=== PATIENT | female | born 1970 | race Caucasian/White ===

== ENCOUNTER 2017-12-19 10:30 | Outpatient (RCR) | payer OTHER, SELFPAY ==
--- NOTE | 2017-11-07 14:17 | HP.PTEVAL_ITS ---
Patient's Visit Information FAIZA DIAZ is a 47 year old F referred to Physical Therapy by Saulo TABOR with a diagnosis of Degeneration of L-spine. Date of Evaluation: 11/07/17 Physical Therapist: Jessica Jiang - Visit Plan Frequency: 2x /Week Duration: 6 Weeks Plan: 2X/ week for 6 weeks for centralization of symptoms using extension principle, core stability, postural exercise, possible trial of AT with modalities PRN - Subjective Subjective: Pt has been having hip pain recently. Pt has a HD in her back and has been that way since before 2005. She has put up with the pain and it is to the point she can not put up with it. She has pain all the time. It used to be sciatic pain down her leg and she could pop her back into place for it to calm it down but now it is so stiff she can not do it. She usually walks or jogs all the time but she has pain in her L foot....(it is not sciatic pain) and she has neuromas and cysts in her foot...had a nerve block...is allergic to steroids and they made her sick. She is supposed to be walking in a boot but it is making her back hurt worse. It feels like her foot is curshed. She claims that she can not walk on TM or run. [facility] said no MRI until after PT. L hip hurts to lay on it. Back hurts all the time and motrin does not help. Pt is not exercising right now. SHe has not been seen by a surgeon. bending without bending knees, and anything that causes a little bending or light lifting increases pain. - Pain Back pain Pain Intensity (Out of 10): 5 Pain Intensity Range: 9 L foot pain Pain Intensity (Out of 10): 7 Pain Intensity Range: 9, 10 - Objective Gait: walks with a normal gait pattern. Trunk AROM: Flexion 75% normal ROM, EXt 75% with hands on hips for support, SB B 100% B. LE MMT: hip flex B 4/5, knee ext B 4/5, B knee flex 4/5, B hip ext 4-/5, B hip abd 4/5. Able to walk on heels with no issue but can not walk on the toes on the L due to L foot issue being seen by foot Dr for. Prone lying... centr of back pain, Prone press up 2X 10 (center of back pain..no better and no worse), Prone pressup with pt sag 2X10(still center of back pain but pt felt a little better than when she came in and felt looser). Discussed sitting with good posture and avoiding all bending at the waist. Patellar DTR R 2+/3 and L 0/3. -SLR on the R and quwstionable for pain on the L. + SLUMP worse on the L than the R. - Goals Goal 1:: I HEP Goal Time Frame: 4-6 Weeks Goal 2:: Decrease back pain to 2/10 with modified ADL's Goal Time Frame: 4-6 Weeks Goal 3:: it with upright posture during treatment sessions Goal Time Frame: 4-6 Weeks - Rehabilitation Potential Rehabilitation Potential: Good - Anticipated Interventions Patient/Client Instruction: Educate patient on: Plan of Care For the Purpose of:: To decrease pain, To increase ROM, To improve nutrient delivery to tissue, To improve muscle performance and motor function, To improve ability to perform ADL's, To increase tolerance to activity/condition/ position, To improve performance and independence with ADL's, To improve health of tissue, To decrease soft tissue restriction, To increase flexibility/ROM Therapeutic Exercise to Include: Strength training, Body mechanics, Postural training, Flexibilty training, Active ROM, Dynamic Lumbar Stabilization, Blake Exercises For the Purpose of:: To decrease pain, To increase ROM, To improve nutrient delivery to tissue, To improve muscle performance and motor function, To improve ability to perform ADL's, To increase tolerance to activity/condition/ position, To improve performance and independence with ADL's, To improve health of tissue, To increase flexibility/ROM Manual Therapy Techniques to Include: Soft tissue mobilization For the Purpose of:: To decrease pain, To increase ROM, To improve nutrient delivery to tissue, To improve muscle performance and motor function IF ES: Yes Cryotherapy (ice pack, ice massage): Yes Ultrasound (thermal/non thermal): Yes For the Purpose of:: To decrease pain, To decrease swelling/inflammation, To increase ROM, To improve nutrient delivery to tissue Thank you for the opportunity to evaluate your patient. For Medicare and Medicare HMO plans, please review the plan of care and approve it. It will need to be FAXED BACK to us at [phone] for Medicare purposes. Please let me know if there are questions or concerns regarding this plan of care. Physician Signature: Date:
--- NOTE | 2017-12-19 11:28 | HP.PTDCSUM_ITS ---
HP - PT D/C Summary It has been my pleasure to treat FAIZA DIAZ under orders from DR.RLINDS David for the diagnosis of Degeneration of L-spine for a total of 11 visit (s). Discharge Date: 12/19/17 Please see the following information for a summary of their discharge status. - Subjective Subjective: Pt has a Dr appt next Monday. Back pain is there all the time but lifting and things make it worse. Pt took gabapetin last night and it helped her sleep. SHe has been waking up in the night with pain. - Pain Back pain Pain Intensity (Out of 10): 6 L foot pain Pain Intensity (Out of 10): 5 L Hip Pain Intensity (Out of 10): 1 - Overall Improvement % Improvement: 30 - Objective Objective/Function: see above - Goals Goal 1:: I HEP Goal Progress: Goal Met Goal 2:: Decrease back pain to 2/10 with modified ADL's Goal Progress: Not Progressing Goal 3:: it with upright posture during treatment sessions Goal Progress: Goal Met - Plan Plan: DC PT to physician reassessment - D/C Information Discharge Comments: DC PT to physician referral If there are questions or concerns regarding this patient's physical therapy, please feel free to call me at [phone]. Thank you for the referral of this patient. Sincerely, Jessica Jiang
== END 2017-12-19 19:00 | disposition home or self-care (01) ==
LOC: PT 10:30
PROVIDERS: Family Provider Preventive Medicine Occupational Medicine; PCP Preventive Medicine Occupational Medicine; Visit Provider Preventive Medicine Occupational Medicine
DX: M51.36 Other intervertebral disc degeneration, lumbar region (principal); M25.552 Pain in left hip
CPT/HCPCS: 97014; 97110; 97161; 97530; G0283

== ENCOUNTER → 2018-01-03 15:31 | Outpatient (CLI) | payer OTHER, SELFPAY ==
--- NOTE | 2018-01-03 15:51 | MRI_ITS ---
STUDY: MRI LUMBAR SPINE WITHOUT CONTRAST REASON FOR EXAM: Female, 47 years old. Low back pain radiating to the left foot TECHNIQUE: Standardized fat and water weighted pulse sequences were obtained in the sagittal and axial planes. COMPARISON: X-ray 10/10/2017, MRI 04/11/2006 FINDINGS: T12-L1: Normal endplates. Normal disc height, hydration and morphology. Normal bilateral facet joints. Normal central canal and bilateral lateral recesses. Normal bilateral intervertebral neural foramina. Normal lumbar lordosis. There is no substantial scoliosis. Normal conus medullaris that terminates at the L1 level. L1-2: Normal endplates. Normal disc height, hydration and morphology. Normal bilateral facet joints. Normal central canal and bilateral lateral recesses. Normal bilateral intervertebral neural foramina. L2-3: Normal endplates. Normal disc height, hydration and morphology. Normal bilateral facet joints. Normal central canal and bilateral lateral recesses. Normal bilateral intervertebral neural foramina. L3-4: There is disc desiccation, loss of disc space height and disc bulge with shallow left and right foraminal/extraforaminal disc protrusion adjacent to the exiting nerve roots (image 12, 13/ axial T2, T10, 7, / sagittal T2). Spinal stenosis is mild. L4-5: There is disc desiccation and disc bulge (image 8/28 axial T2, 6/ sagittal T2). There is facet arthrosis. There is a right extraforaminal annular tear adjacent to the right exiting L4 nerve root (image 10/13 sagittal T2, 8/20 axial T2). L5-S1: There is disc desiccation, slight loss of disc space height, endplate spondylosis and disc bulge (image 3/28 axial T2, / sagittal T2). Normal visualized sacral ala. Normal visualized paraspinous soft tissue structures. MRI/Spine Lumbar (Routine) IMPRESSION: Degenerative disc bulge with shallow left and right foraminal/extraforaminal disc protrusion, L3-L4, with mild spinal stenosis Degenerative disc bulge with right extraforaminal annular tear adjacent to the right exiting L4 nerve root Degenerative disc bulge, L5-S1 Electronically Signed: Gopi Anton MD at 21:36 EDT Tel , Service support ,
== END ==
PROVIDERS: Family Provider Preventive Medicine Occupational Medicine; PCP Preventive Medicine Occupational Medicine; Visit Provider Preventive Medicine Occupational Medicine
DX: M54.16 Radiculopathy, lumbar region (principal)
CPT/HCPCS: 72148

== ENCOUNTER → 2019-02-02 | Outpatient (CLI) | payer OTHER, SELFPAY ==
--- NOTE | 2019-02-02 10:35 | BI_ITS ---
MAMMOGRAPHY - BILATERAL SCREENING REASON FOR EXAM: Female, 48 years old. Routine annual screening examination. PERTINENT HISTORY: Non-contributory. TECHNIQUE: Digital bilateral breast kathi (3D mammographic acquisition) in the CC and MLO projections. 2-D mediolateral oblique (MLO) and craniocaudad (CC) views of both breasts were obtained. CAD: Full Field Digital Mammography with Computer Added Detection was performed. COMPARISON: Comparison is made with prior study dated January 19, 2017 and December 09, 2015. FINDINGS: Breast Composition: The breasts are extremely dense, which lowers the sensitivity of mammography. There are no dominant masses or suspicious calcifications. Stable appearance of the small bilateral axillary lymph nodes. No other significant abnormalities are identified. There has been no significant change since the prior study. BI/SCREENING MAMM (CAD), BILAT IMPRESSION: Stable bilateral screening mammogram. Yearly follow-up mammogram recommended. (A) ASSESSMENT CATEGORY: BIRADS Category 2: Benign. A letter regarding these results will be sent to the patient by the facility within 30 days. Approximately 10% of breast cancers are not detected by mammography. A normal mammogram should not delay biopsy of a clinically suspicious abnormality. [id number] Electronically Signed: Tong Field, at 8:58 EDT , Service support ,
== END | disposition home or self-care (01) ==
PROVIDERS: Family Provider Preventive Medicine Occupational Medicine; PCP Preventive Medicine Occupational Medicine; Referring Provider Preventive Medicine Occupational Medicine; Visit Provider Preventive Medicine Occupational Medicine
DX: Z12.31 Encounter for screening mammogram for malignant neoplasm of breast (principal)
CPT/HCPCS: 77063; 77067

== ENCOUNTER → 2021-06-04 | Outpatient (CLI) | payer OTHER, SELFPAY | END | disposition home or self-care (01) | LOC: LABSPEC 10:59 | PROVIDERS: PCP Preventive Medicine Occupational Medicine; Visit Provider Obstetrics & Gynecology | DX: Z11.3 Encounter for screening for infections with a predominantly sexual mode of transmission (principal); N77.1 Vaginitis, vulvitis and vulvovaginitis in diseases classified elsewhere ==

== ENCOUNTER → 2022-03-18 | Outpatient (CLI) | payer OTHER, SELFPAY ==
--- NOTE | 2022-03-18 15:39 | MRI_ITS ---
STUDY: MRI LEFT FOREFOOT WITHOUT CONTRAST REASON FOR EXAM: Female, 51 years old. BONE TUMOR, NEUROMA, STRESS FX 3/4 MT- LEFT foot TECHNIQUE: Standardized fat and water weighted pulse sequences were obtained in all 3 orthogonal planes. COMPARISON: Left foot radiograph March 02, 2022.. FINDINGS: Mild diffuse subcutaneous soft tissue edema in the first through third digits. No organized fluid collection or artifact. Moderate first metatarsophalangeal joint space loss, osteophyte formation, and subchondral cystic change with subcutaneous soft tissue edema throughout the distal half of the first metatarsal. Joint spacing within the remainder of the foot is grossly normal in appearance. No joint effusion. Normal osseous alignment. Third metatarsal proximal metaphyseal osteolytic lesion with marked hyperintense bubbly T2 appearance, mildly decreased iso to hypointense T1 signal with endosteal scalloping and cortical thinning best seen on axial T1 images without periostitis or extraosseous soft tissue extension. Otherwise normal bone marrow signal. MRI/Lower Ext/No Jt/w/o IMPRESSION: 1. Fourth digit masslike signal abnormality along the proximal metaphysis and proximal diaphysis with cortical thinning. Features are indeterminate. Differential includes osteomyelitis, inflammatory processes such as brown tumor, or neoplastic process including proteinaceous aneurysmal or unicameral bone cyst. Malignant neoplasm is less likely in the foot however is not excluded at patient age. IV contrast MRI is recommended. 2. Osteoarthritis of the first metatarsophalangeal joint with distal metatarsal reactive edema, possibly representing osteoarthritis or particulate disease such as gout. Electronically Signed: Chucho Rowley MD at 8:26 EDT ,
== END | disposition home or self-care (01) ==
LOC: MRI 15:31
PROVIDERS: PCP Preventive Medicine Occupational Medicine; Referring Provider Podiatrist; Visit Provider Podiatrist
DX: M84.375A Stress fracture, left foot, initial encounter for fracture (principal); M20.5X2 Other deformities of toe(s) (acquired), left foot; G57.62 Lesion of plantar nerve, left lower limb; M77.52 Other enthesopathy of left foot and ankle; M85.472 Solitary bone cyst, left ankle and foot
CPT/HCPCS: 73718

== ENCOUNTER → 2022-09-01 | Outpatient (CLI) | payer OTHER, SELFPAY ==
[2022-09-01 12:11] LABS: Erythrocyte Sedimentation Rate 6 mm/hr (0-30)
[2022-09-01 12:22] LABS: ALB/GLOB Ratio 1.1 RATIO (0.9-2.4); AST(SGOT) 19 U/L (15-37); Alanine Aminotransfer ALT/SGPT 30 U/L (13-56); Albumin, Serum 3.8 g/dL (3.2-5.0); Alkaline Phosphatase 105 U/L (45-117); Anion Gap 6 (5-15); BUN 14 mg/dL (7-18); BUN/Creat Ratio 20.1 RATIO (10-20); CRP < 2.90 mg/L (0.0-3.0); Calcium,Total 9.1 mg/dL (8.5-10.1); Chloride 109 mmol/L (98-107); Cholesterol 202 mg/dL (200); EST Glomerular Filtration Rate 95 mL/min (>60); Est Glom Filt Rate - Afr Amer 115 mL/min (>60); Globulin 3.6 g/dL (2.2-4.2); Glucose 90 mg/dL (74-106); High Density Lipoprotein 82 mg/dL; Potassium 4.3 mmol/L (3.5-5.1); Protein, Total 7.4 g/dL (6.4-8.2); Rheumatoid Factor < 10.0 IU/mL (<15); Sodium Level 141 mmol/L (136-145); Triglycerides 57 mg/dL; Very Low Density Lipoprotein 11 mg/dL (5-40)
[2022-09-02 16:08] LABS: Anti-Centromere B Ab <0.2 AI (0.0-0.9); Anti-Chromatin <0.2 AI (0.0-0.9); Anti-Jo <0.2 AI (0.0-0.9); Anti-Scleroderma-70 AB <0.2 AI (0.0-0.9); RNP Ab <0.2 AI (0.0-0.9); SJOGREN'S Anti-SS-A test < 0.2 AI (0.0-0.9); SJOGREN'S Anti-SS-B test < 0.2 AI (0.0-0.9); Smith Ab <0.2 AI (0.0-0.9)
[2022-09-02 20:52] LABS: Anti-dsDNA Ab 1 IU/mL (0-9)
[2022-09-04 15:28] LABS: CCP IgG Antibodies 0 units (0-19)
== END | disposition home or self-care (01) ==
LOC: BIMLAB 08:20
PROVIDERS: PCP Internal Medicine; Referring Provider Internal Medicine; Visit Provider Internal Medicine
DX: M25.9 Joint disorder, unspecified (principal); F32.A Depression, unspecified; E78.00 Pure hypercholesterolemia, unspecified
CPT/HCPCS: 36415; 80053; 80061; 85652; 86140; 86200; 86225; 86235; 86431

== ENCOUNTER 2022-10-31 08:45 | Day surgery (SDC) | payer OTHER, SELFPAY ==
--- NOTE | 2022-10-31 08:52 | HP.PCM_ITS ---
HPI - General General Date of Admission: 10/31/22 Date of Service: 10/31/22 Chief Complaint: Screening colonoscopy HPI Narrative FAIZA DIAZ, is a 52 F who presents for screening colonoscopy. She has not had a colonoscopy in the past. She does have family history of colon polyps but no family history colon cancer. She denies any change in bowel habits. She denies abdominal pain. She denies any chest pain or shortness of breath. She denies any bleeding per rectum. She denies any nausea vomiting or diarrhea. 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 Post-menopausal Wears glasses Home Medications budesonide 32 mcg/actuation nasal spray (Rhinocort Allergy) 5 ml NS DAILY PRN PRN Nasal Congestion 01/20/16 [History Last Taken Unknown] calcium citrate 200 mg calcium-vitamin D3 6.25 mcg (250 unit) tablet 1 ea PO DAILY 01/20/16 [History Last Taken Unknown] ascorbic acid (vitamin C) 500 mg capsule 500 mg PO DAILY 06/08/22 [History Last Taken Unknown] multivitamin 1 tab PO DAILY 06/08/22 [History Last Taken Unknown] multivitamin with minerals (Hair,Skin and Nails tablet) 1 tab PO DAILY 06/08/22 [History Last Taken Unknown] omega-3 fatty acids-fish oil 300 mg-500 mg capsule (Fish Oil) 1 cap PO DAILY 06/08/22 [History Last Taken Unknown] diclofenac sodium 50 mg tablet,delayed release 50 mg PO BID #60 tabs 08/31/22 [Rx Last Taken Unknown] duloxetine 30 mg capsule,delayed release (Cymbalta) 30 mg PO DAILY #30 caps 10/03/22 [Rx Last Taken Unknown] gabapentin 600 mg tablet 600 mg PO QHS #30 tabs 10/19/22 [Rx Last Taken Unknown] Allergy/AdvReac Type Severity Reaction Status Date / Time pineapple Allergy Unknown tongue Verified 10/28/22 13:07 swells ciprofloxacin [From Cipro] AdvReac Nausea/Vom/ Verified 10/28/22 13:07 Diarrhea ciprofloxacin HCl AdvReac Nausea/Vom/ Verified 10/28/22 13:07 [From Cipro] Diarrhea prednisone AdvReac Nausea/Vom/ Verified 10/28/22 13:07 Diarrhea Family History Grandmother Heart disease Myocardial infarction Breast cancer Grandfather Parkinson disease Colon polyps Surgical History H/O dilation and curettage Hx of hysterectomy Social History household members: none current occupational status: employed current occupation: [employer] Smoking Status: Never smoker Electronic Cigarette Use: not used alcohol intake: current alcohol intake frequency: holidays/special occasions only substance use type: does not use what type of physical activity do you participate in: bicycling, weight training and other details: cardio machines frequency: 5-6 times per week do you feel safe at home: Yes ROS Review of Systems ROS Unobtainable: other Constitutional Constitutional: Denies fatigue, fever(s), poor appetite, weight gain or weight loss ENT HEENT: Denies mouth lesions Cardiovascular Cardiovascular: Denies abdominal bloating, abdominal edema or abdominal pain Respiratory/Chest Respiratory/Chest: Denies change in mental status, change in phlegm color, chest congestion or chest tightness Gastrointestinal Gastrointestinal: Denies belching, bloating, change in bowel habits, change in stool character, chewing difficulty, coffee ground emesis, constipation, cramping, diarrhea, dyspepsia, dysphagia, early satiety, excessive flatus, fecal incontinence, heartburn, hematemesis, hematochezia, hemorrhoids, loose stools, melena, nausea, odynophagia, rectal bleeding, tenesmus, vomiting or weight changes Genitourinary Genitourinary: Denies abdominal discomfort, burning urination or itching Musculoskeletal Musculoskeletal: Reports as per HPI; Denies muscle weakness or myalgias Integumentary Integumentary: Denies jaundice Neurologic Neurologic: Denies lack of coordination or weakness Psychiatric Psychiatric: Denies confusion, depression, memory loss, mood swings, paranoia or suicidal ideation Endocrine Endocrinology: Denies systems reviewed and no addt'l complaints, except as documented Hematologic/Lymphatic Hematologic/Lymphatic: Denies anemia, easy bleeding, easy bruising or lymphadenopathy Allergic/Immunologic Allergic/Immunologic: Denies systems reviewed and no addt'l complaints, except as documented Physical Exam Const alert, oriented x3, no apparent distress, healthy appearing and well nourished General Appearance: cooperative, comfortable, well kempt and well developed Orientation / Consciousness: awake and oriented to person HEENT Head and Scalp: normocephalic and atraumatic Face and Sinus: normal facial exam Mouth: oral and palatal mucosa normal Eyes General Eye: normal appearance of both eyes Neck full ROM Lymph Lymphatic: no lymphadenopathy noted Chest inspection of chest normal Resp normal respiratory effort and no use of accessory muscles Cardio regular rate and regular rhythm GI normal to inspection, nondistended, normoactive bowel sounds, soft to palpation, non-tender, non-distended and no masses Auscultation: normoactive bowel sounds Palpation: soft Percussion: normal to percussion Rectal Exam: visual inspection normal and normal sphincter tone no CVA tenderness Back/Spine no CVA tenderness and normal ROM Extremity normal to inspection Peripheral Pulses: Yes pulses 2+ throughout Skin no rashes or lesions noted General Skin Exam: no breakdown, elasticity normal and turgor normal Neuro oriented x3 Motor Exam: strength 5/5 throughout Psych mental status grossly normal Appearance: grossly normal Attitude: calm Activity / Motor Behavior: appropriate eye contact Speech: normal speech Thought Process: normal thought process Thought Content: normal thought content Attention / Concentration: attention grossly intact Memory / Cognition: memory grossly intact Insight: insight good Judgement: judgement good Assessment & Plan Assessment/Plan (1) Encounter for screening for malignant neoplasm of colon: PLAN: She will undergo a screening colonoscopy. She was explained alternatives, risk, benefits including not withstanding bleeding, infection, sepsis, perforation, need for emergent surgery . She will have an ASA of 1.
[2022-10-31 09:15] VITALS: BP 125/80; PULSE 53; RESP 18; TEMP 36.7; O2SAT 100; BMI 23.4
--- NOTE | 2022-10-31 10:00 | COLBX_PTH ---
PATIENT: FAIZA DIAZ LOC: EN U#:[id number] AGE/SX: 52/F ROOM: RE10/31/[address]: Dr. Pj Ball DO : 1970 BED: DIS: 10/31/2022 SPEC #: [id number] RECD: 10/31/22 10:50 STATUS: MARISSA REWilliam #: [id number] NEREYDA: 10/31/22 10:[address]: Pj Ball DEPT: SURGICAL PATHOLOGY RECD BY: Lauryn Lam ENTERED: 10/31/22 12:16 SP TYPE: COLON BX OTHR DR: Dr. Mariana Mohan MD Tissues: Ascending colon Procedures: Surgery Specimen Level IV HEADER OPERATION: Colonoscopy ? open access (MAC) and polypectomy PRE-OP DIAGNOSIS: Screening TISSUE SUBMITTED: Polyp at ascending colon MICROSCOPIC DIAGNOSIS Colonic polyp at ascending colon, biopsy: Tubular adenoma. AM:philomena 11/01/2022 MICROSCOPIC DESCRIPTION Slides are reviewed. GROSS DESCRIPTION Received in fixative is one container labeled with the patient's name and designated polyp at ascending colon. The specimen consists of one irregular fragment of light laureano soft tissue that measures 0.5 x 0.4 x 0.1 cm. The specimen is totally submitted in one cassette. / SJ:philomena 10/31/2022 TC:5 CPT: 78110
[2022-10-31 10:36] VITALS: BP 125/80; PULSE 74; RESP 16; TEMP 36.4; O2SAT 99
--- NOTE | 2022-10-31 10:39 | OP.CCLET_ITS ---
10/31/2022 Mariana Mohan Md Re : Colonoscopy procedure for Laura Tripp Dear Kimberlee This procedure was performed on Monday, October 31, 2022. My impressions and recommendations are as follows: Impressions : - One 5 mm polyp in the ascending colon, removed with a jumbo cold forceps. Resected and retrieved. Recommendations : - Discharge patient to home. - Resume previous diet. - Continue present medications. - Await pathology results. - Repeat colonoscopy in 5 years for surveillance. My findings are described in the full procedure note, which is enclosed. If I can be of further assistance, please feel free to contact me at . Sincerely, Pj Ball, 10/31/2022 10:38:50 AM This report has been signed electronically.
--- NOTE | 2022-10-31 10:39 | OP.COLON_ITS ---
Patient Name: Laura Tripp Procedure Date: 10/31/2022 10:02 AM Date of : 1970 Age: 52 Procedure: Colonoscopy Indications: Screening for colorectal malignant neoplasm Providers: Pj Ball DO Referring MD: Pj Ball DO Medicines: Monitored Anesthesia Care Patient Profile: This is a 52 year old female. Refer to note in patient chart for documentation of history and physical. Last Colonoscopy: none. The patient's first colonoscopy is today. Complications: No immediate complications. Procedure: Pre-Anesthesia Assessment: - Prior to the procedure, a History and Physical was performed, and patient medications and allergies were reviewed. The risks and benefits of the procedure and the sedation options and risks were discussed with the patient. All questions were answered and informed consent was obtained. Patient identification and proposed procedure were verified by the physician. Mental Status Examination: normal. Prophylactic Antibiotics: The patient does not require prophylactic antibiotics. Prior Anticoagulants: The patient has taken no previous anticoagulant or antiplatelet agents. ASA Grade Assessment: II - A patient with mild systemic disease. After reviewing the risks and benefits, the patient was deemed in satisfactory condition to undergo the procedure. The anesthesia plan was to use monitored anesthesia care (MAC). Immediately prior to administration of medications, the patient was re-assessed for adequacy to receive sedatives. The heart rate, respiratory rate, oxygen saturations, blood pressure, adequacy of pulmonary ventilation, and response to care were monitored throughout the procedure. The physical status of the patient was re-assessed after the procedure. After I obtained informed consent, the scope was passed under direct vision. Throughout the procedure, the patient's blood pressure, pulse, and oxygen saturations were monitored continuously. The Colonoscope was introduced through the anus and advanced to the cecum, identified by appendiceal orifice and ileocecal valve. The colonoscopy was performed without difficulty. The patient tolerated the procedure well. The quality of the bowel preparation was good. Scope In: 10:14:52 AM Scope Withdrawal Time 0 hours 8 minutes 43 seconds Scope Out: 10:29:22 AM Total Procedure Duration Time 0 hours 14 minutes 30 seconds Findings: The perianal and digital rectal examinations were normal. A 5 mm polyp was found in the ascending colon. The polyp was sessile. The polyp was removed with a jumbo cold forceps. Resection and retrieval were complete. Verification of patient identification for the specimen was done. Estimated blood loss was minimal. No other significant abnormalities were identified in a careful examination of the remainder of the colon. The retroflexed view of the distal rectum and anal verge was normal and showed no anal or rectal abnormalities. Impression: - One 5 mm polyp in the ascending colon, removed with a jumbo cold forceps. Resected and retrieved. Recommendation: - Discharge patient to home. - Resume previous diet. - Continue present medications. - Await pathology results. - Repeat colonoscopy in 5 years for surveillance. Procedure Code(s): --- Professional --- 08374, Colonoscopy, flexible; with biopsy, single or multiple CPT copyright 2017 [employer]. All rights reserved. The codes documented in this report are preliminary and upon micromatic hone operator review may be revised to meet current compliance requirements. Pj Ball DO 10/31/2022 10:38:50 AM This report has been signed electronically. Number of Addenda: 0 Note Initiated On: 10/31/2022 10:02 AM
[2022-10-31 10:40] VITALS: BP 125/80; BP 95/48; PULSE 65; RESP 16; O2SAT 99
[2022-10-31 10:45] VITALS: BP 125/80; BP 93/48; PULSE 62; RESP 16; O2SAT 98
[2022-10-31 10:50] VITALS: BP 125/80; BP 96/48; PULSE 57; RESP 16; TEMP 36.6; O2SAT 97
[2022-10-31 11:21] VITALS: BP 117/56; BP 125/80
== END 2022-10-31 11:29 | disposition home or self-care (01) ==
LOC: EN 08:48 → AC 08:49
PROVIDERS: PCP Internal Medicine; Referring Provider Internal Medicine; Visit Provider Internal Medicine Gastroenterology
PROC: 0DJD8ZZ Inspection of Lower Intestinal Tract, Via Natural or Artificial Opening Endoscopic (ICD-10-PCS; CPT 45378; principal; 2022-10-31 09:55)
DX: Z12.11 Encounter for screening for malignant neoplasm of colon (principal); Z86.16 Personal history of COVID-19; D12.2 Benign neoplasm of ascending colon
CPT/HCPCS: 45380; 88305; J7120

== ENCOUNTER → 2022-11-11 | Outpatient (CLI) | payer OTHER, SELFPAY ==
--- NOTE | 2022-11-11 12:29 | MRI_ITS ---
STUDY: MRI LEFT FOREFOOT WITH AND WITHOUT CONTRAST REASON FOR EXAM: Female, 52 years old. Pain. Known prior cystic lesion of the base of the third metatarsal. TECHNIQUE: Standardized fat and water weighted pulse sequences were obtained in all 3 orthogonal planes before and after the intravenous administration of 13ml Dotarem contrast. COMPARISON: Prior MRI of the foot dated March 18, 2022 and x-ray of the left foot dated March 02, 2022 FINDINGS: Diffuse osteoarthritic changes of the MTP and IP joints, most marked at the first MTP joint with reactive subchondral bone marrow edema and osteophyte formation. Osteoarthrosis of the second through fifth MTP and IP joints with small joint effusions. Lobulated cystic lesion within the lateral intramedullary space of the third metatarsal with no aggressive features, unchanged from the comparison MRI study of February 2022. This lesion is most compatible with a multilobulated cyst. No soft tissue mass is identified. No contrast enhancement is present. MRI/Lower Ext No Joint W/WO Cont IMPRESSION: Stable moderate arthrosis of the MTP and IP joints, most marked at the first MTP joint as described. Cystic septated lesion in the proximal and lateral third metatarsal base unchanged from prior study. No aggressive features, no contrast enhancement and no soft tissue mass. Lesion is stable since the comparison study of February 2022. No other abnormality present. Electronically Signed: Dallas Samayoa, at 15:54 EST ,
== END | disposition home or self-care (01) ==
LOC: MRI 12:29
PROVIDERS: PCP Internal Medicine; Referring Provider Orthopaedic Surgery Sports Medicine; Visit Provider Orthopaedic Surgery Sports Medicine
DX: M85.679 Other cyst of bone, unspecified ankle and foot (principal); G57.62 Lesion of plantar nerve, left lower limb; M19.072 Primary osteoarthritis, left ankle and foot
CPT/HCPCS: 73720; A9575

== ENCOUNTER → 2023-01-27 | Outpatient (CLI) | payer OTHER, SELFPAY ==
[2023-01-27 15:41] LABS: Estradiol 20.4 pg/mL; Follicle Stimulating Hormone 161.6 mIU/mL; Luteinizing Hormone 52.3 mIU/mL
== END | disposition home or self-care (01) ==
LOC: WOBLAB 15:01
PROVIDERS: PCP Internal Medicine; Visit Provider Nurse Practitioner Women's Health
DX: N95.2 Postmenopausal atrophic vaginitis (principal)
CPT/HCPCS: 36415; 82670; 83001; 83002

== ENCOUNTER → 2023-03-10 | Outpatient (CLI) | payer OTHER, SELFPAY ==
--- NOTE | 2023-03-10 16:43 | MRI_ITS ---
STUDY: MRI LUMBAR SPINE WITHOUT CONTRAST REASON FOR EXAM: Female, 52 years old. Lumbar spine pain TECHNIQUE: Standardized fat and water weighted pulse sequences were obtained in the sagittal and axial planes. Noncontrast images obtained. Contrast: No contrast administered COMPARISON: : No relevant prior comparison study available FINDINGS: Vertebral bodies and alignment. 1. Vertebral body height is maintained. There is a grade 1 anterolisthesis of L4 and L5 estimated at approximately 5 mm. Mild type I Modic changes present in the posterior aspect of the L4-5 disc space. Moderate facet arthropathy at this level.. 2. Paraspinous soft tissue planes have normal appearance. Normal appearance of the muscular fascial planes of the erector spinae. 3. Normal appearance of the sacrum and sacroiliac joints. Intervertebral disks levels. T12-L1: Normal endplates. Normal disc height, hydration and morphology. Normal bilateral facet joints. Normal central canal and bilateral lateral recesses. Normal bilateral intervertebral neural foramina. L1-2: Normal endplates. Normal disc height, hydration and morphology. Normal bilateral facet joints. Normal central canal and bilateral lateral recesses. Normal bilateral intervertebral neural foramina. L2-3: Minimal broad-based disc bulge, there is a LEFT lateral component with mild displacement of the emerging LEFT L2 nerve root lateral to the neural foramen however no annetta nerve root compression. No canal stenosis. L3-4: Disc desiccation, broad-based concentric disc bulge/protrusion with deformity of the anterior epidural space. There is maintenance of the central thecal sac at 10 mm. Facet and ligamentum flavum hypertrophic changes are present with crowding of nerve roots in the lateral recesses. There is a small extruded disc projecting inferiorly in the region of the RIGHT lateral recess with displacement of the emerging nerve roots without annetta nerve root impingement. L4-5: Degenerative anterolisthesis, facet arthropathy is noted. There is unroofed disc material and broad-based disc protrusion with deformity of the anterior epidural space at, central thecal sac is narrowed to approximately 7 mm. There is compression of nerve roots lateral recesses greater on the RIGHT than LEFT. There is narrowing of neural foramina with potential nerve root impingement involving the RIGHT L4 nerve root in the RIGHT neural foramen. L5-S1: Disc desiccation, broad-based chronic appearing protrusion osteophyte complex with deformity the anterior epidural space. No central canal stenosis however crowding of nerve roots lateral recesses greater on the LEFT than RIGHT. Mild facet arthropathy noted. There is a lateral and foraminal component of the disc bulge and osteophyte on the LEFT which contacts displaces the emerging LEFT L5 nerve root within and lateral to the neural foramen with potential of early impingement. Spinal cord: Normal appearance of the spinal cord and conus. Conus is located at L1. Cauda equina has normal appearance. No evidence of cord compression or edema. No intramedullary signal abnormality noted. MRI/Spine Lumbar (Routine) IMPRESSION: 1. Degenerative grade 1 anterolisthesis of L4 on L5 contributed by extensive facet arthropathy. There is moderate canal stenosis at this level, and combination of osteophyte and broad-based disc protrusion contributes to lateral recess and foraminal compromise with expected nerve root impingement as described in detail above. 2. Broad-based disc protrusion at L3-4 with crowding of nerve roots lateral recesses without annetta nerve root impingement. 3. LEFT lateral disc bulge at L2-3 contacting the emerging LEFT L2 nerve root lateral to the neural foramen without annetta impingement. No canal stenosis. 4. Chronic disc changes at L5-S1, broad-based disc protrusion osteophyte complex present without canal stenosis however there is a LEFT posterior lateral component of the disc bulge and osteophyte contacting and displacing the emerging LEFT L5 nerve root within the LEFT neural foramen and lateral to the neural foramen. Early LEFT L5 nerve root impingement is a consideration at this level. 5. Normal appearance the spinal cord and conus. Electronically Signed: Terrence Pal MD at 10:13 EDT ,
== END | disposition home or self-care (01) ==
LOC: MRI 16:37
PROVIDERS: PCP Internal Medicine; Referring Provider Orthopaedic Surgery; Visit Provider Orthopaedic Surgery
DX: M51.37 Other intervertebral disc degeneration, lumbosacral region (principal); M43.10 Spondylolisthesis, site unspecified
CPT/HCPCS: 72148

== ENCOUNTER → 2023-04-26 | Outpatient (CLI) | payer OTHER, SELFPAY ==
[2023-04-26 12:27] LABS: Absolute Lymphocyte Count 1.64 X10^3/uL (0.83-4.51); Absolute Neutrophil Count 1.4 X10^3/uL (2.0-7.7); Basophil# 0.07 X10^3/uL; Basophil% 1.8 % (0-1); Eosinophil# 0.41 X10^3/uL; Eosinophils% 10.3 % (0-5); Hematocrit 40.2 % (37-47); Hemoglobin 13.5 g/dL (12.0-15.0); Lymphocyte # 1.64 X10^3/ul (0.83-4.51); Lymphocyte % 41.1 % (19-41); Mean Corp Hgb Conc 33.6 g/dL (32-36); Mean Corpuscular Hgb 31.4 pg (27.0-32.0); Mean Corpuscular Volume 93.5 fL (81-99); Mean Platelet Vol. 9.7 fl (6.2-12.0); Monocyte% 12.5 % (0-10); NRBC Flagged by Analyzer 0 % (0-5); Neutrophil # 1.36 X10^3/uL (2.7-7.7); Platelet Count 230 K/mm3 (150-450); RBC Distribution Width CV 13.2 % (11.6-14.6); RBC Distribution Width SD 45.5 fl (35.1-43.9)
[2023-04-26 12:47] LABS: Vitamin B12 1034 pg/mL (211-911); Vitamin D,25 Hydroxy 61.9 ng/mL
[2023-04-26 12:58] LABS: AST(SGOT) 19 U/L (15-37); Alanine Aminotransfer ALT/SGPT 28 U/L (13-56); Albumin, Serum 3.6 g/dL (3.2-5.0); Alkaline Phosphatase 104 U/L (45-117); Anion Gap 4 (5-15); BUN 18 mg/dL (7-18); BUN/Creat Ratio 24.5 RATIO (10-20); Calcium,Total 8.5 mg/dL (8.5-10.1); Chloride 107 mmol/L (98-107); Cholesterol 206 mg/dL (200); Creatinine, Serum 0.73 mg/dL (0.55-1.02); EST Glomerular Filtration Rate 89 mL/min (>60); Est Glom Filt Rate - Afr Amer 108 mL/min (>60); Globulin 3.7 g/dL (2.2-4.2); Glucose 85 mg/dL (74-106); High Density Lipoprotein 78 mg/dL; Potassium 4.3 mmol/L (3.5-5.1); Protein, Total 7.3 g/dL (6.4-8.2); Sodium Level 139 mmol/L (136-145); Thyroid Stim Hormone (TSH) 3.21 uIU/mL (0.358-3.74); Triglycerides 88 mg/dL; Very Low Density Lipoprotein 18 mg/dL (5-40)
[2023-04-27 11:08] LABS: Lyme Scn Total Ab w/Rflx Negative (Negative)
== END | disposition home or self-care (01) ==
LOC: BIMLAB 08:23
PROVIDERS: PCP Internal Medicine; Referring Provider Nurse Practitioner Women's Health; Visit Provider Nurse Practitioner Women's Health
DX: N95.1 Menopausal and female climacteric states (principal); R53.83 Other fatigue; M25.9 Joint disorder, unspecified; R00.1 Bradycardia, unspecified; F32.A Depression, unspecified; E78.00 Pure hypercholesterolemia, unspecified
CPT/HCPCS: 36415; 80053; 80061; 82306; 82607; 84443; 85025; 86618

== ENCOUNTER 2023-05-08 10:11 | Day surgery (SDC) | payer OTHER, SELFPAY ==
[2023-05-08] VITALS (7 sets, daily range): BP systolic 99–129; BP diastolic 55–77; PULSE 47–63; RESP 16–18; TEMP 36.2–36.8; O2SAT 92–100; BMI 25.0
--- NOTE | 2023-05-08 10:45 | RAD_ITS ---
EXAMINATION: Fluoroscopic guided caudal block. INDICATION: PAIN Total Fluoroscopic Time: 7.4 seconds AND number of Fluoroscopic Images: 1 OR Radiation dosage index: 8.26 mGy COMPARISON: Sacrum/coccyx x-ray from 02/06/2023. FINDINGS: Limited intraoperative fluoroscopic images from caudal block submitted for review. There is intraoperative placement of a needle at the level of the coccyx. RAD/Fluor Guidance for Spine Inj IMPRESSION: Fluoroscopic guided caudal block procedure. Please see intraoperative report for further details. Electronically Signed: Az New DO at 13:12 EDT ,
[2023-05-08] MEDS: Lactated Ringers 1,000 ML 15 ML IV (10:52)
[2023-05-08] MEDS: 0.9% Normal Saline (Pres. free 10 ML Vial (11:39)
[2023-05-08] MEDS: MethylPREDNISolone Acetate 80 MG/ML Vial (11:48)
[2023-05-08] MEDS: Lidocaine 1% (5 ml sdv) 5 ML Vial (11:49)
--- NOTE | 2023-05-08 11:50 | OP.PCM_ITS ---
Report of Operation Date of Procedure: 05/08/23 Pre-Operative Diagnosis: Lumbosacral radiculopathy, lumbosacral degenerative di sc disease, lumbosacral spinal stenosis Post-Operative Diagnosis: Lumbosacral radiculopathy, lumbosacral degenerative disc disease, lumbosacral spinal stenosis Surgery/Procedure Performed:: Diagnostic/therapeutic caudal epidural steroid injection under fluoroscopic guidance Type of Anesthesia: MAC Estimated Blood Loss (mL): Minimal Description of Procedure: DESCRIPTION OF PROCEDURE: History and physical of today was reviewed. Risks and benefits of the procedure were explained. The patient understood and agreed to proceed. Informed consent was obtained. IV inserted per routine protocol. The patient was taken to the operating room and placed in the prone position with a pillow positioned underneath the abdomen. The lower back and tailbone area was prepped and draped in a sterile fashion using iodine x3. Under fluoroscopy guidance on a lateral view, the caudal space was identified. The skin and subcutaneous tissue was anesthetized with approximately 3 mL of 1% lidocaine using a 25-gauge regular needle. Under direct visualization with fluoroscopy, using a 22-gauge 3-1/2-inch spinal needle, the needle was advanced via the skin through the sacral hiatus. The tip of the needle was passed through the sacrococcygeal ligament and advanced to approximately S4 area. After negative aspiration of blood or CSF, a total of 3 mL of contrast was injected to confirm correct placement of the needle as well as cephalad spread. The spread was followed to approximately L5 area. After confirmation on AP as well as lateral view and repeated negative aspiration, a total of 15 mL of preservative-free 0.125% Marcaine with 80 mg of Depo-Medrol was injected easily. The needle was then removed intact. The patient experienced no sign or symptoms of intrathecal or intravascular injection. The patient experienced no paresthesia. The procedure was completed without any apparent difficulty or any complications. The patient appeared to tolerate it well. ASSESSMENT AND PLAN: This is a 52-year-old female with lumbosacral radiculopathy, lumbosacral degenerative disc disease, lumbosacral spinal stenosis status post diagnostic/therapeutic caudal epidural steroid injection, patient will continue her current medications, patient will follow in approximately 2 weeks for reevaluation. Complications None
== END 2023-05-08 12:37 | disposition home or self-care (01) ==
LOC: SDC 10:12 → AC 10:25
PROVIDERS: PCP Internal Medicine; Referring Provider Anesthesiology Pain Medicine; Visit Provider Anesthesiology Pain Medicine
PROC: 3E0S3BZ Introduction of Anesthetic Agent into Epidural Space, Percutaneous Approach (ICD-10-PCS; CPT 62282; principal; 2023-05-08 11:40)
DX: M48.07 Spinal stenosis, lumbosacral region (principal); M51.17 Intervertebral disc disorders with radiculopathy, lumbosacral region
CPT/HCPCS: 62323; 64483; 77003; J7120; J3490

== ENCOUNTER → 2023-06-16 | Outpatient (CLI) | payer OTHER, SELFPAY ==
--- NOTE | 2023-06-16 12:21 | BI_ITS ---
MAMMOGRAPHY - BILATERAL SCREENING REASON FOR EXAM: Female, 52 years old. Routine annual screening examination. PERTINENT HISTORY: Non-contributory. TECHNIQUE: Digital bilateral breast ashley (3D mammographic acquisition) in the CC and MLO projections. 2-D mediolateral oblique (MLO) and craniocaudad (CC) views of both breasts were obtained. CAD: Full Field Digital Mammography with Computer Added Detection was performed. COMPARISON: Comparison is made with prior outside study of February 02, 2019 and January 19, 2017. FINDINGS: Breast Composition: The breasts are extremely dense, which lowers the sensitivity of mammography. There are no dominant masses or suspicious calcifications. Stable small benign-appearing bilateral axillary lymph nodes. No other significant abnormalities are identified. There has been no significant change since the prior study. BI/SCRN MAMM (CAD)W/ASHLEY BILAT IMPRESSION: Stable bilateral screening mammogram. Yearly follow-up mammogram recommended. (A) ASSESSMENT CATEGORY: BIRADS Category 2: Benign. A letter regarding these results will be sent to the patient by the facility within 30 days. Approximately 10% of breast cancers are not detected by mammography. A normal mammogram should not delay biopsy of a clinically suspicious abnormality. [id number] Electronically Signed: Tong Field MD at 9:52 EDT ,
== END | disposition home or self-care (01) ==
LOC: OPBI 12:21
PROVIDERS: PCP Internal Medicine; Referring Provider Internal Medicine; Visit Provider Internal Medicine
DX: Z12.31 Encounter for screening mammogram for malignant neoplasm of breast (principal)
CPT/HCPCS: 77063; 77067

== ENCOUNTER 2023-06-19 06:32 | Day surgery (SDC) | payer OTHER, SELFPAY ==
[2023-06-19] VITALS (7 sets, daily range): BP systolic 119–133; BP diastolic 73–86; PULSE 51–62; RESP 14; TEMP 36.4–37.1; O2SAT 92–100; BMI 24.9
[2023-06-19] MEDS: Lactated Ringers 1,000 ML 15 ML IV (07:27)
--- NOTE | 2023-06-19 07:58 | RAD_ITS ---
STUDY: RADIOFREQUENCY ABLATION OF THE LEFT L4-S1 LEVEL. REASON FOR EXAM: Female, 52 years old. RADIO FREQ ABLATION L4-S1,LEFT FLUOROSCOPY TIME (if supplied): ( 20.1 seconds ) minutes/seconds. 4.13 mGy. 10 images were submitted. TECHNIQUE: Intraoperative imaging provided for left L4-S1 radiofrequency ablation. COMPARISON: None. RAD/Lumbar Spine 2 or 3 Views IMPRESSION: Intraoperative imaging provided for left L4-S1 radiofrequency ablation. Electronically Signed: Tong Field MD at 9:58 EDT ,
[2023-06-19] MEDS: Lidocaine 1% (30 ml sdv) 30 ML Vial (08:15)
[2023-06-19] MEDS: MethylPREDNISolone Acetate 40 MG/ML Vial IM (08:15)
--- NOTE | 2023-06-19 08:28 | PCM.OPRPT ---
Report of Operation Date of Procedure: 06/19/23 Pre-Operative Diagnosis: Lumbosacral spondylosis, lumbosacral degenerative disc disease, lumbar facet arthropathy Post-Operative Diagnosis: Lumbosacral spondylosis, lumbosacral degenerative disc disease, lumbar facet arthropathy Surgery/Procedure Performed:: Left-sided lumbar radiofrequency ablation of the medial branch L4, L5, S1 Type of Anesthesia: MAC Estimated Blood Loss (mL): Minimal Description of Procedure: History and physical today was reviewed. Risks and benefits of procedure explained. The patient understood, agreed to the procedure and informed consent was obtained. IV inserted per routine protocol. The patient was taken to the operating room, placed in the prone position with a pillow positioned underneath the abdomen. The left side of the lower back was prepped and draped in a sterile fashion using iodine x 3. Under fluoroscopy guidance, on an oblique view, the L3 through S1 vertebral bodies were visualized. The skin and subcutaneous tissue was anesthetized with approximately 10 mL of 1% lidocaine using a 25-gauge regular needle. Under direct visualization with fluoroscopy at approximately 25-degree angle, starting on the left L3, ending on the left S1 passing through the L4-L5 using a 20-gauge 15 cm with a 10 mm curved active tip radiofrequency ablation needle the needle passed through the skin. The tip of the needle was maneuvered and directed towards the superior and medial gutter of the transverse process at the vicinity of the medial branch. Once the tip of the needle was in contact with the bone, the needle pulled approximately 2 mm up the bone. The stylet of each needle was then removed. After negative aspiration of blood with CSF and confirmation of AP as well as oblique view, radiofrequency ablation probe was then inserted at each level. Impedance was then recorded at L3 to be 305, at L4 272, at L5 287, at S1 352 ohm. Motor-evoked potential was then initiated to 1.5 volt without any motor response at each corresponding level. The probe was then removed intact and a total of 6 mL preservative-free 1% lidocaine was injected in divided doses between those 4 levels after negative aspiration of blood with CSF. The radiofrequency ablation probe was then reinserted after confirmation of AP, oblique as well as lateral view. Radiofrequency ablation was then initiated to 80 degrees Celsius for 90 seconds at each level. Once concluded, the probe was then removed intact and a total of 6 mL of preservative-free 0.25% Marcaine with 40 mg Depo-Medrol was injected in divided doses between those 4 levels. The needles were then removed intact. The patient experienced no signs or symptoms of intrathecal, intravascular injection. The patient experienced no paraesthesia. The procedure was completed without any apparent difficulty, any complication. The patient appeared to tolerate well. Sensory as well as motor exam was unchanged from prior to procedure. ASSESSMENT AND PLAN: This is a 52-year-old female with lumbosacral spondylosis, lumbosacral degenerative disc disease, lumbar facet arthropathy, status post left-sided lumbar radiofrequency ablation of the medial branch L4 through S1. The patient will continue her current medications. The patient will follow up in approximately 2 weeks for reevaluation. Complications None
== END 2023-06-19 09:27 | disposition home or self-care (01) ==
LOC: SDC 06:34 → AC 06:35
PROVIDERS: PCP Family Medicine; Referring Provider Anesthesiology Pain Medicine; Visit Provider Anesthesiology Pain Medicine
PROC: (CPT 64635; principal; 2023-06-19 07:55)
DX: M47.816 Spondylosis without myelopathy or radiculopathy, lumbar region (principal); M47.817 Spondylosis without myelopathy or radiculopathy, lumbosacral region; M51.37 Other intervertebral disc degeneration, lumbosacral region
CPT/HCPCS: 64635; 64636; 72100; 76000; J7120

== ENCOUNTER 2024-01-22 08:15 | Day surgery (SDC) | payer OTHER, SELFPAY ==
[2024-01-22 08:30] VITALS: BP 136/89; PULSE 59; RESP 14; TEMP 36.9; O2SAT 100; BMI 24.7
[2024-01-22] MEDS: Lactated Ringers 1,000 ML 15 ML IV (08:42)
[2024-01-22] MEDS: Lidocaine 1% (5 ml sdv) 5 ML Vial (09:39)
[2024-01-22] MEDS: MethylPREDNISolone Acetate 80 MG/ML Vial (09:40)
--- NOTE | 2024-01-22 09:42 | RAD_ITS ---
STUDY: X-RAY - LUMBAR SPINE REASON FOR EXAM: Female, 53 years old. RT TRANSFORAMINAL EPIDURAL INJECTIONS L4-S1 TECHNIQUE: 4 intraoperative view(s) of the lumbar spine were obtained. COMPARISON: None FINDINGS: 4 limited intraoperative C-arm films were obtained as the patient has undergone epidural injections at L4-S1. RAD/Lumbar Spine 2 or 3 Views IMPRESSION: No plain film evidence of intraoperative complications during epidural injections Electronically Signed: Nikita Reyes MD at 13:50 EDT ,
[2024-01-22 09:45] VITALS: BP 109/69; BP 139/89; PULSE 59; RESP 16; TEMP 36.9; O2SAT 99
--- NOTE | 2024-01-22 09:48 | OP.PCM_ITS ---
Report of Operation Date of Procedure: 01/22/24 Description of Surgical Findings:: PREOPERATIVE DIAGNOSIS: Lumbosacral radiculopathy, lumbosacral degenerative disc disease, lumbosacral spinal stenosis POSTOPERATIVE DIAGNOSIS: Lumbosacral radiculopathy, lumbosacral degenerative disc disease, lumbosacral spinal stenosis PROCEDURE PERFORMED: Left-sided lumbar transforaminal epidural steroid injection , L4-5 and L5-S1. ANESTHESIA: MAC BLOOD LOSS: Minimal COMPLICATIONS: None DESCRIPTION OF PROCEDURE: History and physical of today was reviewed. Risks and benefits of the procedure were explained. The patient understood and agreed to proceed. Informed consent was obtained. IV inserted per routine protocol. The patient was taken to the operating room and placed in the prone position with a pillow positioned underneath the abdomen. The left side of the lower back was prepped and draped in a sterile fashion using iodine x3. Under fluoroscopy guidance on oblique view, the L4 through S1 vertebral bodies were visualized. The skin and subcutaneous tissue was anesthetized with approximately 5 mL of 1% lidocaine using a 25-gauge regular needle. Under direct visualization with fluoroscopy at approximately 35-degree angle, starting on the left L4, ending on the left L5, using a 22-gauge 3-1/2-inch spinal needle, the needle was advanced via the skin. The tip of the needle was maneuvered and directed towards the inferior and medial gutter of the transverse process at the superiormost aspect of the neural foramen. Once the tip of the needle was at the vicinity of the foramen, after negative aspiration for blood or CSF, a total of 1 mL of contrast was injected in divided doses between both levels to confirm correct placement of the needle as well as medial spread. The confirmation was obtained on AP as well as lateral view. After repeated negative aspiration and confirmation on AP as well as lateral view, a total of 6 mL of preservative-free 0.25% Marcaine with 80 mg of Depo-Medrol was injected in divided doses between both levels. The needles were then removed intact. The patient experienced no sign or symptoms of intrathecal or intravascular injection. The patient experienced no paresthesia. The procedure was completed without any apparent difficulty or any complications. The patient appeared to tolerate it well. Assessment and plan: This is a 53-year-old female with lumbosacral radiculopathy, lumbosacral degenerative disc disease, lumbosacral spinal stenosis status post left-sided lumbar transforaminal epidural steroid injection L4-5, L5-S1, patient will continue current medications, patient will follow up in approximately 2 weeks for reevaluation.
[2024-01-22 09:50] VITALS: BP 110/70; BP 139/89; PULSE 57; RESP 16; O2SAT 95
[2024-01-22 09:55] VITALS: BP 115/72; BP 139/89; PULSE 58; RESP 16; TEMP 36.8; O2SAT 96
[2024-01-22 09:56] VITALS: BP 139/89
== END 2024-01-22 10:15 | disposition home or self-care (01) ==
LOC: SDC 08:16 → AC 08:17
PROVIDERS: PCP Family Medicine; Referring Provider Anesthesiology Pain Medicine; Visit Provider Anesthesiology Pain Medicine
PROC: 3E0S3BZ Introduction of Anesthetic Agent into Epidural Space, Percutaneous Approach (ICD-10-PCS; CPT 64484; principal; 2024-01-22 09:35)
DX: M51.17 Intervertebral disc disorders with radiculopathy, lumbosacral region (principal); M48.07 Spinal stenosis, lumbosacral region
CPT/HCPCS: 64484; 01992; 64483; 72100; J7120

== ENCOUNTER → 2024-01-26 | Outpatient (CLI) | payer OTHER, SELFPAY | END | disposition home or self-care (01) | LOC: LABSPEC 10:27 | PROVIDERS: PCP Family Medicine; Referring Provider Physician Assistant; Visit Provider Physician Assistant | DX: J02.9 Acute pharyngitis, unspecified (principal) | CPT/HCPCS: 87070; 87077 ==

== ENCOUNTER → 2024-04-24 | Outpatient (CLI) | payer OTHER, SELFPAY ==
--- NOTE | 2024-04-24 06:41 | MRI_ITS ---
EXAM: MR LUMBAR SPINE WITHOUT INTRAVENOUS CONTRAST CLINICAL INDICATION: pain TECHNIQUE: Multiplanar and multisequence MR images of the lumbar spine without intravenous contrast. COMPARISON: MRI lumbar spine, 03/10/2023 and lumbar spine radiographs, 11/16/2023. FINDINGS: VERTEBRAE: Degenerative anterolisthesis of L4 upon L5 secondary to severe facet arthrosis. Vertebral hemangiomas within the L2 and L3 vertebrae. Otherwise, no suspicious marrow space signal abnormalities. Degenerative endplate signal changes at L3 through L5. Vertebral body heights are preserved. There is preservation of the normal lumbar lordosis. SPINAL CORD: No significant abnormality. Normal position and signal intensity of the conus medullaris. SOFT TISSUES: No significant abnormality. DISCS/SPINAL CANAL/NEURAL FORAMINA: L1-L2: Moderate bilateral facet arthrosis. No disc herniation, spinal canal stenosis, or neural foraminal narrowing. L2-L3: Mild disc bulge with superimposed left foraminal disc herniation and moderate bilateral facet arthrosis. Mild spinal canal stenosis and [id number] left neural foraminal narrowing. L3-L4: Disc bulge with superimposed right central to foraminal disc herniation and severe bilateral facet arthrosis. Moderate spinal canal stenosis and moderate bilateral neural foraminal narrowing. L4-L5: Disc uncovering/pseudobulge with superimposed central disc herniation and severe bilateral facet arthrosis. Severe spinal canal stenosis with crowding of the intrathecal nerve roots. Severe bilateral neural foraminal narrowing. Bilateral L4 and traversing L5 nerve root impingement. L5-S1: Right central to foraminal disc herniation superimposed upon a disc bulge and moderate bilateral facet arthrosis. Moderate right greater than left neural foraminal narrowing and mild spinal canal stenosis. Displacement without impingement of the bilateral traversing S1 nerve roots. Impingement of the left L5 nerve root which is edematous. MRI/Spine Lumbar (Routine) IMPRESSION: Multilevel degenerative changes in the lumbar spine with mild progression since prior examination. Severe spinal canal stenosis at L4-L5. Multi leveled nerve root impingement. See details above. Recommend spine surgery consultation if not already performed. Electronically Signed: Raghav Monahan DO at 22:36 EDT ,
== END | disposition home or self-care (01) ==
LOC: MRI 06:35
PROVIDERS: PCP Family Medicine; Referring Provider Orthopaedic Surgery Orthopaedic Surgery of the Spine; Visit Provider Orthopaedic Surgery Orthopaedic Surgery of the Spine
DX: M43.16 Spondylolisthesis, lumbar region (principal); M51.36 Other intervertebral disc degeneration, lumbar region; M48.062 Spinal stenosis, lumbar region with neurogenic claudication
CPT/HCPCS: 72148

== ENCOUNTER → 2024-05-08 | Outpatient (CLI) | payer OTHER, SELFPAY ==
[2024-05-08 10:17] LABS: Hematocrit 35.7 % (37-47); Hemoglobin 11.7 g/dL (12.0-15.0); Mean Corp Hgb Conc 32.8 g/dL (32-36); Mean Corpuscular Hgb 30.9 pg (27.0-32.0); Mean Corpuscular Volume 94.2 fL (81-99); Mean Platelet Vol. 9.1 fl (6.2-12.0); Platelet Count 292 K/mm3 (150-450); RBC Distribution Width SD 45.1 fl (35.1-43.9); Red Blood Count 3.79 M/mm3 (4.2-5.4); White Blood Count 4.7 K/mm3 (4.4-11.0)
[2024-05-08 10:33] LABS: Vitamin D,25 Hydroxy 74.8 ng/mL
[2024-05-08 11:18] LABS: ALB/GLOB Ratio 0.9 RATIO (0.9-2.4); AST(SGOT) 20 U/L (15-37); Alanine Aminotransfer ALT/SGPT 23 U/L (13-56); Albumin, Serum 3.3 g/dL (3.2-5.0); Alkaline Phosphatase 96 U/L (45-117); Anion Gap 6 (5-15); BUN 15 mg/dL (7-18); BUN/Creat Ratio 19.6 RATIO (10-20); Calcium,Total 8.7 mg/dL (8.5-10.1); Chloride 107 mmol/L (98-107); Cholesterol 189 mg/dL (200); Creatinine, Serum 0.77 mg/dL (0.55-1.02); EST Glomerular Filtration Rate 84 mL/min (>60); Est Glom Filt Rate - Afr Amer 102 mL/min (>60); Globulin 3.5 g/dL (2.2-4.2); Glucose 90 mg/dL (74-106); High Density Lipoprotein 76 mg/dL; Potassium 4.2 mmol/L (3.5-5.1); Protein, Total 6.8 g/dL (6.4-8.2); Sodium Level 139 mmol/L (136-145); Triglycerides 88 mg/dL; Very Low Density Lipoprotein 18 mg/dL (5-40)
== END | disposition home or self-care (01) ==
LOC: MTLAB 08:09
PROVIDERS: PCP Family Medicine; Referring Provider Family Medicine; Visit Provider Family Medicine
DX: R53.83 Other fatigue (principal); M47.816 Spondylosis without myelopathy or radiculopathy, lumbar region
CPT/HCPCS: 36415; 80053; 80061; 82306; 84443; 85027

== ENCOUNTER 2024-07-31 12:22 | Inpatient (IN) | payer OTHER, SELFPAY ==
--- NOTE | 2024-07-18 07:50 | EKG12_ITS ---
Test Reason : PREOP Blood Pressure : */* mmHG Vent. Rate : 60 BPM Atrial Rate : 60 BPM P-R Int : 152 ms QRS Dur : 88 ms QT Int : 428 ms P-R-T Axes : 66 12 18 degrees QTcB Int : 428 ms Normal sinus rhythm Normal ECG Confirmed by VLAD HEATH, ISRAEL ([id number]), editor greeting card PATRICIO HUANG ([id number]) on 07/19/2024 11:17:43 AM Referred By: OSWALDO Confirmed By: ISRAEL CHU MD
[2024-07-18 09:32] LABS: Magnesium 2.4 mg/dL (1.6-2.6)
[2024-07-18 10:02] LABS: HIV - WCH Non-Reactive (Nonreactive); Hepatitis B Surface Antibody Reactive; Hepatitis C Antibody Non-Reactive (Nonreactive)
[2024-07-19 08:13] LABS: Hepatitis A AB, Total Negative (Negative)
[2024-07-31] VITALS (18 sets, daily range): BP systolic 119–144; BP diastolic 62–91; PULSE 63–84; RESP 14–20; TEMP 36–37.1; O2SAT 96–100; BMI 24.9
[2024-07-31] MEDS: Lactated Ringers 1,000 ML 15 ML IV (06:40)
[2024-07-31] MEDS: Magnesium 1 GM over 15 mins IV (06:40)
[2024-07-31] MEDS: Acetaminophen 500 MG Tablet 1000 MG PO ×2 (07:15→21:27)
--- NOTE | 2024-07-31 07:24 | HP.PCM_ITS ---
History and Physical Date of Admission: 07/31/24 MR#: [id number] Acct: [id number] Name: LAURA DIAZ Rep #: [id number] : 1970 Provider: Dr. Jh Hernandez MD Age/Sex: 53/F [place] [facility] [place]: Signed Intake Vital Signs 01/24/2411:22 Height 5 ft 5 in Intake Visit Reasons: LUMBER SPINE Is patient in pain?: Yes Allergies pineapple Allergy (Unknown, Verified 07/25/24 08:14) tongue swellsciprofloxacin (From Cipro) Adverse Reaction (Verified 07/25/24 08:14) Nausea/Vom/Diarrheaciprofloxacin HCl (From Cipro) Adverse Reaction (Verified 07/25/24 08:14) Nausea/Vom/Diarrheaprednisone Adverse Reaction (Verified 07/25/24 08:14) Nausea/Vom/Diarrhea Medications ?Medication ?Instructions ?Recorded ?Confirmed ?Type multivitamin 1 tab PO DAILY SUPPLEMENT 06/08/22 07/25/24 History multivitamin with minerals 1 tab PO DAILY SUPPLEMENT 06/08/22 07/25/24 History (Hair,Skin and Nails tablet) omega-3 fatty acids-fish oil 300 1 cap PO DAILY SUPPLEMENT 06/08/22 07/25/24 History mg-500 mg capsule (Fish Oil) diclofenac sodium 50 mg 50 mg PO BID PAIN #180 tabs 06/05/23 07/25/24 Rx tablet,delayed release budesonide 32 mcg/actuation nasal 1 spray intranasal DAILY PRN Nasal 06/14/23 07/25/24 History spray (Rhinocort Allergy) Congestion duloxetine 60 mg capsule,delayed 60 mg PO DAILY DEPRESSION #90 caps 07/03/23 07/25/24 Rx release pregabalin 50 mg capsule 50 mg PO BID PAIN 04/04/24 07/25/24 History PFSH Medical History (Updated 07/10/24 @ 14:50 by Lian Fontenot) Wears glasses Alcohol use Restless legs Back pain Injury of back Shortness of breath on exertion Former smoker Leg cramps History of pain when walking Restless legs syndrome Elevated cholesterol Chronic fatigue Bradycardia Anxiety Arthritis 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 Bone cyst of foot Depression Surgical History H/O dilation and curettage Hx of hysterectomy Family History Grandmother Heart disease Myocardial infarction Breast cancerGrandfather Parkinson disease Colon polyps Social History household members: none current occupational status: employed current occupation: [employer] Smoking Status: Former smoker Electronic Cigarette Use: not used alcohol intake: current alcohol intake frequency: holidays/special occasions only substance use type: does not use what type of physical activity do you participate in: bicycling, weight training and other details: cardio machines frequency: 5-6 times per week do you feel safe at home: Yes HPI LUMBER SPINE Details: This documentation accurately reflects the service provided and the decisions made by me, Dr. Jh Hernandez MD 07/25/24 0755. Part of today?s visit was documented by [ ], acting as scribe. LAURA DIAZ is a 53 year old F here today for her preop appointment on her lumbar spine. Patient notes that she continues to have low back pain and it is affecting her ADLs. She is unable to walk for prolonged periods of time. She states that she has numbness into her left foot. She also complains of left hip pain which she describes as a sharp pain. 04/25/24: LAURA DIAZ is a 53 year old F here today for a followup on her lumbar spine. Patient states that her lumbar spine pain is worsening. She complains of left foot numbness. She also complains of a dull pain/numbness into her left hamstring. Patient had an MRI which is here for review. She has had multiple injections which were helpful for a short period of time, the most helpful one was 1 month. She also had an ablation which was not helpful. She is taking Lyrica and diclofenac. The patients parents are here today with her to discuss surgery. She has a dull ache with pain and numbness along both hamstrings that worsens with walking. No pain or numbness along her quadriceps. 04/04/24: LAURA DIAZ is a 53 year old F here today for a followup on her low back pain. She states that her pain radiates into her bilateral glutes which she describes as a deep ache. Patient complains of pain ADLs such as walking and standing really increase her pain. She notes that she has injections with Dr Maciel which are helpful for about 2 weeks. Patient had an MRI in 02/2023. She has done physical therapy prior which was not helpful. Patient has seen a chiropractor for adjustments and it has not been helpful. Patient takes diclofenac and Lyrica. She was given tramadol but it makes her tired so she d oesnt take it. Laura continues to have low back pain with left worse than right lower extremity radiation with numbness along the S1 dermatome. She continues to have difficulty walking beyond half mile distance after which she leans over and has to sit down. She feels better with exercise bikes. She does weight training in the gym. Following is a previous history: 11/16/23: LAURA DIAZ is a 53 year old F here today for lumbar spine pain. She states her back has bothered her since she was about 20 years old. 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 She states having kids made her pain worse. Patient has seen Dr. Torres for the lumbar spine pain after she hurt it working out in the gym. She states she was squatting and she got stuck and that really increased her pain. She has gotten injections with Dr. Maciel which helped very short-term. She also has had an ablation on her right lower back. She has seen Dr. Cordero for direct care worker as well. She was taking gabapentin for restless legs but she has recently stopped. She has done physical therapy in the past but states that it doesn't give her much relief. Patient states she gets numbness in her toes and the outside of her left foot. She denies any numbness or tingling down her legs. She does get numbness and pain into her buttocks. Laura has had low back pain for decades but this severely got worse and after she had an injury while working out in the gym about a year ago. After this she underwent an MRI She has had multiple epidural injections by Dr. Bradford even before this gym accident. She then had radiofrequency ablation on the left side in June by Dr. Bradford which did not seem to give her persistent relief. She did not go back for the right-sided injections. She is able to walk only about half a mile after which she has to either stop or have severe worsening pain that goes in the gluteal and hamstring region on both sides equally. Over the last 2 weeks she has also noticed numbness over the left fourth and fifth toes. She denies any pain that is radicular in nature going down the lower extremity. She has stopped jogging and running because of left first MTP joint arthritis. She has had physical therapy as well as chiropractic treatment in the past. Ortho Exam General General: Yes no acute distress Neurologic: Yes alert and Yes oriented x3 Spine SPINE TESTING CERVICAL THORACIC LUMBAR Musculoskeletal Strength 0=absent - 5=normal Details: Examination the back shows mild midline and bilateral paraspinal tenderness. Neurologic evaluation of lower extremity shows 5 x 5 power in all muscles normal sensations in all dermatomes. Passive straight leg raise test is negative. Pain is worse with lower back extension than flexion. Coding Level of Care Code Off vis,est,level 4 Diagnoses Spinal stenosis of lumbar region with neurogenic claudication M48.062 Other intervertebral disc degeneration, lumbar region M51.36 Spondylolisthesis, lumbar region M43.16 Time Spent (min) 35 Assessment and Plan Assessment and Plan (1) Spinal stenosis of lumbar region with neurogenic claudication: Status: Acute (2) Other intervertebral disc degeneration, lumbar region: Status: Acute (3) Spondylolisthesis, lumbar region: Status: Acute Plan I again reviewed her previous x-rays and learned yesterday. These show L4-5 grade 1 spondylolisthesis with mild dynamic instability. L5-S1 shows disc height loss with vacuum phenomenon on extension views. This shows L3-4 right and L4-5 bilateral facet diastases with fluid signal. L3-4 L4-5 both show significant lateral recess and foraminal stenosis. L5-S1 shows left lateral recess stenosis with S1 nerve root encroachment. I again explained to her the findings on the MRI and x-rays in detail. She has significant instability at both L3-4 and L4-5 levels as indicated by the fluid signal in the facet joints. Her new onset left lateral toe numbness is likely related to the left S1 encroachment L5-S1. Explained her options of treatment which include continued nonoperative treat measures versus surgery. Surgery would likely require decompression and fusion. This will be her last resort after exhausting nonsurgical treatment. She says that her function is declining and her walking distances has worsened and her inability to do activities related to her work and weight training have been affected significantly. She would like to pursue surgical intervention. Surgical options were discussed in detail. Anterior posterior fusion from L3-5 with possible inclusion of L5-S1 was discussed in detail. All risk benefits and alternatives were discussed. Risks include but are not limited to infection, bleeding, injury to nerves and vessels, need for blood transfusion, vascular injury, visceral injury, ileus, pseudoarthrosis, hardware failure, adjacent segment degeneration, nerve injury, foot drop, need for further surgery, DVT, pulm embolism, pneumonia, atelectasis. All questions were answered. Consent was signed.
--- NOTE | 2024-07-31 07:35 | PRE.ANES_ITS ---
ASA Classification* ASA Classification ASA Classification: 2 Assessment & Plan Anesthesia* Anesthesia Assessment Anesthesia Assessment: Discussed sedation and/or anesthesia options, risks, benefits, and alternatives with patient/parents/legal guardian/POA. Questions invited. The patient/parents/legal guardian/POA seems to understand and agrees to proceed with anesthesia plan. Reviewed the physical assessment, medical history, allergy history and patient home medications list prior to surgery/procedure/anesthetic and documented any changes. Performed airway and anesthesia risk assessments. Anesthesia Type Anesthesia Type: General Anesthesia Focused Assessment* Temperature: 98.8 F Pulse Rate: 63 Blood Pressure: 127/78 Respiratory Rate: 16 Pulse Ox: 100 Airway Assessment Mouth opens: >3 cm Mallampati Score: II Focused Labs Anesthesia Preop lab: CBC WBC 4.7 K/mm3 (4.4-11.0) 05/08/24 08:16 RBC 3.79 M/mm3 (4.2-5.4) L 05/08/24 08:16 Hgb 11.7 g/dL (12.0-15.0) L 05/08/24 08:16 Hct 35.7 % (37-47) L 05/08/24 08:16 Plt Count 292 K/mm3 (150-450) 05/08/24 08:16 CHEMISTRY Potassium 4.2 mmol/L (3.5-5.1) 05/08/24 08:16 Sodium 139 mmol/L (136-145) 05/08/24 08:16 Magnesium 2.4 mg/dL (1.6-2.6) 07/18/24 08:11 BUN 15 mg/dL (7-18) 05/08/24 08:16 Creatinine 0.77 mg/dL (0.55-1.02) 05/08/24 08:16 Glucose 90 mg/dL (74-106) 05/08/24 08:16 TSH 2.190 uIU/mL (0.358-3.740) 05/08/24 08:16 COAG PT 13.6 SECONDS (11.7-14.9) 01/02/17 09:39 Urine Test Negative Negative 01/04/17 12:10 Pre-Assessment Diagnosis/Proposed Procedure Planned Operative Procedure(s): 360 FUSION L3-4 L4-5 Anesthesia History 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 When Was Last Pacemaker Check QUESTION #4 FULL TEXT: You/Your Family Experience fever (hyperthermia) with Anesthesia Last Oral Intake Last Oral intake: Last Oral Intake NPO since 04:00 07/31/24 06:40 Meds taken in AM with sips of No 07/31/24 06:40 water? Meds patient instructed to take am of surgery PONV PONV - tobacco drier operator: PONV - tobacco drier operator Female Yes 07/10/24 14:44 HX of Motion Sickness Yes 07/10/24 14:44 HX of N/V After Surgery No 07/10/24 14:44 Non-Smoker Yes 07/10/24 14:44 Duration of Surgery greater Yes 07/10/24 14:44 than 60 minutes Number of Risk Factors 4 07/10/24 14:44 PONV Score Severe Risk 07/10/24 14:44 Height & Weight Height & Weight: Anesthesia: Height & Weight Height 5 ft 5 in 07/31/24 06:40 Weight: 68 kg 07/31/24 06:40 Body Mass Index (BMI) 24.9 07/31/24 06:40 Respiratory Assessment Respiratory Assessment - tobacco drier operator: Respiratory Tract Infection Hx - tobacco drier operator Hx Respiratory Tract Infection No 07/10/24 14:44 STOP Sleep Apnea STOP Sleep Apnea - tobacco drier operator: STOP Sleep Apnea - tobacco drier operator Hx Hypertension No 07/10/24 14:44 Hx Sleep Apnea No 07/10/24 14:44 CPAP No 11/15/23 08:50 BIPAP Do you snore loudly (louder No 07/10/24 14:44 than talking or can be heard Do you often feel tired/ Yes 07/10/24 14:44 fatigued/ sleepy during daytime? Has anyone observed you stop No 07/10/24 14:44 breathing during sleep? STOP Results Negative 07/10/24 14:44 QUESTION #5 FULL TEXT : Do you snore loudly (louder than talking or can be heard through closed doors)? 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 Specify any problems Hx of Preganancy in last 3 No 07/10/24 14:44 Months Nurse Filling Out Transfusion DSCHRIBER 07/10/24 14:44 & Questions: Date: 07/10/24 07/10/24 14:44 Time: 14:45 07/10/24 14:44 Patient unable to answer at this time (ie. confused, unrespo /Reproduction History /Reproductive History - tobacco drier operator: /Reproductive Hx- tobacco drier operator Hx Now No 07/10/24 14:44 Gestational Age (in weeks): EDC: Hx Hx Para Hx Section SAB No 07/10/24 14:44 Active Medications Active Medications: Current Medications Generic Name Dose Route Start Last Admin Trade Name Freq PRN Reason Stop Dose Admin Acetaminophen 1,000 mg 07/31/24 08:00 07/31/24 07:15 Acetaminophen 500 Mg Tablet PO 07/31/24 08:01 1,000 mg X1 ONE Administration Cefazolin Sodium 2 gm/ N/A 20 mls @ 400 mls/hr 07/31/24 08:00 IV 07/31/24 08:02 PREOP ONE Magnesium Sulfate 1 gm/ 102 mls @ 408 mls/hr 07/31/24 08:00 07/31/24 06:40 Dextrose IV 07/31/24 08:14 408 mls/hr X1 ONE Administration Lactated Ringer's 1,000 mls @ 15 mls/hr 07/31/24 06:30 07/31/24 06:40 IV 08/05/24 19:49 15 mls/hr .Q48H RENALDO Administration Protocol Insulin Human Lispro 1 - 6 unit 07/31/24 08:00 Insulin Lispro 100 Unit/Ml Insuln.Pen SC 07/31/24 14:00 Q4H PRN PRN BG>/= 180, SEE PROTOCOL Protocol PFSH Medical History (Updated 07/10/24 @ 14:50 by Lian Fontenot) Wears glasses Alcohol use Restless legs Back pain Injury of back Shortness of breath on exertion Former smoker Leg cramps History of pain when walking Restless legs syndrome Elevated cholesterol Chronic fatigue Bradycardia Anxiety Arthritis 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 Bone cyst of foot Depression Home Medications ?Medication ?Instructions ?Recorded ?Last Taken ?Type multivitamin 1 tab PO DAILY SUPPLEMENT 06/08/22 07/30/24 06:00 History multivitamin with minerals 1 tab PO DAILY SUPPLEMENT 06/08/22 07/30/24 06:00 History (Hair,Skin and Nails tablet) omega-3 fatty acids-fish oil 300 1 cap PO DAILY SUPPLEMENT 06/08/22 07/29/24 History mg-500 mg capsule (Fish Oil) diclofenac sodium 50 mg 50 mg PO BID PAIN #180 tabs 06/05/23 07/26/24 Rx tablet,delayed release budesonide 32 mcg/actuation nasal 1 spray intranasal DAILY PRN Nasal 06/14/23 01/21/24 History spray (Rhinocort Allergy) Congestion duloxetine 60 mg capsule,delayed 60 mg PO DAILY DEPRESSION #90 caps 07/03/23 07/30/24 20:00 Rx release pregabalin 50 mg capsule 50 mg PO BID PAIN 04/04/24 07/30/24 20:00 History Allergy/AdvReac Type Severity Reaction Status Date / Time pineapple Allergy Unknown tongue Verified 07/31/24 07:00 swells ciprofloxacin (From Cipro) AdvReac Nausea/Vom/ Verified 07/31/24 07:00 Diarrhea ciprofloxacin HCl (From AdvReac Nausea/Vom/ Verified 07/31/24 07:00 Cipro) Diarrhea prednisone AdvReac Nausea/Vom/ Verified 07/31/24 07:00 Diarrhea Family History Grandmother Heart disease Myocardial infarction Breast cancer Grandfather Parkinson disease Colon polyps Surgical History H/O dilation and curettage Hx of hysterectomy Social History household members: none current occupational status: employed current occupation: [employer] Smoking Status: Former smoker Electronic Cigarette Use: not used alcohol intake: current alcohol intake frequency: holidays/special occasions only substance use type: does not use what type of physical activity do you participate in: bicycling, weight training and other details: cardio machines frequency: 5-6 times per week do you feel safe at home: Yes Review of Systems (Anesthesia) ROS Narrative System reviewed and no additional complaints, except as documented.
--- NOTE | 2024-07-31 08:02 | RAD_ITS ---
HISTORY: 360 FUSION L3-4 AND L4-5. TECHNIQUE: 13 spot images. COMPARISON: MR 04/24/2024. FINDINGS: LUMBAR SPINE: Multiple surgical instruments at the L3-4 and L4-5 intervertebral disc levels for placement of interbody fusion material and posterior spinal fusion hardware. FLUOROSCOPY TIME: 161.5 seconds. RADIATION DOSE: 78.7 mGy. RAD/Lumbar Spine 2 or 3 Views IMPRESSION: Image guidance for L3-5 spinal fusion. Electronically Signed: Abbey Horowitz MD at 8:38 EST ,
[2024-07-31] MEDS: Cefazolin 2 GM in Syringe IV ×2 (08:11→16:45)
[2024-07-31] MEDS: TXA 1000mg in NS100 100ml (IVPB at Incision) 660 MG IV (08:15)
[2024-07-31] MEDS: TXA 1000mg in NS100 100ml (IVPB at Closure) 660 MG IV (11:43)
[2024-07-31] MEDS: Ropivacaine 0.5% 30 ML Vial (11:57)
--- NOTE | 2024-07-31 11:58 | PCM.OPRPT ---
Operative Report (Standard) Operative Information Surgery/Procedure Performed: L3-5 oblique lumbar interbody fusion Surgeon: Jh Hernandez Date of Procedure: 07/31/24 Procedure Start Time: 08:37 Procedure Stop Time: 12:10 Pre-Operative Diagnosis: L4-5 spondylolisthesis, L3-5 disc degeneration with stenosis, neurogenic claudication Post-Operative Diagnosis: Same Select all DRAINS/GRAFTS/IMPLANTS that apply: Graft Graft details: Allograft cancellous bone chips, autologous bone marrow aspirate and Implanted device Implanted device details: DePuy cougar lateral interbody cage peek Type of Anesthesia: General Estimated Blood Loss: 50 cc Specimen collected: No Description of surgery: Preoperative diagnosis: L4-5 spondylolisthesis, L3-5 disc degeneration, stenosis with neurogenic claudication Postoperative diagnosis: Same Name of procedures L3-5 oblique lumbar interbody fusion (OLIF), minimally invasive left sided approach, lateral decubitus: ? L3-4 anterolateral spinal fusion 04640 ? L4-5 anterolateral fusion 93084/51 ? L3-4 insertion of cage 57320 ? L4-5 insertion of cage 66538/51 ? Bone graft aspirate left iliac crest separate incision ? Allograft cancellous chips Attending Surgeon: Dr. Jh Hernandez Estimated blood loss: 50 mL Anesthesia: General Complications: None Indications: Patient is a 53-year-old pleasant lady who has had a long history of low back pain and left worse than right lower extremity radiation, difficulty walking distances. Xrays & MRI revealed L4-5 spondylolisthesis, L3-5 disc degeneration with stenosis. After undergoing a prolonged period of nonoperative treatment, the patient elected to undergo surgical decompression & fusion. All surgical options were discussed with the patient including anterior and posterior approaches. All risks and benefits associated with the procedure were explained to the patient. The risks include but are not limited to infection, bleeding, injury to nerves and vessels including major vessels like IVC and aorta, persistent paresthesia, persistent pain, dural tear, need for further procedures, adjacent segment degeneration, pseudoarthrosis, hardware failure, retrograde ejaculation, paralytic ileus, etc. Procedure: The patient was identified in the preoperative holding suite using Unique patient identifiers. Skin was marked, consent was reviewed, and all questions were answered. The patient was then brought back to the operative room. A surgical timeout was performed to make sure correct procedure was being done on the correct patient and all operative room staff were on the same page. General endotracheal anesthesia was then given to the patient. Strong catheter was inserted. The patient was then carefully positioned in right lateral decubitus position with the left side up on a regular OR table. Axillary roll was placed and all bony prominences were well- padded. Hip positioners were placed in the posterior buttocks and anterior sternal area. The surgical area was prepped and draped in usual fashion. Preoperative antibiotic was injected IV as preoperative antibiotic. A final timeout was then again done just before starting the procedure. A 2 inch incision oblique was taken in the left lower quadrant of the abdomen 2 fingerbreadths away from the iliac crest and the lower ribs. Sharp dissection with Bovie was carried out up to the fascia covering the external oblique. The external oblique, internal oblique and transversus abdominis muscles were split along the muscle fibers and retroperitoneal space was entered. Sponge sticks were utilized to move the bowel and peritoneum [id number]-way and psoas muscle was exposed staying within the retroperitoneal plane. Via6 retractor system was positioned and the retractor blade was applied onto the psoas. The interval between psoas and midline structures was developed and appropriate retractors were placed. Once adequate interval was cleared, a disc space was identified and a marker x-ray was taken. This identified the L4-5 disc level. The prepsoas interval was then traced superiorly to expose the L3-4 disc. Annulotomy was done with a long handled knife starting at L4-5. Pituitary was used to remove disc material. Curettes were used to prepare the endplates. Disc space spreaders were utilized to distract and increase the disc height. Near complete discectomy was performed. Trials of serially increasing sizes were used. A Jamshidi needle was used to aspirate bone marrow from the left anterior iliac crest through a separate incision and this aspirate was mixed with the allograft bone chips. A Depuy [place] cage of size of the 18 x 15 x 12 mm with 15 degrees lordosis was packed with corticocancellous allograft bone chips mixed with bone marrow aspirate. This was inserted into the L4-5 disc space. The retractors were then repositioned to expose the L3-4 disc and the procedure was repeated with complete discectomy and endplate preparation. Smaller disc distractors were also used to bluntly perform a contralateral annulotomy at both levels. Cage size was 18 x 45 x 12 mm at L3-4. AP and lateral C-arm pictures were taken to confirm good position of the cage. Some bone chips were also packed around the cages. Screw with washer was placed into the lower L3 and L4 body with a washer partially covering the cage at L3-4 and L4-5 respectively. Hemostasis was confirmed. The retractor blades were removed. Closure was done in layers with a continuous strand of # 1 Vicryl in all muscle layers. 2-0 Vicryl was used for subcutaneous tissue and 4-0 for Monocryl for the skin. Steri-Strips were applied and 4 x 4 gauze and Tegaderm were applied. 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
--- NOTE | 2024-07-31 12:07 | PCM.OPRPT ---
Operative Report (Standard) Operative Information Surgery/Procedure Performed: L3-5 posterior instrumented spinal fusion Surgeon: Jh Hernandez Date of Procedure: 07/31/24 Procedure Start Time: 08:37 Procedure Stop Time: 12:10 Pre-Operative Diagnosis: L4-5 spondylolisthesis, L3-5 disc degeneration, stenosis with neurogenic claudication Post-Operative Diagnosis: Same Select all DRAINS/GRAFTS/IMPLANTS that apply: Graft Graft details: Allograft cancellous bone chips and Implanted device Implanted device details: DePuy Viper prime pedicle screw instrumentation Type of Anesthesia: General Estimated Blood Loss: 50 cc Specimen collected: No Description of surgery: Preoperative diagnosis: L4-5 spondylolisthesis, L3-5 disc degeneration, stenosis with neurogenic claudication Postoperative diagnosis: Same Name of procedures: L3-5 posterior percutaneous pedicle screw instrumented fusion, prone: ? L3-4 posterior spinal fusion 24728 ? L3-5 posterior pedicle screw instrumentation 67219 ? L4-5 posterior fusion 80333/51 ? Allograft cancellous chips [id number] Attending Surgeon: Dr. Jh Hernandez Estimated blood loss: 50 mL (total for entire case) Anesthesia: General Complications: None Description of procedure: After the anterior procedure was complete, the patient was then turned supine. The patient was then transferred to Nish table in prone position. Back was prepped and draped in usual fashion. C-arm AP view was then taken. C-arm was positioned in a way that L3 was centralized and superior endplate of was parallel to the beam. Spinous process was centered between the pedicles. Midline was marked with skin marker and lateral borders of the pedicles were also marked. Skin marker was also utilized to tawanna transversely across the middle of the pedicles at L3. 2 transverse paramedian incisions of 1 inch were placed. The fascia was incised vertically. Finger dissection was utilized to palpate the transverse process and facet joint. Viper Prime screws with towers were inserted and docked onto the transverse processes. This was then slowly moved medially to reach the superior articular process of L3. This was then confirmed on C-arm and then a mallet was utilized to drive the trocar into the pedicle going up to the medial wall of the pedicle on AP view. This was performed both sides. C-arm lateral view confirmed that the tip of the trocar was in the vertebral body, and the screw was advanced into the pedicle and vertebral body. This was repeated similarly at L4 and L5 bilaterally. Screw sizes were 7 x 50 mm at L3, L4 and L5 on both sides. 75 mm precontoured titanium 5.5 mm lordotic natalie on both sides were then passed through the screw extensions and reduced down to the screws with the help of SeeControler instrumentation system on both sides. AP and lateral view of the C-arm showed good positioning of the screws and cages. Final tightening with the torque screwdriver was then completed. [place] was utilized to roughen the facet joint at L3-4 and L4-5 on the right side. Cancellous allograft bone chips mixed with bone marrow aspirate were then placed over this decorticated area. Hemostasis was achieved. Closure was done in layers with 0 Vicryls for the fascia, 2-0 Vicryls for the subcutaneous tissue, and Monocryl for the skin. Dermabond was applied. Dressings were applied covered with Tegaderm. The patient was then turned supine onto a hospital bed. The patient was extubated and taken to PACU in stable condition. The patient tolerated the procedure well and no complications occurred. Depuy [place] cage & Viper Prime minimally invasive pedicle screw instrumentation system was utilized in this case. No dural tear was identified intraoperatively. I was present for the entirety of the case and performed the surgery. Surgical Findings: See operative note Sap Bi Developer pet supplies salesperson: Yes Legal Financial Specialist: Sowmya Mchugh Tasks completed by dental assistant instructor: Closing, Implanting device and Retracting Complications Complications: No Procedures Musculoskeletal 20xxx-29xxx: Other Procedure See Report
--- NOTE | 2024-07-31 12:35 | PCM.POST.ANE ---
Anesthesia: Postop Eval I Current Vital Signs Temperature: 97 F Pulse Rate: 77 Blood Pressure: 128/76 Respiratory Rate: 16 Pulse Ox: 100 Oxygen Delivery Method: Nasal Cannula (per ERAS protocol) Oxygen Flow Rate (L/min): 2 Assessment Airway patent: Yes Spontaneous unlabored respirations: Yes Mental status: Awake and Calm nausea: No Vomiting: No Anesthesia Complication: No Fluid Hydration Crystalloid volume administer (ml): 2,200 Total IV fluid infused: 2,200 Progress Note Anesthesia document: Postop Eval 1 completed: Yes
[2024-07-31] MEDS: Ketorolac 30 MG/ML Syringe IV (13:09)
--- NOTE | 2024-07-31 14:37 | POSTOPAN2_ITS ---
Anesthesia Postop Eval I Sum Postop Eval Completion status Anesthesia document: Postop Eval 1 completed: Yes Anesthesia Postop Eval I Summary Anesthesia Postop Eval I Summary: Anesthesia Postop Eval I: Assessment Summary Airway patent Yes 07/31/24 12:36 MANUFACTURING [email or web address].[email or web address] Spontaneous unlabored Yes 07/31/24 12:36 MANUFACTURING [email or web address].[email or web address] respirations Mental status Awake,Calm 07/31/24 12:36 MANUFACTURING ASSOCIATE.GDOTT nausea No 07/31/24 12:36 MANUFACTURING ASSOCIATE.GDOTT Vomiting No 07/31/24 12:36 MANUFACTURING ASSOCIATE.GDOTT Anesthesia Postop Eval I: Fluid Summary Crystalloid volume administer 2,200 07/31/24 12:36 MANUFACTURING ASSOCIATE.GDOTT (ml) Colloids volume administered ( ml) Blood Product volume administered (ml) Total IV fluid infused 2,200 07/31/24 12:36 MANUFACTURING ASSOCIATE.GDOTT Anesthesia Postop Eval I: Summary Notes Anesthesia Complication No 07/31/24 12:36 MANUFACTURING [email or web address].GDOTT Anesthesia Complication Comment: Post-operative progress note Anesthesia: Postop Eval II Evaluation Mental status: Awake Pain Level: 0 nausea: No Vomiting: No
--- NOTE | 2024-07-31 14:37 | PCM.POSTANE2 ---
Anesthesia Postop Eval I Sum Postop Eval Completion status Anesthesia document: Postop Eval 1 completed: Yes Anesthesia Postop Eval I Summary Anesthesia Postop Eval I Summary: Anesthesia Postop Eval I: Assessment Summary Airway patent Yes 07/31/24 12:36 WORKFORCE DEVELOPMENT VICE PRESIDENT.[email or web address] Spontaneous unlabored Yes 07/31/24 12:36 WORKFORCE DEVELOPMENT VICE PRESIDENT.GDOTT respirations Mental status Awake,Calm 07/31/24 12:36 WORKFORCE DEVELOPMENT VICE PRESIDENT.GDOTT nausea No 07/31/24 12:36 WORKFORCE DEVELOPMENT VICE PRESIDENT.GDOTT Vomiting No 07/31/24 12:36 WORKFORCE DEVELOPMENT VICE PRESIDENT.GDOTT Anesthesia Postop Eval I: Fluid Summary Crystalloid volume administer 2,200 07/31/24 12:36 WORKFORCE DEVELOPMENT VICE PRESIDENT.GDOTT (ml) Colloids volume administered ( ml) Blood Product volume administered (ml) Total IV fluid infused 2,200 07/31/24 12:36 WORKFORCE DEVELOPMENT VICE PRESIDENT.GDOTT Anesthesia Postop Eval I: Summary Notes Anesthesia Complication No 07/31/24 12:36 WORKFORCE DEVELOPMENT VICE PRESIDENT.GDOTT Anesthesia Complication Comment: Post-operative progress note Anesthesia: Postop Eval II Evaluation Mental status: Awake Pain Level: 0 nausea: No Vomiting: No
--- NOTE | 2024-07-31 16:44 | PCM.CONS.GEN ---
Assessment & Plan Assessment/Plan (1) Spinal stenosis of lumbar region with neurogenic claudication: (2) Postoperative nausea: PLAN: Plan Patient is a 53-year-old female who presented [facility] on 07/31/2024 for planned lumbar fusion procedure. Medicine consulted postoperatively for medical management. 1. L3-5 disc degeneration with stenosis and neurogenic claudication ? Orthopedic surgery primary. S/p L3-5 oblique lumbar interbody fusion procedure done with Dr. Hernandez on 07/31. Patient tolerated procedure well, no intraoperative complications. PT/OT/case management consulted. Pain management and DVT prophylaxis per orthopedics. Follow-up a.m. CBC and BMP. Continue home pregabalin. 2. Post operative nausea ? Patient was reporting fairly significant nausea when I saw her in the afternoon after procedure. Very likely due to sedation medications given for anesthesia as she has had sensitivity to anesthesia medications in the past. IV Zofran as needed ordered for symptom control. Monitor. 3. Depression ? Stable. Continue home duloxetine. 4. Mild anemia ? Hemoglobin 11.7 on last labs on 05/08/2024. Follow-up a.m. CBC. Total clinical time spent by myself addressing the patient's medical issues, reviewing all the data, and collaborating with patient's care team: 35 minutes. HPI Consult Data Date of Consult: 07/31/24 HPI Narrative Reason for Consultation: Postoperative medical management HPI Narrative: FAIZA DIAZ, is a 53 F who presented to [facility] on 08/05/2024 for planned lumbar fusion procedure. Medicine consulted postoperatively for medical management. Patient had an L3-5 oblique lumbar interbody fusion procedure done with Dr. Hernandez this morning. I saw the patient at bedside on the floor later this afternoon. Patient was sitting up in the bedside chair and was using a walker for ambulation with assistance from nursing staff. Patient was fatigued and somewhat ill-appearing. She noted that she had mild back pain but her primary concern was significant nausea. On discussion with patient and family, patient apparently has a sensitive stomach and becomes nauseous with medications easily. Her last surgery was several years ago when she had a hysterectomy done and she apparently had significant nausea coming out of anesthesia that as well. Nursing staff just given her a dose of IV Zofran when I saw her. Patient otherwise denied any neuropathy down her lower extremities with movement. Denied any fevers or chills. No other acute concerns at this time. [facility] Medical History (Updated 07/31/24 @ 20:[address] 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 Bone cyst of foot Depression Home Medications ?Medication ?Instructions ?Recorded ?Last Taken ?Type multivitamin 1 tab PO DAILY SUPPLEMENT 06/08/22 07/30/24 06:00 History multivitamin with minerals 1 tab PO DAILY SUPPLEMENT 06/08/22 07/30/24 06:00 History (Hair,Skin and Nails tablet) omega-3 fatty acids-fish oil 300 1 cap PO DAILY SUPPLEMENT 06/08/22 07/29/24 History mg-500 mg capsule (Fish Oil) diclofenac sodium 50 mg 50 mg PO BID PAIN #180 tabs 06/05/23 07/26/24 Rx tablet,delayed release budesonide 32 mcg/actuation nasal 1 spray intranasal DAILY PRN Nasal 06/14/23 01/21/24 History spray (Rhinocort Allergy) Congestion duloxetine 60 mg capsule,delayed 60 mg PO DAILY DEPRESSION #90 caps 07/03/23 07/30/24 20:00 Rx release pregabalin 50 mg capsule 50 mg PO BID PAIN 04/04/24 07/30/24 20:00 History Allergy/AdvReac Type Severity Reaction Status Date / Time pineapple Allergy Unknown tongue Verified 07/31/24 07:00 swells ciprofloxacin (From Cipro) AdvReac Nausea/Vom/ Verified 07/31/24 07:00 Diarrhea ciprofloxacin HCl (From AdvReac Nausea/Vom/ Verified 07/31/24 07:00 Cipro) Diarrhea prednisone AdvReac Nausea/Vom/ Verified 07/31/24 07:00 Diarrhea Family History Grandmother Heart disease Myocardial infarction Breast cancer Grandfather Parkinson disease Colon polyps Surgical History H/O dilation and curettage Hx of hysterectomy Social History household members: none current occupational status: employed current occupation: [employer] Smoking Status: Former smoker Electronic Cigarette Use: not used alcohol intake: current alcohol intake frequency: holidays/special occasions only substance use type: does not use what type of physical activity do you participate in: bicycling, weight training and other details: cardio machines frequency: 5-6 times per week do you feel safe at home: Yes ROS Constitutional Constitutional: Reports fatigue; Denies chills, fever(s) or weakness Cardiovascular Cardiovascular: Denies chest pain Respiratory/Chest Respiratory/Chest: Denies shortness of breath at rest or shortness of breath with exertion Gastrointestinal Gastrointestinal: Reports nausea; Denies abdominal pain, constipation, diarrhea or vomiting Genitourinary Genitourinary: Denies dysuria Musculoskeletal Musculoskeletal: Reports back pain; Denies arthralgias or myalgias Neurologic Neurologic: Denies disequilibrium, dizziness, numbness or paresthesias Physical Exam Const alert, oriented x3 and average body habitus Constitutional Narrative: Middle-age female, moderately fatigued appearing and somewhat ill-appearing due to ongoing nausea, sitting up in bedside chair, conversing normally. General Appearance: cooperative HEENT normocephalic, head/scalp atraumatic, hearing grossly normal bilaterally and nasal mucous membranes and turbinates normal Eyes PERRL, EOMs intact bilaterally and conjunctivae normal Neck full ROM Chest inspection of chest normal Resp normal respiratory effort, normal air movement, no use of accessory muscles and clear to auscultation bilaterally Cardio regular rate, regular rhythm, no murmurs and peripheral pulses 2+ throughout GI normal to inspection, nondistended, normoactive bowel sounds, soft to palpation, non-tender and non-distended Back/Spine Back/Spine Narrative: Bandage in place over surgical site on low back, appears clean and dry. Mild tenderness to palpation around surgical site. Extremity normal to inspection and no pedal edema Skin no rashes or lesions noted Neuro moves all extremities and no focal motor deficits Speech: speech normal Psych mental status grossly normal Psych Narrative: Flat affect. Charges/Coding Visit Charges Inpatient E&M: 19110 Subs Hosp L2
[2024-07-31] MEDS: Ondansetron 4 MG/2 ML Vial IV (17:01)
[2024-07-31] MEDS: Methocarbamol 500 MG Tablet 1000 MG PO ×2 (17:54→21:28)
[2024-07-31] MEDS: Ketorolac 15 MG/ML Vial IV (17:55)
[2024-07-31] MEDS: Morphine 2 MG/ML Syringe IV (19:06)
[2024-07-31] MEDS: Pregabalin 50 MG Capsule PO (21:27)
[2024-07-31] MEDS: Senna/Docusate Sodium 1 Tablet 2 TABLET PO (21:28)
[2024-07-31] MEDS: oxyCODONE 5 MG Tablet PO (21:28)
[2024-07-31] MEDS: 0.9% Saline Lock 10 ML Syringe IV (23:37)
[2024-07-31] MEDS: proCHLORPERazine 10 MG/2 ML Vial IV (23:37)
[2024-08-01] MEDS: 0.9% Saline Lock 10 ML Syringe IV ×2 (01:01→06:19)
[2024-08-01] MEDS: Cefazolin 2 GM in Syringe IV (01:01)
[2024-08-01] MEDS: Ketorolac 15 MG/ML Vial IV ×2 (01:01→06:19)
[2024-08-01 01:02] VITALS: BP 136/70; PULSE 78; RESP 16; TEMP 36.6; O2SAT 100
[2024-08-01] MEDS: oxyCODONE 5 MG Tablet PO ×3 (01:31→11:20)
[2024-08-01 06:14] VITALS: BP 114/60; PULSE 77; RESP 16; TEMP 36.6; O2SAT 99
[2024-08-01] MEDS: Acetaminophen 500 MG Tablet 1000 MG PO (06:18)
--- NOTE | 2024-08-01 06:30 | RAD_ITS ---
EXAM: XR LUMBOSACRAL SPINE, 2 OR 3 VIEWS CLINICAL INDICATION: s/p lumbar fusion -- please do upright AP and LAT TECHNIQUE: Frontal and lateral views of the lumbar spine and sacrum. COMPARISON: Plain film from 11/16/2023 FINDINGS: VERTEBRAE: Discectomies at L3/4 and L4/5, with left lateral screws through the L3 and L4 vertebral bodies, as well as posterior fusion with pedicle screws and interbody rods from L3 through L5. Facet joint hypertrophy at L5/S1. Preserved vertebral body height. No fracture. No spondylolisthesis. Preservation of the normal lumbar lordosis. DISC SPACES: Discectomies at L3/4 and L4/5. Severe degenerative changes of the L5/S1 disc with disc height loss, endplate sclerosis and osteophyte formation. GASTROINTESTINAL TRACT: Unremarkable as visualized. Included bowel gas pattern is non-obstructive. RAD/Lumbar Spine 2 or 3 Views IMPRESSION: 1. No acute findings. 2. Discectomies at L3/4 and L4/5, with left lateral screws through the L3 and L4 vertebral bodies, as well as posterior fusion with pedicle screws and interbody rods from L3 through L5. 3. Severe degenerative changes of the L5/S1 disc with disc height loss, endplate sclerosis and osteophyte formation. Electronically Signed: Hung Way MD at 7:50 EST ,
--- NOTE | 2024-08-01 07:21 | PCM.PN.HOSP ---
Subjective Subjective Doing well, no issues overnight Objective Data Objective Data Vital Signs: Vital Signs Temp Pulse Resp BP Pulse Ox O2 Del Method O2 Flow Rate 98 F 77 16 114/60 99 Room Air 3 08/01/24 06:14 08/01/24 06:14 08/01/24 06:14 08/01/24 06:14 08/01/24 06:14 08/01/24 06:14 07/31/24 15:46 Oxygen Flow Rate (L/min) 3 Oxygen Delivery Method Room Air Weight: 149 lb 14.629 oz Body Mass Index (BMI) 24.9 Intake & Output: Intake and Output for Last 24 Hours 07/31/24 08/01/24 08/02/24 03:59 03:59 03:59 Intake Total 2382 / 2382 Output Total 800 / 800 Balance 1582 / 1582 Lab / Micro Data 08/01/24 07:00 08/01/24 07:00 Micro: Microbiology 07/18/24 08:13 Swab (Method) Nasal Screen MRSA/MSSA - Final Physical Exam Narrative General: Alert, Oriented x3, Cooperative, No apparent distress HEENT: Atraumatic, PERRLA, EOMI, Normocephalic Oral: Moist Mucosa Neck: Supple, No JVD Lungs: Clear to auscultation, Normal air movement, No rhonchi, No wheeze, No rales Cardiovascular: Regular rate, Regular Rhythm, Normal S1, Normal S2, No murmurs Abdomen: Soft, Non Tender, Non-Distended, No Hepato-splenomegaly Extremities: No edema, Capillary Refill Less than 3 Seconds Skin: Dressing CDI Musculoskeletal: No Tenderness to Palpation of Joints or Extremities Neurological: No focal neurological deficits, Motor Exam 5/5 strength throughout, Sensory exam intact to light touch and pain Psych/Mental Status: Normal Affect, Appropriate Assessment & Plan Assessment/Plan (1) Spinal stenosis of lumbar region with neurogenic claudication: (2) Postoperative nausea: PLAN: Plan 1. L3-5 disc degeneration with stenosis and neurogenic claudication ? Orthopedic surgery primary. S/p L3-5 oblique lumbar interbody fusion procedure done with Dr. Hernandez on 07/31. Patient tolerated procedure well, no intraoperative complications. PT/OT/case management consulted. Pain management and DVT prophylaxis per orthopedics. Follow-up a.m. CBC and BMP. Continue home pregabalin. ?Reactive leukocytosis, medically stable for discharge 2. Post operative nausea ?Resolved 3. Depression ? Stable ? Continue home duloxetine. 4. Mild anemia ? Hemoglobin 11.7 on last labs on 05/08/2024. Currently 11.7 Charges/Coding Visit Charges Inpatient E&M: 55225 Subs Hosp L2
[2024-08-01 07:27] LABS: Hematocrit 34.4 % (37-47); Hemoglobin 11.7 g/dL (12.0-15.0); Mean Corpuscular Hgb 31.2 pg (27.0-32.0); Mean Corpuscular Volume 91.7 fL (81-99); Mean Platelet Vol. 9.3 fl (6.2-12.0); Platelet Count 251 K/mm3 (150-450); RBC Distribution Width SD 43.4 fl (35.1-43.9); Red Blood Count 3.75 M/mm3 (4.2-5.4)
[2024-08-01 08:03] LABS: Anion Gap 5 (5-15); BUN 9 mg/dL (7-18); BUN/Creat Ratio 12.9 RATIO (10-20); Calcium,Total 9.1 mg/dL (8.5-10.1); Chloride 109 mmol/L (98-107); EST Glomerular Filtration Rate 94 mL/min (>60); Est Glom Filt Rate - Afr Amer 114 mL/min (>60); Estimated Creatinine Clearance 85.56 ml/min; Glucose 98 mg/dL (74-106); Potassium 4.3 mmol/L (3.5-5.1); Sodium Level 143 mmol/L (136-145)
[2024-08-01] MEDS: Meloxicam 15 MG Tablet PO (09:24)
[2024-08-01] MEDS: Pregabalin 50 MG Capsule PO (09:24)
[2024-08-01] MEDS: Senna/Docusate Sodium 1 Tablet 2 TABLET PO (09:24)
[2024-08-01] MEDS: Methocarbamol 500 MG Tablet 1000 MG PO (09:24)
[2024-08-01] MEDS: Multivitamins,Therapeutic Tablet 1 TABLET PO (09:25)
[2024-08-01] MEDS: DULoxetine Hcl 60 MG Capsule PO (09:25)
--- NOTE | 2024-08-01 09:55 | CASEMGMT ---
DIVYA SILVA Assessment: Face to Face with pt for initial transition planning/care coordination assessment. DIVYA SILVA introduced self and role at [facility], pt voices understanding and consents to assessment. Pt is A&O x4 and answers all questions appropriately at this time. Pt sitting up in chair in no distress. Pt just finished with OT and Dr. Hernandez present in room. Care providers, pharmacy, and demographics verified/updated. Admitting Dx: Qasim Strata Score: 1 PCP:Paula Specialists:[facility]; giuseppe Hernandez Preferred [facility]acy: [facility] Insurance: [employer] Prescription Benefit: yes LNOK: Roland Tripp,dtr; Chucho Tripp, son Living Arrangements: Pt lives alone in a single story home with no steps to enter in the front. Pt reports prior to surgery she was I in ADLs and working. Pt states her mother is coming up from [place] to stay with her for 2 wks. Pt denies concerns at home. Transportation: Pt drives self and denies concerns with transportation. Pt mother will transport pt until she can drive again. DME:FWW, toilet riser HHC/SNF: Denies hx of Pt states no concerns with going home at time of dc. Pt states no further concerns/needs. CM to follow. Advised pt to ask CM if any further question/concerns/needs arise, voices understanding. Pt Goal: Home Plan: Home [facility] CM
[2024-08-01 10:27] VITALS: BP 107/52; PULSE 78; RESP 18; TEMP 36.5; O2SAT 100
--- NOTE | 2024-08-01 12:32 | PCM.PN.ORT ---
Subjective Subjective Seen with Dr. Hernandez. POD 1 L3-5 fusion. Patient is doing well. She had some nausea after the surgery but says that this morning she had not had any. She has gone to the bathroom throughout the night with a wallker. She has walked with physical therapy and is cleared for home discharge. Her pain has been generally well managed with it worse in her back. She has passed flatus and tolerated a solid meal. Objective Data Objective Data Vital Signs: Vital Signs Temp Pulse Resp BP Pulse Ox O2 Del Method O2 Flow Rate 97.7 F L 78 18 107/52 L 100 Room Air 3 08/01/24 10:27 08/01/24 10:27 08/01/24 10:27 08/01/24 10:27 08/01/24 10:08/01/24 10:07/31/24 15:46 Oxygen Flow Rate (L/min) 3 Oxygen Delivery Method Room Air Weight: 149 lb 14.629 oz Body Mass Index (BMI) 24.9 Intake & Output: Intake and Output for Last 24 Hours 07/30/24 07/31/24 08/01/24 23:59 23:59 23:59 Intake Total 2362 / 2362 422 / 422 Output Total 800 / 800 Balance 1562 / 1562 422 / 422 Lab / Micro Data 08/01/24 07:00 08/01/24 07:00 Labs: Laboratory Results - last 24 hr 08/01/24 07:00: WBC 13.0 H, RBC 3.75 L, Hgb 11.7 L, Hct 34.4 L, MCV 91.7, MCH 31.2, MCHC 34.0, RDW Std Deviation 43.4, RDW Coeff of Anabelle 13.0, Plt Count 251, MPV 9.3, Sodium 143, Potassium 4.3, Chloride 109 H, Carbon Dioxide 29.0, Anion Gap 5, BUN 9, Creatinine 0.70, Estim Creat Clear Calc 85.56, Est GFR (MDRD) Af Amer 114, Est GFR (MDRD) Non-Af 94, BUN/Creatinine Ratio 12.9, Glucose 98, Calcium 9.1 Micro: Microbiology 07/18/24 08:13 Swab (Method) Nasal Screen MRSA/MSSA - Final Radiography Diagnostic Testing: Radiology Impression Lumbar Spine X-Ray 07/31/24 08:02 IMPRESSION: Image guidance for L3-5 spinal fusion. Electronically Signed: Abbey Horowitz MD at 8:38 EST , Lumbar Spine X-Ray 08/01/24 06:30 IMPRESSION: 1. No acute findings. 2. Discectomies at L3/4 and L4/5, with left lateral screws through the L3 and L4 vertebral bodies, as well as posterior fusion with pedicle screws and interbody rods from L3 through L5. 3. Severe degenerative changes of the L5/S1 disc with disc height loss, endplate sclerosis and osteophyte formation. Electronically Signed: Hung Way MD at 7:50 EST , Physical Exam Narrative Neurological exam of the lower extremities shows 5x5 power. Normal sensations across all dermatomes. Physical examinations shows Tegaderm and gauze intact over the back and belly incisions. Const alert, oriented x3 and no apparent distress Assessment & Plan Assessment/Plan (1) Status post lumbar spinal fusion: PLAN: Plan POD 1 L3-5 fusion. Xrays obtained today look good. Ready for discharge. PT/OT cleared. Tolerated a solid meal. Home medications include oxycodone, Robaxin, acetaminophen, senna. She will continue to take her diclofenac and in a week we will consider sending in a prescription for Meloxicam. She will follow up in clinic in 2 weeks.
[2024-08-01 13:07] VITALS: BP 112/51; PULSE 63; RESP 18; TEMP 36.3; O2SAT 100
== END 2024-08-01 13:28 | disposition home or self-care (01) | DRG 451 ==
LOC: ACINP 14:52 → MS3 15:09
PROVIDERS: Anesthesiology; Student in an Organized Health Care Education/Training Program; Admitting Provider Orthopaedic Surgery Orthopaedic Surgery of the Spine; PCP Family Medicine; Referring Provider Orthopaedic Surgery Orthopaedic Surgery of the Spine; Visit Provider Orthopaedic Surgery Orthopaedic Surgery of the Spine
PROC: 0SG00A0 Fusion of Lumbar Vertebral Joint with Interbody Fusion Device, Anterior Approach, Anterior Column, Open Approach (ICD-10-PCS; principal; 2024-07-31 07:30)
DX: M48.07 Spinal stenosis, lumbosacral region (principal); D64.9 Anemia, unspecified; F32.A Depression, unspecified; E78.00 Pure hypercholesterolemia, unspecified; M43.16 Spondylolisthesis, lumbar region; R11.0 Nausea; Z79.2 Long term (current) use of antibiotics; Z79.1 Long term (current) use of non-steroidal anti-inflammatories (NSAID); Z90.710 Acquired absence of both cervix and uterus; Z87.891 Personal history of nicotine dependence
CPT/HCPCS: 36415; 72100; 76000; 80048; 83735; 85027; 86703; 86706; 86708; 86803; 86850; 86900; 86901; 87081; 93005; 94668; 97162; 97166; 97530; 97535; C1713; J7120; A4216; J2405; J3475

== ENCOUNTER 2024-09-19 11:30 | Outpatient (RCR) | payer OTHER, SELFPAY ==
--- NOTE | 2024-08-26 08:40 | HP.PTEVAL ---
Patient's Visit Information Visit Information Visit Information: FAIZA DIAZ is a 53 year old F referred to Physical Therapy by Dr. Jh Hernandez MD with a diagnosis of SP lumbar fusion L3-L5. DOS: 07/31/24. Date of Evaluation: 08/22/24 Physical Therapist: Romeo oHu DPT Visit Plan Frequency: 3x /Week Duration: 4 Weeks Plan: 1) neutral spine core strengthening 2) desensitization to L hip, foam rolling, IASTIM. Pt. has TENS at home, pt to use. Subjective Subjective: Pt. is today for her initial evaluation with diagnosis of SP lumbar fusion L3-L5. DOS: 07/31/24. Pt. arrives with minimal to no pain today. Pt. reports overall doing well. She reports being eager to get back to work and working out. Pt. goes to [employer] typically. Pt. reports no N/T in either LE. Pt. is having some trouble sleeping, as her back does wake her up at times. 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 She would normally having to do some lifting and bending. pt. is on a restriction currently of 5 lbs and no BLT of lumbar spine. Pt. has not tried any exercises yet. Pt. is hopeful to get back to all recreational and work activities without limitations. One of the patients biggest complaints is of numbness at L lateral and anterior thigh. Pain Lumbar spine: Pain Intensity (Out of 10): 1 Pain Intensity Range: 0 and 4 Objective Objective: POSTURE: Pt. has good posture in stance. No marked issues noted. PALPATION: pt. has tenderness with palpation of lumbar erector spinae, no distal symptoms noted. NEURO: Pt. has normal DTR and normal sensation in distal LEs. Pt. does have some light touch sensation loss at L lateral and anterior thigh. Pt. is able to rise on heels and toes without issues. ROM: Lumbar spine: flexion mod loss, ext mod loss, SB mod loss, rotation: DNT. Pt. has normal HS length, slight tightness in B hip flexors. MMT: PT. has 5/5 strength throughout distal BLEs. PT. has 4/5 B hip strength, Pt. requires frequent VCing for good TA contraction. GAIT: slight guarded posture noted. STAIRS: normal Balance/Special Test Scores Oswestry Low Back Score: 12 Goals Goal 1:: LTG: Pt. to be I with HEP for neutral spine core strengthening. Goal Time Frame: 4-6 Weeks Goal 2:: STG: Pt. to sleep throughout the night without increase in symptoms. Goal Time Frame: 2-4 Weeks Goal 3:: LTG: Pt. to report no numbness at L lateral/anterior thigh. Goal Time Frame: 4-6 Weeks Goal 4:: LTG: Pt. to have 5/5 core strength to reduce stress to lumbar spine. Goal Time Frame: 6-8 Weeks Goal 5:: LTG: Pt. to resume all work and recreational activities without limitations. Goal Time Frame: 6-8 Weeks Rehabilitation Potential Physical Therapy Diagnosis: Pt. has signs and symptoms consistent with SP lumbar fusion L3-L5. DOS: 07/31/24. Pt. has some marked ROM loss, core/hip weakness and increased numbness at L anterior/lateral thigh. Pt. would benefit from PT to address the above limitations progressing back to work and recreational working out. Rehabilitation Potential: Excellent Anticipated Interventions Patient/Client Instruction: Educate patient on: Condition, Plan of Care, Risk Factors and Benefits of Fitness Program For the Purpose of:: To improve decision making, To facilitate caregiver knowledge, To improve self management, To prevent re-injury, To improve ability to perform tasks related to life management and To improve tolerance to ADL's Therapeutic Exercise to Include: Strength training, Power training, Endurance training, Body mechanics, Postural training, Flexibilty training, Active ROM, Dynamic Lumbar Stabilization and Blake Exercises For the Purpose of:: To decrease pain, To increase ROM, To improve nutrient delivery to tissue, To improve muscle performance and motor function, To improve ability to perform ADL's and To increase tolerance to activity/condition/position Manual Therapy Techniques to Include: Soft tissue mobilization Comment: desensitization IASTIM For the Purpose of:: To improve nutrient delivery to tissue, To increase oxygenation perfusion, To improve muscle performance and motor function and To improve ability to perform ADL's TENS: Yes Cryotherapy (ice pack, ice massage): Yes For the Purpose of:: To decrease pain, To decrease swelling/inflammation, To increase ROM and To improve nutrient delivery to tissue Text: Thank you for the opportunity to evaluate your patient. For Medicare and Medicare HMO plans, please review the plan of care and approve it. It will need to be FAXED BACK to us at [phone] for Medicare purposes. For Medicare only, by signing this I certify the plan of care. Please let me know if there are questions or concerns regarding this plan of care. Physician Signature: Date:
--- NOTE | 2024-09-19 12:21 | HP.PTREVAL ---
Re-Evaluation Intro: Dr. Jh Hernandez MD, It has been my pleasure to treat FAIZA DIAZ over the last 8 visits for SP lumbar fusion L3-L5. DOS: 07/31/24. Please see the progress note below for an update on the physical therapy plan of care! Subjective Subjective: Pt. reports overall doing well. No major issues. Pt. pleased. She does have some numbness at lateral hip, but other martinez doing well. Work is going well. Pt. reports no pain currently. Objective Objective/Function: ROM: Lumbar spine: flexion min loss tightness noted, ext min loss tightness, SB min/nil loss tightness, rotation min loss tightness bilat. Pt. has normal HS length and normal hip flexor length. MMT: Pt. has full strength of distal LEs. Pt. has 4+/5 B hip strength and fair- core strength. She has a good handle of all of the neutral spine core strengthening exercises. She reports she can do these at home. Overall doing much better, work is going well. She does still have some N/T at her L lateral hip, but no pain, its just annoying.' I am going to put her on hold to work on these core stability exercises on her own at this point in time. Once restrictions are removed we can progress further. Pt. agrees. Plan Plan Plan: Pt. to be on hold and do her HEP at home at this point in time. Once restrictions have been reduced we have progress more strengthening. Pt. is overall doing well. Balance/Gait/Functional tests Balance/Special Test Scores Oswestry Low Back Score: 12 Goals Goals Goal 1:: LTG: Pt. to be I with HEP for neutral spine core strengthening. Goal Time Frame: 4-6 Weeks Goal Progress: Goal Met Goal 2:: STG: Pt. to sleep throughout the night without increase in symptoms. Goal Time Frame: 2-4 Weeks Goal Progress: Goal Met Goal 3:: LTG: Pt. to report no numbness at L lateral/anterior thigh. Goal Time Frame: 4-6 Weeks Goal Progress: Progressing Goal 4:: LTG: Pt. to have 5/5 core strength to reduce stress to lumbar spine. Goal Time Frame: 6-8 Weeks Goal Progress: Progressing Goal 5:: LTG: Pt. to resume all work and recreational activities without limitations. Goal Time Frame: 6-8 Weeks Goal Progress: Goal Met Anticipated Interventions Anticipated Interventions Patient/Client Instruction: Educate patient on: Condition, Plan of Care, Risk Factors and Benefits of Fitness Program For the Purpose of:: To improve decision making, To facilitate caregiver knowledge, To improve self management, To prevent re-injury, To improve ability to perform tasks related to life management and To improve tolerance to ADL's Therapeutic Exercise to Include: Strength training, Power training, Endurance training, Body mechanics, Postural training, Flexibilty training, Active ROM, Dynamic Lumbar Stabilization and Blake Exercises For the Purpose of:: To decrease pain, To increase ROM, To improve nutrient delivery to tissue, To improve muscle performance and motor function, To improve ability to perform ADL's and To increase tolerance to activity/condition/position Manual Therapy Techniques to Include: Soft tissue mobilization Comment: desensitization IASTIM For the Purpose of:: To improve nutrient delivery to tissue, To increase oxygenation perfusion, To improve muscle performance and motor function and To improve ability to perform ADL's TENS: Yes Cryotherapy (ice pack, ice massage): Yes For the Purpose of:: To decrease pain, To decrease swelling/inflammation, To increase ROM and To improve nutrient delivery to tissue Re-Evaluation Ending Re-evaluation ending: Please do not hesitate to contact me at [phone] by phone or if you have questions or concerns regarding this new plan of care! Sincerely, Romeo Hou DPT
== END 2024-09-19 19:00 | disposition home or self-care (01) ==
LOC: PT 11:30
PROVIDERS: PCP Family Medicine; Visit Provider Orthopaedic Surgery Orthopaedic Surgery of the Spine
DX: Z98.1 Arthrodesis status (principal)
CPT/HCPCS: 97014; 97110; 97161; 97530; G0283

== ENCOUNTER → 2025-01-30 | Outpatient (CLI) | payer OTHER, SELFPAY ==
--- NOTE | 2025-01-30 12:59 | BI_ITS ---
EXAM: SCRN MAMM (CAD)W/ASHLEY BILAT DATE: 01/30/2025 CLINICAL HISTORY: F, Age 54 y/o , SCREENING No family history. BREAST CANCER RISK ASSESSMENT: Not assessed. TECHNIQUE: Bilateral screening digital breast tomosynthesis with 2D and 3D images. Computer aided detection. COMPARISON: Prior exam(s) dated June 16, 2023.. FINDINGS: TISSUE DENSITY: The breast tissue is extremely dense which lowers the sensitivity of mammography. Bilateral Breast Mammographic Findings: No significant masses, calcifications or other abnormalities are identified. No suspicious masses, areas of developing architectural distortion, or suspicious calcifications. There has been no significant interval change. BI/SCRN MAMM (CAD)W/ASHLEY BILAT IMPRESSION: OVERALL FINAL ASSESSMENT: BIRADS 1 NEGATIVE RECOMMENDATION: Routine annual follow-up in 1 Year A letter with findings and recommendations will be mailed to the patient. Reading Location: [id number]
== END | disposition home or self-care (01) ==
PROVIDERS: PCP Family Medicine; Referring Provider Family Medicine; Visit Provider Family Medicine
DX: Z12.31 Encounter for screening mammogram for malignant neoplasm of breast (principal)
CPT/HCPCS: 77063; 77067

== ENCOUNTER → 2025-04-09 | Outpatient (CLI) | payer OTHER, SELFPAY ==
[2025-04-09 20:43] LABS: CRP < 3.00 mg/L (0.0-3.0); Uric Acid 3.4 mg/dL (2.6-6.0)
== END | disposition home or self-care (01) ==
LOC: MTLAB 14:18
PROVIDERS: PCP Family Medicine; Referring Provider Nurse Practitioner Family; Visit Provider Nurse Practitioner Family
DX: M79.676 Pain in unspecified toe(s) (principal)
CPT/HCPCS: 36415; 84550; 85652; 86140

== ENCOUNTER → 2025-07-03 | Outpatient (CLI) | payer OTHER, SELFPAY ==
--- OUTSIDE RECORDS SUMMARY | 2025-07-03 08:14 | XMS RPT_ITS | CCD ---
Author Organization [facility] Care Team Providers [facility] Name Role Phone No Doctor Assigned, Nodr Unavailable Unavail able Mid Level Game Designer, Rob M Unavailable Unavailable Mid Level Game Designer, Rob M Unavailable Unavailable FARHADI, H JOSSE Unavailable Unavailable FARHADI, H JOSSE Unavailable Unavailable FARHADI, H JOSSE Unavailable Unavailable FARHADI, H JOSSE Unavailable Unavailable FARHADI, H JOSSE Unavailable Unavailable FARHADI, H JOSSE Unavailable Unavailable FAHAD SPENCER Primary Care Physician Dr. Saulo Mckay Primary Care Provider Dr. Lisa Cordero Attending Provider 1([facility]) Dr. Saulo Mckay Referring Provider 1([facility]) Dr. Mich Rios Attending Provider 1([facility]) 00 Dr. Saulo Mckay Primary Care Provider Mckenna Sierra Attending Provider Unavailable Dr. Saulo Mckay Referring Provider 1([facility]) Dr. Mariana Mohan Attending Provider 1([facility]) 3476 Dr. Mariana Mohan Primary Care Provider Dr. Mariana Mohan Referring Provider 1([facility]) 3476 Dr. Lisa Cordero Attending Provider 1([facility]) Matilda Matamoros Attending Provider Unavailable MEG Zaragoza Attending Provider Dr. Mariana Mohan Attending Provider 1([facility]) -[phone] MD Jeancarlos Lamb Attending Provider 1([facility])[phone] Mihir BOOTH, LOWC Sawyer Attending Provider 1([facility] -9198 Quinn, Dr. Oliva Attending Provider 1([facility])99 Dr. Pj Ball Other Provider 1([facility])-[phone] Mariana Mohan Primary Care Provider Dr. Mariana Mohan Referring Provider 1([facility])347 Consuelo, Dr. Gonzalez Attending Provider 1([facility])- 25 MD Jeancarlos Lamb Attending Provider 1([facility]) 342 Dossi, Dr. Gonzalez Referring Provider 1([facility]) 25 MD Jeancarlos Lamb Referring Provider 1([facility]) 342 Dr. Tim Torres Attending Provider 1([facility]) 342 Dr. Mariana Mohan Primary Care Provider Dr. Mariana Mohan Referring Provider 1([facility]) Dossi, Dr. Gonzalez Attending Provider 1([facility]) 25 Dr. Susie Quan Attending Provider 1([facility])3350 Dr. Mariana Mohan Attending Provider 1([facility]) Dr. Mariana Mohan Primary Care Provider Dr. Mariana Mohan Referring Provider 1([facility]) Dr. Mariana Mohan Referring Provider 1([facility])347 YANDY Frias Attending Provider 1([facility])[phone] MD Donta Mitchell Primary Care Provider 1([facility])[phone] MD Donta Mitchell Referring Provider 1([facility])[phone] MD Jeancarlos Lamb Attending Provider 1([facility]) 3420 Dr. Jh Hernandez Attending Provider 1([facility])[phone] Mich Rios Attending Provider 1([facility])[phone] Consuelo, Dr. Gonzalez Attending Provider 1([facility])-22 [phone] Paula HEATH, Donta Primary Care Provider 1([facility])[phone] Paula HEATH, Donta Referring Provider 1([facility])[phone] Jeancarlos Lamb MD Attending Provider 1([facility])[phone] Sowmya Galeano Attending Provider 1([facility])[phone] Mich Rios MD Attending Provider 1([facility])[phone] Dosterrie MEDEROS, Dr. Gonzalez Attending Provider Paula HEATH, Donta Attending Provider Kaitlin Coughlin CNM Attending Provider Paula HEATH, Chalon Primary Care Provider Paula HEATH, Chalon Referring Provider Jeancarlos Lamb MD Attending Provider Chucho Parker Attending Provider Paula HEATH, Chalon Primary Care Provider Paula HEATH, Chalon Referring Provider Gabriel HEATH, Dr. Epps Attending Provider David HEATH, Dr. Peñaloza Attending Provider Unavailable Primary Care Provider Unavailabl e Austyn AMPOULE INSPECTOR-CMonserrat Attending Provider Austyn AMPOULE INSPECTOR-C, Monserrat Referring Provider Paula HEATH, Chalon Primary Care Provider Paula HEATH, Chalon Referring Provider Paula HEATH, Chalon Primary Care Provider Paula HEATH, Chalon Referring Provider [phone] Ronal HEATH, Dr. Vernon Attending Provider Paula, Chalon Primary Care Unavailable Jeancarlos Lamb Attending Unavailable Paula, Chalon Referring Unavailable Hernandez, Jh Referring Unavailable Hernandez, Jh Admitting Unavailable Sowmya Mchugh Attending Unavailable Delbert Cho Consulting Unavailable Paula, Chalon Primary Care Unavailable Hernandez, Jh Consulting Unavailable Paula, Chalon Primary Care Unavailable Hernandez, Jh Referring Unavailable Hernandez, Jh Admitting Unavailable Hernandez, Jh Consulting Unavailable Hernandez, Jh Attending Unavailable Paula, Chalon Primary Care Unavailable Hernandez, Jh Attending Unavailable Paula, Chalon Referring Unavailable Paula, Chalon Primary Care Unavailable Paula, Chalon Attending Unavailable Paula, Chalon Referring Unavailable Hernandez, Jh Attending Unavailable Paula, Chalon Primary Care Unavailable Monserrat Zaman Attending Unavailable Monserrat Zaman Referring Unavailable Paula, Chalon Primary Care Unavailable Rocco Rey Consulting Unavailable Rocco Rey Attending Unavailable Delbert Cho Attending Unavailable Paula, Chalon Primary Care Unavailable Gabriel, Mich Attending Unavailable Hernandez, Jh Attending Unavailable Paula, Chalon Referring Unavailable Paula, Chalon Primary Care Unavailable Paula, Chalon Referring Unavailable Paula, Chalon Primary Care Unavailable Chucho Parker Attending Unavailable Gabriel, Mich Attending Unavailable Paula, Chalon Primary Care Unavailable Hernandez, Jh Attending Unavailable Paula, Chalon Referring Unavailable Paula, Chalon Primary Care Unavailable Paula, Chalon Primary Care Unavailable Gabriel, [place] Attending Unavailable Monserrat Zaman Attending Unavailable Paula, Chalon Referring Unavailable Paula, Chalon Primary Care Unavailable Paula, Chalon Primary Care Unavailable Saulo Villeda Attending Unavailable Paula, Chalon Referring Unavailable Hernandez, Jh Attending Unavailable Paula, Chalon Referring Unavailable Paula, Chalon Primary Care Unavailable Sowmya Mchugh Attending Unavailable Paula, Chalon Referring Unavailable Paula, Chalon Primary Care Unavailable Lisa Cordero Attending Unavailable Paula, Chalon Primary Care Unavailable Paula, Chalon Referring Unavailable Paula, Chalon Primary Care Unavailable Hernandez, Jh Referring Unavailable Gabriel, Mich Attending Unavailable Paula, Chalon Primary Care Unavailable Hernandez, Jh Referring Unavailable Hernandez, Jh Admitting Unavailable Hernandez, Jh Attending Unavailable Delbert Cho Consulting Unavailable Jeancarlos Lamb Attending Unavailable Paula, Chalon Primary Care Unavailable Paula, Chalon Referring Unavailable Gabriel, [place] Attending Unavailable Paula, Chalon Primary Care Unavailable Jeancarlos Lamb Attending Unavailable Paula, Chalon Referring Unavailable Paula, Chalon Primary Care Unavailable Gabriel, [place] Attending Unavailable Paula, Chalon Primary Care Unavailable Kaitlin Coughlin Attending Unavailable Paula, Chalon Primary Care Unavailable Paula, Chalon Referring Unavailable JUNMANDA Langston Attending Unavailable YUSUFMATIAS Attending Unavailable KAEHMELINDA, RASHI Referring Unavailable Allergies Allergy Classification Reported Allergen(s) Allergy Type Date of Onset Reaction(s) Facility (19 sources) Ciprofloxacin; Translations: [ciprofloxacin] Drug Allergy 7 U, Nausea/Vom/[facility] (19 sources) predniSONE; Translations: [prednisone] Drug Allergy 7 U, Nausea/Vom/Nori [facility] (19 sources) Pineapple; Translations: [pineapple] Food allergy 2 tongue swells [facility] (19 sources) Ciprofloxacin; Translations: [ciprofloxacin HCl] Drug Allergy 7 Nausea/Vom/Nori [facility] (3 sources) Prednisone Propensity to adverse reactions 7 Other, Nausea And Vomiting, Unknown [facility] (1 source) Ciprofloxacin Drug Allergy 5 [facility] (1 source) predniSONE Drug Allergy 5 [facility] Medications Current Medications Medication Drug Class(es) Dates Sig (Normalized) Sig (Original) acetaminophen 500 mg oral tablet (18 sources) Start: 08-01-2024 End: 02-28-2025 take 1 tablet by mouth every six hours as needed Acetaminophen 500 mg tablet Active 500 mg PO EVERY 6 HOURS as needed February 28, 2025 1:10pm budesonide 0.032 mg/actuat metered dose nasal spray (20 sources) Corticosteroid Start: 06-14-2023 Budesonide (Rhinocort Allergy) 32 mcg/actuation spray,non-aerosol Active 1 NMA INTRANASAL DAILY as needed for Nasal Congestion June 14, 2023 1:45pm Start: 06-14-2023 Budesonide (Rh inocort Allergy) 32 mcg/actuation spray,non- aerosol Active 1 SPRAY INTRANASAL DAILY June 14, 2023 1:45pm Start: 01-20-2016 End: 06-14-2023 Budesonide (Rhinocort Allerg y) 8.43 ML spray,non-aerosol Discontinued 5 mL NS DAILY NEEDED as needed for Nasal Congestion January 20, 2016 12:00am June 14, 2023 1:46pm DULoxetine 60 mg delayed release oral capsule (20 sources) Serotonin and Norepinephrine Reuptake Inhibitor Start: 04-26-2023 End: 05-05-2025 take 1 capsule by mouth once daily DULoxetine (Cymbalta) [address] capsule Take 60 mg by mouth daily. 02/06/2025 Active Start: 04-26-2023 End: 04-26-2023 take 2 capsules by mouth once daily Duloxetine (Cymbalta) 30 mg capsule,delayed release(DR/EC) Discontinued 60 mg PO DAILY April 26, 2023 9:24am April 26, 2023 9:25am Start: 09-08-2022 End: 04-26-2023 take 1 capsule by mouth once daily Duloxetine (Cymbalta) 30 mg capsule,delayed release(DR/EC) Discontinued 30 mg PO DAILY April 03, 2023 8:15am April 26, 2023 9:24am estradiol 1 mg oral tablet (20 sources) Estrogen Start: 03-04-2025 take 1 tablet by mouth once daily estradiol (Estrace) 1 MG tablet Take 1 mg by mouth daily. 03/04/2025 Active Start: 10-10-2024 End: 01-30-2025 take 1 tablet by mouth once daily Estradiol 1 mg tablet Active 1 mg PO DAILY January 30, 2025 1:39pm Start: 04-19-2023 End: 07-10-2024 take 1 tablet by mouth once daily Estradiol 1 mg tablet Discontinued 1 mg PO DAILY 30 September 29, 2023 5:45pm July 10, 2024 2:41pm hydrOXYzine hydrochloride 25 mg oral tablet (8 sources) Antihistamine Start: 02-28-2025 take 1 tablet by mouth every eight hours Hydroxyzine Hcl 25 mg tablet Active 25 mg PO Q8H 12 February 28, 2025 12:00am Multi-Day Plus Minerals (1 source) Start: 01-23-2020 Multi-Day Plus Minerals Oral, qDay, 0 Refill(s) Start Date: 01/23/20 Status: Ordered Multivitamin preparation (7 sources) Start: 06-08-2022 take 1 tablet by mouth once daily Multivitamin Active 1 TABLET PO DAILY June 08, 2022 12:00am Start: 06-08-2022 take 1 tablet by sukumar once daily Multivitamin Active 1 TABLET PO DAILY June 07, 2022 11:00pm Multivitamin tablet (10 sources) Start: 06-08-2022 Multivitamin t ablet Active 1 {tbl} PO DAILY June 08, 2022 12:00am SUPPLEMENT Start: 06-08-2022 Multivitamin t ablet Active 1 {tbl} PO DAILY June 08, 2022 12:00am Multivitamin With Minerals (Hair,Skin And Nails) tablet (17 sources) Start: 06-08-2022 Multivitamin W ith Minerals (Hair,Skin And Nails) tablet Active 1 {tbl} PO DAILY June 08, 2022 12:00am SUPPLEMENT Start: 06-08-2022 Multivitamin W ith Minerals (Hair,Skin And Nails) tablet Active 1 {tbl} PO DAILY June 08, 2022 12:00am Start: 06-08-2022 take 1 tablet by sukumar th once daily Multivitamin With Minerals (Hair,Skin And Nails) tablet Active 1 TABLET PO DAILY June 08, 2022 12:00am Start: 06-08-2022 take 1 tablet by sukumar th once daily Multivitamin With Minerals (Hair,Skin And Nails) tablet Active 1 TABLET PO DAILY June 07, 2022 11:00pm naproxen 250 mg oral tablet (1 source) Nonsteroidal Anti-inflammatory Drug Start: 01-23-2020 naproxen 250 mg o ral tablet Dose : 250 mg = 1 tab(s), Oral, BID, # 60 tab(s), 0 Refill(s) Start Date: 01/23/20 Status: Ordered [place]-3 Fatty Acids-Fish Oil (Fish Oil) 300-500 mg capsule (17 sources) Start: 06-08-2022 [place]-3 Fatty Acids-Fish Oil (Fish Oil) 300-500 mg capsule Active 1 NMA PO DAILY June 08, 2022 12:00am SUPPLEMENT Start: 06-08-2022 [place]-3 Fatty Acids-Fish Oil (Fish Oil) 300-500 mg capsule Active 1 NMA PO DAILY June 08, 2022 12:00am Start: 06-08-2022 take 1 capsule by mo [facility] once daily [place]-3 Fatty Acids-Fish Oil (Fish Oil) 300-500 mg capsule Active 1 CAP PO DAILY June 08, 2022 12:00am Start: 06-08-2022 take 1 capsule by mo [facility] once daily [place]-3 Fatty Acids-Fish Oil (Fish Oil) 300-500 mg capsule Active 1 CAP PO DAILY June 07, 2022 11:00pm Start: 06-08-2022 [place]-3 Fatty Acids-Fish Oil (Fish Oil) 300-500 mg capsule Active CAP PO June 07, 2022 11:00pm omeprazole 20 mg delayed release oral capsule (9 sources) Proton Pump Inhibitor Start: 02-28-2025 take 1 capsule by mouth once daily Omeprazole 20 mg capsule,delayed release(DR/EC) Active 20 mg PO daily February 28, 2025 12:00am Start: 08-23-2021 omeprazole 40 mg oral delayed release capsule Dose : 40 mg = 1 cap(s), Oral, qDay, # 30 cap(s), 5 Refill(s), Pharmacy: [facility], 167, cm, 02/23/21 7:33:00 EDT, Height, kg, 07/22/21 14:37:00 EDT, Dosing Weight Start Date: 08/23/21 Status: Ordered pregabalin 50 mg oral capsule (20 sources) Start: 04-04-2024 End: 03-18-2025 take 1 capsule by mouth twice daily for pain pregabalin (Lyrica) 50 MG capsule TAKE 1 CAPSULE BY MOUTH 2 TIMES A DAY FOR PAIN 03/18/2025 Active Vonoprazan (Voquezna) 10 mg tablet (8 sources) Start: 02-28-2025 take 1 tablet by mouth once daily Vonoprazan (Voquezna) 10 mg tablet Active 10 mg PO daily 14 February 28, 2025 12:00am Start: 02-28-2025 take 1 tablet by sukumar th once daily Vonoprazan (Voquezna) 10 mg tablet Active 10 mg PO daily February 28, 2025 12:00am Completed/Discontinued Medications Medication Drug Class(es) Dates Sig (Normalized) Sig (Original) amoxicillin 500 mg oral capsule (10 sources) Penicillin-class Antibacterial Start: 01-29-2024 End: 02-08-2024 take 2 capsules by mouth once daily Amoxicillin 500 mg capsule Discontinued 1000 mg PO DAILY 20 January 29, 2024 12:00am February 07, 2024 12:00am February 08, 2024 12:04am ascorbic acid 500 mg oral capsule (20 sources) Vitamin C Start: 06-08-2022 End: 04-19-2023 take 1 capsule by mouth once daily Ascorbic Acid (Vitamin C) 500 mg capsule Discontinued 500 mg PO DAILY June 08, 2022 12:00am April 19, 2023 3:09pm Start: 06-08-2022 Ascorbic Acid (Vitamin C) Active MG PO June 07, 2022 11:00pm Start: 01-20-2016 End: 04-13-2022 take 2 tablets by mouth once daily Ascorbic Acid (Vitamin C) (Vitamin C) 500 MG tablet Discontinued 1000 mg PO DAILY@0800 January 20, 2016 12:00am April 13, 2022 11:01am baclofen 10 mg oral tablet (18 sources) gamma-Aminobutyric Acid-ergic Agonist Start: 01-20-2016 End: 03-01-2022 take 1 tablet by mouth at bedtime Baclofen 10 MG tablet Discontinued 10 mg PO AT BEDTIME January 20, 2016 12:00am March 01, 2022 11:16am calcium citrate 950 mg / cholecalciferol 250 unt oral tablet (18 sources) Vitamin D Start: 01-20-2016 End: 04-19-2023 Calcium Citrate-Vitamin D3 1 EACH tablet Discontinued 1 NMA PO DAILY January 20, 2016 12:00am April 19, 2023 3:09pm Start: 01-20-2016 End: 04-19-2023 Calcium Citrate-Vitamin D3 D iscontinued 1 EACH PO DAILY January 20, 2016 12:00am April 19, 2023 3:09pm 12 hr cetirizine hydrochloride 5 mg / pseudoephedrine hydrochloride 120 mg extended release oral tablet (18 sources) alpha-Adrenergic Agonist, Histamine-1 Receptor Antagonist Start: 01-20-2016 End: 04-13-2022 P-Ephed Hcl/Cetirizine Hcl (Zyrtec-D Tablet) 1 TAB.SR Tab.Sr.12h Discontinued 1 NMA PO DAILY as needed for allergy January 20, 2016 12:00am April 13, 2022 11:02am citalopram 40 mg oral tablet (20 sources) Serotonin Reuptake Inhibitor Start: 06-08-2022 End: 08-15-2022 Citalopram 40 mg tablet Discontinued 20 mg PO June 08, 2022 1:50pm August 15, 2022 3:14pm Start: 06-08-2022 End: 08-15-2022 Citalopram Discontinued 20 M G PO June 08, 2022 1:50pm August 15, 2022 3:14pm Start: 03-01-2022 End: 06-08-2022 Citalopram 40 mg tablet Disc ontinued 40 mg PO March 01, 2022 12:00am June 08, 2022 1:51pm Start: 09-14-2021 take 1 tablet by sukumar th once daily citalopram 40 mg oral tablet See Instructions, TAKE 1 TABLET DAILY, # 30 cap(s), 5 Refill(s), Pharmacy: [facility], 167, cm, 02/23/21 7:33:00 EDT, Height, kg, 07/22/21 14:37:00 EDT, Dosing Weight Start Date: 09/14/21 Status: Ordered diclofenac sodium 50 mg delayed release oral tablet (20 sources) Nonsteroidal Anti-inflammatory Drug Start: 08-31-2022 End: 02-06-2025 take 1 tablet by mouth twice daily Diclofenac Sodium 50 mg tablet,delayed release (DR/EC) Discontinued 50 mg PO TWICE A DAY 180 0 June 05, 2023 7:45am February 06, 2025 3:56pm PAIN Start: 06-08-2022 End: 08-31-2022 take 1 tablet by mouth once daily Diclofenac Sodium 100 mg tablet extended release 24 hr Discontinued 100 mg PO DAILY 90 August 15, 2022 11:06am August 31, 2022 6:32pm Start: 03-01-2022 End: 06-08-2022 take 1 tablet by mouth twice daily Diclofenac Sodium 50 mg tablet,delayed release (DR/EC) Discontinued 50 mg PO TWICE A DAY May 26, 2022 12:01pm June 08, 2022 2:13pm Start: 09-01-2021 End: 10-01-2021 diclofenac sodium 100 mg ora l tablet, extended release Dose : 100 mg = 1 tab(s), Oral, qDay, PRN as needed for pain, Take with food and drink plenty of fluids. Do not take other NSAIDs while on this medication., # 30 tab(s), 0 Refill(s), Pharmacy: [facility], 167, cm, 02/23/21 7:33:00 EDT, H... Start Date: 09/01/21 Stop Date: 10/01/21 Status: Ordered docusate sodium 100 mg oral capsule (18 sources) Start: 01-05-2017 End: 03-01-2022 take 1 capsule by mouth twice daily Docusate Sodium (Colace) 100 MG capsule Discontinued 100 mg PO TWICE A DAY 30 0 January 05, 2017 12:00am March 01, 2022 11:16am constipation docusate sodium 50 mg / sennosides, group home 8.6 mg oral tablet (10 sources) Start: 08-01-2024 End: 02-28-2025 Sennosides-Docusat e Sodium (Stimulant Laxative Plus) 8.6-50 mg Tablet Discontinued 2 {tbl} PO TWICE A DAY as needed for constipation 30 August 01, 2024 1:10pm February 28, 2025 1:10pm gabapentin 600 mg oral tablet (20 sources) Anti-epileptic Agent Start: 06-13-2019 End: 11-16-2023 take 1 tablet by mouth at bedtime Gabapentin 600 mg tablet Discontinued 0 .ROUTE .COMPLEX 30 January 13, 2023 11:08am April 26, 2023 9:28am TAKE 1 TABLET BY MOUTH AT BEDTIME ibuprofen 600 mg oral tablet (18 sources) Nonsteroidal Anti-inflammatory Drug Start: 01-20-2016 End: 03-01-2022 take 1 tablet by mouth every six hours as needed for pain Ibuprofen 600 MG tablet Discontinued 600 mg PO EVERY 6 HOURS NEEDED as needed for Mod-Severe Pain (4-10/10) January 20, 2016 12:00am March 01, 2022 11:16am Lactobacillus Combination No.4 (Probiotic) 3 billion cell capsule (13 sources) Start: 04-19-2023 End: 07-10-2024 take 3 capsules by mouth once daily Lactobacillus Combination No.4 (Probiotic) 3 billion cell capsule Discontinued 3000 NMA PO DAILY April 19, 2023 12:00am July 10, 2024 2:41pm administer with a meal Start: 04-19-2023 take 3 capsules by m outh once daily Lactobacillus Combination No.4 (Probiotic) 3 billion cell capsule Active 3000 MMU CELLS PO DAILY April 19, 2023 12:00am administer with a meal levocetirizine dihydrochloride 5 mg oral tablet (17 sources) Histamine-1 Receptor Antagonist Start: 06-08-2022 End: 08-18-2022 take 1 tablet by mouth once daily Levocetirizine (Xyzal) 5 mg tablet Discontinued 5 mg PO DAILY June 08, 2022 12:00am Dani 1st, 2022 1:20pm methocarbamol 500 mg oral tablet (20 sources) Muscle Relaxant Start: 08-30-2024 End: 02-06-2025 take 1 tablet by mouth three times daily Methocarbamol 500 mg tablet Discontinued 500 mg PO THREE TIMES A DAY 20 0 August 30, 2024 1:00am February 06, 2025 3:56pm Start: 08-01-2024 End: 08-13-2024 Methocarbamol 500 mg Tablet Discontinued 750 mg PO THREE TIMES A DAY as needed for pain/spasms 30 0 August 01, 2024 1:09pm August 13, 2024 9:10am Multivit Uev-Cfow-Aj-Herb 186 (Hair, Skin And Nails Advanced) 1 EACH tablet (18 sources) Start: 12-30-2016 End: 04-13-2022 take 1 tablet by mouth once daily Multivit Aum-Xodr-Ts-Herb 186 (Hair, Skin And Nails Advanced) 1 EACH tablet Discontinued 1 NMA PO DAILY December 30, 2016 12:00am April 13, 2022 11:02am Start: 12-30-2016 End: 04-13-2022 take 1 tablet by mouth once daily Multivit Bwm-Qxew-Yx-Herb 186 (Hair, Skin And Nails Advanced) 1 EACH tablet Discontinued 1 EACH PO DAILY December 30, 2016 12:00am April 13, 2022 11:02am Start: 12-30-2016 End: 04-13-2022 take 1 tablet by mouth once daily Multivit Dmt-Tsaq-Tk-Herb 186 (Hair, Skin And Nails Advanced) 1 EACH tablet Discontinued 1 EACH PO DAILY December 29, 2016 11:00pm April 13, 2022 10:02am Start: 12-30-2016 take 1 tablet by sukumar th once daily Multivit Mrc-Wcdc-Qc-Herb 186 (Hair, Skin And Nails Advanced) 1 EACH tablet Active 1 EACH PO DAILY December 30, 2016 12:00am ondansetron 4 mg oral tablet (1 source) Serotonin-3 Receptor Antagonist Start: 06-29-2020 End: 07-04-2020 Zofran 4 mg oral tablet Dose : 4 mg = 1 tab(s), Oral, q6h, PRN Nausea/Vomiting, # 20 tab(s), 0 Refill(s), Pharmacy: [facility]/pharmacy #[id number], 167.6, cm, 10/23/19 9:14:00 EST, Height, kg, 01/23/20 14:45:00 EDT, Dosing Weight Start Date: 06/29/20 Stop Date: 07/04/20 Status: Ordered oxyCODONE hydrochloride 5 mg oral tablet (20 sources) Opioid Agonist Start: 08-01-2024 End: 08-13-2024 take 1 tablet by mouth every six hours Oxycodone 5 mg Tablet Discontinued 5 mg PO EVERY 6 HOURS 28 7 0 August 01, 2024 August 13, 2024 9:10am Status post lumbar spinal fusion Arthrodesis status Start: 01-05-2017 End: 03-01-2022 take 5-10 mg by mouth every four hours as needed for pain Oxycodone 5 MG tablet Discontinued 5 - 10 mg PO EVERY 4 HOURS NEEDED as needed for Mod-Severe Pain () 30 0 January 05, 2017 12:00am March 01, 2022 11:16am traZODone hydrochloride 50 mg oral tablet (1 source) Serotonin Reuptake Inhibitor Start: 01-13-2020 End: 07-11-2020 traZODone 50 mg oral tablet Dose : 50 mg = 1 tab(s), Oral, qHS, # 90 tab(s), 1 Refill(s), Pharmacy: [facility], 167.6, cm, 10/23/19 9:14:00 EST, Height, kg, 10/23/19 9:14:00 EST, Dosing Weight Start Date: 01/13/20 Stop Date: 07/11/20 Status: Ordered Turmeric extract (13 sources) Start: 04-19-2023 End: 07-10-2024 take 1 capsule by mouth once daily Turmeric 400 mg capsule Discontinued 40 mg PO DAILY April 19, 2023 12:00am July 10, 2024 2:41pm Start: 04-19-2023 take 40 mg by mouth once daily Turmeric Active 40 MG PO DAILY April 19, 2023 12:00am Problems Active Problems Problem Classification Problem Date Documented Date Episodic/Chronic Acquired foot deformities (1 source) Toe joint rigid; Translations: [Hallux rigidus, left foot] 04-16-2025 Chronic Adjustment disorders (20 sources) Complicated grieving; Translations: [Adjustment disorder with depressed mood] 01-30-2025 Chronic Comment on above: loss of SO. grief co unseling recommended Administrative/socia l admission (1 source) Persons encountering health services in other specified circumstances; Translations: [Other reasons for seeking consultation] Episodic Anxiety disorders (1 source) Anxiety 07-31-2019 Chronic Blindness and vision defects (15 sources) Visual field defect; Translations: [Unspecified visual field defects] 04-19-2023 Episodic Cardiac dysrhythmias (14 sources) Bradycardia; Translations: [Bradycardia, unspecified] 08-02-2021 Episodic Conditions associated with dizziness or vertigo (1 source) Dizziness 01-06-2021 Episodic Disorders of lipid metabolism (16 sources) Pure hypercholesterolemia, unspecified; Translations: [Pure hypercholesterolemia] Chronic Esophageal disorders (15 sources) Gastroesophageal reflux disease; Translations: [Gastro-esophageal reflux disease without esophagitis] 06-13-2019 Chronic Fever of unknown origin (17 sources) Fever; Translations: [Fever, unspecified] 06-07-2022 Episodic Headache; including migraine (20 sources) Headache; Translations: [Headache] 06-07-2022 Episodic Malaise and fatigue (11 sources) Fatigue; Translations: [Chronic fatigue, unspecified] 06-14-2023 Chronic Malaise and fatigue (2 sources) Other fatigue; Translations: [Other malaise and fatigue] 04-26-2023 Episodic Menopausal disorders (12 sources) Menopausal syndrome; Translations: [Menopausal and female climacteric states] 09-29-2023 Chronic Comment on above: continue estrogen th erapy. 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] Onset: 06-13-2019 Chronic Other acquired deformities (14 sources) Degenerative spondylolisthesis; Translations: [Spondylolisthesis, site unspecified] 02-22-2023 Episodic Other acquired deformities (5 sources) Spondylolisthesis, site unspecified; Translations: [Acquired spondylolisthesis] 02-22-2023 Episodic Other acquired deformities (11 sources) Lumbar spondylolisthesis; Translations: [Spondylolisthesis, lumbar region] 11-16-2023 Episodic Other acquired deformities (1 source) Spondylolisthesis, lumbar region; Translations: [Acquired spondylolisthesis] 11-16-2023 Episodic Other bone disease and musculoskeletal deformities (20 sources) Segmental and somatic dysfunction; Translations: [Segmental and somatic dysfunction of lumbar region] 05-03-2022 Episodic Other bone disease and musculoskeletal deformities (13 sources) Segmental and somatic dysfunction of lumbar region; Translations: [Nonallopathic lesions, lumbar region] Episodic Other bone disease and musculoskeletal deformities (4 sources) Segmental and somatic dysfunction of pelvic region; Translations: [Nonallopathic lesions, pelvic region] Episodic Other bone disease and musculoskeletal deformities (20 sources) Bone cyst of foot; Translations: [Other cyst of bone, unspecified ankle and foot] 10-20-2022 Episodic Other bone disease and musculoskeletal deformities (5 sources) Other cyst of bone, unspecified ankle and foot; Translations: [Cyst of bone (localized), unspecified] Onset: 5 10-20-2022 Episodic Other bone disease and musculoskeletal deformities (7 sources) Segmental and somatic dysfunction of sacral region; Translations: [Nonallopathic lesions, sacral region] 01-16-2023 Episodic Other connective tissue disease (11 sources) Pain in left foot; Translations: [Pain in limb] Onset: 5 Episodic Other connective tissue disease (18 sources) History of lumbar fusion; Translations: [Arthrodesis status] 08-01-2024 Episodic Other connective tissue disease (1 source) Pain in left foot; Translations: [Pain in left foot] 04-07-2025 Episodic Other connective tissue disease (1 source) Pain in unspecified toe(s); Translations: [Pain in unspecified toe(s)] Onset: 5 Episodic Other connective tissue disease (2 sources) Arthrodesis status; Translations: [Arthrodesis status] Onset: 4 Episodic Other eye disorders (13 sources) Excess skin of eyelid; Translations: [Dermatochalasis of right eye, unspecified eyelid] 04-19-2023 Episodic Other eye disorders (2 sources) Dermatochalasis of right eye, unspecified eyelid; Translations: [Dermatochalasis] 04-19-2023 Episodic Other hereditary and degenerative nervous system conditions (3 sources) Restless legs syndrome; Translations: [Restless legs syndrome (RLS)] 04-26-2023 Chronic Other hereditary and degenerative nervous system conditions (11 sources) Restless legs; Translations: [Restless legs syndrome] 09-29-2023 Chronic Other nervous system disorders (20 sources) Mortons neuroma of left foot; Translations: [Lesion of plantar nerve, left lower limb] 10-20-2022 Chronic Other nervous system disorders (5 sources) Lesion of plantar nerve, left lower limb; Translations: [Lesion of plantar nerve] Onset: 5 10-20-2022 Chronic Other non-traumatic joint disorders (3 sources) Joint disorder, unspecified; Translations: [Unspecified disorder of joint, multiple sites] Episodic Other non-traumatic joint disorders (11 sources) Pain in left knee; Translations: [Left knee pain] 05-29-2023 Episodic Other upper respiratory disease (17 sources) Congestion of nasal sinus; Translations: [Nasal congestion] 06-07-2022 Episodic Other upper respiratory infections (20 sources) Acute pharyngitis; Translations: [Acute pharyngitis, unspecified] 01-25-2024 Episodic Residual codes; unclassified (1 source) Insomnia 06-13-2019 Episodic Residual codes; unclassified (17 sources) Chill; Translations: [Chills (without fever)] 06-07-2022 Episodic Residual codes; unclassified (17 sources) Generalized aches and pains; Translations: [Pain, unspecified] 06-07-2022 Episodic Residual codes; unclassified (1 source) Immunization not carried out because of patient refusal; Translations: [Vaccination not carried out because of patient refusal] Episodic Spondylosis; intervertebral disc disorders; other back problems (20 sources) Prolapsed lumbar intervertebral disc; Translations: [Other intervertebral disc displacement, lumbar region] Chronic Spondylosis; intervertebral disc disorders; other back problems (20 sources) Backache; Translations: [Lumbago with sciatica] Onset: 8 07-22-2021 Episodic Unclassified (1 source) New Patient / [id number]() Onset: 8 Unclassified (1 source) Back Pain / 12() Onset: 8 Unclassified (1 source) Lumbar (qualifier value) 06-13-2019 Comment on above: dengenerative disc Unclassified (1 source) Reddy's neuroma (morphologic abnormality) 06-13-2019 Unclassified (2 sources) New Patient; Translations: [New Patient] Onset: Viral infection (17 sources) Disease caused by 2019-nCoV; Translations: [COVID-19] 06-07-2022 Episodic Past or Other Problems Problem Classification Problem Date Documented Da te Episodic/Chronic Nausea and vomiting (11 sources) Postoperative nausea; Translations: [Nausea] Onset: 08-02-2024 08-02-2024 Episodic Other bone disease and musculoskeletal deformities (6 sources) Segmental and somatic dysfunction of thoracic region; Translations: [Nonallopathic lesions, thoracic region] Onset: 12-17-2024 Episodic Other bone disease and musculoskeletal deformities (1 source) Segmental and somatic dysfunction of cervical region; Translations: [Segmental and somatic dysfunction of cervical region] Onset: 12-17-2024 Episodic Other screening for suspected conditions (not mental disorders or infectious disease) (20 sources) Patient encounter status; Translations: [Encounter for screening for malignant neoplasm of colon] Onset: 02-03-2025 Episodic Residual codes; unclassified (1 source) Other specified postprocedural states; Translations: [Other specified postprocedural states] Onset: 08-02-2024 Episodic Unclassified (1 source) New Patient; Translations: [New Patient] Onset: 03-14-2018 Results Test Name Value Interpretation Reference Range Facility [id number] 06-23-2025 [id number] Medication List Accurate as of June 23, 2025 9:06 AM. Always use your most recent med list. DULoxetine [address] capsule Commonly known as: Cymbalta Medication Adjustments for Surgery: Take night before surgery estradiol 1 MG tablet Commonly known as: Estrace Medication Adjustments for Surgery: Take morning of surgery multivitamin tablet Medication Adjustments for Surgery: Hold morning of surgery naproxen 375 MG tablet Commonly known as: Naprosyn Notes to patient: Last dose will be on the 07/02/25 pregabalin 50 MG capsule Commonly known as: Lyrica Medication Adjustments for Surgery: Take night before surgery [employer]ANT AND PARKING IN THE MAIN DECK ARE FREE DAY OF SURGERY. PARKING IN THE DECK-- AFTER PARKING TAKE THE ELEVATOR TO LEVEL ONE AND TAKE THE BRIDGE TO THE HOSPITAL. GO TO THE RIGHT AND GO AROUND THE CORNER TO THE SAME DAY SURGERY DESK AND CHECK IN THERE. IF GOING IN THE MAIN ENTRANCE-- TURN LEFT AND GO DOWN THE CHAVEZ TO THE H ELEVATORS AND TAKE THEM TO ONE, LEFT OFF THE ELEVATOR AND GO AROUND TO THE SAME DAY DESK AND CHECK IN. No food after midnight. You may have clear liquids up to 2 hours prior to surgery including: -water -apple or cranberry juice (NO orange juice) -black coffee or clear tea (NO creamer or milk) -soda (carbonated beverages) -sports drinks Have up to 16 ounces of your favorite clear fluid, preferably a sports drink such as Gatorade or Powerade up to 2 hours before your surgery start time. For patients with diabetes, please opt for a zero sugar fluid. SHE IS AWARE ABOUT REMOVING PIERCINGS ESPECIALLY HER NOSE PIERCINGS Additional Instructions: You may take your prescription pain medication. You may take Tylenol for pain. NO Motrin, ibuprofen or Advil for 24 hours prior to surgery or longer if instructed by your surgeon. NO Aleve or Naprosyn for 5 days prior to surgery or longer if instructed by your surgeon. DO NOT take aspirin or aspirin containing products for 5 days before surgery, or longer if instructed by your surgeon. Follow any instructions given to you by Dr. GOLDBERG Follow the instruction for the [facility] shower kit you were provided in pre-admission testing. SHOWER THE NIGHT BEFORE SURGERY AND THE MORNING OF SURGERY No makeup, lotion, powder, deodorant or body spays. No hair products. Remove all jewelry and leave it at home. Wear loose comfortable clothing to go home in. You may brush your teeth morning of surgery. Do not wear contacts day of surgery. No marijuana (THC), smoking or alcohol for 24 hours prior to surgery. Please arrange for a responsible adult to drive you home after your surgery and that there is a responsible adult with you for 24 hours post discharge. If you have specific questions, please call your surgeon. You will receive a call the day before your surgery to verify your arrival time and date. You will be asked to arrive at least two hours prior to your scheduled surgery time. Please bring your [facility] Surgical folder and medication list with you day of surgery. We encourage you to write down any questions you may have for the surgeon, anesthesiologist, or other members of the surgical team and bring it with you the day of surgery. Please bring photo ID and insurance information. Normal [facility] Progress Noteon 06-16-2025 Progress Note ERROR - VOID Normal [facility] Plastic Surgery Visit Report on 05-30-2025 Plastic Surgery Visit Report [facility] [address], [address] [place] [address] OFFICE VISIT Date of Service: 05/30/25 MR#: [id number] Acct: [id number] Name: FAIZA TRIPP Rep #: [id number] : 1970 Provider: Dr. Saulo Villeda MD Age/Sex: 54/F [facility] [facility] Status: Signed Intake Vital Signs 04/09/25 11:03 05/30/25 11:31 Height 5 ft 5 in BP 140/96 H Blood Pressure Location Rt brachial Position Sitting Respiration 18 Pulse 67 Pulse Source Monitor Pulse Oximetry (%) 98 Oxygen Delivery Method room air Intake Visit Reasons: UPPER BLEPH Chief Complaint: Upper Bleph Is patient in pain?: No Allergies pineapple Allergy (Unknown, Verified 05/30/25 10:53) tongue swells ciprofloxacin (From Cipro) Adverse Reaction (Verified 05/30/25 10:53) Nausea/Vom/Diarrhea ciprofloxacin HCl (From Cipro) Adverse Reaction (Verified 05/30/25 10:53) Nausea/Vom/Diarrhea prednisone Adverse Reaction (Verified 05/30/25 10:53) Nausea/Vom/Diarrhea Medications ???Medication ???Instructions ???Recorded ???Confirmed ???Type multivitamin 1 tab PO DAILY SUPPLEMENT 06/08/22 05/30/25 History multivitamin with minerals 1 tab PO DAILY SUPPLEMENT 06/08/22 05/30/25 History (Hair,Skin and Nails tablet) omega-3 fatty acids-fish oil 300 1 cap PO DAILY SUPPLEMENT 06/08/22 05/30/25 History mg-500 mg capsule (Fish Oil) budesonide 32 mcg/actuation nasal 1 spray intranasal DAILY PRN Nasa l 06/14/23 05/30/25 History spray (Rhinocort Allergy) Congestion estradiol 1 mg tablet 1 mg PO DAILY 01/30/25 05/30/25 Hi story acetaminophen 500 mg tablet 500 mg PO Q6H PRN 02/28/25 5 History hydroxyzine HCl 25 mg tablet 25 mg PO Q8H #12 tabs 02/28/2509/11 Rx omeprazole 20 mg capsule,delayed 20 mg PO QDAY 02/28/25 05/30/25 Hi story release vonoprazan 10 mg tablet (Voquezna) 10 mg PO QDAY #14 tabs 02/28/25 05/30/25 Rx pregabalin 50 mg capsule 50 mg PO BID PAIN #180 caps 05/30/25 Rx duloxetine 60 mg capsule,delayed 60 mg PO DAILY DEPRESSION #90 caps 05/05/25 05/30/25 Rx release PFSH Medical History Wears glasses Alcohol use Restless legs Back pain Injury of back Shortness of breath on exertion Former smoker Leg cramps History of pain when walking Restless legs syndrome Elevated cholesterol Chronic fatigue Bradycardia Anxiety Arthritis 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 Bone cyst of foot Depression Surgical History H/O dilation and curettage Hx of hysterectomy Family History Grandmother Heart disease Myocardial infarction Breast cancer Grandfather Parkinson disease Colon polyps Social History household members: none current occupational status: employed current occupation: [employer] Smoking Status: Former smoker Electronic Cigarette Use: not used alcohol intake: current alcohol intake frequency: holidays/special occasions only substance use type: does not use what type of physical activity do you participate in: bicycling, weight training and other details: cardio machines frequency: 5-6 times per week do you feel safe at home: Yes HPI UPPER BLEPH Details: The patient is a 54-year-old female presenting with concerns regarding excess upper eyelid skin. The patient reports that the excess skin over her eyelids has been progressively worsening, particularly noticeable when she is tired or upon waking in the morning. She notes a family history of similar issues, with her grandmother experiencing significant visual impairment due to excess eyelid skin. The patient denies any history of thyroid eye disease, other eye diseases, or dry eyes, although she requires glasses for vision correction. 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 No eyelid swelling. The patient has undergone cosmetic procedures, including Botox and laser treatments, and has eyebrow tattoos. She reports experiencing allergic conjunctivitis, particularly during certain times of the year, which may cause temporary swelling of the eyes. ROS: - Ophthalmologic: Reports excess upper eyelid skin, denies dry eyes or other eye diseases. - Allergic/Immunologic: Reports seasonal allergic conjunctivitis. - Hematologic: Denies bleeding disorders. - Anesthesia: Denies complications with anesthesia. - Musculoskeletal: History of back belle (more content not included)... [facility] 05-22-2025 36 Called and spoke to her letting her know it was completed and faxed back [address] 05-21-2025 36 Patient is returning call she received on 05/16 about her [facility] paperwork she would like a call to discuss. Please advise [place] [id number] 36 I LVM notifying patient of PAT PC date and time. Surgery pamphlet also placed in the mail for patient. [facility] 36 Fax received by insurance, no auth was required for either CPT code. I will place on snapboard. [address] 05-06-2025 36 Patient called to mo ve up her surgery date to Monday, 07/08 at 730a. PAT PC will be scheduled 2 weeks prior. [place] [id number] 05-02-2025 36 Patient scheduled fo r surgery on 09/04, Patient would like to have PAT PC, patient works at [employer] and would prefer to have labs done there and fax them to the office. Patient does not see a decorating machine operator, plant controller, or neurology. Patient has a knee scooter for after surgery. [facility] Office Visiton 04-16-2025 Follow-up visit [id number] Faiza Tripp 1970 F Date Provider Department Center 04/16/2025 [id number] GOLDBERG [facility] OR None No family history on file Level of Service:99106 [facility] OFFICE/OUTPATIENT NEW MODERATE MDM 45 MINUTES (57) Reason for Visit and Comments: New Patient [542] - L great toe pain Normal [facility] Progress Noteon 04-16-2025 Progress Note [facility] [place] [address] [place] [address] Dept: [phone] Dept Faiza Tripp 1970 [id number] 04/16/2025 HISTORY OF PRESENT ILLNESS: Faiza is a 54 y.o. female here today for evaluation of her left great toe Faiza states the problem has been present for several years Faiza states the problem started gradually with no injuries occurring. She began having great toe pain after running. 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 She has not had any surgeries but has had several injections and most recently acupuncture. Faiza has tried or has been treated with the following: modifying her activity level and avoiding those activities which aggravate the problem, NSAID's, custom molded foot orthoses, spring-steel inserts, and injections. Review of Systems Surgical Risk Factors: Allergies to Metals or Latex: NO Have you been treated for a blood clot: NO Have you had a history of bleeding disorder: NO Have you had a history of Anesthetic problems: NO Do you have tendency to bruise easily: NO Do you experience prolonged or excessive bleeding from cuts or after surgery: NO General/Constitutional : General: no Cancer: NO Acute/Chronic Infections: NO HEENT/Neck: Problems with theThroat: NO Problems with the Eyes: NO Problems with the Ears: NO Problems with the Nose and Sinuses: NO Endocrine: Problems with Diabetes: NO Problems with Thyroid Disorder: NO Thorax: Problems with the Heart: NO Problems with the Lung: no Cardiovascular: Problems with Circulation: NO Problems with High Blood pressure: NO Gastrointestinal: Problems with Ulcers: NO Problems with the Liver: no Problems with Bowel Habits: NO Genitourinary: Problems with the Genitals: NO Urinary problems: NO Kidney disease or stones: NO Skin: Any general problems: NO Neurologic: Dizziness, blurred vision, headaches, problems with balance : NO Seizures or Stroke: NO Psychiatric: Emotional or Psychological disorders: NO Depression or Anxiety: no PAST MEDICAL HISTORY: Medical History[1] Allergies[2] PHYSICAL EXAM: Ht 1.676 m (5' 6) Wt 63.5 kg (140 lb) BMI 22.60 kg/m? This is an age appropriate appearing female who is alert and oriented x 3. The patient appears well nourished. Psychiatric: The patient is able to verbalize normally and seems to have a good understanding of her situation. left lower extremity examination Lymphatic System: Mild swelling over the first metatarsophalangeal joint and dorsal forefoot Vascular: Dorsalis pedis pulse: 2+ Posterior tibial pulse: 2+ Capillary refill is less than 3 seconds Skin/nails: Normal appearance, warm and dry. A healed dorsal first metatarsophalangeal joint incision is noted Hair growth present on foot and toes Neurologic: Sensation intact to light touch throughout the foot and the ankle Musculoskeletal: The calf is nontender to palpation. ROM: Decreased range of motion of the first metatarsophalangeal joint. The lesser metatarsophalangeal joints have normal range of motion and are stable on examination. Muscle strength testing: Anterior tibialis: 5/5 Posterior tibialis: 5/5 Peroneus brevis: 5/5 Peroneus longus: 5/5 Gastrocsoleus: 5/5 Tenderness: Tender to palpation overlying the first metatarsophalangeal joint. Tender to palpation in the second webspace. Bishnu's click was negative. The 2nd and 3rd metatarsophalangeal joints are stable on drawer exam. Gait and Station: Faiza is able to ambulate with a normal gait Faiza is able to stand unassisted and maintains balance RADIOGRAPHIC INTERPRETATION: The following outside studies that were ordered by another care provider were reviewed and my interpretation of the these studies follows and these include: 3 nonweightbearing views of the left foot were reviewed. 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 The second metatarsophalangeal joint is in slight varus alignment. No other abnormalities are appreciated. REVIEW OF RELATED PREVIOUS DOCUMENTATION: No documents related to the current problem(s) were reviewed or no documents were available for review. LABORATORY RESULT INTERPRETATION: No labs were reviewed/No labs available for review DIAGNOSIS: Diagnosis Plan 1. Hallux rigidus of left foot 2. 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 I had a long discussion with Faiza concerning her Left hallux rigidus and second webspace neuroma and went over her treatment options. I explained to Faiza that she has failed all of the available non-operative treatments and from my standpoint surgery is a reasonable option as a result. We (more content not included)... Normal [facility] CRPon 04-09-2025 C-REACTIVE PROT < 3.00 Normal 0.0-3.0 [facility] Comment on above: Performed By: #### L 101.9900, L501.6710, L501.1400 ####[facility] [id number] [place], [address] Erythrocyte Sed Rateon 04-09 SED RATE 7 mm/hr Normal 0-30 [facility] Comment on above: Performed By: #### L 101.9900, L501.6710, L501.1400 ####[facility] [id number] [place], [address] Erythrocyte sedimentation ra teOrdered By: Monserrat Zaman on 04-09-2025 ESR (Bld) [Velocity] 7 mm/h 0-30 [facility] Foot min 3 Viewson 5 Foot min 3 Views [facility] [address] [place] [address] Foot min 3 Views MR#: [id number] Acct: [id number] Name: FAIZA TRIPP Rep #: [id number] : 1970 F 54 From: Morales Shannon MD PCP: Dr. Donta Mitchell MD Status: DEP AMB Study: Foot min 3 Views Date of Exam: 04/09/25 Exam# [id number] Ordering Dr: Monserrat Zaman AMPOULE INSPECTOR-C PROCEDURE: FOOT MIN 3 VIEWS 04/09/2025 REASON FOR EXAM: FOOT PAIN, HX ARTHRITIS TECHNIQUE: FOOT MIN 3 VIEWS COMPARISON: 03/04/2024 FINDINGS: Advanced 1st MTP joint osteoarthritis, with [id number], subchondral sclerosis, subchondral cysts, and osteophytes. Findings are similar to previous examination. Os trigonum. No acute bone or soft tissue pathology. 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 Reading Location: [place] [address] CC: CHELLE Zaman; Dr. Donta Mitchell MD Sonogram Technician: Signed Normal [facility] Orthopedic Visit Reporton Orthopedic Visit Report [facility] [address] [place] [address] [address] [place] [id number] OFFICE VISIT Date of Service: 04/09/25 MR#: [id number] Acct: [id number] Name: FAIZA TRIPP Rep #: [id number] : 1970 Provider: CHELLE hines Age/Sex: 54/F [place] [facility] Status: Signed Intake Vital Signs 04/09/25 11:03 Height 5 ft 5 in Intake Visit Reasons: LEFT FOOT Chief Complaint: Lumbar Spine Pain Allergies pineapple Allergy (Unknown, Verified 03/19/25 14:39) tongue swells ciprofloxacin (From Cipro) Adverse Reaction (Verified 03/19/25 14:39) Nausea/Vom/Diarrhea ciprofloxacin HCl (From Cipro) Adverse Reaction (Verified 03/19/25 14:39) Nausea/Vom/Diarrhea prednisone Adverse Reaction (Verified 03/19/25 14:39) Nausea/Vom/Diarrhea PFSH Medical History Wears glasses Alcohol use Restless legs Back pain Injury of back Shortness of breath on exertion Former smoker Leg cramps History of pain when walking Restless legs syndrome Elevated cholesterol Chronic fatigue Bradycardia Anxiety Arthritis 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 Bone cyst of foot Depression Surgical History H/O dilation and curettage Hx of hysterectomy Family History Grandmother Heart disease Myocardial infarction Breast cancer Grandfather Parkinson disease Colon polyps Social History household members: none current occupational status: employed current occupation: [employer] Smoking Status: Former smoker Electronic Cigarette Use: not used alcohol intake: current alcohol intake frequency: holidays/special occasions only substance use type: does not use what type of physical activity do you participate in: bicycling, weight training and other details: cardio machines frequency: 5-6 times per week do you feel safe at home: Yes HPI LEFT FOOT Details: This documentation accurately reflects the service provided and the decisions made by me, CHELLE Kim 04/09/25 0946. FAIZA TRIPP is a pleasant 54 year old F here today for eval for increased pain and swelling of the left great toe. Patient has a history of arthritis and multiple cortisone injections to this joint in the past, last one being in January 2025. Patient denies any acute injury or known aggravation of symptoms. The last 2 days have been increasing in pain and swelling. Patient has been walking more, in the process of moving. She is intolerant of wearing her tennis shoes due to the pressure on the joint. Is currently unable to use her titanium shoes inserts to limit motion on left foot. 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 She is taking OTC Aleve 1 tablet twice a day with minimal improvement of symptoms. Denies any fever or chills, denies history of gout. Mild improvement with rest, elelvation and ice. ROS Const All systems reviewed are unremarkable except as noted in H and other (A O x 3, no apparent distress. No recent illness.) ENT Denies dizziness Card Denies chest pain, Denies dyspnea, Denies edema and Reports other (No palpitations) Resp Denies cough, Denies dyspnea and Reports other (No recent URI) GI Reports system reviewed and no additional complaints, except as documented, Denies nausea and Denies vomiting Musc Reports as per HPI, Reports arthralgias and Reports joint swelling Neuro No dizziness Psych Reports system reviewed and no additional complaints, except as documented Pola/Lymph Denies easy bleeding and Denies easy bruising Ortho Exam General General: Yes no acute distress and Yes well groomed Neurologic: Yes alert and Yes oriented x3 Psychologic: Yes reasonable and appropriate Right Foot/Ankle Tests: Ford Test: 1 and Squeeze Test: 1 Left Foot/Ankle ANKLE: Left foot: Skin is pink, warm, dry and intact. There is visible edema and slight skin darkening over the dorsal first MTP joint with edema extending to second and third MTP joints. There is no TTP over the first MTP joint noted, no erythema, no streaking. Pain with palpation and range of motion of mid foot through great toe. There is no inflammation or pain over the ankle, full ROM. Achilles is soft and nontender, Ford test negative Distal neurosensory intact, cap refill present at 2 seconds. + limping gait, + aggravation with putting on shoes Supplemental Info Independent review of imaging completed today. There is advanced degenerative changes of the first MTP joint, appears to have progressed since last year's imaging. No acute fracture noted. Continues with h (more content not included)... Normal [facility] Serum or plasma C reactive p rotein measurement (mass/volume)Ordered By: Monserrat Zaman on 04-09-2025 CRP [Mass/Vol] mg/L 0.0-3.0 [facility] Serum or plasma uric acid me asurement (mass/volume)Ordered By: Monserrat Zaman on 04-09-2025 Urate [Mass/Vol] 3.4 mg/dL 2.6-6.0 [facility] Comment on above: The drugs N-Acetylcy steine and Metamizole may falsely depress this assay. Uric Acidon 04-09-2025 URIC 3.4 mg/dL Normal 2.6-6.0 [facility] Comment on above: Result Comment: The drugs N-Acetylcysteine and Metamizole may falsely depress this assay. Performed By: #### L 101.9900, L501.6710, L501.1400 ####[facility] [id number] [place], [address] L/S Spine Min 4 Viewson 07-0 2-2024 L/S Spine Min 4 Views [facility] [address] [place] [address] L/S Spine Min 4 Views MR#: [id number] Acct: [id number] Name: FAIZA TRIPP Rep #: [id number] : 1970 F 54 From: Chucho Carson MD PCP: Dr. Donta Mitchell MD Status: DEP AMB Study: L/S Spine Min 4 Views Date of Exam: 03/19/25 Exam# [id number] Ordering Dr: Sowmya Mchugh PROCEDURE: L/S SPINE MIN 4 VIEWS 03/19/2025 REASON FOR EXAM: HX SURGERY, PAIN AFTER HEAVY LIFTING AND GETTING PULLED BY A DOG TECHNIQUE: L/S SPINE MIN 4 VIEWS COMPARISON: 10/31/2024. FINDINGS: L3 through L5 posterior fusion. Severe disc space narrowing of L5-S1. Normal alignment. No evidence acute fracture or dislocation. Normal alignment. RAD/L/S Spine Min 4 Views IMPRESSION: Fusion. L5-S1 spondylosis. Reading Location: [id number] CC: MEG Chowdhury; Dr. Donta Mitchell MD Sonogram Technician: Signed Normal [facility] Orthopedic Visit Reporton Orthopedic Visit Report [facility] [address] [place] [address] OFFICE VISIT Date of Service: 03/19/25 MR#: [id number] Acct: [id number] Name: FAIZA TRIPP Greyson Rep #: [id number] : 1970 Provider: Dr. Jh Hernandez MD Age/Sex: 54/F Location: [facility] Status: Signed Intake Vital Signs 02/28/25 13:10 03/19/25 09:22 Height 5 ft 5 in 5 ft 5 in Weight: 153 lb BMI 25.4 BP 134/80 H Blood Pressure Location Lt brachial Position Sitting Respiration 18 Pulse 74 Pulse Source Monitor Temp 96.8 F L Temp Source Temporal Pulse Oximetry (%) 98 Oxygen Delivery Method room air Intake Visit Reasons: LUMBAR SPINE Chief Complaint: Lumbar Spine Pain Accompanied by: Self Is patient in pain?: Yes Pain scale (1-10): 4 Allergies pineapple Allergy (Unknown, Verified 03/19/25 14:39) tongue swells ciprofloxacin (From Cipro) Adverse Reaction (Verified 03/19/25 14:39) Nausea/Vom/Diarrhea ciprofloxacin HCl (From Cipro) Adverse Reaction (Verified 03/19/25 14:39) Nausea/Vom/Diarrhea prednisone Adverse Reaction (Verified 03/19/25 14:39) Nausea/Vom/Diarrhea Medications ???Medication ???Instructions ???Recorded ???Confirmed ???Type multivitamin 1 tab PO DAILY SUPPLEMENT 06/08/22 03/19/25 History multivitamin with minerals 1 tab PO DAILY SUPPLEMENT 06/08/22 03/19/25 History (Hair,Skin and Nails tablet) omega-3 fatty acids-fish oil 300 1 cap PO DAILY SUPPLEMENT 06/08/22 03/19/25 History mg-500 mg capsule (Fish Oil) budesonide 32 mcg/actuation nasal 1 spray intranasal DAILY PRN Nasa l 06/14/23 03/19/25 History spray (Rhinocort Allergy) Congestion duloxetine 60 mg capsule,delayed 60 mg PO DAILY DEPRESSION #90 caps 07/03/23 03/19/25 Rx release estradiol 1 mg tablet 1 mg PO DAILY 01/30/25 03/19/25 Hi story acetaminophen 500 mg tablet 500 mg PO Q6H PRN 02/28/25 5 History hydroxyzine HCl 25 mg tablet 25 mg PO Q8H #12 tabs 02/28/2511/12 Rx omeprazole 20 mg capsule,delayed 20 mg PO QDAY 02/28/25 03/19/25 Hi story release vonoprazan 10 mg tablet (Voquezna) 10 mg PO QDAY #14 tabs 02/28/25 03/19/25 Rx pregabalin 50 mg capsule 50 mg PO BID PAIN #180 caps 03/19/25 Rx PFSH Medical History Wears glasses Alcohol use Restless legs Back pain Injury of back Shortness of breath on exertion Former smoker Leg cramps History of pain when walking Restless legs syndrome Elevated cholesterol Chronic fatigue Bradycardia Anxiety Arthritis 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 Bone cyst of foot Depression Surgical History H/O dilation and curettage Hx of hysterectomy Family History Grandmother Heart disease Myocardial infarction Breast cancer Grandfather Parkinson disease Colon polyps Social History household members: none current occupational status: employed current occupation: [employer] Smoking Status: Former smoker Electronic Cigarette Use: not used alcohol intake: current alcohol intake frequency: holidays/special occasions only substance use type: does not use what type of physical activity do you participate in: bicycling, weight training and other details: cardio machines frequency: 5-6 times per week do you feel safe at home: Yes HPI LUMBAR SPINE Details: This documentation accurately reflects the service provided and the decisions made by me, Dr. Jh Hernandez MD 03/19/25 7606. Part of today???s visit was documented by Caroline Vaughn ATC, acting as scribe. FAIZA TRIPP is a 54 year old F here today for lumbar spine pain. Patient states the pain is dull, achy across the lumbar spine. She states it is equal bilaterally and denies any pain down into the legs. She states it has been bothering her for about 3 weeks and has gotten a little bit worse more recently. She states she has not been going to the gym as much as she normally would and she thinks it usually helps her pain when she gets exercise. She recently got a new puppy and he has been jerking around on the leash. She takes Aleve for the pain. She does have a prescription for Lyrica but she ran out of the prescription and waiting for it to get filled. She got a puppy in January that is really strong and pulls her really hard on the leash. The dog pulled her so hard she fell straight on her butt on the ground. She states work was hard once she went back after surgery and then it got better for a little bit when her restrictions were lifted. Now that she is working by herself she is con (more content not included)... Normal [facility] Internal Medicine Office Vis kimberly 02-28-2025 Internal Medicine Office Visit [facility] [address] [place] [address] [address] [place] [address] OFFICE VISIT Date of Service: 02/28/25 MR#: [id number] Acct: [id number] Name: FAIZA TRIPP Rep #: [id number] : 1970 Provider: MEG Lagunas Age/Sex: 54/F Location[facility] Status: Signed Intake Vital Signs 01/30/25 13:36 02/28/25 13:10 Height 5 ft 5 in 5 ft 5 in Weight: 155 lb 6 oz 153 lb BMI 25.8 25.4 BP 135/87 H 134/80 H Blood Pressure Location Lt brachial Position Sitting Respiration 18 Pulse 74 Pulse Source Monitor Temp 96.8 F L Temp Source Temporal Pulse Oximetry (%) 98 Oxygen Delivery Method room air 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 Is patient in pain?: No Allergies pineapple Allergy (Unknown, Verified 02/28/25 13:09) tongue swells ciprofloxacin (From Cipro) Adverse Reaction (Verified 02/28/25 13:09) Nausea/Vom/Diarrhea ciprofloxacin HCl (From Cipro) Adverse Reaction (Verified 02/28/25 13:09) Nausea/Vom/Diarrhea prednisone Adverse Reaction (Verified 02/28/25 13:09) Nausea/Vom/Diarrhea Medications ???Medication ???Instructions ???Recorded ???Confirmed ???Type multivitamin 1 tab PO DAILY SUPPLEMENT 06/08/22 02/28/25 History multivitamin with minerals 1 tab PO DAILY SUPPLEMENT 06/08/22 02/28/25 History (Hair,Skin and Nails tablet) omega-3 fatty acids-fish oil 300 1 cap PO DAILY SUPPLEMENT 06/08/22 02/28/25 History mg-500 mg capsule (Fish Oil) budesonide 32 mcg/actuation nasal 1 spray intranasal DAILY PRN Nasa l 06/14/23 02/28/25 History spray (Rhinocort Allergy) Congestion duloxetine 60 mg capsule,delayed 60 mg PO DAILY DEPRESSION #90 caps 07/03/23 02/28/25 Rx release pregabalin 50 mg capsule 50 mg PO BID PAIN 04/04/24 5 History estradiol 1 mg tablet 1 mg PO DAILY 01/30/25 02/28/25 Hi story acetaminophen 500 mg tablet 500 mg PO Q6H PRN 02/28/25 Histor y hydroxyzine HCl 25 mg tablet 25 mg PO Q8H #12 tabs 02/28/25 Rx omeprazole 20 mg capsule,delayed 20 mg PO QDAY 02/28/25 02/28/25 Hi story release vonoprazan 10 mg tablet (Voquezna) 10 mg PO QDAY #14 tabs 02/28/25 02/28/25 Rx Nurse's Note: pt requesting Rf on lyrica pt reports having increase in anxiety and GI upset after losing a loved one, states that she has started using OTC prilosec and it seems to be relieving the GI upset [facility] Medical History Wears glasses Alcohol use Restless legs Back pain Injury of back Shortness of breath on exertion Former smoker Leg cramps History of pain when walking Restless legs syndrome Elevated cholesterol Chronic fatigue Bradycardia Anxiety Arthritis 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 Bone cyst of foot Depression Surgical History H/O dilation and curettage Hx of hysterectomy Family History Grandmother Heart disease Myocardial infarction Breast cancer Grandfather Parkinson disease Colon polyps Social History household members: none current occupational status: employed current occupation: [employer] Smoking Status: Former smoker Electronic Cigarette Use: not used alcohol intake: current alcohol intake frequency: holidays/special occasions only substance use type: does not use what type of physical activity do you participate in: bicycling, weight training and other details: cardio machines frequency: 5-6 times per week do you feel safe at home: Yes HPI HPI 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 She states that she ended up transferring to another provider for a while but is Patient is here to discuss her GI issues which she has been having since January. A close friend of hers a month ago. She states that since then she has been having a lot of GI issues in particular reflux / burning in her throat. She noticed this causign her some difficulties with her swallowing. She has had some issues with grief but also with some depression. She states that she has been doing much better as of late but really was struggling with the depression / grief. She has taken Celexa in the past but was changed to Cymbalta for some pains along with her depression Patient does sleep at night. She feels like she So essentially patient today made the appointment to establish care here in our office. Again she had really been struggling with some grief/bereavement syndrome after the passing of her significant other. At t (more content not included)... Normal [facility] Breast imaging reportOrdered By: Tong Field on 01-30-2025 Study report [facility] [address] [place] [address] SCRN MAMM (CAD)W/ASHLEY BILAT MR#: [id number] Acct: [id number] Name: QASIMFAIZA D Rep #: [id number] : 1970 F 54 From: Tenzin Field MD PCP: Dr. Donta Mitchell MD Status: REG CL I Study:SCRN MAMM (CAD)W/ASHLEY BILAT Date of Exa m: 01/30/25 Exam# [id number] Ordering Dr: Kirstin Mitchell MD EXAM: SCRN MAMM (CAD)W/ASHLEY BILAT DATE: 01/30/2025 CLINICAL HISTORY: F, Age 54 y/o , SCREENING No family history. BREAST CANCER RISK ASSESSMENT: Not assessed. TECHNIQUE: Bilateral screening digital breast tomosynthesis with 2D and 3D images. Computeraided detection. COMPARISON: Prior exam(s) dated June 16, 2023.. FINDINGS: TISSUE DENSITY: The breast tissue is extremely dense which lowers the sensitivity of mammography. Bilateral Breast Mammographic Findings: No significant masses, calcifications or other abnormalities are identified. No suspicious masses, areas of developing architectural distortion, or suspicious calcifications. There has been no significant interval change. BI/SCRN MAMM (CAD)W/ASHLEY BILAT IMPRESSION: OVERALL FINAL ASSESSMENT: BIRADS 1 NEGATIVE RECOMMENDATION: Routine annual follow-up in 1 Year A letter with findings and recommendations will be mailed to the patient. Reading Location: [facility] CC: Dr. Donta Mitchell MD ~ Sonogram Technician: Signed [facility] Erosion Control Coordinator Office Visit Reporton 01-30-2025 Erosion Control Coordinator Office Visit Report [facility] [address], [address] [place] [address] OFFICE VISIT Date of Service: 01/30/25 MR#: [id number] Acct: [id number] Name: FAIZA TRIPP Rep #: [id number] : 1970 Provider: YANDY Beauchamp ams Age/Sex: 54/F Location[place] 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 Required: No Is patient in pain?: No Allergies pineapple Allergy (Unknown, Verified 01/30/25 13:34) tongue swells ciprofloxacin (From Cipro) Adverse Reaction (Verified 01/30/25 13:34) Nausea/Vom/Diarrhea ciprofloxacin HCl (From Cipro) Adverse Reaction (Verified 01/30/25 13:34) Nausea/Vom/Diarrhea prednisone Adverse Reaction (Verified 01/30/25 13:34) Nausea/Vom/Diarrhea Medications ???Medication ???Instructions ???Recorded ???Confirmed ???Type multivitamin 1 tab PO DAILY SUPPLEMENT 06/08/22 01/30/25 History multivitamin with minerals 1 tab PO DAILY SUPPLEMENT 06/08/22 01/30/25 History (Hair,Skin and Nails tablet) omega-3 fatty acids-fish oil 300 1 cap PO DAILY SUPPLEMENT 06/08/22 01/30/25 History mg-500 mg capsule (Fish Oil) diclofenac sodium 50 mg 50 mg PO BID PAIN #180 tabs 01/30/25 Rx tablet,delayed release budesonide 32 mcg/actuation nasal 1 spray intranasal DAILY PRN Nasa l 06/14/23 01/30/25 History spray (Rhinocort Allergy) Congestion duloxetine 60 mg capsule,delayed 60 mg PO DAILY DEPRESSION #90 caps 07/03/23 01/30/25 Rx release pregabalin 50 mg capsule 50 mg PO BID PAIN 04/04/24 5 History acetaminophen 500 mg tablet 500 mg PO Q6H #30 tabs 08/01/24 Rx sennosides 8.6 mg-docusate sodium 2 tab PO BID PRN constipation #30 08/01/24 01/30/25 Rx 50 mg tablet (Stimulant Laxative tabs Plus) methocarbamol 500 mg tablet 500 mg PO TID #20 tabs 08/30/24 Rx estradiol 1 mg tablet 1 mg PO DAILY 01/30/25 History Is last menstrual period known: No Patient : No : No Control Method: [facility] Medical History Wears glasses Alcohol use Restless legs Back pain Injury of back Shortness of breath on exertion Former smoker Leg cramps History of pain when walking Restless legs syndrome Elevated cholesterol Chronic fatigue Bradycardia Anxiety Arthritis 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 Bone cyst of foot Depression Surgical History H/O dilation and curettage Hx of hysterectomy Family History Grandmother Heart disease Myocardial infarction Breast cancer Grandfather Parkinson disease Colon polyps Social History household members: none current occupational status: employed current occupation: [employer] Smoking Status: Former smoker Electronic Cigarette Use: not used alcohol intake: current alcohol intake frequency: holidays/special occasions only substance use type: does not use what type of physical activity do you participate in: bicycling, weight training and other details: cardio machines frequency: 5-6 times per week do you feel safe at home: Yes HPI Encounter for routine gynecological examination Details: FAIZA TRIPP is a 54 year old who presents for annual exam. Just lost her boyfriend and is feeling minimal katie. Discussed grief counseling and patient is agreeable to this. Last PAP: Hyst History of abnormal PAP: [] Last mammogram: 01/30/25 History of abnormal mammogram: No Colon cancer screenin - Polyps Other preventative health care screenings: PCP ROS Const Constitutional: Reports system reviewed and no additional complaints, except as documented Cardio Card: Reports system reviewed and no additional complaints, except as documented Resp Resp: Reports system reviewed and no additional complaints, except as documented GI GI: Reports system reviewed and no additional complaints, except as documented; Denies abdominal pain, change in stool character or fecal incontinence : Reports system reviewed and no additional complaints, except as documented; Denies difficulty voiding, dysuria, urinary frequency, urinary incontinence or vaginal discharge Skin Skin/Breast: Reports system reviewed and no additional complaints, except as documented Neuro Neuro: Reports system reviewed and no additional complaints, except as documented Psych Psych: Reports system reviewed and no additional complaints, except a (more content not included)... Normal [facility] SCRN MAMM (CAD)W/ASHLEY BILATo n 01-30-2025 SCRN MAMM (CAD)W/ASHLEY BILAT [facility] [address] [place] [address] SCRN MAMM (CAD)W/ASHLEY BILAT MR#: [id number] Acct: [id number] Name: FAIZA TRIPP Rep #: [id number] : 1970 F 54 From: Tong myers MD PCP: Dr. Donta Mitchell MD Status: [facility] Study: SCRN MAMM (CAD)W/ASHLEY BILAT Date of Exam: 01/16 02/09 Exam# [id number] Ordering Dr: Donta Mitchell MD EXAM: SCRN MAMM (CAD)W/ASHLEY BILAT DATE: 01/30/2025 CLINICAL HISTORY: F, Age 54 y/o , SCREENING No family history. BREAST CANCER RISK ASSESSMENT: Not assessed. TECHNIQUE: Bilateral screening digital breast tomosynthesis with 2D and 3D images. Computer aided detection. COMPARISON: Prior exam(s) dated June 16, 2023.. FINDINGS: TISSUE DENSITY: The breast tissue is extremely dense which lowers the sensitivity of mammography. Bilateral Breast Mammographic Findings: No significant masses, calcifications or other abnormalities are identified. No suspicious masses, areas of developing architectural distortion, or suspicious calcifications. There has been no significant interval change. BI/SCRN MAMM (CAD)W/ASHLEY BILAT IMPRESSION: OVERALL FINAL ASSESSMENT: BIRADS 1 NEGATIVE RECOMMENDATION: Routine annual follow-up in 1 Year A letter with findings and recommendations will be mailed to the patient. Reading Location: [id number] CC: Dr. Donta Mitchell MD Sonogram Technician: Signed Normal [facility] Orthopedic Visit Reporton Orthopedic Visit Report [facility] [address] [place] [address] OFFICE VISIT Date of Service: 01/17/25 MR#: [id number] Acct: [id number] Name: FAIZA TRIPP Greyson Rep #: [id number] : 1970 Provider: Dr. Jeancarlos alcaraz MD Age/Sex: 54/F Location[place] [facility] Status: Signed Intake Vital Signs 01/16/25 09:21 01/17/25 08:07 Height 5 ft 5 in 5 ft 5 in Intake Visit Reasons: LEFT FOOT Chief Complaint: Left foot pain Accompanied by: Self Is patient in pain?: Yes Pain scale (1-10): 5 Allergies pineapple Allergy (Unknown, Verified 01/17/25 08:08) tongue swells ciprofloxacin (From Cipro) Adverse Reaction (Verified 01/17/25 08:08) Nausea/Vom/Diarrhea ciprofloxacin HCl (From Cipro) Adverse Reaction (Verified 01/17/25 08:08) Nausea/Vom/Diarrhea prednisone Adverse Reaction (Verified 01/17/25 08:08) Nausea/Vom/Diarrhea Medications ???Medication ???Instructions ???Recorded ???Confirmed ???Type multivitamin 1 tab PO DAILY SUPPLEMENT 06/08/22 01/17/25 History multivitamin with minerals 1 tab PO DAILY SUPPLEMENT 06/08/22 01/17/25 History (Hair,Skin and Nails tablet) omega-3 fatty acids-fish oil 300 1 cap PO DAILY SUPPLEMENT 06/08/22 01/17/25 History mg-500 mg capsule (Fish Oil) diclofenac sodium 50 mg 50 mg PO BID PAIN #180 tabs 01/17/25 Rx tablet,delayed release budesonide 32 mcg/actuation nasal 1 spray intranasal DAILY PRN Nasa l 06/14/23 01/17/25 History spray (Rhinocort Allergy) Congestion duloxetine 60 mg capsule,delayed 60 mg PO DAILY DEPRESSION #90 caps 07/03/23 01/17/25 Rx release pregabalin 50 mg capsule 50 mg PO BID PAIN 04/04/24 5 History acetaminophen 500 mg tablet 500 mg PO Q6H #30 tabs 08/01/24 Rx sennosides 8.6 mg-docusate sodium 2 tab PO BID PRN constipation #30 08/01/24 01/17/25 Rx 50 mg tablet (Stimulant Laxative tabs Plus) methocarbamol 500 mg tablet 500 mg PO TID #20 tabs 08/30/24 Rx estradiol 1 mg tablet 1 mg PO DAILY #90 tabs 10/10/24 Rx Have you fallen in the past year?: No PFSH Medical History Wears glasses Alcohol use Restless legs Back pain Injury of back Shortness of breath on exertion Former smoker Leg cramps History of pain when walking Restless legs syndrome Elevated cholesterol Chronic fatigue Bradycardia Anxiety Arthritis 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 Bone cyst of foot Depression Surgical History H/O dilation and curettage Hx of hysterectomy Family History Grandmother Heart disease Myocardial infarction Breast cancer Grandfather Parkinson disease Colon polyps Social History household members: none current occupational status: employed current occupation: [employer] Smoking Status: Former smoker Electronic Cigarette Use: not used alcohol intake: current alcohol intake frequency: holidays/special occasions only substance use type: does not use what type of physical activity do you participate in: bicycling, weight training and other details: cardio machines frequency: 5-6 times per week do you feel safe at home: Yes HPI LEFT FOOT Details: This documentation accurately reflects the service provided and the decisions made by me, Dr. Jeancarlos Lamb MD 01/17/25 0807. Part of today???s visit was documented by [ ], acting as scribe. FAIZA TRIPP is a 54 year old F here today for follow-up left first MTP hallux rigidus on the left side. Patient had a cortisone injection about 4 months ago that lasted a little bit less than last time. The patient is still considering going ahead with surgery. Ortho Exam General General: Yes no acute distress Neurologic: Yes alert and Yes oriented x3 Psychologic: Yes reasonable and appropriate Left Foot/Ankle Skin: Yes CDI; No Ecchymosis, Soft Tissue Swelling or Erythema Exam: Yes eversion normal and inversion normal; No Ecchymosis, Soft tissue swelling, Erythema, TTP Lateral Malleolus, TTP Medial Malleolus, TTP Deltoid Ligament or TTP distal 5th metatarsal Compartments: soft Dorsiflexion 0-20: 10 degrees Plantar Flexion 0-40: 40 degrees ROM: No pain with range of motion or crepitus with range of motion Tests: Squeeze Test: 1 Motor: Ankle Dorsiflextion: 5, Ankle Plantar Flexion: 5, Ankle Eversion: 5, Ankle Inversion: 5 and EHL: 5 Sensation: Deep Peroneal Nerve: I, Superficial Peroneal Nerve: I, Tibial Nerve: I, Sural Nerve: I and Saphenous Nerve: I Pulses: Dorsalis (more content not included)... Normal [facility] Chiropractic Reporton 2024 Chiropractic Report [facility]ropract[facility] [place] [address] OFFICE VISIT Date of Service: 12/17/24 MR#: [id number] Acct: [id number] Name: FAIZA TRIPP Rep #: [id number] : 1970 Provider: GATITO Harris Age/Sex: 54/F [facility] Status: Signed Intake Vital Signs 12/16/24 08:52 Height 5 ft 5 in Intake Visit Reasons: lbp Chief Complaint: Low back pain Is patient in pain?: Yes (Neck) Pain scale (1-10): 2 Allergies pineapple Allergy (Unknown, Verified 12/17/24 15:34) tongue swells ciprofloxacin (From Cipro) Adverse Reaction (Verified 12/17/24 15:34) Nausea/Vom/Diarrhea ciprofloxacin HCl (From Cipro) Adverse Reaction (Verified 12/17/24 15:34) Nausea/Vom/Diarrhea prednisone Adverse Reaction (Verified 12/17/24 15:34) Nausea/Vom/Diarrhea Medications ???Medication ???Instructions ???Recorded ???Confirmed ???Type multivitamin 1 tab PO DAILY SUPPLEMENT 06/08/22 12/17/24 History multivitamin with minerals 1 tab PO DAILY SUPPLEMENT 06/08/22 12/17/24 History (Hair,Skin and Nails tablet) omega-3 fatty acids-fish oil 300 1 cap PO DAILY SUPPLEMENT 06/08/22 12/17/24 History mg-500 mg capsule (Fish Oil) diclofenac sodium 50 mg 50 mg PO BID PAIN #180 tabs 12/17/24 Rx tablet,delayed release budesonide 32 mcg/actuation nasal 1 spray intranasal DAILY PRN Nasa l 06/14/23 12/17/24 History spray (Rhinocort Allergy) Congestion duloxetine 60 mg capsule,delayed 60 mg PO DAILY DEPRESSION #90 caps 07/03/23 12/17/24 Rx release pregabalin 50 mg capsule 50 mg PO BID PAIN 04/04/24 5 History acetaminophen 500 mg tablet 500 mg PO Q6H #30 tabs 08/01/24 Rx sennosides 8.6 mg-docusate sodium 2 tab PO BID PRN constipation #30 08/01/24 12/17/24 Rx 50 mg tablet (Stimulant Laxative tabs Plus) methocarbamol 500 mg tablet 500 mg PO TID #20 tabs 08/30/24 Rx estradiol 1 mg tablet 1 mg PO DAILY #90 tabs 10/10/24 Rx PFSH Medical History Wears glasses Alcohol use Restless legs Back pain Injury of back Shortness of breath on exertion Former smoker Leg cramps History of pain when walking Restless legs syndrome Elevated cholesterol Chronic fatigue Bradycardia Anxiety Arthritis 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 Bone cyst of foot Depression Surgical History H/O dilation and curettage Hx of hysterectomy Family History Grandmother Heart disease Myocardial infarction Breast cancer Grandfather Parkinson disease Colon polyps Social History household members: none current occupational status: employed current occupation: [employer] Smoking Status: Former smoker Electronic Cigarette Use: not used alcohol intake: current alcohol intake frequency: holidays/special occasions only substance use type: does not use what type of physical activity do you participate in: bicycling, weight training and other details: cardio machines frequency: 5-6 times per week do you feel safe at home: Yes HPI lbp Chief Complaint: Low back pain Visit Number: 2 Details: FAIZA TRIPP is a 53 year old F???here today for F/U on low back pain. She complains of neck pain and stiffness that has increased over the last few weeks. The neck pain starts at the base of her skull and extends down into her traps bilaterally. She reports increased stiffness in her neck. She has been experiencing headaches frequently. She denies injury or trauma to her neck. She rates her neck pain 2/10. She also complains of mid back pain. She had a L3-L4 and L4-L5 spinal fusion on 07-31-24. She has been stretching with some relief. The pain was insidious onset. Denies numbness, tingling or other associated symptoms. No new injury since last visit. Onset: 12/12/24 Location: neck Duration: constant Aggravating or associated factors: sitting,standing,worki ng Relieving factors: chiro Pain Quality: aching and sharp Exam Musc General: Yes normal posture, normal gait and joint tenderness; No muscle weakness or decreased range of motion Cervical Spine: Yes loss of normal cervical lordosis, Yes cervical muscular tenderness bilateral upper paracervical muscle and other, Yes pain with cervical ROM with lateral flexion to right and with lateral flexion to left, Yes cervical spasm bilateral upper intrinsics, right greater than left lower trapezius, Yes 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 Normal [facility] Lumbar Spine 2 or 3 Viewson 10-31-2024 Lumbar Spine 2 or 3 Views [facility] [address] [place], [place] [address] Lumbar Spine 2 or 3 Views MR#: [id number] Acct: [id number] Name: FAIZA TRIPP Rep #: [id number] : 1970 F 54 From: Roxann Rubi PCP: Dr. Donta Mitchell MD Status: DEP AMB Study: Lumbar Spine 2 or 3 Views Date of Exam: Exam# [id number] Ordering Dr: Sowmya Mchugh PROCEDURE: LUMBAR SPINE 2 OR 3 VIEWS REASON FOR EXAM: Lumbar fusion TECHNIQUE: 2 view(s) of the lumbar spine COMPARISON: Prior lumbar study of 09/10/2024. RAD/Lumbar Spine 2 or 3 Views IMPRESSION: Prior posterior lumbar fusion from L3 through L5 again noted, including bilateral pedicle screws, interbody grafts, left L3 and L4 screws. No evidence of metallic fracture or screw loosening. Stable alignment is seen. Degenerative changes of the lower lumbar spine with marked disc narrowing at L5-S1 appear stable. Stable mild disc space narrowing at L2-L3. Reading Location: [address] CC: MEG Chowdhury; Dr. Donta Mitchell MD Sonogram Technician: Signed Normal [facility] Orthopedic Visit Reporton Orthopedic Visit Report [facility] [address] [place] [address] [address] [place] [address] OFFICE VISIT Date of Service: 10/31/24 MR#: [id number] Acct: [id number] Name: FAIZA TRIPP Rep #: [id number] : 1970 Provider: MEG Chowdhury Age/Sex: 54/F Location[place] [facility] Status: Signed Intake Vital Signs 08/19/24 08:23 Height 5 ft 5 in Intake Visit Reasons: LUMBAR SPINE Chief Complaint: post op Is patient in pain?: No Allergies pineapple Allergy (Unknown, Verified 10/31/24 08:01) tongue swells ciprofloxacin (From Cipro) Adverse Reaction (Verified 10/31/24 08:01) Nausea/Vom/Diarrhea ciprofloxacin HCl (From Cipro) Adverse Reaction (Verified 10/31/24 08:01) Nausea/Vom/Diarrhea prednisone Adverse Reaction (Verified 10/31/24 08:01) Nausea/Vom/Diarrhea Medications ???Medication ???Instructions ???Recorded ???Confirmed ???Type multivitamin 1 tab PO DAILY SUPPLEMENT 06/08/22 10/31/24 History multivitamin with minerals 1 tab PO DAILY SUPPLEMENT 06/08/22 10/31/24 History (Hair,Skin and Nails tablet) omega-3 fatty acids-fish oil 300 1 cap PO DAILY SUPPLEMENT 06/08/22 10/31/24 History mg-500 mg capsule (Fish Oil) diclofenac sodium 50 mg 50 mg PO BID PAIN #180 tabs 10/31/24 Rx tablet,delayed release budesonide 32 mcg/actuation nasal 1 spray intranasal DAILY PRN Nasa l 06/14/23 10/31/24 History spray (Rhinocort Allergy) Congestion duloxetine 60 mg capsule,delayed 60 mg PO DAILY DEPRESSION #90 caps 07/03/23 10/31/24 Rx release pregabalin 50 mg capsule 50 mg PO BID PAIN 04/04/24 5 History acetaminophen 500 mg tablet 500 mg PO Q6H #30 tabs 08/01/24 Rx sennosides 8.6 mg-docusate sodium 2 tab PO BID PRN constipation #30 08/01/24 10/31/24 Rx 50 mg tablet (Stimulant Laxative tabs Plus) methocarbamol 500 mg tablet 500 mg PO TID #20 tabs 08/30/24 Rx estradiol 1 mg tablet 1 mg PO DAILY #90 tabs 10/10/24 Rx PFSH Medical History Wears glasses Alcohol use Restless legs Back pain Injury of back Shortness of breath on exertion Former smoker Leg cramps History of pain when walking Restless legs syndrome Elevated cholesterol Chronic fatigue Bradycardia Anxiety Arthritis 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 Bone cyst of foot Depression Surgical History H/O dilation and curettage Hx of hysterectomy Family History Grandmother Heart disease Myocardial infarction Breast cancer Grandfather Parkinson disease Colon polyps Social History household members: none current occupational status: employed current occupation: [employer] Smoking Status: Former smoker Electronic Cigarette Use: not used alcohol intake: current alcohol intake frequency: holidays/special occasions only substance use type: does not use what type of physical activity do you participate in: bicycling, weight training and other details: cardio machines frequency: 5-6 times per week do you feel safe at home: Yes HPI LUMBAR SPINE Details: This documentation accurately reflects the service provided and the decisions made by me, MEG Chowdhury 10/31/24 0758. Part of today???s visit was documented by [ ], acting as scribe. FAIZA TRIPP is a 54 year old F here today for s/p L3-5 posterior instrumented spinal fusion dos 07/31/24. She notes that she is doing well although she is having some pain over her left low back. She has gently been bending of her spine. Patient did physical therapy and is working out at the gym. She has some soreness after activities. Has been doing some slight bending which she thinks has also caused some soreness. She denies any radiating pain. She complains of numbness over her lateral left thigh, although it is improving. Says that there is no pain just a numbness. She takes Aleve bid for pain and continues to take gabapentin 300mg at night. Says that her pain before the surgery has improved. Ortho Exam General General: Yes no acute distress Neurologic: Yes alert and Yes oriented x3 Spine SPINE TESTING CERVICAL THORACIC LUMBAR Musculoskeletal Strength 0=absent - 5=normal Details: Physical examination of the back shows well healed belly and back surgical incisions. Neurological exam of the lower extremities shows 5x5 power. Normal sensations across all dermatomes. Coding Level of Care Code Global Post Op Diagnoses Status post lumbar spinal fusion Z98.1 Assessment and Plan Assessment and Plan (1) Status post lumbar spinal fu (more content not included)... Normal [facility] Orthopedic Visit Reporton Orthopedic Visit Report [facility] [address] [place] [address] OFFICE VISIT Date of Service: 10/02/24 MR#: [id number] Acct: [id number] Name: FAIZA TRIPP Rep #: [id number] : 1970 Provider: Dr. Jeancarlos alcaraz MD Age/Sex: 53/F Location: [facility] Status: Signed with Addenda ADDENDUM by Caroline Hood on 10/02/24 at 1325 Office Procedure Documentation entered by Caroline Hood 10/02/24 13:25: Ortho Injections Injections Is this a patient provided medication?: No Details: Obtained consent for injection. Under sterile conditions, injected the patients left foot first metatarsal phalangeal joint with 0.5mL Kenalog and 0.5mL Bupivacaine. The patient tolerated the injection well without any noted complication. Patient should call our office if redness develops, pain worsens or if they have any concerns. Office Meds Kenalog 40 mg/mL suspension for injection Performing Provider: Jeancarlos Lamb MD Performing Location: [facility] Administered by: Jeancarlos Lamb MD on 10/02/24 13:23 Dose Route Admin Location Dispensed Lot Number Expiration Date NDC Man ufacturer 20 mg intra-articular Left Foot 0.5 mL [id number] 01/16/26 9737-6548-76 [facility] Date cc: * Signed Intake Vital Signs 08/19/24 08:23 Height 5 ft 5 in Intake Visit Reasons: LEFT FOOT Chief Complaint: post op Allergies pineapple Allergy (Unknown, Verified 10/02/24 13:07) tongue swells ciprofloxacin (From Cipro) Adverse Reaction (Verified 10/02/24 13:07) Nausea/Vom/Diarrhea ciprofloxacin HCl (From Cipro) Adverse Reaction (Verified 10/02/24 13:07) Nausea/Vom/Diarrhea prednisone Adverse Reaction (Verified 10/02/24 13:07) Nausea/Vom/Diarrhea Medications ???Medication ???Instructions ???Recorded ???Confirmed ???Type multivitamin 1 tab PO DAILY SUPPLEMENT 06/08/22 10/02/24 History multivitamin with minerals 1 tab PO DAILY SUPPLEMENT 06/08/22 10/02/24 History (Hair,Skin and Nails tablet) omega-3 fatty acids-fish oil 300 1 cap PO DAILY SUPPLEMENT 06/08/22 10/02/24 History mg-500 mg capsule (Fish Oil) diclofenac sodium 50 mg 50 mg PO BID PAIN #180 tabs 06/05/23 10/02/24 Rx tablet,delayed release budesonide 32 mcg/actuation nasal 1 spray intranasal DAILY PRN Nasal 06/14/23 10/02/24 History spray (Rhinocort Allergy) Congestion duloxetine 60 mg capsule,delayed 60 mg PO DAILY DEPRESSION #90 caps 07/03/23 10/02/24 Rx release pregabalin 50 mg capsule 50 mg PO BID PAIN 04/04/24 10/02/24 History acetaminophen 500 mg tablet 500 mg PO Q6H #30 tabs 08/01/24 10/02/24 Rx sennosides 8.6 mg-docusate sodium 2 tab PO BID PRN constipation #30 08/01/24 10/02/24 Rx 50 mg tablet (Stimulant Laxative tabs Plus) methocarbamol 500 mg tablet 500 mg PO TID #20 tabs 08/30/24 10/02/24 Rx PFSH Medical History Wears glasses Alcohol use Restless legs Back pain Injury of back Shortness of breath on exertion Former smoker Leg cramps History of pain when walking Restless legs syndrome Elevated cholesterol Chronic fatigue Bradycardia Anxiety Arthritis 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 Bone cyst of foot Depression Surgical History H/O dilation and curettage Hx of hysterectomy Family History Grandmother Heart disease Myocardial infarction Breast cancer Grandfather Parkinson disease Colon polyps Social History household members: none current occupational status: employed current occupation: [employer] Smoking Status: Former smoker Electronic Cigarette Use: not used alcohol intake: current alcohol intake frequency: holidays/special occasions only substance use type: does not use what type of physical activity do you participate in: bicycling, weight training and other details: cardio machines frequency: 5-6 times per week do you feel safe at home: Yes HPI LEFT FOOT Details: This documentation accurately reflects the service provided and the decisions made by me, Dr. Jeancarlos Lamb MD 10/02/24 7256. Part of today???s visit was documented by [ ], acting as scribe. FAIZA TRIPP is a 53 year old F here today for repeat injection for LEFT first MTP osteoarthritis hallux rigidus. 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 Normal [facility] Re-Evaluation - PT (1)on Re-Evaluation - PT (1) [facility] [address] [place] [address]. [address] [place] [address] / REEVALUATION / MEDICARE RECERTIFICATION PHYSICAL THERAPY MR#: [id number] Acct: [id number] Name: FAIZA TRIPP Rep #: [id number] : 1970 53 From: Romeo Hou DPT Referring Dr.: Dr. Jh Hernandez MD Status:REG RCR Insurance: [employer] SELF PAY INSURANCE Re-Evaluation Intro: Dr. Jh Hernandez MD, It has been my pleasure to treat FAIZA TRIPP over the last 8 visits for SP lumbar fusion L3-L5. DOS: 07/31/24. Please see the progress note below for an update on the physical therapy plan of care! Subjective Subjective: Pt. reports overall doing well. No major issues. Pt. pleased. She does have some numbness at lateral hip, but other martinez doing well. Work is going well. Pt. reports no pain currently. Objective Objective/Function: ROM: Lumbar spine: flexion min loss tightness noted, ext min loss tightness, SB min/nil loss tightness, rotation min loss tightness bilat. Pt. has normal HS length and normal hip flexor length. MMT: Pt. has full strength of distal LEs. Pt. has 4+/5 B hip strength and fair- core strength. She has a good handle of all of the neutral spine core strengthening exercises. She reports she can do these at home. Overall doing much better, work is going well. She does still have some N/T at her L lateral hip, but no pain, its just annoying.' I am going to put her on hold to work on these core stability exercises on her own at this point in time. Once restrictions are removed we can progress further. Pt. agrees. Plan Plan Plan: Pt. to be on hold and do her HEP at home at this point in time. Once restrictions have been reduced we have progress more strengthening. Pt. is overall doing well. Balance/Gait/Functiona l tests Balance/Special Test Scores Oswestry Low Back Score: 12 Goals Goals Goal 1:: LTG: Pt. to be I with HEP for neutral spine core strengthening. Goal Time Frame: 4-6 Weeks Goal Progress: Goal Met Goal 2:: STG: Pt. to sleep throughout the night without increase in symptoms. Goal Time Frame: 2-4 Weeks Goal Progress: Goal Met Goal 3:: LTG: Pt. to report no numbness at L lateral/anterior thigh. Goal Time Frame: 4-6 Weeks Goal Progress: Progressing Goal 4:: LTG: Pt. to have 5/5 core strength to reduce stress to lumbar spine. Goal Time Frame: 6-8 Weeks Goal Progress: Progressing Goal 5:: LTG: Pt. to resume all work and recreational activities without limitations. Goal Time Frame: 6-8 Weeks Goal Progress: Goal Met Anticipated Interventions Anticipated Interventions Patient/Client Instruction: Educate patient on: Condition, Plan of Care, Risk Factors and Benefits of Fitness Program For the Purpose of:: To improve decision making, To facilitate caregiver knowledge, To improve self management, To prevent re-injury, To improve ability to perform tasks related to life management and To improve tolerance to ADL's Therapeutic Exercise to Include: Strength training, Power training, Endurance training, Body mechanics, Postural training, Flexibilty training, Active ROM, Dynamic Lumbar Stabilization and Blake Exercises For the Purpose of:: To decrease pain, To increase ROM, To improve nutrient delivery to tissue, To improve muscle performance and motor function, To improve ability to perform ADL's and To increase tolerance to activity/condition/pos ition Manual Therapy Techniques to Include: Soft tissue mobilization Comment: desensitization IASTIM For the Purpose of:: To improve nutrient delivery to tissue, To increase oxygenation perfusion, To improve muscle performance and motor function and To improve ability to perform ADL's TENS: Yes Cryotherapy (ice pack, ice massage): Yes For the Purpose of:: To decrease pain, To decrease swelling/inflammation, To increase ROM and To improve nutrient delivery to tissue Re-Evaluation Ending Re-evaluation ending: Please do not hesitate to contact me at [phone] by phone or if you have questions or concerns regarding this new plan of care! Sincerely, Romeo Hou, DPT 09/20/24 0807 CC: Dr. Donta Mitchell MD; Dr. Jh Hernandez MD CLS Signed For Medicare only, by signing this I certify the plan of care. Physicians Signature Date Normal [facility] Lumbar Spine 2 or 3 Viewson 09-10-2024 Lumbar Spine 2 or 3 Views [facility] [address] [place] [address] Lumbar Spine 2 or 3 Views MR#: [id number] Acct: [id number] Name: FAIZA TRIPP Rep #: [id number] : 1970 F 53 From: Terrence Breaux MD PCP: Dr. Donta Mitchell MD Status: DEP AMB Study: Lumbar Spine 2 or 3 Views Date of Exam: Exam# [id number] Ordering Dr: Jh Hernandez MD [id number] STUDY: X-RAY - LUMBAR SPINE REASON FOR EXAM: Female, 53 years old. pain TECHNIQUE: 2 view(s) of the lumbar spine were obtained. COMPARISON: 08/13/2024 FINDINGS: Normal lumbar lordosis. There is no substantial scoliosis. Status post discectomy, interbody fusion, transpedicular fixation from L3 through L5 with anatomic alignment. There is multilevel endplate spondylosis of the lumbar vertebrae. There is multi-level degenerative disc disease with multi-level disc space narrowing. The soft tissue structures are unremarkable. RAD/Lumbar Spine 2 or 3 Views IMPRESSION: Status post discectomy, interbody fusion, transpedicular fixation from L3 through L5 with degenerative disc disease L5/S1. Electronically Signed: Terrence Breaux MD at 13:24 EST , CC: Dr. Donta Mitchell MD; Dr. Jh Hernandez MD Sonogram Technician: Signed Normal [facility] Orthopedic Visit Reporton Orthopedic Visit Report [facility] [address] [place] [address] OFFICE VISIT Date of Service: 09/10/24 MR#: [id number] Acct: [id number] Name: FAIZA TRIPP Rep #: [id number] : 1970 Provider: Dr. Jh Hernandez MD Age/Sex: 53/F Location: [facility] Status: Signed Intake Vital Signs 07/31/24 15:30 08/19/24 08:23 Height 5 ft 5 in 5 ft 5 in Intake Visit Reasons: lumbar spine Chief Complaint: post op Is patient in pain?: No Allergies pineapple Allergy (Unknown, Verified 09/10/24 07:33) tongue swells ciprofloxacin (From Cipro) Adverse Reaction (Verified 09/10/24 07:33) Nausea/Vom/Diarrhea ciprofloxacin HCl (From Cipro) Adverse Reaction (Verified 09/10/24 07:33) Nausea/Vom/Diarrhea prednisone Adverse Reaction (Verified 09/10/24 07:33) Nausea/Vom/Diarrhea Medications ???Medication ???Instructions ???Recorded ???Confirmed ???Type multivitamin 1 tab PO DAILY SUPPLEMENT 06/08/22 09/10/24 History multivitamin with minerals 1 tab PO DAILY SUPPLEMENT 06/08/22 09/10/24 History (Hair,Skin and Nails tablet) omega-3 fatty acids-fish oil 300 1 cap PO DAILY SUPPLEMENT 06/08/22 09/10/24 History mg-500 mg capsule (Fish Oil) diclofenac sodium 50 mg 50 mg PO BID PAIN #180 tabs 06/05/23 09/10/24 Rx tablet,delayed release budesonide 32 mcg/actuation nasal 1 spray intranasal DAILY PRN Nasal 06/14/23 09/10/24 History spray (Rhinocort Allergy) Congestion duloxetine 60 mg capsule,delayed 60 mg PO DAILY DEPRESSION #90 caps 07/03/23 09/10/24 Rx release pregabalin 50 mg capsule 50 mg PO BID PAIN 04/04/24 09/10/24 History acetaminophen 500 mg tablet 500 mg PO Q6H #30 tabs 08/01/24 09/10/24 Rx sennosides 8.6 mg-docusate sodium 2 tab PO BID PRN constipation #30 08/01/24 09/10/24 Rx 50 mg tablet (Stimulant Laxative tabs Plus) methocarbamol 500 mg tablet 500 mg PO TID #20 tabs 08/30/24 09/10/24 Rx PFSH Medical History (Updated 08/02/24 @ 00:02 by Background Chace) Wears glasses Alcohol use Restless legs Back pain Injury of back Shortness of breath on exertion Former smoker Leg cramps History of pain when walking Restless legs syndrome Elevated cholesterol Chronic fatigue Bradycardia Anxiety Arthritis 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 Bone cyst of foot Depression Surgical History (Updated 08/02/24 @ 00:02 by Benjamin Mas) H/O dilation and curettage Hx of hysterectomy Family History Grandmother Heart disease Myocardial infarction Breast cancer Grandfather Parkinson disease Colon polyps Social History household members: none current occupational status: employed current occupation: [employer] Smoking Status: Former smoker Electronic Cigarette Use: not used alcohol intake: current alcohol intake frequency: holidays/special occasions only substance use type: does not use what type of physical activity do you participate in: bicycling, weight training and other details: cardio machines frequency: 5-6 times per week do you feel safe at home: Yes HPI lumbar spine Details: This documentation accurately reflects the service provided and the decisions made by me, Dr. Jh Hernandez MD 09/10/24 0731. Part of today???s visit was documented by [ ], acting as scribe. FAIZA TRIPP is a 53 year old F here today for s/p L3-5 posterior instrumented spinal fusion dos 07/31/24. Patient notes that she is doing well. She is currently in physical therapy which is helpful. She denies any lumbar spine pain. She continues to have nerve pain over her left hip although it is improving. Patient is taking gabapentin, diclofenac and Robaxin for pain. Ortho Exam General General: Yes no acute distress Neurologic: Yes alert and Yes oriented x3 Spine SPINE TESTING CERVICAL THORACIC LUMBAR Musculoskeletal Strength 0=absent - 5=normal Details: Physical examination of the back shows well healed belly and back surgical incisions. Neurological exam of the lower extremities shows 5x5 power. Normal sensations across all dermatomes. Coding Level of Care Code Global Post Op Diagnoses Status post lumbar spinal fusion Z98.1 Assessment and Plan Assessment and Plan (1) Status post lumbar spinal fusion: Status: Acute Orders: Orders Lumbar Spine 2 or 3 Views Today Z98.1 - Arthrodesis status Plan Obtained and reviewed xrays today with the patient. Xrays shows hardware and bone graft in good position. She is now 6 weeks out L3-5 fusion. She will continue outpatient physical therapy.Patient will work on modalities such as electrical stimulation to help (more content not included)... Normal [facility] Inital Evaluation (1) - PTon 08-26-2024 Inital Evaluation (1) - PT [facility] Physical Therapy [facility] [address] [place] [address] / REHABILITATION SERVICES INITIAL EVALUATION MR#: [id number] Acct: [id number] Name: FAIZA TRIPP Rep #: [id number] : 1970 53 From: Romeo Hou DPT Referring Dr.: Dr. Jh Hernandez MD Status: REG RCR Insurance: [employer] SELF PAY INSURANCE Patient's Visit Information Visit Information Visit Information: FAIZA TRIPP is a 53 year old F referred to Physical Therapy by Dr. Jh Hernandez MD with a diagnosis of SP lumbar fusion L3-L5. DOS: 07/31/24. Date of Evaluation: 08/22/24 Physical Therapist: Romeo Hou DPT Visit Plan Frequency: 3x /Week Duration: 4 Weeks Plan: 1) neutral spine core strengthening 2) desensitization to L hip, foam rolling, IASTIM. Pt. has TENS at home, pt to use. Subjective Subjective: Pt. is today for her initial evaluation with diagnosis of SP lumbar fusion L3-L5. DOS: 07/31/24. Pt. arrives with minimal to no pain today. Pt. reports overall doing well. She reports being eager to get back to work and working out. Pt. goes to [employer] typically. Pt. reports no N/T in either LE. Pt. is having some trouble sleeping, as her back does wake her up at times. 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 She would normally having to do some lifting and bending. pt. is on a restriction currently of 5 lbs and no BLT of lumbar spine. Pt. has not tried any exercises yet. Pt. is hopeful to get back to all recreational and work activities without limitations. One of the patients biggest complaints is of numbness at L lateral and anterior thigh. Pain Lumbar spine: Pain Intensity (Out of 10): 1 Pain Intensity Range: 0 and 4 Objective Objective: POSTURE: Pt. has good posture in stance. No marked issues noted. PALPATION: pt. has tenderness with palpation of lumbar erector spinae, no distal symptoms noted. NEURO: Pt. has normal DTR and normal sensation in distal LEs. Pt. does have some light touch sensation loss at L lateral and anterior thigh. Pt. is able to rise on heels and toes without issues. ROM: Lumbar spine: flexion mod loss, ext mod loss, SB mod loss, rotation: DNT. Pt. has normal HS length, slight tightness in B hip flexors. MMT: PT. has 5/5 strength throughout distal BLEs. PT. has 4/5 B hip strength, Pt. requires frequent VCing for good TA contraction. GAIT: slight guarded posture noted. STAIRS: normal Balance/Special Test Scores Oswestry Low Back Score: 12 Goals Goal 1:: LTG: Pt. to be I with HEP for neutral spine core strengthening. Goal Time Frame: 4-6 Weeks Goal 2:: STG: Pt. to sleep throughout the night without increase in symptoms. Goal Time Frame: 2-4 Weeks Goal 3:: LTG: Pt. to report no numbness at L lateral/anterior thigh. Goal Time Frame: 4-6 Weeks Goal 4:: LTG: Pt. to have 5/5 core strength to reduce stress to lumbar spine. Goal Time Frame: 6-8 Weeks Goal 5:: LTG: Pt. to resume all work and recreational activities without limitations. Goal Time Frame: 6-8 Weeks Rehabilitation Potential Physical Therapy Diagnosis: Pt. has signs and symptoms consistent with SP lumbar fusion L3-L5. DOS: 07/31/24. Pt. has some marked ROM loss, core/hip weakness and increased numbness at L a nterior/lateral thigh. Pt. would benefit from PT to address the above limitations progressing back to work and recreational working out. Rehabilitation Potential: Excellent Anticipated Interventions Patient/Client Instruction: Educate patient on: Condition, Plan of Care, Risk Factors and Benefits of Fitness Program For the Purpose of:: To improve decision making, To facilitate caregiver knowledge, To improve self management, To prevent re-injury, To improve ability to perform tasks related to life management and To improve tolerance to ADL's Therapeutic Exercise to Include: Strength training, Power training, Endurance training, Body mechanics, Postural training, Flexibilty training, Active ROM, Dynamic Lumbar Stabilization and Blake Exercises For the Purpose of:: To decrease pain, To increase ROM, To improve nutrient delivery to tissue, To improve muscle performance and motor function, To improve ability to perform ADL's and To increase tolerance to activity/condition/pos ition Manual Therapy Techniques to Include: Soft tissue mobilization Comment: desensitization IASTIM For the Purpose of:: To improve nutrient delivery to tissue, To increase oxygenation perfusion, To improve muscle performance and motor function and To improve ability to perform ADL's TENS: Yes Cryotherapy (ice pack, ice massage): Yes For the Purpose of:: To decrease pain, To decrease swelling/inflammation, To increase ROM and To improve nutrient delivery to tissue Text: Thank you for the opportunity to evaluate your patient. For Medicare and Medicare HMO plans, plehéctor (more content not included)... Normal [facility] Lumbar Spine 2 or 3 Viewson 08-13-2024 Lumbar Spine 2 or 3 Views [facility] [address] [place] [address] Lumbar Spine 2 or 3 Views MR#: [id number] Acct: [id number] Name: FAIZA TRIPP Rep #: [id number] : 1970 F 53 From: Leif Damon MD PCP: Dr. Donta Mitchell MD Status: DEP AMB Study: Lumbar Spine 2 or 3 Views Date of Exam: Exam# [id number] Ordering Dr: Sowmya Mchugh [place] [id number] EXAM: XR LUMBOSACRAL SPINE, 2 OR 3 VIEWS CLINICAL INDICATION: s/p fusion -- please do upright AP and LAT TECHNIQUE: Frontal and lateral views of the lumbar spine and sacrum. COMPARISON: XR Lumbosacral Spine dated 08/01/2024 FINDINGS: VERTEBRAE: Interpedicular screw fixation of L3, L4 and L5. Alignment of the lumbar vertebral bodies is normal. DISC SPACES: Stable postoperative changes of the lumbar spine. Disc implantation at L3-4 and L4-5. Degenerative narrowing of the L5-S1 disc space is stable. RAD/Lumbar Spine 2 or 3 Views IMPRESSION: No interval change. Electronically Signed: Leif Damon MD at 17:04 EST Reading Location ID and State: [facility] Tel , Service support , CC: MEG Chowdhury; Dr. Donta Mitchell MD Sonogram Technician: Signed Normal [facility] Orthopedic Visit Reporton Orthopedic Visit Report [facility] [address] [place] [address] [address] [place] [address] OFFICE VISIT Date of Service: 08/13/24 MR#: [id number] Acct: [id number] Name: FAIZA TRIPP Rep #: [id number] : 1970 Provider: Dr. Jh Hernandez MD Age/Sex: 53/F [place] [facility] Status: Signed Intake Vital Signs 01/25/24 11:22 07/31/24 15:30 Height 5 ft 5 in 5 ft 5 in Intake Visit Reasons: lumbar spine Chief Complaint: post op Is patient in pain?: Yes Allergies pineapple Allergy (Unknown, Verified 08/13/24 08:10) tongue swells ciprofloxacin (From Cipro) Adverse Reaction (Verified 08/13/24 08:10) Nausea/Vom/Diarrhea ciprofloxacin HCl (From Cipro) Adverse Reaction (Verified 08/13/24 08:10) Nausea/Vom/Diarrhea prednisone Adverse Reaction (Verified 08/13/24 08:10) Nausea/Vom/Diarrhea Medications ???Medication ???Instructions ???Recorded ???Confirmed ???Type multivitamin 1 tab PO DAILY SUPPLEMENT 06/08/22 08/13/24 History multivitamin with minerals 1 tab PO DAILY SUPPLEMENT 06/08/22 08/13/24 History (Hair,Skin and Nails tablet) omega-3 fatty acids-fish oil 300 1 cap PO DAILY SUPPLEMENT 06/08/22 08/13/24 History mg-500 mg capsule (Fish Oil) diclofenac sodium 50 mg 50 mg PO BID PAIN #180 tabs 06/05/23 08/13/24 Rx tablet,delayed release budesonide 32 mcg/actuation nasal 1 spray intranasal DAILY PRN Nasal 06/14/23 08/13/24 History spray (Rhinocort Allergy) Congestion duloxetine 60 mg capsule,delayed 60 mg PO DAILY DEPRESSION #90 caps 07/03/23 08/13/24 Rx release pregabalin 50 mg capsule 50 mg PO BID PAIN 04/04/24 08/13/24 History acetaminophen 500 mg tablet 500 mg PO Q6H #30 tabs 08/01/24 08/13/24 Rx sennosides 8.6 mg-docusate sodium 2 tab PO BID PRN constipation #30 08/01/24 08/13/24 Rx 50 mg tablet (Stimulant Laxative tabs Plus) PFSH Medical History (Updated 08/02/24 @ 00:02 by Background Daemon) Wears glasses Alcohol use Restless legs Back pain Injury of back Shortness of breath on exertion Former smoker Leg cramps History of pain when walking Restless legs syndrome Elevated cholesterol Chronic fatigue Bradycardia Anxiety Arthritis 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 Bone cyst of foot Depression Surgical History (Updated 08/02/24 @ 00:02 by Background Daemon) H/O dilation and curettage Hx of hysterectomy Family History Grandmother Heart disease Myocardial infarction Breast cancer Grandfather Parkinson disease Colon polyps Social History household members: none current occupational status: employed current occupation: [employer] Smoking Status: Former smoker Electronic Cigarette Use: not used alcohol intake: current alcohol intake frequency: holidays/special occasions only substance use type: does not use what type of physical activity do you participate in: bicycling, weight training and other details: cardio machines frequency: 5-6 times per week do you feel safe at home: Yes HPI lumbar spine Details: This documentation accurately reflects the service provided and the decisions made by me, Dr. Jh Hernandez MD 08/13/24 0806. Part of today???s visit was documented by [ ], acting as scribe. FAIZA TRIPP is a 53 year old F here today for s/p L3-5 oblique lumbar interbody fusion and L3-5 posterior instrumented spinal fusion on 07/31/24. Patient complains of back pain and admits to have bending and twisting more than she should. She notes that she has numbness over her lateral thigh on left and right, left worse than right. Says that the skin is numb and the pain goes back to her glute. This pain wakes her up. Patient complains of achiness into the same area. She is taking diclofenac and gabapentin. She is having difficulty sleeping due to this pain. Her incisions are healing with no redness or drainage. She has more soreness over her abdominal incision. Ortho Exam General General: Yes no acute distress Neurologic: Yes alert and Yes oriented x3 Spine SPINE TESTING CERVICAL THORACIC LUMBAR Musculoskeletal Strength 0=absent - 5=normal Details: Physical examination of the back shows well healed belly and back surgical incisions. Steri strips still attached over belly incision. Neurological exam of the lower extremities shows 5x5 power. Normal sensations across all dermatomes. Coding Level of Care Code Global Post Op Diagnoses Status post lumbar spinal fusion Z98.1 Assessment and Plan Assessment and Plan (1) Status post lumbar spinal fusion: Status: Acute Orders: Orders Lumbar Spine 2 or 3 Views Today MEG Chowdhury Z98.1 - Ar (more content not included)... Normal [facility] Basic Metabolic Profile (BMP )on 08-01-2024 BUN/CRE 12.9 RATIO Normal 10-20 [facility] Comment on above: Performed By: #### L 500.2500, L100.0500 #### [facility] [address] [place], [address] CA,Total 9.1 mg/dL Normal 8.5-10.1 [facility] Comment on above: Performed By: #### L 500.2500, L100.0500 #### [facility] [address] [facility] [address] Chloride [Moles/Vol] 109 mmol/L High 98-107 [facility] Comment on above: Performed By: #### L 500.2500, L100.0500 #### [facility] [address] [place], [address] CO2 [Moles/Vol] 29.0 mmol/L Normal 21.0-32.0 [facility] Comment on above: Performed By: #### L 500.2500, L100.0500 #### [facility] [address] [place], [address] Creatinine [Mass/Vol] 0.70 mg/dL Normal 0.55-1.02 [facility] Comment on above: Result Comment: The validity of the calculated GFR GFRAA in patients over 70 years has not been determined. Clinical correlation is essential. Performed By: #### L 500.2500, L100.0500 #### [facility] [address] [place], [address] ECRCL 85.56 ml/min Normal [facility] Comment on above: Performed By: #### L 500.2500, L100.0500 #### [facility] [address] [place], [address] EST GFR - AA 114 mL/min Normal >60 [facility] Comment on above: Result Comment: Afri can Togolese GFR Calc Performed By: #### L 500.2500, L100.0500 #### [facility] [address] [place], [address] GAP 5 Normal 5-15 [facility] Comment on above: Performed By: #### L 500.2500, L100.0500 #### [facility] [address] [place], [address] GFR/1.73 sq M.predicted among non-blacks MDRD (S/P/Bld) [Vol rate/Area] 94 mL/min/{1.73_m2} Normal >60 [facility] Comment on above: Result Comment: Non- GFR Calc Performed By: #### L 500.2500, L100.0500 #### [facility] [address] [place], [address] Glucose [Mass/Vol] 98 mg/dL Normal 74-106 [facility] Comment on above: Performed By: #### L 500.2500, L100.0500 #### [facility] [address] [place], [address] Potassium [Moles/Vol] 4.3 mmol/L Normal 3.5-5.1 [facility] Comment on above: Performed By: #### L 500.2500, L100.0500 #### [facility] [address] [place], [address] Sodium [Moles/Vol] 143 mmol/L Normal 136-145 [facility] Comment on above: Performed By: #### L 500.2500, L100.0500 #### [facility] [address] [place], [address] Urea nitrogen [Mass/Vol] 9 mg/dL Normal 7-18 [facility] Comment on above: Performed By: #### L 500.2500, L100.0500 #### [facility] [address] [place], [address] CBC-Complete Blood Cnt No Di ffon 08-01-2024 Erythrocyte distribution width (RBC) [Ratio] 13.0 % Normal 11.6-14.6 [facility] Comment on above: Performed By: #### L 500.2500, L100.0500 #### [facility] [address] [place], [address] Hematocrit (Bld) [Volume fraction] 34.4 % Low 37-47 [facility] Comment on above: Performed By: #### L 500.2500, L100.0500 #### [facility] [address] [place], [address] Hemoglobin (Bld) [Mass/Vol] 11.7 g/dL Low 12.0-15.0 [facility] Comment on above: Performed By: #### L 500.2500, L100.0500 #### [facility] [address] [place], [address] MCH (RBC) [Entitic mass] 31.2 pg Normal 27.0-32.0 [facility] Comment on above: Performed By: #### L 500.2500, L100.0500 #### [facility] [address] [place], [address] MCHC (RBC) [Mass/Vol] 34.0 g/dL Normal 32-36 [facility] Comment on above: Performed By: #### L 500.2500, L100.0500 #### [facility] [address] [place], [address] MCV (RBC) [Entitic vol] 91.7 fL Normal 81-99 [facility] Comment on above: Performed By: #### L 500.2500, L100.0500 #### [facility] [address] [place], [address] Platelet mean volume (Bld) [Entitic vol] 9.3 fL Normal 6.2-12.0 [facility] Comment on above: Performed By: #### L 500.2500, L100.0500 #### [facility] [address] [place], [address] Platelets (Bld) [#/Vol] 251 10*3/uL Normal 150-450 [facility] Comment on above: Performed By: #### L 500.2500, L100.0500 #### [facility] [address] [place], [address] RBC (Bld) [#/Vol] 3.75 10*6/uL Low 4.2-5.4 [facility] Comment on above: Performed By: #### L 500.2500, L100.0500 #### [facility] [address] [place], [address] RDW SD 43.4 fl Normal 35.1-43.9 [facility] Comment on above: Performed By: #### L 500.2500, L100.0500 #### [facility] [address] [place], [address] WBC (Bld) [#/Vol] 13.0 10*3/uL High 4.4-11.0 [facility] Comment on above: Performed By: #### L 500.2500, L100.0500 #### [facility] [address] [place], [address] Lumbar Spine 2 or 3 Viewson 08-01-2024 Lumbar Spine 2 or 3 Views [facility] [address] [place] [address] Lumbar Spine 2 or 3 Views MR#: [id number] Acct: [id number] Name: FAIZA TRIPP Rep #: [id number] : 1970 F 53 From: Hung Way MD PCP: Dr. Donta Mitchell MD Status: ADM IN Study: Lumbar Spine 2 or 3 Views Date of Exam: Exam# [id number] Ordering Dr: Sowmya Mchugh [id number] EXAM: XR LUMBOSACRAL SPINE, 2 OR 3 VIEWS CLINICAL INDICATION: s/p lumbar fusion -- please do upright AP and LAT TECHNIQUE: Frontal and lateral views of the lumbar spine and sacrum. COMPARISON: Plain film from 11/16/2023 FINDINGS: VERTEBRAE: Discectomies at L3/4 and L4/5, with left lateral screws through the L3 and L4 vertebral bodies, as well as posterior fusion with pedicle screws and interbody rods from L3 through L5. Facet joint hypertrophy at L5/S1. Preserved vertebral body height. No fracture. No spondylolisthesis. Preservation of the normal lumbar lordosis. DISC SPACES: Discectomies at L3/4 and L4/5. Severe degenerative changes of the L5/S1 disc with disc height loss, endplate sclerosis and osteophyte formation. GASTROINTESTINAL TRACT: Unremarkable as visualized. Included bowel gas pattern is non-obstructive. RAD/Lumbar Spine 2 or 3 Views IMPRESSION: 1. No acute findings. 2. Discectomies at L3/4 and L4/5, with left lateral screws through the L3 and L4 vertebral bodies, as well as posterior fusion with pedicle screws and interbody rods from L3 through L5. 3. Severe degenerative changes of the L5/S1 disc with disc height loss, endplate sclerosis and osteophyte formation. Electronically Signed: Hung Way MD at 7:50 EST , CC: MEG Chowdhury; Dr. Donta Mitchell MD Sonogram Technician: Signed Normal [facility] Consultation - [facility] 07-31-2024 Consultation - Hospitalist [facility] Medical Records Department [address] [place] [address] Consultation - Hospitalist 07/31/24 1644 MR#: [id number] Acct: [id number] Name: FAIZA TRIPP Rep #: [id number] : 1970 53 From: Rocco Rey DO PCP: Dr. Donta Mitchell MD Status:ADM IN Location: [facility] [id number] Assessment Plan Assessment/Plan (1) Spinal stenosis of lumbar region with neurogenic claudication: (2) Postoperative nausea: PLAN: Plan Patient is a 53-year-old female who presented [facility] on 07/31/2024 for planned lumbar fusion procedure. Medicine consulted postoperatively for medical management. 1. L3-5 disc degeneration with stenosis and neurogenic claudication ??? Orthopedic surgery primary. S/p L3-5 oblique lumbar interbody fusion procedure done with Dr. Hernandez on 07/31. Patient tolerated procedure well, no intraoperative complications. PT/OT/case management consulted. Pain management and DVT prophylaxis per orthopedics. Follow-up a.m. CBC and BMP. Continue home pregabalin. 2. Post operative nausea ??? Patient was reporting fairly significant nausea when I saw her in the afternoon after procedure. Very likely due to sedation medications given for anesthesia as she has had sensitivity to anesthesia medications in the past. IV Zofran as needed ordered for symptom control. Monitor. 3. Depression ??? Stable. Continue home duloxetine. 4. Mild anemia ??? Hemoglobin 11.7 on last labs on 05/08/2024. Follow-up a.m. CBC. Total clinical time spent by myself addressing the patient's medical issues, reviewing all the data, and collaborating with patient's care team: 35 minutes. HPI Consult Data Date of Consult: 07/31/24 HPI Narrative Reason for Consultation: Postoperative medical management HPI Narrative: FAIZA TRIPP, is a 53 F who presented to [facility] on 08/05/2024 for planned lumbar fusion procedure. Medicine consulted postoperatively for medical management. Patient had an L3-5 oblique lumbar interbody fusion procedure done with Dr. Hernandez this morning. I saw the patient at bedside on the floor later this afternoon. Patient was sitting up in the bedside chair and was using a walker for ambulation with assistance from nursing staff. Patient was fatigued and somewhat ill-appearing. She noted that she had mild back pain but her primary concern was significant nausea. On discussion with patient and family, patient apparently has a sensitive stomach and becomes nauseous with medications easily. Her last surgery was several years ago when she had a hysterectomy done and she apparently had significant nausea coming out of anesthesia that as well. Nursing staff just given her a dose of IV Zofran when I saw her. Patient otherwise denied any neuropathy down her lower extremities with movement. Denied any fevers or chills. No other acute concerns at this time. [facility] Medical History (Updated 07/31/24 @ 20:[address] 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 Bone cyst of foot Depression Home Medications ???Medication ???Instructions ???Recorded ???Last Taken ???Type multivitamin 1 tab PO DAILY SUPPLEMENT 06/08/22 07/30/24 06:00 History multivitamin with minerals 1 tab PO DAILY SUPPLEMENT 06/08/22 07/30/24 06:00 History (Hair,Skin and Nails tablet) omega-3 fatty acids-fish oil 300 1 cap PO DAILY SUPPLEMENT 06/08/22 07/29/24 History mg-500 mg capsule (Fish Oil) diclofenac sodium 50 mg 50 mg PO BID PAIN #180 tabs 06/05/23 07/26/24 Rx tablet,delayed release budesonide 32 mcg/actuation nasal 1 spray intranasal DAILY PRN Nasal 06/14/23 01/21/24 History spray (Rhinocort Allergy) Congestion duloxetine 60 mg capsule,delayed 60 mg PO DAILY DEPRESSION #90 caps 07/03/23 07/30/24 20:00 Rx release pregabalin 50 mg capsule 50 mg PO BID PAIN 04/04/24 07/30/24 20:00 History Allergy/AdvReac Type Severity Reaction Status Date / Time pineapple Allergy Unknown tongue Verified 07/31/24 07:00 swells ciprofloxacin (From Cipro) AdvReac Nausea/Vom/ Verified 07/31/24 07:00 Diarrhea ciprofloxacin HCl (From AdvReac Nausea/Vom/ Verified 07/31/24 07:00 Cipro) Diarrhea prednisone AdvReac Nausea/Vom/ Verified 07/31/24 07:00 Diarrhea Family History Grandmother Heart disease Myocardial infarction Breast cancer Grandfather Parkinson disease Colon polyps Surgical History H/O dilation and cu (more content not included)... Normal [facility] Lumbar Spine 2 or 3 Viewson 07-31-2024 Lumbar Spine 2 or 3 Views [facility] [address] [place], [place] [address] Lumbar Spine 2 or 3 Views MR#: [id number] Acct: [id number] Name: QASIMFAIZA D Rep #: [id number] : 1970 F 53 From: Abbey shirley MD PCP: Dr. Donta Mitchell MD Status: ADM IN Study: Lumbar Spine 2 or 3 Views Date of Exam: Exam# [id number] Ordering Dr: Jh Hernandez MD [id number] HISTORY: 360 FUSION L3-4 AND L4-5. TECHNIQUE: 13 spot images. COMPARISON: MR 04/24/2024. FINDINGS: LUMBAR SPINE: Multiple surgical instruments at the L3-4 and L4-5 intervertebral disc levels for placement of interbody fusion material and posterior spinal fusion hardware. FLUOROSCOPY TIME: 161.5 seconds. RADIATION DOSE: 78.7 mGy. RAD/Lumbar Spine 2 or 3 Views IMPRESSION: Image guidance for L3-5 spinal fusion. Electronically Signed: Abbey Horowitz MD at 8:38 EST Reading Location ID and State: [facility] / [place] Tel , Service support , CC: Dr. Donta Mitchell MD; Dr. Jh Hernandez MD Sonogram Technician: Signed [facility] MR/POSTOP.[facility] 07-31-2024 MR/POSTOP.[facility] Medical Records Department [address] [place] [address] Anesthesia Postop Eval I 07/31/24 1235 MR#: [id number] Acct: [id number] Name: FAIZA TRIPP Rep #: [id number] : 1970 53 From: Palak Desai PCP: Dr. Donta Mitchell MD Status:ADM IN Y Race: C Location: [place] [address] Anesthesia: Postop Eval I Current Vital Signs Temperature: 97 F Pulse Rate: 77 Blood Pressure: 128/76 Respiratory Rate: 16 Pulse Ox: 100 Oxygen Delivery Method: Nasal Cannula (per ERAS protocol) Oxygen Flow Rate (L/min): 2 Assessment Airway patent: Yes Spontaneous unlabored respirations: Yes Mental status: Awake and Calm nausea: No Vomiting: No Anesthesia Complication: No Fluid Hydration Crystalloid volume administer (ml): 2,200 Total IV fluid infused: 2,200 Progress Note Anesthesia document: Postop Eval 1 completed: Yes 07/31/24 1236 Date Palak Pisanoignmina Signature: Date CC: Signed [facility] MR/[id number] 07-31-2024 MR/POSTOPAN2 [facility] Medical Records Department [address] [place] [address] Anesthesia Postop Eval II 07/31/24 1437 MR#: [id number] Acct: [id number] Name: FAIZA TRIPP Rep #: [id number] : 1970 53 From: Charles Hoover MD PCP: Dr. Donta Mitchell MD Status:ADM IN Y Race: C Location: [facility] AC-TBA-1 Anesthesia Postop Eval I Sum Postop Eval Completion status Anesthesia document: Postop Eval 1 completed: Yes Anesthesia Postop Eval I Summary Anesthesia Postop Eval I Summary: Anesthesia Postop Eval I: Assessment Summary Airway patent Yes 07/31/24 12:36 MAKEUP SALES ADVISOR.GDOTT Spontaneous unlabored Yes 07/31/24 12:36 MAKEUP SALES ADVISOR.GDOTT respirations Mental status Awake,Calm 07/31/24 12:36 MAKEUP SALES ADVISOR.GDOTT nausea No 07/31/24 12:36 MAKEUP SALES ADVISOR.GDOTT Vomiting No 07/31/24 12:36 MAKEUP SALES ADVISOR.GDOTT Anesthesia Postop Eval I: Fluid Summary Crystalloid volume administer 2,200 07/31/24 12:36 MAKEUP SALES ADVISOR.GDOTT (ml) Colloids volume administered ( ml) Blood Product volume administered (ml) Total IV fluid infused 2,200 07/31/24 12:36 MAKEUP SALES ADVISOR.GDOTT Anesthesia Postop Eval I: Summary Notes Anesthesia Complication No 07/31/24 12:36 MAKEUP SALES ADVISOR.GDOTT Anesthesia Complication Comment: Post-operative progress note Anesthesia: Postop Eval II Evaluation Mental status: Awake Pain Level: 0 nausea: No Vomiting: No 07/31/241436 Date Charles Hoover MD Cosigner Signature: Date CC: Signed Normal [facility] Operative Reporton 11-13-202 4 Operative Report [facility] Medical Records Department [address] [place] [address] Operative Report 07/31/24 1207 MR#: [id number] Acct: [id number] Name: FAIZA TRIPP Rep #: [id number] : 1970 53 From: Jh Hernandez MD PCP: Dr. Donta Mitchell MD Status:ADM IN Location: [place] [address] Operative Report (Standard) Operative Information Surgery/Procedure Performed: L3-5 posterior instrumented spinal fusion Surgeon: Jh Hernandez Date of Procedure: 07/31/24 Procedure Start Time: 08:37 Procedure Stop Time: 12:10 Pre-Operative Diagnosis: L4-5 spondylolisthesis, L3-5 disc degeneration, stenosis with neurogenic claudication Post-Operative Diagnosis: Same Select all DRAINS/GRAFTS/IMPLANTS that apply: Graft Graft details: Allograft cancellous bone chips and Implanted device Implanted device details: Auro [employer] prime pedicle screw instrumentation Type of Anesthesia: General Estimated Blood Loss: 50 cc Specimen collected: No Description of surgery: Preoperative diagnosis: L4-5 spondylolisthesis, L3-5 disc degeneration, stenosis with neurogenic claudication Postoperative diagnosis: Same Name of procedures: L3-5 posterior percutaneous pedicle screw instrumented fusion, prone: ??? L3-4 posterior spinal fusion 91675 ??? L3-5 posterior pedicle screw instrumentation 29376 ??? L4-5 posterior fusion 30484/51 ??? Allograft cancellous chips [id number] Attending Surgeon: Dr. Jh Hernandez Estimated blood loss: 50 mL (total for entire case) Anesthesia: General Complications: None Description of procedure: After the anterior procedure was complete, the patient was then turned supine. The patient was then transferred to Nish table in prone position. Back was prepped and draped in usual fashion. C-arm AP view was then taken. C-arm was positioned in a way that L3 was centralized and superior endplate of was parallel to the beam. Spinous process was centered between the pedicles. Midline was marked with skin marker and lateral borders of the pedicles were also marked. Skin marker was also utilized to sawyer transversely across the middle of the pedicles at L3. 2 transverse paramedian incisions of 1 inch were placed. The fascia was incised vertically. Finger dissection was utilized to palpate the transverse process and facet joint. Viper Prime screws with towers were inserted and docked onto the transverse processes. This was then slowly moved medially to reach the superior articular process of L3. This was then confirmed on C-arm and then a mallet was utilized to drive the trocar into the pedicle going up to the medial wall of the pedicle on AP view. This was performed both sides. C-arm lateral view confirmed that the tip of the trocar was in the vertebral body, and the screw was advanced into the pedicle and vertebral body. This was repeated similarly at L4 and L5 bilaterally. Screw sizes were 7 x 50 mm at L3, L4 and L5 on both sides. 75 mm precontoured titanium 5.5 mm lordotic natalie on both sides were then passed through the screw extensions and reduced down to the screws with the help of [email or web address] instrumentation system on both sides. AP and lateral view of the C-arm showed good positioning of the screws and cages. Final tightening with the torque screwdriver was then completed. Zunilda was utilized to roughen the facet joint at L3-4 and L4-5 on the right side. Cancellous allograft bone chips mixed with bone marrow aspirate were then placed over this decorticated area. Hemostasis was achieved. Closure was done in layers with 0 Vicryls for the fascia, 2-0 Vicryls for the subcutaneous tissue, and Monocryl for the skin. Dermabond was applied. Dressings were applied covered with Tegaderm. The patient was then turned supine onto a hospital bed. The patient was extubated and taken to PACU in stable condition. The patient tolerated the procedure well and no complications occurred. Depuy Bosler cage Viper Prime minimally invasive pedicle screw instrumentation system was utilized in this case. No dural tear was identified intraoperatively. I was present for the entirety of the case and performed the surgery. 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 Donta Mitchell MD; Dr. Jh Hernandez MD Signed Normal [facility] Operative Report [facility] Medical Records Department [address] [place] [address] Operative Report 07/31/24 1158 MR#: [id number] Acct: [id number] Name: FAIZA TRIPP Rep #: [id number] : 1970 53 From: Jh Hernandez MD PCP: Dr. Donta Mitchell MD Status:ADM IN Location: [place] [address] Operative Report (Standard) Operative Information Surgery/Procedure Performed: L3-5 oblique lumbar interbody fusion Surgeon: Jh Hernandez Date of Procedure: 07/31/24 Procedure Start Time: 08:37 Procedure Stop Time: 12:10 Pre-Operative Diagnosis: L4-5 spondylolisthesis, L3-5 disc degeneration with stenosis, neurogenic claudication Post-Operative Diagnosis: Same Select all DRAINS/GRAFTS/IMPLANTS that apply: Graft Graft details: Allograft cancellous bone chips, autologous bone marrow aspirate and Implanted device Implanted device details: DePuy cougar lateral interbody cage peek Type of Anesthesia: General Estimated Blood Loss: 50 cc Specimen collected: No Description of surgery: Preoperative diagnosis: L4-5 spondylolisthesis, L3-5 disc degeneration, stenosis with neurogenic claudication Postoperative diagnosis: Same Name of procedures L3-5 oblique lumbar interbody fusion (OLIF), minimally invasive left sided approach, lateral decubitus: ??? L3-4 anterolateral spinal fusion 88159 ??? L4-5 anterolateral fusion 36274/51 ??? L3-4 insertion of cage 48147 ??? L4-5 insertion of cage 20270/51 ??? Bone graft aspirate left iliac crest separate incision ??? Allograft cancellous chips Attending Surgeon: Dr. Jh Hernandez Estimated blood loss: 50 mL Anesthesia: General Complications: None Indications: Patient is a 53-year-old pleasant lady who has had a long history of low back pain and left worse than right lower extremity radiation, difficulty walking distances. Xrays MRI revealed L4-5 spondylolisthesis, L3-5 disc degeneration with stenosis. After undergoing a prolonged period of nonoperative treatment, the patient elected to undergo surgical decompression fusion. All surgical options were discussed with the patient including anterior and posterior approaches. All risks and benefits associated with the procedure were explained to the patient. The risks include but are not limited to infection, bleeding, injury to nerves and vessels including major vessels like IVC and aorta, persistent paresthesia, persistent pain, dural tear, need for further procedures, adjacent segment degeneration, pseudoarthrosis, hardware failure, retrograde ejaculation, paralytic ileus, etc. Procedure: The patient was identified in the preoperative holding suite using Unique patient identifiers. Skin was marked, consent was reviewed, and all questions were answered. The patient was then brought back to the operative room. A surgical timeout was performed to make sure correct procedure was being done on the correct patient and all operative room staff were on the same page. General endotracheal anesthesia was then given to the patient. Strong catheter was inserted. The patient was then carefully positioned in right lateral decubitus position with the left side up on a regular OR table. Axillary roll was placed and all bony prominences were well- padded. Hip positioners were placed in the posterior buttocks and anterior sternal area. The surgical area was prepped and draped in usual fashion. Preoperative antibiotic was injected IV as preoperative antibiotic. A final timeout was then again done just before starting the procedure. A 2 inch incision oblique was taken in the left lower quadrant of the abdomen 2 fingerbreadths away from the iliac crest and the lower ribs. Sharp dissection with Bovie was carried out up to the fascia covering the external oblique. The external oblique, internal oblique and transversus abdominis muscles were split along the muscle fibers and retroperitoneal space was entered. Sponge sticks were utilized to move the bowel and peritoneum uex-xn-dsq-way and psoas muscle was exposed staying within the retroperitoneal plane. Competitorframe retractor system was positioned and the retractor blade was applied onto the psoas. The interval between psoas and midline structures was developed and appropriate retractors were placed. Once adequate interval was cleared, a disc space was identified and a marker x-ray was taken. This identified the L4-5 disc level. The prepsoas interval was then traced superiorly to expose the L3-4 disc. Annulotomy was done with a long handled knife starting at L4-5. Pituitary was used to remove disc material. Curettes were used to prepare the endplates. Disc space spreaders were utilized to distract and increase the disc height. Near complete discectomy was performed. Trials of serially increasing sizes were used. A Jamshidi needle was used to aspirate bone marrow from the left anterior iliac (more content not included)... Normal [facility] Orthopedic Visit Reporton Orthopedic Visit Report [facility] [address] [place] [address] OFFICE VISIT Date of Service: 07/25/24 MR#: [id number] Acct: [id number] Name: FAIZA TRIPP Rep #: [id number] : 1970 Provider: Dr. Jh Hernandez MD Age/Sex: 53/F [place] [facility] Status: Signed Intake Vital Signs 01/25/24 11:22 Height 5 ft 5 in Intake Visit Reasons: LUMBER SPINE Is patient in pain?: Yes Allergies pineapple Allergy (Unknown, Verified 07/25/24 08:14) tongue swells ciprofloxacin (From Cipro) Adverse Reaction (Verified 07/25/24 08:14) Nausea/Vom/Diarrhea ciprofloxacin HCl (From Cipro) Adverse Reaction (Verified 07/25/24 08:14) Nausea/Vom/Diarrhea prednisone Adverse Reaction (Verified 07/25/24 08:14) Nausea/Vom/Diarrhea Medications ???Medication ???Instructions ???Recorded ???Confirmed ???Type multivitamin 1 tab PO DAILY SUPPLEMENT 06/08/22 07/25/24 History multivitamin with minerals 1 tab PO DAILY SUPPLEMENT 06/08/22 07/25/24 History (Hair,Skin and Nails tablet) omega-3 fatty acids-fish oil 300 1 cap PO DAILY SUPPLEMENT 06/08/22 07/25/24 History mg-500 mg capsule (Fish Oil) diclofenac sodium 50 mg 50 mg PO BID PAIN #180 tabs 06/05/23 07/25/24 Rx tablet,delayed release budesonide 32 mcg/actuation nasal 1 spray intranasal DAILY PRN Nasal 06/14/23 07/25/24 History spray (Rhinocort Allergy) Congestion duloxetine 60 mg capsule,delayed 60 mg PO DAILY DEPRESSION #90 caps 07/03/23 07/25/24 Rx release pregabalin 50 mg capsule 50 mg PO BID PAIN 04/04/24 07/25/24 History PFSH Medical History (Updated 07/10/24 @ 14:50 by Lian Fontenot) Wears glasses Alcohol use Restless legs Back pain Injury of back Shortness of breath on exertion Former smoker Leg cramps History of pain when walking Restless legs syndrome Elevated cholesterol Chronic fatigue Bradycardia Anxiety Arthritis 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 Bone cyst of foot Depression Surgical History H/O dilation and curettage Hx of hysterectomy Family History Grandmother Heart disease Myocardial infarction Breast cancer Grandfather Parkinson disease Colon polyps Social History household members: none current occupational status: employed current occupation: [employer] Smoking Status: Former smoker Electronic Cigarette Use: not used alcohol intake: current alcohol intake frequency: holidays/special occasions only substance use type: does not use what type of physical activity do you participate in: bicycling, weight training and other details: cardio machines frequency: 5-6 times per week do you feel safe at home: Yes HPI LUMBER SPINE Details: This documentation accurately reflects the service provided and the decisions made by me, Dr. Jh Hernandez MD 07/25/24 0757. Part of today???s visit was documented by [ ], acting as scribe. FAIZA TRIPP is a 53 year old F here today for her preop appointment on her lumbar spine. Patient notes that she continues to have low back pain and it is affecting her ADLs. She is unable to walk for prolonged periods of time. She states that she has numbness into her left foot. She also complains of left hip pain which she describes as a sharp pain. 04/25/24: FAIZA TRIPP is a 53 year old F here today for a followup on her lumbar spine. Patient states that her lumbar spine pain is worsening. She complains of left foot numbness. She also complains of a dull pain/numbness into her left hamstring. Patient had an MRI which is here for review. She has had multiple injections which were helpful for a short period of time, the most helpful one was 1 month. She also had an ablation which was not helpful. She is taking Lyrica and diclofenac. The patients parents are here today with her to discuss surgery. She has a dull ache with pain and numbness along both hamstrings that worsens with walking. No pain or numbness along her quadriceps. 04/04/24: FAIZA TRIPP is a 53 year old F here today for a followup on her low back pain. She states that her pain radiates into her bilateral glutes which she describes as a deep ache. Patient complains of pain ADLs such as walking and standing really increase her pain. She notes that she has injections with Dr Maciel which are helpful for about 2 weeks. Patient had an MRI in 02/2023. She has done physical therapy prior which was not helpful. Patient has seen a chiropractor for adjustments and it has not been helpful. Patient takes diclofenac and Lyrica. She was given tramadol but it makes her tired so she doesnt take it. (more content not included)... Normal [facility] Hepatitis A AB, Totalon HEPATITIS A,TOT Negative Normal Negative [facility] Comment on above: Result Comment: Comm ent: The HAV total antibody assay detects both IgG and IgM but does not differentiate between them. A negative result suggests susceptibility to infection. A positive result could be due to vaccination, previously resolved infection or active infection. Testing for HAV IgM should be performed if active HAV infection is suspected. [facility] offers profiles that will automatically reflex positive HAV total antibody results to IgM (e.g., panel #[id number] HAV Antibody w/ Rfx). Performed at: [address] [id number] Construction Equipment Technician: Addi Dickerson PhD, Phone: [phone] Performed By: #### B TSPAT, M100.651, L3100.0300, L3890.6200, L3890.6005, L3890.6300 ####[facility] [address] [place], [address] MRSA/SAID NASAL SCREENon MRSA+SAID SCRN Reason for Exam: PRE OP MRSA MRSA Negative S. AUREUS S. aureus Negative Normal [facility] Comment on above: Performed By: #### B TSPAT, M100.651, L3100.0300, L3890.6200, L3890.6005, L3890.6300 ####[facility] [address] [place], [address] 12 Lead EKGon 07-18-2024 12 Lead EKG [facility] [address] [place] [address] 12 Lead EKG 07/18/24 0755 MR#: [id number] Acct: [id number] Name: FAIZA TRIPP Rep #: [id number] : 1970 53 From: Mich Rios MD Attending Dr: Dr. Jh Hernandez MD Status: PRE IN Ordering Dr: Jh Hernandez MD Date: 07/18/24 Location: [facility] Sex: F C Admitted: Test Reason : PREOP Blood Pressure : */* mmHG Vent. Rate : 60 BPM Atrial Rate : 60 BPM P-R Int : 152 ms QRS Dur : 88 ms QT Int : 428 ms P-R-T Axes : 66 12 18 degrees QTcB Int : 428 ms Normal sinus rhythm Normal ECG Confirmed by GABRIEL HEATH, MICH ([id number]), editor at large PATRICIO HUANG ([id number]) on 07/19/2024 11:17:43 AM Referred By: DAVID Confirmed By: MICH RIOS MD 07/19/24 1117 Date Mich Rios MD CC: Dr. Donta Mitchell MD; Dr. Jh Hernandez MD Signed Normal [facility] HIV - WCHon 07-18-2024 HIV Non-Reactive Normal Nonreactive [facility] Comment on above: Order Comment: Reaso n for Exam: PAT Performed By: #### B TSPAT, M100.651, L3100.0300, L3890.6200, L3890.6005, L3890.6300 ####[facility] [address] [place], [address] Hepatitis B Surface Antibody on 07-18-2024 HEP B Surf Ab Reactive Normal [facility] Comment on above: Order Comment: Reaso n for Exam: PAT Result Comment: Non Reactive: Inconsistent with immunity less than <10 mIU/mL Reactive: Consistent with immunity greater than or equal to 10 mIU/mL Performed By: #### B TSPAT, M100.651, L3100.0300, L3890.6200, L3890.6005, L3890.6300 ####[facility] [address] [place], [place], [address] Hepatitis C Antibodyon 07-18 Hepatitis C AB Non-Reactive Normal Nonreactive [facility] Comment on above: Order Comment: Reaso n for Exam: PAT Result Comment: Non Reactive: < 0.8 Equivocal: >/= 0.8 to < 1.0 Reactive: >/= 1.0 The [facility] requires that a reactive/equivocal HCV antibody result be sent out for confirmation. HCV Quant by PCR testing. Performed By: #### B TSPAT, M100.651, L3100.0300, L3890.6200, L3890.6005, L3890.6300 ####[facility] [address] [place], [place], [address] Magnesiumon 07-18-2024 Magnesium [Mass/Vol] 2.4 mg/dL Normal 1.6-2.6 [facility] Comment on above: Performed By: #### L 501.5200 ####[facility] [address] [place], [place], [address] Type AND Screen - PAT ONLYon 07-18-2024 Ab SCREEN GEL Negative Normal [facility] Comment on above: Order Comment: Surge ry Date: 07/31/24Reason for Laboratory Test [id number] FUSION L3-4 AND L4-5 Performed By: #### B TSPAT, M100.651, L3100.0300, L3890.6200, L3890.6005, L3890.6300 ####[facility] [address] [place], [place], [id number] Absolute lymphocyte countOrd ered By: Mariana Mohan on 04-26-2023 Lymphocytes Auto (Unsp spec) [#/Vol] 1.64 10*3/uL 0.83-4.51 [facility] Basophil percentageOrdered B y: Mariana Mohan on 04-26-2023 Basophils/100 WBC (Bld) 1.8 % 0-1 [facility] Bilirubin [Mass/Vol] 0.50 mg/dL 0.20-1.00 [facility] Comment on above: For patients on eltr ombopag therapy, use of Dimension [place] TBIL is not recommended. Chloride [Moles/Vol] 107 mmol/L 98-107 [facility] Cholesterol [Mass/Vol] 206 mg/dL <200 [facility] Comment on above: <200 mg/dL Desirable 200-240 mg/dL Borderline >240 mg/dL High Risk Eosinophils/100 WBC (Bld) 10.3 % 0-5 [facility] Glucose [Mass/Vol] 85 mg/dL 74-106 [facility] Neutrophils (Bld) [#/Vol] 1.4 10*3/uL 2.0-7.7 [facility] Neutrophils/100 WBC (Bld) 34.0 % 47-70 [facility] Potassium [Moles/Vol] 4.3 mmol/L 3.5-5.1 [facility] Protein [Mass/Vol] 7.3 g/dL 6.4-8.2 [facility] Sodium [Moles/Vol] 139 mmol/L 136-145 [facility] Triglyceride [Mass/Vol] 88 mg/dL <199 [facility] Comment on above: The drugs N-Acetylcy steine and Metamizole may falsely depress this assay.Serum Triglycerides Reference Interval Normal <150 mg/dL Borderline high 150 - 199 mg/dL High 200 - 499 mg/dL Very High > or = 500 mg/dL WBC (Bld) [#/Vol] 4.0 10*3/uL 4.4-11.0 [facility] Blood erythrocytes count (nu mber/volume)Ordered By: Mariana Mohan on 04-26-2023 RBC (Bld) [#/Vol] 4.30 10*6/uL 4.2-5.4 [facility] Blood hemoglobin measurement (mass/volume)Ordered By: Mariana Mohan on 04-26-2023 Hemoglobin (Bld) [Mass/Vol] 13.5 g/dL 12.0-15.0 [facility] Blood lymphocytes/100 leukoc ytesOrdered By: Mariana Mohan on 04-26-2023 Lymphocytes/100 WBC (Bld) 41.1 % 19-41 [facility] Blood monocytes/100 leukocyt esOrdered By: Mariana Mohan on 04-26-2023 Monocytes/100 WBC (Bld) 12.5 % 0-10 [facility] Blood platelet mean volumeOr dered By: Mariana Mohan on 04-26-2023 Platelet mean volume (Bld) [Entitic vol] 9.7 fL 6.2-12.0 [facility] Determination of erythrocyte mean corpuscular volume (MCV)Ordered By: Mariana Mohan on 04-26-2023 MCV (RBC) [Entitic vol] 93.5 fL 81-99 [facility] Hematocrit Auto (Bld) [Volum e fraction]Ordered By: Mariana Mohan on 04-26-2023 Hematocrit (Bld) [Volume fraction] 40.2 % 37-47 [facility] Laboratory - Chemistry and C hemistry - challengeOrdered By: Mariana Mohan on 04-26-2023 ALP [Catalytic activity/Vol] 104 U/L 45-117 [facility] ALT [Catalytic activity/Vol] 28 U/L 13-56 [facility] CO2 [Moles/Vol] 28.0 mmol/L 21.0-32.0 [facility] Cobalamin (Vitamin B12) [Mass/Vol] 1034 pg/mL 211-911 [facility] Globulin (S) [Mass/Vol] 3.7 g/dL 2.2-4.2 [facility] Urea nitrogen/Creatinine [Mass ratio] 24.5 mg/mg 10-20 [facility] Laboratory - Hematology and Cell countsOrdered By: Mariana Mohan on 04-26-2023 Erythrocyte distribution width (RBC) [Entitic vol] 45.5 fL 35.1-43.9 [facility] Erythrocyte distribution width (RBC) [Ratio] 13.2 % 11.6-14.6 [facility] Immature granulocytes/100 WBC (Bld) 0.300 % 0.0-0.9 [facility] Comment on above: IG% - Immature Granu locytes (promyelocytes, myelocytes and metamyelocytes) > 1% indicates that a LEFT SHIFT is Present. MCH (RBC) [Entitic mass] 31.4 pg 27.0-32.0 [facility] Nucleated RBC/100 WBC (Bld) [Ratio] 0 % 0-5 [facility] MCHC Auto (RBC) [Mass/Vol]Or dered By: Mariana Mohan on 04-26-2023 MCHC (RBC) [Mass/Vol] 33.6 g/dL 32-36 [facility] No Panel InformationOrdered By: Mariana Mohan on 04-26-2023 Estimated GFR (MDRD) Amer 108 mL/min >60 [facility] Comment on above: GFR Calc Estimated GFR (MDRD) Non-Af Amer 89 mL/min >60 [facility] Comment on above: Non- GFR Calc Thyroid Stimulating Hormone (TSH) 3.21 uIU/mL 0.358-3.74 [facility] Vitamin D 25-Hydroxy 61.9 ng/mL [facility] Comment on above: Vitamin D 25(OH) Sta tus Range Deficiency <20 ng/mL (50nmol/L) Insufficiency 20 - 30 ng/mL (50 - 75 nmol/L) Sufficiency 30 - 100 ng/mL (75 - 250 nmol/L) Toxicity >100 ng/mL (>250 nmol/L) Platelets bldOrdered By: Sam Mohan on 04-26-2023 Platelets (Bld) [#/Vol] 230 10*3/uL 150-450 [facility] Serum or plasma albumin shaji urement (mass/volume)Ordered By: Mariana Mohan on 04-26-2023 Albumin [Mass/Vol] 3.6 g/dL 3.2-5.0 [facility] Serum or plasma albumin/glob ulin mass ratioOrdered By: Mariana Mohan on 04-26-2023 Albumin/Globulin [Mass ratio] 1.0 {ratio} 0.9-2.4 [facility] Serum or plasma calcium shaji urement (mass/volume)Ordered By: Mariana Mohan on 04-26-2023 Calcium [Mass/Vol] 8.5 mg/dL 8.5-10.1 [facility] Serum or plasma cholesterol in HDL measurement (mass/volume)Ordered By: Mariana Mohan on 04-26-2023 Cholesterol in HDL [Mass/Vol] 78 mg/dL >40 [facility] Comment on above: The drugs N-Acetylcy steine and Metamizole may falsely depress this assay. Reference Range HDL <40 mg/dL Low HDL Cholesterol HDL >or= 60 mg/dL High HDL Cholesterol Serum or plasma cholesterol in VLDL measurement (mass/volume)Ordered By: Mariana Mohan on 04-26-2023 Cholesterol in VLDL [Mass/Vol] 18 mg/dL 5-40 [facility] Serum or plasma creatinine m easurement (mass/volume)Ordered By: Mariana Mohan on 04-26-2023 Creatinine [Mass/Vol] 0.73 mg/dL 0.55-1.02 [facility] Comment on above: The validity of the calculated GFR & GFRAA in patients over 70 years has not been determined. Clinical correlation is essential. Serum or plasma low density lipoprotein (LDL) cholesterol measurement (mass/volume)Ordered By: Mariana Mohan on 04-26-2023 Cholesterol in LDL [Mass/Vol] 110 mg/dL 0-130 [facility] Serum or plasma urea nitroge n measurement (mass/volume)Ordered By: Mariana Mohan on 04-26-2023 Urea nitrogen [Mass/Vol] 18 mg/dL 7-18 [facility] Thin prep Papanicolaou smear with manual screeningOrdered By: Mariana Mohan on 04-26-2023 Thin prep Papanicolaou smear with manual screening 19 U/L 15-37 [facility] Thin prep Papanicolaou smear with manual screening 4 5-15 [facility] Thin prep Papanicolaou smear with manual screening Negative Negative [facility] Comment on above: Lyme antibodies not detected. Reflex testing is notindicated.No laboratory evidence of infection with B. burgdorferi(Lyme disease). Negative results may occur in patientsrecently infected (less than or equal to 14 days) with B.burgdorferi. If recent infection is suspected, repeattesting on a new sample collected in 7 to 14 days isrecommended.Performed at: - [address] [id number] Director: Addi Dickerson PhD, Phone: [phone] No Panel InformationOrdered By: Mirtha Hudson on 01-27-2023 Follicle Stimulating Hormone 161.6 mIU/mL [facility] Comment on above: NORMAL REFERENCE RAN GES FEMALE FOLLICULAR 2.3 - 12.6 mIU/mL MID-CYCLE PEAK 5.2 - 17.5 mIU/mL LUTEAL 1.7 - 12.9 mIU/mL POST-MENOPAUSAL ON MHT 5.9 - 72.8 mIU/mL NOT ON MHT 12.7 - 132.2 mlU/mL MALE 0.7 - 10.8 mIU/mL Luteinizing Hormone 52.3 mIU/mL [facility] Comment on above: NORMAL REFERENCE RAN GES FEMALE FOLLICULAR 1.9 - 26.2 mIU/mL MID-CYCLE PEAK 22.8 - 76.1 mIU/mL LUTEAL 0.6 - 16.6 mIU/mL POST-MENOPAUSAL ON MHT 1.1 - 52.4 mIU/mL NOT ON MHT 8.6 - 61.8 mIU/mL MALE 1.2 - 10.6 mIU/mL Serum or plasma estradiol (E 2) measurement (mass/volume)Ordered By: Mirtha Hudson on 01-27-2023 E2 [Mass/Vol] 20.4 pg/mL [facility] Comment on above: NORMAL REFERENCE RAN GES FEMALE FOLLICULAR 21.4 - 164.8 pg/mL MID-CYCLE PEAK 49.9 - 367.2 pg/mL LUTEAL 40.2 - 259.0 pg/mL POST-MENOPAUSAL ON MHT <11.0 - 462.1 pg/mL NOT ON MHT <11.0 - 58.3 pg/mL MALE <11.0 - 52.5 pg/mL NOTE:[employer] HAS CONFIRMED THE DRUG FULVETRANT (FASLODEX) MAY CAUSE FALSELY ELEVATED ESTRADIOL RESULTS WHEN USING THIS TEST METHOD. IF PATIENT IS TAKING FULVESTRANT AN ALTERNATIVE METHOD SHOULD BE USED TO DETERMINE ESTRADIOL CONCENTRATION. Laboratory - Microbiology an d Antimicrobial susceptibilityon 09-05-2022 SARS-CoV-2 (COVID-19) RNA KELLY+probe Ql (Unsp spec) Not detected [facility] Basophil percentageOrdered B y: Dr. Mohan on 09-01-2022 Basophil percentage < 0.2 AI 0.0-0.9 [facility] Bilirubin [Mass/Vol] 0.50 mg/dL 0.20-1.00 [facility] Comment on above: For patients on eltr ombopag therapy, use of Dimension [place] TBIL is not recommended. Chloride [Moles/Vol] 109 mmol/L 98-107 [facility] Cholesterol [Mass/Vol] 202 mg/dL <200 [facility] Comment on above: <200 mg/dL Desirable 200-240 mg/dL Borderline >240 mg/dL High Risk Glucose [Mass/Vol] 90 mg/dL 74-106 [facility] Potassium [Moles/Vol] 4.3 mmol/L 3.5-5.1 [facility] Protein [Mass/Vol] 7.4 g/dL 6.4-8.2 [facility] Sodium [Moles/Vol] 141 mmol/L 136-145 [facility] Triglyceride [Mass/Vol] 57 mg/dL <199 [facility] Comment on above: The drugs N-Acetylcy steine and Metamizole may falsely depress this assay.Serum Triglycerides Reference Interval Normal <150 mg/dL Borderline high 150 - 199 mg/dL High 200 - 499 mg/dL Very High > or = 500 mg/dL Erythrocyte sedimentation ra teOrdered By: Dr. Mohan on 09-01-2022 ESR (Bld) [Velocity] 6 mm/h 0-30 [facility] Laboratory - Chemistry and C hemistry - challengeOrdered By: Dr. Mohan on 09-01-2022 ALP [Catalytic activity/Vol] 105 U/L 45-117 [facility] ALT [Catalytic activity/Vol] 30 U/L 13-56 [facility] CO2 [Moles/Vol] 26.0 mmol/L 21.0-32.0 [facility] Globulin (S) [Mass/Vol] 3.6 g/dL 2.2-4.2 [facility] Urea nitrogen/Creatinine [Mass ratio] 20.1 mg/mg 10-20 [facility] No Panel InformationOrdered By: Dr. Mohan on 09-01-2022 Centromere B Antibody <0.2 AI 0.0-0.9 [facility] Estimated GFR (MDRD) Amer 115 mL/min >60 [facility] Comment on above: GFR Calc Estimated GFR (MDRD) Non-Af Amer 95 mL/min >60 [facility] Comment on above: Non- GFR Calc [employer]ER Antibody <0.2 AI 0.0-0.9 [facility] Serum DNA double strand anti body assay (units/volume)Ordered By: Dr. Mohan on 09-01-2022 DNA double strand Ab Qn (S) 1 [IU]/mL 0-9 [facility] Comment on above: Negative <5 Equivoca l 5 - 9 Positive >9 Serum May-1 antibody assay (u nits/volume)Ordered By: Dr. Mohan on 09-01-2022 May-1 extractable nuclear Ab Qn (S) <0.2 AI 0.0-0.9 [facility] Serum Scl-70 extractable nuc lear antibody assay (units/volume)Ordered By: Dr. Mohan on 09-01-2022 SCL-70 extractable nuclear Ab Qn (S) <0.2 AI 0.0-0.9 [facility] Serum Bullock extractable nucl ear antibody detectionOrdered By: Dr. Mohan on 09-01-2022 Bullock extractable nuclear Ab Ql (S) <0.2 AI 0.0-0.9 [facility] Serum cyclic citrullinated p eptide IgG antibody assay (units/volume)Ordered By: Dr. Mohan on 09-01-2022 Cyclic citrullinated peptide IgG Qn 0 units 0-19 [facility] Comment on above: Negative <20 Weak po sitive 20 - 39 Moderate positive 40 - 59 Strong positive >59Performed at: [facility] [address] [id number] Director: Addi Dickerson PhD, Phone: [phone] Serum or plasma C reactive p rotein measurement (mass/volume)Ordered By: Dr. Mohan on 09-01-2022 CRP [Mass/Vol] mg/L 0.0-3.0 [facility] Comment on above: C-Reactive Protein ( CRP) provides useful information for thediagnosis, therapy and monitoring of inflammatory processesand associated diseases. For the evaluation of Relative Riskfor Cardiovascular Disease, a High Sensitivity CRP (HSCRP)should be ordered. Serum or plasma albumin shaji urement (mass/volume)Ordered By: Dr. Mohan on 09-01-2022 Albumin [Mass/Vol] 3.8 g/dL 3.2-5.0 [facility] Serum or plasma albumin/glob ulin mass ratioOrdered By: Dr. Mohan on 09-01-2022 Albumin/Globulin [Mass ratio] 1.1 {ratio} 0.9-2.4 [facility] Serum or plasma calcium shaji urement (mass/volume)Ordered By: Dr. Mohan on 09-01-2022 Calcium [Mass/Vol] 9.1 mg/dL 8.5-10.1 [facility] Serum or plasma cholesterol in HDL measurement (mass/volume)Ordered By: Dr. Mohan on 09-01-2022 Cholesterol in HDL [Mass/Vol] 82 mg/dL >40 [facility] Comment on above: The drugs N-Acetylcy steine and Metamizole may falsely depress this assay. Reference Range HDL <40 mg/dL Low HDL Cholesterol HDL >or= 60 mg/dL High HDL Cholesterol Serum or plasma cholesterol in VLDL measurement (mass/volume)Ordered By: Dr. Mohan on 09-01-2022 Cholesterol in VLDL [Mass/Vol] 11 mg/dL 5-40 [facility] Serum or plasma creatinine m easurement (mass/volume)Ordered By: Dr. Mohan on 09-01-2022 Creatinine [Mass/Vol] 0.70 mg/dL 0.55-1.02 [facility] Comment on above: The validity of the calculated GFR & GFRAA in patients over 70 years has not been determined. Clinical correlation is essential. Serum or plasma low density lipoprotein (LDL) cholesterol measurement (mass/volume)Ordered By: Dr. Mohan on 09-01-2022 Cholesterol in LDL [Mass/Vol] 109 mg/dL 0-130 [facility] Serum or plasma urea nitroge n measurement (mass/volume)Ordered By: Dr. Mohan on 09-01-2022 Urea nitrogen [Mass/Vol] 14 mg/dL 7-18 [facility] Serum rheumatoid factor dete ctionOrdered By: Dr. Mohan on 09-01-2022 Rheumatoid factor Ql (S) < 10.0 IU/mL <15 [facility] Thin prep Papanicolaou smear with manual screeningOrdered By: Dr. Mohan on 09-01-2022 Thin prep Papanicolaou smear with manual screening 19 U/L 15-37 [facility] Thin prep Papanicolaou smear with manual screening 6 5-15 [facility] No Panel Informationon 12-24 Hepatitis B Surface Antibody Reactive [facility] Work Phone: Comment on above: Non Reactive: Incons istent with immunity less than <10 mIU/mL Reactive: Consistent with immunity greater than or equal to 10 mIU/mL Rubella IgG Antibody Reactive Nonreactive [facility] Work Phone: Comment on above: Antibody Results Int erpretation of Immune Status Non Reactive Presumed Non-Immune Equivocal Equivocal Reactive Presumed Immune Serum measles virus IgG anti body assay (units/volume)on 12-24-2021 MeV IgG Qn (S) 104.0 AU/mL Immune >16.4 [facility] Work Phone: Comment on above: Negative <13.5 Equiv ocal 13.5 - 16.4 Positive >16.4Presence of antibodies to Rubeola is presumptive evidenceof immunity except when acute infection is suspected.Performed at: [facility] [address] [id number] Director: Addi Dickerson PhD, Phone: [phone] Serum mumps virus IgG antibo dy assay (units/volume)on 12-24-2021 MuV IgG Qn (S) 180.0 AU/mL Immune >10.9 [facility] Work Phone: Comment on above: Negative <9.0 Equivo heidi 9.0 - 10.9 Positive >10.9A positive result generally indicates past exposure toMumps virus or previous vaccination. 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 [facility] ([place]) Comment on above: Performed By: #### C OVD19 #### Teddy [place] [address] [place], [place] [address] First Test No [facility] ([place]) Comment on above: Performed By: #### C OVD19 #### Teddy [place] [address] [place], [place] [address] Hospitalized No [facility] ([place] Comment on above: Performed By: #### C OVD19 #### Teddy [address] [address] ICU No [facility] ([place] Comment on above: Performed By: #### C OVD19 #### Teddy [address] [address] Unknown [facility] ([place] Comment on above: Performed By: #### C OVD19 #### Teddy [address] [address] Resides in Congregate Care Setting No [facility] ([place] Comment on above: Performed By: #### C OVD19 #### Teddy [address] [address] SARS-CoV-2 (COVID-19) RNA KELLY+probe Ql (Unsp spec) Negative Normal Negative [facility] ([place]) Comment on above: Performed By: #### C OVD19 #### Teddy [address] [address] SARS-CoV-2 (COVID-19) RNA KELLY+probe Ql (Unsp spec) Normal [facility] ([place]) Comment on above: Result Comment: Nega tive results do not preclude SARS-CoV-2 infection and should not be used as the sole basis for patient management decisions. Negative results must be combined with clinical observations, patient history, and epidemiological information. There is a risk of false negative values resulting from improperly collected, transported, or handled specimens. There is a risk of false negative values due to the presence of sequence variants in the pathogen targets of the assay, procedural errors, amplification inhibitors in specimens, or inadequate numbers of organisms for amplification. YOSEF SARS-CoV-2 Assay is a Real-Time reverse-transcriptase polymerase chain reaction (RT-PCR) based qualitative in vitro diagnostic test intended for the qualitative detection of nucleic acid from the SARS-CoV-2 in nasopharyngeal swab specimens collected from individuals suspected of COVID-19 by their healthcare provider. Testing is limited to laboratories certified under the Clinical Laboratory Improvement Amendments of 1988 (CLIA), 42 U.S.C. ?263a, to perform moderate and high complexity tests. COVID-19 Int Performed By: #### C OVD19 #### [place] [id number] Symptomatic as Defined by [facility] Yes Normal [facility] ([place]) Comment on above: Performed By: #### C OVD19 #### [place] [id number] LABORATORYOrdered By: Georgiana Rogers on 09-17-2021 ADMITTED TO INTENSIVE CARE UNIT FOR CONDITION OF INTEREST:FIND:PT:^PAT IENT:ORD: No (09/17/21 12:30 PM) Invalid Interpretation Code AO Auto Urine SS EMPLOYED IN A HEALTHCARE SETTING:FIND:PT:^MARIA M ENT:ORD: Yes (09/17/21 12:30 PM) Invalid Interpretation Code AO Auto Urine SS FIRST TEST FOR CONDITION OF INTEREST:FIND:PT:^PAT IENT:ORD: No (09/17/21 12:30 PM) Invalid Interpretation Code AO Auto Urine SS HAS SYMPTOMS RELATED TO CONDITION OF INTEREST:FIND:PT:^PAT IENT:ORD: Yes (09/17/21 12:30 PM) Invalid Interpretation Code AO Auto Urine SS Illness or injury onset date and time [id number] Invalid Interpretation Code AO Auto Urine SS Patient was hospitalized because of this condition No (09/17/21 12:30 PM) Invalid Interpretation Code AO Auto Urine SS status Unknown (09/17/21 12:30 PM) Invalid Interpretation Code AO Auto Urine SS RESIDES IN A CONGREGATE CARE SETTING:FIND:PT:^MARIA M ENT:ORD: No (09/17/21 12:30 PM) Invalid Interpretation Code AO Auto Urine SS SARS-CoV-2 (COVID-19) RNA KELLY+probe Ql (Resp) Negative (09/17/21 12:30 PM) Invalid Interpretation Code Negative AO Auto Urine SS SARS-CoV-2 (COVID-19) RNA KELLY+probe Ql (Unsp spec) Negative results do not preclude SARS-CoV-2 infection and should not be used as the sole basis for patient management decisions. Negative results must be combined with clinical observations, patient history, and epidemiological information.There is a risk of false negative values resulting from improperly collected, transported, or handled specimens.There is a risk of false negative values due to the presence of sequence variants in the pathogen targets of the assay, procedural errors, amplification inhibitors in specimens, or inadequate numbers of organisms for amplification.YOSEF SARS-CoV-2 Assay is a Real-Time reverse-transcriptase polymerase chain reaction (RT-PCR) based qualitative in vitro diagnostic test intended for the qualitative detection of nucleic acid from the SARS-CoV-2 in nasopharyngeal swab specimens collected from individuals suspected of COVID-19 by their healthcare provider. Testing is limited to laboratories certified under the Clinical Laboratory Improvement Amendments of 1988 (CLIA), 42 U.S.C. 263a, to perform moderate and high complexity tests. Invalid Interpretation Code AO Auto Urine SS [id number] 02-23-2021 Date of Onset [id number] Invalid Interpretation Code [facility] ([place] Comment on above: Performed By: #### C OVD19 #### [place] [address] 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 Normal [facility] ([place]) Comment on above: Performed By: #### C OVD19 #### [place] [address] First Test Unknown [facility] ([place]) Comment on above: Performed By: #### C OVD19 #### [facility] [address] [place] [address] Hospitalized No [facility] ([place]) Comment on above: Performed By: #### C OVD19 #### [place] [id number] ICU No [facility] ([place]) Comment on above: Performed By: #### C OVD19 #### [place] [address] Not [facility] ([place]) Comment on above: Performed By: #### C OVD19 #### [place] [address] Resides in Congregate Care Setting No Normal [facility] ([place]) Comment on above: Performed By: #### C OVD19 #### [place] [address] SARS-CoV-2 (COVID-19) RNA KELLY+probe Ql (Unsp spec) Negative Normal Negative [facility] ([place]) Comment on above: Performed By: #### C OVD19 #### [place] [address] SARS-CoV-2 (COVID-19) RNA KELLY+probe Ql (Unsp spec) Normal [facility] ([place]) Comment on above: Result Comment: Nega tive results do not preclude SARS-CoV-2 infection and should not be used as the sole basis for patient management decisions. Negative results must be combined with clinical observations, patient history, and epidemiological information. There is a risk of false negative values resulting from improperly collected, transported, or handled specimens. There is a risk of false negative values due to the presence of sequence variants in the pathogen targets of the assay, procedural errors, amplification inhibitors in specimens, or inadequate numbers of organisms for amplification. YOSEF SARS-CoV-2 Assay is a Real-Time reverse-transcriptase polymerase chain reaction (RT-PCR) based qualitative in vitro diagnostic test intended for the qualitative detection of nucleic acid from the SARS-CoV-2 in nasopharyngeal swab specimens collected from individuals suspected of COVID-19 by their healthcare provider. Testing is limited to laboratories certified under the Clinical Laboratory Improvement Amendments of 1988 (CLIA), 42 U.S.C. ?263a, to perform moderate and high complexity tests. COVID-19 Int Performed By: #### C OVD19 #### [place] [address] Symptomatic as Defined by CDC No Normal [facility] ([place]) Comment on above: Performed By: #### C OVD19 #### [place] [address] MA MAMMOGRAM SCREENING BILAT ERAL W/TOMOon 02-16-2021 MA MAMMOGRAM SCREENING BILATERAL W/ASHLEY ORIGINAL FROM: [facility] [address] [place], [place] [address] PROCEDURE FOR: FAIZA TRIPP [address] [place] [address] Home: PID#: [id number] Exam#: [id number] : 1970 Age: 50 TO: FAHAD SMALLWOOD [employer] [address] [place], [place] [address] Fax: NO FAX #[phone] BILATERAL DIGITAL SCREENING MAMMOGRAM 3D/2D WITH CAD WITH MEDIOLATERAL OBLIQUE CRANIOCAUDAL: 02/16/2021 Comparison is made to exams dated: 01/19/2017 mammogram and 02/02/2019 mammogram - [facility]. The tissue of both breasts is heterogeneously dense. Current study was also evaluated with a Computer Aided Detection (CAD) system. There are benign calcifications in both breasts. No significant masses, calcifications, or other findings are seen in either breast. There has been no significant interval change. IMPRESSION: BENIGN There is no mammographic evidence of malignancy. A 1 year screening mammogram is recommended.( 2) ROXANN TERRY MD da/paulette:02/18/2021 14:28:44 Ivory Carver(s): RT ANABELLA (R)(M), [facility] letter sent: Normal BI-RADS 1&2 Mammogram BI-RADS: 2 Benign Normal [facility] ([place]) .Auto Diffon 01-01-2021 Basophil, Absolute 0.10 10 3/mcL Normal 0.00-0.19 Count includes the [facility]) Comment on above: Performed By: #### T SH, LIPID, CMP, GFR #### [facility] [address] [place] [address] #### CBC, ADIFF, ANEU #### [place] [id number] [place], [place] [address] Basophils/100 WBC (Bld) 1.4 % Normal 0.0-2.5 [facility] ([place]) Comment on above: Performed By: #### T SH, LIPID, CMP, GFR #### [place] [address] #### CBC, ADIFF, ANEU #### [address] [address] Eosinophil, Absolute 0.40 10 3/mcL Normal 0.00-0.40 A [facility] ([place]) Comment on above: Performed By: #### T SH, LIPID, CMP, GFR #### [place] [address] #### CBC, ADIFF, ANEU #### [address] [address] Eosinophils/100 WBC (Bld) 8.7 % High 0.0-7.0 [facility] ([place]) Comment on above: Performed By: #### T SH, LIPID, CMP, GFR #### [place] [address] #### CBC, ADIFF, ANEU #### [address] [address] Lymphocyte, Absolute 1.60 10 3/mcL Normal 0.77-3.85 A [facility] ([place]) Comment on above: Performed By: #### T SH, LIPID, CMP, GFR #### [place] [address] #### CBC, ADIFF, ANEU #### [address] [address] Lymphocytes/100 WBC (Bld) 34.0 % Normal 10.0-50.0 [facility] ([place]) Comment on above: Performed By: #### T SH, LIPID, CMP, GFR #### [place] [address] #### CBC, ADIFF, ANEU #### [address] [address] Monocyte, Absolute 0.60 10 3/mcL Normal 0.15-1.00 [facility] ([place]) Comment on above: Performed By: #### T SH, LIPID, CMP, GFR #### [address] [address] #### CBC, ADIFF, ANEU #### [address] [address] Monocytes/100 WBC (Bld) 12.6 % Normal 1.7-13.0 [facility] ([place]) Comment on above: Performed By: #### T SH, LIPID, CMP, GFR #### [place] [address] #### CBC, ADIFF, ANEU #### [address] [address] Neutrophils/100 WBC (Bld) 43.3 % Normal 37.0-80.0 [facility] ([place]) Comment on above: Performed By: #### T SH, LIPID, CMP, GFR #### [place] [address] #### CBC, ADIFF, ANEU #### [address] [address] .GFRon 01-01-2021 GFR Non- 68 ml/min/1.73sqm Normal [facility] ([place]) Comment on above: Result Comment: GFR Population mean for , Non- Americans Ages 20-29 = 116 mL/min/1.73 sq.m. Ages 30-39 = 107 mL/min/1.73 sq.m. Ages 40-49 = 99 mL/min/1.73 sq.m. Ages 50-59 = 93 mL/min/1.73 sq.m. Ages 60-69 = 85 mL/min/1.73 sq.m. Ages 70+ = 75 mL/min/1.73 sq.m. Chronic Kidney Disease: Less than 60 mL/min/1.73 square meters End Stage Renal Disease: Less than 15 mL/min/1.73 square meters Performed By: #### T SH, LIPID, CMP, GFR #### [place] [address] #### CBC, ADIFF, ANEU #### [address] [address] GFR 82 ml/min/1.73sqm Normal [facility] ([place]) Comment on above: Result Comment: GFR Population mean for , Non- Americans Ages 20-29 = 116 mL/min/1.73 sq.m. Ages 30-39 = 107 mL/min/1.73 sq.m. Ages 40-49 = 99 mL/min/1.73 sq.m. Ages 50-59 = 93 mL/min/1.73 sq.m. Ages 60-69 = 85 mL/min/1.73 sq.m. Ages 70+ = 75 mL/min/1.73 sq.m. Chronic Kidney Disease: Less than 60 mL/min/1.73 square meters End Stage Renal Disease: Less than 15 mL/min/1.73 square meters Performed By: #### T SH, LIPID, CMP, GFR #### [place] [address] #### CBC, ADIFF, ANEU #### [address] [address] .NEUABSon 01-01-2021 Neutrophil, Absolute 2.00 10 3/mcL Low 2.85-6.16 A [facility] ([place]) Comment on above: Performed By: #### T SH, LIPID, CMP, GFR #### [place] [address] #### CBC, ADIFF, ANEU #### [address] [address] CBCon 01-01-2021 Erythrocyte distribution width (RBC) [Ratio] 13.3 % Normal 11.5-14.5 [facility] ([place]) Comment on above: Performed By: #### T SH, LIPID, CMP, GFR #### [place] [address] #### CBC, ADIFF, ANEU #### [address] [address] Hematocrit (Bld) [Volume fraction] 41.1 % Normal 37.0-47.0 [facility] ([place]) Comment on above: Performed By: #### T SH, LIPID, CMP, GFR #### [place] [address] #### CBC, ADIFF, ANEU #### [address] [address] Hgb 14.1 G/dL Normal 12.0-16.0 [facility] ([place]) Comment on above: Performed By: #### T SH, LIPID, CMP, GFR #### [place] [address] #### CBC, ADIFF, ANEU #### [address] [address] MCH (RBC) [Entitic mass] 32.0 pg High 27.0-31.2 [facility] ([place]) Comment on above: Performed By: #### T SH, LIPID, CMP, GFR #### [place] [address] #### CBC, ADIFF, ANEU #### [place] [address] MCHC 34.2 G/dL Normal 33.0-37.0 [facility] ([place]) Comment on above: Performed By: #### T SH, LIPID, CMP, GFR #### [place] [address] #### CBC, ADIFF, ANEU #### [address] [address] MCV (RBC) [Entitic vol] 93.6 fL Normal 80.0-94.0 [facility] ([place]) Comment on above: Performed By: #### T SH, LIPID, CMP, GFR #### [place] [address] #### CBC, ADIFF, ANEU #### [address] [address] Platelet 236 10 3/mcL Normal 130-400 [facility] ([place]) Comment on above: Performed By: #### T SH, LIPID, CMP, GFR #### [place] [address] #### CBC, ADIFF, ANEU #### [address] [address] Platelet mean volume (Bld) [Entitic vol] 7.6 fL Normal 7.4-10.4 [facility] ([place]) Comment on above: Performed By: #### T SH, LIPID, CMP, GFR #### [place] [address] #### CBC, ADIFF, ANEU #### [address] [address] RBC 4.39 10 6/mcL Normal 4.20-5.40 [facility] ([place]) Comment on above: Performed By: #### T SH, LIPID, CMP, GFR #### [place] [address] #### CBC, ADIFF, ANEU #### [address] [address] WBC 4.60 10 3/mcL Normal 4.60-10.80 [facility] ([place]) Comment on above: Performed By: #### T SH, LIPID, CMP, GFR #### [place] [address] #### CBC, ADIFF, ANEU #### [address] [address] CMPon 01-01-2021 Albumin Level 3.9 G/dL Normal 3.5-5.0 [facility] ([place]) Comment on above: Performed By: #### T SH, LIPID, CMP, GFR #### [place] [address] #### CBC, ADIFF, ANEU #### [address] [address] Albumin/Globulin [Mass ratio] 1.3 {ratio} Normal 1.1-2.5 [facility] ([place]) Comment on above: Performed By: #### T SH, LIPID, CMP, GFR #### [place] [address] #### CBC, ADIFF, ANEU #### [address] [address] ALP [Catalytic activity/Vol] 101 U/L Normal 40-135 [facility] ([place]) Comment on above: Performed By: #### T SH, LIPID, CMP, GFR #### [place] [address] #### CBC, ADIFF, ANEU #### [address] [address] ALT [Catalytic activity/Vol] 26 U/L Normal 14-59 [facility] ([place]) Comment on above: Performed By: #### T SH, LIPID, CMP, GFR #### [place] [address] #### CBC, ADIFF, ANEU #### [place] [id number] AST [Catalytic activity/Vol] 20 U/L Normal 10-40 [facility] ([place]) Comment on above: Performed By: #### T SH, LIPID, CMP, GFR #### [place] [address] #### CBC, ADIFF, ANEU #### [address] [address] Bili Total 0.6 mg/dL Normal 0.2-1.0 [facility] ([place]) Comment on above: Result Comment: Use of this assay is not recommended for patients undergoing treatment with eltrombopag due to the potential for falsely elevated results. Performed By: #### T SH, LIPID, CMP, GFR #### [place] [address] #### CBC, ADIFF, ANEU #### [address] [address] BUN/Creatinine Ratio 17 ratio Normal 7-27 [facility] ([place]) Comment on above: Performed By: #### T SH, LIPID, CMP, GFR #### [place] [address] #### CBC, ADIFF, ANEU #### [address] [address] Calcium [Mass/Vol] 9.0 mg/dL Normal 8.4-10.2 [facility] ([place]) Comment on above: Performed By: #### T SH, LIPID, CMP, GFR #### [place] [address] #### CBC, ADIFF, ANEU #### [address] [address] Chloride [Moles/Vol] 104 mmol/L Normal 98-107 [facility] ([place]) Comment on above: Performed By: #### T SH, LIPID, CMP, GFR #### [place] [address] #### CBC, ADIFF, ANEU #### [address] [address] CO2 [Moles/Vol] 29 mmol/L Normal 22-29 [facility] ([place]) Comment on above: Performed By: #### T SH, LIPID, CMP, GFR #### [place] [address] #### CBC, ADIFF, ANEU #### [address] [address] Creatinine [Mass/Vol] 0.89 mg/dL Normal 0.55-1.02 [facility] ([place]) Comment on above: Performed By: #### T SH, LIPID, CMP, GFR #### [place] [address] #### CBC, ADIFF, ANEU #### [address] [address] Electrolyte Balance 11.0 mEq/L Normal [facility] ([place]) Comment on above: Performed By: #### T SH, LIPID, CMP, GFR #### [place] [address] #### CBC, ADIFF, ANEU #### [address] [address] Globulin 3.1 G/dL Normal [facility] ([place]) Comment on above: Performed By: #### T SH, LIPID, CMP, GFR #### [place] [address] #### CBC, ADIFF, ANEU #### [address] [address] Glucose [Mass/Vol] 81 mg/dL Normal 70-105 [facility] ([place]) Comment on above: Performed By: #### T SH, LIPID, CMP, GFR #### [place] [address] #### CBC, ADIFF, ANEU #### [address] [address] Potassium [Moles/Vol] 4.7 mmol/L Normal 3.5-5.1 [facility] ([place]) Comment on above: Performed By: #### T SH, LIPID, CMP, GFR #### [place] [address] #### CBC, ADIFF, ANEU #### [address] [address] Sodium [Moles/Vol] 144 mmol/L Normal 136-145 [facility] ([place]) Comment on above: Performed By: #### T SH, LIPID, CMP, GFR #### [place] [address] #### CBC, ADIFF, ANEU #### [address] [address] Total Protein 7.0 G/dL Normal 6.4-8.2 [facility] ([place]) Comment on above: Performed By: #### T SH, LIPID, CMP, GFR #### [place] [address] #### CBC, ADIFF, ANEU #### [address] [address] Urea nitrogen [Mass/Vol] 15 mg/dL Normal 7-18 [facility] ([place]) Comment on above: Performed By: #### T SH, LIPID, CMP, GFR #### [place] [address] #### CBC, ADIFF, ANEU #### [address] [address] LIPIDon 01-01-2021 Cholesterol [Mass/Vol] 205 mg/dL High 0-200 [facility] ([place]) Comment on above: Result Comment: Chol esterol Reference Interval: Less than 200 Desirable 200-239 Borderline high risk 240 and above High risk Performed By: #### T SH, LIPID, CMP, GFR #### [place] [address] #### CBC, ADIFF, ANEU #### [address] [address] Cholesterol in HDL [Mass/Vol] 88 mg/dL High 40-60 [facility] ([place]) Comment on above: Performed By: #### T SH, LIPID, CMP, GFR #### [place] [address] #### CBC, ADIFF, ANEU #### [address] [address] Cholesterol in LDL [Mass/Vol] 106 mg/dL Normal 0-130 [facility] ([place]) Comment on above: Performed By: #### T SH, LIPID, CMP, GFR #### [place] [address] #### CBC, ADIFF, ANEU #### [address] [address] Triglyceride [Mass/Vol] 57 mg/dL Normal 0-150 [facility] ([place]) Comment on above: Result Comment: Trig lyceride Reference Interval: Less than 150 Normal 150-199 Borderline high risk 200-499 High risk 500 or higher Very high risk Performed By: #### T SH, LIPID, CMP, GFR #### [place] [address] #### CBC, ADIFF, ANEU #### [address] [address] TSHon 01-01-2021 TSH Qn 1.82 m[IU]/L Normal 0.36-3.74 [facility] ([place]) Comment on above: Performed By: #### T SH, LIPID, CMP, GFR #### [facility] [address] [place] [id number] #### CBC, ADIFF, ANEU #### [address] [address] Malini 11-05-2020 WILFRIDN Telephone (VTRIAG) FAIZA TRIPP ([id number]) 1970 F Date Time Provider Department 11/05/20 SHERRY MCHUGH During your visit today, we recorded the following information about you: Sherry Mchugh APRN.WILFRID 11/05/2020 2:34 PM Signed Please notify patient that all testing was negative, no yeast, BV, trichomonas, GC,Chlamydia, or Herpes Advise if has further concerns, follow up with [facility] [employer]. .Sherry Mchugh APRN.WILFRID Duval Ma 11/05/2020 5:47 PM Signed Patient reviewed results via [employer] automatic release. Patient notified via [employer] message. Allergies As of Date: 11/05/2020 Noted Allergy Reaction MEDROL (METHYLPREDNISOLONE) 11/13/2015 8 - GI Upset Comments: vomited Date Reviewed: 11/03/2020 Reviewed by: Saba Pavon LPN - Fully Assessed Reason for Visit: Results [95] Prescriptions as of 11/05/2020 Sig: CITALOPRAM 40 MG TABLET GABAPENTIN 300 MG CAPSULE Take 150 mg by mouth as direc* OMEPRAZOLE 40 MG CAPSULE,NETO* 40 mg. ALBUTEROL SULFATE HFA 90 MCG/* Inhale 2 Puffs as instructed * Patient not taking: Reported on 06/03/2020 BACLOFEN ORAL Take by mouth. CODEINE 10 MG-GUAIFENESIN 100* Take 5 mL by mouth three time* Patient not taking: Reported on 06/03/2020 Problem List As Of Date 11/05/2020 Noted Resolved DDD (degenerative disc disease), lumbar [M51.36] Lumbosacral radiculopathy due to degenerative j* Lumbosacral stenosis [M48.07] Encounter Status:Closed by AYLIN DUVAL MA on 11/05/20 Normal [facility] CNOVon 11-03-2020 CNOV Office Visit (UCWSTR ) FAIZA TRIPP ([id number]) 1970 F Date Time Provider Department 11/03/20 7:30 PM MATIAS STRATTON ([employer]) [facility] During your visit today, we recorded the following information about you: Temperature Pulse Respiration Blood pressure 97.4 degrees 56/minute 16/minute 136/82 Weight 66.6 kg Matias Stratton APRN.CNP 11/03/2020 8:09 PM Signed Subjective HPI Nontoxic-appearing female presents urgent care chief complaint rash. Duration of symptoms 1 week. Associated symptoms stinging painful rash in groin area. Patient states concerned about herpes. States she broke up with her boyfriend last May had a STD panel drawn which was negative. Patient states they became sexually active again in September patient developed a rash after having unprotected sex. Denies any OTC medication use. Denies any pain currently. Denies any nausea, vomiting, abdominal pain, chest pain, shortness of breath or change in bowel or bladder habits. Past medical history prescription medication use and allergies reviewed. .Patient presents with: Rash: between legs in ginital area x 1 week PAST MEDICAL HISTORY Diagnosis Date - DDD (degenerative disc disease), lumbar - Lumbosacral radiculopathy due to degenerative joint disease of spine - Lumbosacral stenosis No past surgical history on file. ALLERGIES Medrol [Methylprednisolone] MEDICATIONS gabapentin (NEURONTIN) 300 mg capsule Take 150 mg by mouth as directed. 1/2 tablet at bedtime. omeprazole (PRILOSEC) 40 mg capsule 40 mg. citalopram (CELEXA) 40 mg tablet albuterol HFA (PROAIR HFA) 90 mcg/actuation inhaler Inhale 2 Puffs as instructed every 4 hours as needed for Wheezing/Shortness of Breath. BACLOFEN ORAL Take by mouth. codeine-guaiFENesin (GUAIFENESIN AC) 10-100 mg/5 mL syrup Take 5 mL by mouth three times daily as needed. No family history on file. Social History Tobacco Use - Smoking status: Never Smoker - Smokeless tobacco: Never Used Substance Use Topics - Alcohol use: Not on file - Drug use: Not on file BP 136/82 Pulse (!) 56 Temp 36.3 ?C (97.4 ?F) (Tympanic) Resp 16 Wt 66.6 kg (146 lb 12.8 oz) BMI 24.43 kg/m? Review of Systems Constitutional: Negative for chills, fever and malaise/fatigue. HENT: Negative for congestion, ear discharge, ear pain, sinus pain and sore throat. Eyes: Negative for blurred vision, pain, discharge and redness. Respiratory: Negative for cough, sputum production, shortness of breath and wheezing. Cardiovascular: Negative for chest pain. Gastrointestinal: Negative for abdominal pain, diarrhea, nausea and vomiting. Genitourinary: Negative. Musculoskeletal: Negative for myalgias. Skin: Positive for rash. Neurological: Negative for dizziness and headaches. Objective Physical Exam Constitutional: She is oriented to person, place, and time and well-developed, well-nourished, and in no distress. No distress. HENT: Right Ear: Hearing and external ear normal. No drainage, swelling or tenderness. No mastoid tenderness. Left Ear: Hearing and external ear normal. No drainage, swelling or tenderness. No mastoid tenderness. Mouth/Throat: Uvula is midline, oropharynx is clear and moist and mucous membranes are normal. No uvula swelling. No oropharyngeal exudate, posterior oropharyngeal edema, posterior oropharyngeal erythema or tonsillar abscesses. Eyes: Pupils are equal, round, and reactive to light. Conjunctivae and EOM are normal. Cardiovascular: Normal rate and regular rhythm. Pulmonary/Chest: Effort normal and breath sounds normal. No accessory muscle usage. No tachypnea. No respiratory distress. Abdominal: Soft. There is no abdominal tenderness. Genitourinary: No vaginal discharge. There are lesions in the vagina. Genitourinary Comments: Vaginal swab obtained with asset protection professional at bedside. Musculoskeletal: Cervical back: Normal range of motion and neck supple. Lymphadenopathy: She has no cervical adenopathy. Neurological: She is alert and oriented to person, place, and time. Gait normal. Skin: Skin is warm and dry. She is not diaphoretic. Fluid-filled vesicles noted on patient's pelvic area. Vesicles had erythematous base. ASSESSMENT/PLAN: 1. Rash - ICD9: 782.1, ICD10: R21 (primary diagnosis) 2. Possible exposure to STD - ICD9: V01.6, ICD10: Z20.2 - GC/CHLAMYDIA DNA DET - VAGINAL PATHOGENS DNA PROBES - HSV 1,2/VZV AMP MOLECULAR DETECT We will not treat until lab results are reviewed. Patient will engage in sexual intercourse until labs are reviewed Patient was educated on supportive therapies. Patient will follow up with primary care provider as needed. Patient was instructed to immediately proceed to emergency room for any new, worsening, or symptoms lasting longer than anticipated. The patient's clinical presentation is otherwise unremarkable at (more content not included)... Normal [facility] GC/Chlamydia Amplifon 2020 Chlamydia Amplif Negative Normal [facility] Comment on above: Performed By: #### G CCT #### [facility] [address] [place], [place] [address] GC Amplification Negative Normal [facility] Comment on above: Performed By: #### G CCT #### [facility] [address] [place], [place] [address] GC/Chlam Amp Source Cervix Normal [facility] Comment on above: Performed By: #### G CCT #### [facility] [address] [place], [place] [address] HSV1,2/VZV Amplifon 11-03-19 21 HSV Type 1, HDA Negative for Herpes Simplex virus Type 1 by Molecular Detection. Normal [facility] Comment on above: Performed By: #### H SVVZV #### [facility] [address] [place], [place] [address] HSV Type 2, HDA Negative for Herpes Simplex virus Type 2 by Molecular Detection. Normal [facility] Comment on above: Performed By: #### H SVVZV #### [place] [id number] Specimen source Nom (Unsp spec) Lesion Normal [facility] Comment on above: Performed By: #### H SVVZV #### [place] [phone] V Zoster Virus, HDA Negative for Varicel la Zoster virus by Molecular Detection. Normal [facility] Comment on above: Performed By: #### H SVVZV #### [place] [phone] Vag Pathogens DNAon 11-03-19 21 Sonal sp DNA Probe Negative Normal Negativ e for Sonal species by DNA Probe [facility] Comment on above: Performed By: #### V AGDNA #### [place] [id number] Kanu vag DNA Probe Negative Normal Negative for Gardnerella vaginalis by DNA Probe [facility] Comment on above: Performed By: #### V AGDNA #### [place] [id number] Trich vag DNA Probe Negative Normal Negative for Trichomonas vaginalis by DNA Probe [facility] Comment on above: Performed By: #### V AGDNA #### [place] [id number] XR SPINE LUMBOSACRAL 5 VIEWS on 03-14-2018 XR SPINE LUMBOSACRAL 5 VIEWS EXAM: XR SPINE LUMBOSACRAL 5 VIEWS, including flexion and extension lryfip2003/14/2018 14:31 PMCOMPARISON: No prior studies available for comparison.CLINICAL INDICATIONS: low back painRELEVANT CLINICAL HISTORY: M48.062:Spinal stenosis of lumbar region withneurogenic claudication AP and lateral - flexion and extension;FINDINGS:5 images obtainedVertebral:Ther e are 5 typical lumbar spine vertebral bodies in anatomic alignment. Nocompression deformity. No spondylolysis. No instability on flexion orextension.Disc:Sever e disc height loss at L5/S1. Anterior and posterior endplate osteophyteformation and endplate sclerosis is noted. Minimal disc height loss at L3/L4is also present associated with osteophyte formation.Joint: Facet joints appear anatomically aligned. Severe facet arthropathy at L5/S1.Mild osteoarthritis at bilateral sacroiliac joints.IMPRESSION: Degenerative disc disease predominantly at L5/S1 with severe changes.No instability on flexion or extension.Electronical ly Signed By: CATERINA Erwin on 03/14/2018 2:34 PM Normal [facility] XR SPINE SCOLIOSIS 2/3 VIEWS on 03-14-2018 XR SPINE SCOLIOSIS 2/3 VIEWS EXAM: XR SPINE SCOLIOSIS 2/3 VIEWS, 03/14/2018 14:29 PMCOMPARISON: No prior studies available for comparison.CLINICAL INDICATIONS: low back painRELEVANT CLINICAL HISTORY: M48.062:Spinal stenosis of lumbar region withneurogenic claudication 3 foot - standing AP and lateral;FINDINGS:2 images obtained.Thoracolumbar spine: 12 thoracic and 5 lumbar type vertebral bodies arepresent. No significant scoliotic curvature is identified. Vertebral bodiesare normal in height and alignment. Disc height loss at L5/S1. Multilevelsmall endplate osteophyte formation within mid/lower thoracic spine.Pelvic Tilt: There is no pelvic tilt.IMPRESSION: No significant scoliotic curvature.Degenerative disc disease within mid/lower thoracic spine and L5/S1. Normal [facility] CT Foot w/o Contrast Lefton 10-18-2017 CT Foot w/o Contrast Left Exam Date/Time:10/17/2017 16:40 ESTReason for Exam:CYST OF BONE LEFT ANKLE AND FOOT / LEFT FOOT PAINReportEXAM: CT FOOT WITHOUT CONTRAST LEFTCLINICAL STATEMENT: Pain distal and mid left foot in certain positions of thefoot.COMPARISON: None.TECHNIQUE: 1 mm axial helical scanning, with MPR and 3-D reconstruction on [employer] workstation.Dose reduction techniques were achieved by using automated exposure controland/or adjustment of mA and/or kV according to patient size and/or use ofiterative reconstruction technique.FINDINGS: The site of the patient's pain has been marked on the dorsal aspectof the distal foot with a BB.There is a cystic intramedullary lesion, at the base of the third metatarsal,measuring 12.5 mm anteroposteriorly, 5 mm in width and 6 mm in height. Thelesion is well demarcated from the adjacent normal bone with a corticatedmargin except for a discontinuity along the plantar aspect, as seen at image15, series 14. The appearance is of a benign lesion such as a bone cyst. Nofracture is seen. There is no periosteal reaction or a calcified or osseousmatrix.No fracture is seen in the second or third metatarsals. The BB marker, overliesthe distal portion of the second metatarsal.Degenerativ e changes are present, at the first metatarsophalangeal joint. Thesecond and third metatarsophalangeal joints are normal.IMPRESSION:Cyst , at the base of the third metatarsal.No fracture.Degenerative changes at the first metatarsophalangeal joint.Limited bone scanning of the feet may be of benefit to discern any abnormalExam Date/Time:10/17/2017 16:40 ESTReportactivity in view of this patient's continuing pain and tenderness in the foot. FINAL REPORT Dictated: 10/18/2017 9:30 am Gordo De La Vega MD KSigned (Electronic Signature): 10/18/2017 9:30 amSigned by: Gordo De La Vega MD Technologist: [facility] Vital Signs Date Time Vital Sign Value Performing Clinician Tayei qian 04-16-2025 13:49-0400 Body height 167.6 cm Matias Goldberg MD Work Phone: [facility] 04-16-2025 13:49-0400 Body mass index (BMI) [Ratio] 22.6 kg/m2 Matias Goldberg MD Work Phone: [facility] 04-16-2025 13:49-0400 Body weight 63.5 kg Matias Goldberg MD Work Phone: [facility] 04-09-2025 11:03-0400 Body height 165.1 cm Donta Mitchell MD Work Phone: [phone](238)[phone] [place] [address] 03-19-2025 09:22-0400 Body height 165.1 cm Donta Mitchell MD Work Phone: [facility] 02-28-2025 13:10-0400 Body height 165.1 cm Donta Mitchell MD Work Phone: [facility] 02-28-2025 13:10-0400 Body mass index (BMI) [Ratio] 25.4 kg/m2 Donta Mitchell MD Work Phone: [facility] 02-28-2025 13:10-0400 Body temperature 96.8 [degF] Donta Mitchell MD Work Phone: [phone](606)449-3629[address] [place] [address] 02-28-2025 13:10-0400 Body weight 69.39 kg Donta Mitchell MD Work Phone: 4(007)[phone] [place] [address] 02-28-2025 13:10-0400 Diastolic blood pressure 80 mm[Hg] Donta Mitchell MD Work Phone: [phone])008-597501 [place] [address] 02-28-2025 13:10-0400 Heart rate 74 /min Donta Mitchell MD Work Phone: 0(348)[phone] [place] [address] 02-28-2025 13:10-0400 Respiratory rate 18 /min Donta Mitchell MD Work Phone: [facility] 02-28-2025 13:10-0400 SaO2% (BldA) [Mass fraction] 98 % Donta Mitchell MD Work Phone: 6(682)[phone] [place] [address] 02-28-2025 13:10-0400 Systolic blood pressure 134 mm[Hg] Donta Mitchell MD Work Phone: [facility] 01-30-2025 13:36-0400 Body height 165.1 cm Donta Mitchell MD Work Phone: [facility] 01-30-2025 13:36-0400 Body mass index (BMI) [Ratio] 25.8 kg/m2 oDnta Mitchell MD Work Phone: [phone] [place] [address] 01-30-2025 13:36-0400 Body weight 70.47 kg Donta Mitchell MD Work Phone: [facility] 01-30-2025 13:36-0400 Diastolic blood pressure 87 mm[Hg] Donta Mitchell MD Work Phone: [facility] 01-30-2025 13:36-0400 Systolic blood pressure 135 mm[Hg] Donta Mitchell MD Work Phone: [facility] 01-22-2024 09:55-0400 Body temperature 98.3 [degF] Dr. Mariana Mohan Work Phone: [facility] 01-22-2024 09:55-0400 Diastolic blood pressure 72 mm[Hg] Dr. Mariana Mohan Work Phone: [facility] 01-22-2024 09:55-0400 Heart rate 58 /min Dr. Mariana Mohan Work Phone: [facility] 01-22-2024 09:55-0400 Respiratory rate 16 /min Dr. Mariana Mohan Work Phone: [facility] 01-22-2024 09:55-0400 SaO2% (BldA) [Mass fraction] 96 % Dr. Mariana Mohan Work Phone: [facility] 01-22-2024 09:55-0400 Systolic blood pressure 115 mm[Hg] Dr. Mariana Mohan Work Phone: [facility] 01-22-2024 08:30-0400 Body height 165.[address] Mariana Mohan Work Phone: [facility] 01-22-2024 08:30-0400 Body mass index (BMI) [Ratio] 24.7 kg/m2 Dr. Mariana Mohan Work Phone: [facility] 01-22-2024 08:30-0400 Body weight 67.[address] Mariana Mohan Work Phone: [facility] 09-29-2023 16:10-0500 Body mass index (BMI) [Ratio] 25.1 kg/m2 Dr. Mariana Mohan Work Phone: [facility] 09-29-2023 16:10-0500 Body weight 68.[address] Mariana Mohan Work Phone: [facility] 09-29-2023 16:10-0500 Diastolic blood pressure 74 mm[Hg] Dr. Mariana Mohan Work Phone: [facility] 09-29-2023 16:10-0500 Systolic blood pressure 116 mm[Hg] Dr. Mariana Mohan Work Phone: [facility] 05-08-2023 12:15-0400 Body temperature 98.3 [degF] Dr. Mariana Mohan Work Phone: [facility] 05-08-2023 12:15-0400 Diastolic blood pressure 71 mm[Hg] Dr. Mariana Mohan Work Phone: [facility] 05-08-2023 12:15-0400 Heart rate 53 /min Dr. Mariana Mohan Work Phone: [facility] 05-08-2023 12:15-0400 Respiratory rate 18 /min Dr. Mariana Mohan Work Phone: [facility] 05-08-2023 12:15-0400 SaO2% (BldA) [Mass fraction] 100 % Dr. Mariana Mohan Work Phone: [facility] 05-08-2023 12:15-0400 Systolic blood pressure 104 mm[Hg] Dr. Mariana Mohan Work Phone: [facility] 05-08-2023 10:43-0400 Body height 165.[address] Mariana Mohan Work Phone: [facility] 05-08-2023 10:43-0400 Body mass index (BMI) [Ratio] 25 kg/m2 Dr. Mariana Mohan Work Phone: [facility] 05-08-2023 10:43-0400 Body weight 68.[address] Mariana Mohan Work Phone: [facility] 04-26-2023 07:31-0400 Body height 165.[address] Mariana Mohan Work Phone: [facility] 04-26-2023 07:31-0400 Body mass index (BMI) [Ratio] 25.1 kg/m2 Dr. Mariana Mohan Work Phone: [facility] 04-26-2023 07:31-0400 Body temperature 96.7 [degF] Dr. Mariana Mohan Work Phone: [facility] 04-26-2023 07:31-0400 Body weight 68.[address] Mariana Mohan Work Phone: [facility] 04-26-2023 07:31-0400 Diastolic blood pressure 84 mm[Hg] Dr. Mariana Mohan Work Phone: [facility] 04-26-2023 07:31-0400 Heart rate 45 /min Dr. Mariana Mohan Work Phone: [facility] 04-26-2023 07:31-0400 Respiratory rate 18 /min Dr. Mariana Mohan Work Phone: [facility] 04-26-2023 07:31-0400 SaO2% (BldA) [Mass fraction] 99 % Dr. Mariana Mohan Work Phone: [facility] 04-26-2023 07:31-0400 Systolic blood pressure 124 mm[Hg] Dr. Mariana Mohan Work Phone: [facility] 04-19-2023 15:06-0400 Body mass index (BMI) [Ratio] 25.1 kg/m2 Dr. Mariana Mohan Work Phone: [facility] 04-19-2023 15:06-0400 Body temperature 97.4 [degF] Dr. Mariana Mohan Work Phone: [facility] 04-19-2023 15:06-0400 Body weight 68.[address] Mariana Mohan Work Phone: [facility] 04-19-2023 15:06-0400 Diastolic blood pressure 73 mm[Hg] Dr. Mariana Mohan Work Phone: [facility] 04-19-2023 15:06-0400 Heart rate 46 /min Dr. Mariana Mohan Work Phone: [facility] 04-19-2023 15:06-0400 Respiratory rate 16 /min Dr. Mariana Mohan Work Phone: [facility] 04-19-2023 15:06-0400 SaO2% (BldA) [Mass fraction] 97 % Dr. Mariana Mohan Work Phone: [facility] 04-19-2023 15:06-0400 Systolic blood pressure 127 mm[Hg] Dr. Mariana Mohan Work Phone: [facility] 10-31-2022 11:21-0500 Diastolic blood pressure 56 mm[Hg] Dr. Mariana Mohan Work Phone: [facility] 10-31-2022 11:21-0500 Systolic blood pressure 117 mm[Hg] Dr. Mariana Mohan Work Phone: [facility] 10-31-2022 10:50-0500 Body temperature 98 [degF] Dr. Mariana Mohan Work Phone: [facility] 10-31-2022 10:50-0500 Heart rate 57 /min Dr. Mariana Mohan Work Phone: [facility] 10-31-2022 10:50-0500 Respiratory rate 16 /min Dr. Mariana Mohan Work Phone: [facility] 10-31-2022 10:50-0500 SaO2% (BldA) [Mass fraction] 97 % Dr. Mariana Mohan Work Phone: [facility] 10-31-2022 09:15-0500 Body height 165.[address] Mariana Mohan Work Phone: [facility] 10-31-2022 09:15-0500 Body mass index (BMI) [Ratio] 23.4 kg/m2 Dr. Mariana Mohan Work Phone: [facility] 10-31-2022 09:15-0500 Body weight [address] Mariana Mohan Work Phone: [facility] 10-28-2022 13:09-0500 Body mass index (BMI) [Ratio] 23.3 kg/m2 Dr. Mariana Mohan Work Phone: [facility] 10-28-2022 13:09-0500 Body temperature 98.2 [degF] Dr. Mariana Mohan Work Phone: [facility] 10-28-2022 13:09-0500 Body weight 63.[address] Mariana Mohan Work Phone: [facility] 10-28-2022 13:09-0500 Diastolic blood pressure 62 mm[Hg] Dr. Mariana Mohan Work Phone: [facility] 10-28-2022 13:09-0500 Heart rate 56 /min Dr. Mariana Mohan Work Phone: [facility] 10-28-2022 13:09-0500 Respiratory rate 16 /min Dr. Mariana Mohan Work Phone: [facility] 10-28-2022 13:09-0500 SaO2% (BldA) [Mass fraction] 99 % Dr. Mariana Mohan Work Phone: [facility] 10-28-2022 13:09-0500 Systolic blood pressure 124 mm[Hg] Dr. Mariana Mohan Work Phone: [facility] 08-31-2022 16:44-0500 Body temperature 97.4 [degF] Dr. Saulo Mckay Work Phone: [facility] 08-31-2022 16:44-0500 Body weight 66.[address] Saulo Mckay Work Phone: [facility] 08-31-2022 16:44-0500 Diastolic blood pressure 82 mm[Hg] Dr. Saulo Mckay Work Phone: [facility] 08-31-2022 16:44-0500 Heart rate 60 /min Dr. Saulo Mckay Work Phone: [facility] 08-31-2022 16:44-0500 Respiratory rate 18 /min Dr. Saulo Mckay Work Phone: [facility] 08-31-2022 16:44-0500 SaO2% (BldA) [Mass fraction] 98 % Dr. Saulo Mckay Work Phone: [facility] 08-31-2022 16:44-0500 Systolic blood pressure 108 mm[Hg] Dr. Saulo Mckay Work Phone: [facility] 08-18-2022 12:25-0500 Body height 165.[address] Saulo Mckay Work Phone: [facility] Work Phone: 08-18-2022 12:25-0500 Body mass index (BMI) [Ratio] 23.3 kg/m2 Dr. Saulo Mckay Work Phone: [facility] 08-18-2022 12:25-0500 Body weight 63.[address] Saulo Mckay Work Phone: [facility] 06-08-2022 13:24-0400 Body mass index (BMI) [Ratio] 24.1 kg/m2 Dr. Saulo Mckay Work Phone: [facility] Work Phone: 06-08-2022 13:24-0400 Body temperature 97.6 [degF] Dr. Saulo Mckay Work Phone: [facility] Work Phone: 06-08-2022 13:24-0400 Body weight 65.[address] Saulo Mckay Work Phone: [facility] Work Phone: 06-08-2022 13:24-0400 Diastolic blood pressure 70 mm[Hg] Dr. Saulo Mckay Work Phone: [facility] Work Phone: 06-08-2022 13:24-0400 Heart rate 55 /min Dr. Saulo Mckay Work Phone: [facility] Work Phone: 06-08-2022 13:24-0400 Respiratory rate 18 /min Dr. Saulo Mckay Work Phone: [facility] Work Phone: 06-08-2022 13:24-0400 SaO2% (BldA) [Mass fraction] 95 % Dr. Saulo Mckay Work Phone: [facility] Work Phone: 06-08-2022 13:24-0400 Systolic blood pressure 122 mm[Hg] Dr. Saulo Mckay Work Phone: [facility] Work Phone: 03-01-2022 11:15-0400 Body height 165.[address] Saulo Mckay Work Phone: [facility] Work Phone: 03-01-2022 11:15-0400 Body mass index (BMI) [Ratio] 23.3 kg/m2 Dr. Saulo Mckay Work Phone: [facility] Work Phone: 03-01-2022 11:15-0400 Body weight 63.[address] Saulo Mckay Work Phone: [facility] Work Phone: 03-01-2022 11:15-0400 Diastolic blood pressure 66 mm[Hg] Dr. Saulo Mckay Work Phone: [facility] Work Phone: 03-01-2022 11:15-0400 Systolic blood pressure 100 mm[Hg] Dr. Saulo Mckay Work Phone: [facility] Work Phone: Encounters Encounter Date Encounter Type Care Provider Facility Start: 06-23-2025 End: 06-23-2025 ambulatory [facility] Start: 06-16-2025 End: 06-16-2025 Orders Only Rashi Dominique PA-C Work Phone: [facility] Start: 05-30-2025 End: 05-30-[address] 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 Mich Rios MD -[facility] Start: 04-09-2025 End: 04-09-2025 ambulatory Donta Mitchell MD Work Phone: -[facility] Start: 04-09-2025 End: 04-09-2025 ambulatory Monserrat Zaman Facility:[facility] Start: 04-07-2025 End: 04-07-2025 Orders Only Rashi Dominique PA-C Work Phone: [facility] Comment on above: Left foot pain (Prim lópez Dx) Start: 03-19-2025 End: 03-19-[address] Jh Hernandez MD -[facility] Work Phone: Start: 03-19-2025 End: 03-19-2025 ambulatory Donta Mitchell MD Work Phone: -[facility] Start: 03-19-2025 End: 03-19-[address] Mich Rios MD -[facility] Start: 03-19-2025 End: 03-19-2025 ambulatory Donta Mitchell MD Work Phone: -[facility] Start: 02-28-2025 End: 02-28-2025 Patient encounter procedure Chucho WEAVER -[facility] Work Phone: Start: 02-28-2025 End: 02-28-2025 ambulatory Donta Mitchell MD Work Phone: [facility] Work Phone: Start: 01-30-2025 End: 01-30-2025 Patient encounter status Kaitlin Coughlin CNM [facility] Start: 01-30-2025 End: 01-30-2025 ambulatory Donta Mitchell MD Work Phone: [facility] Work Phone: Start: 01-30-2025 End: 01-30-2025 Patient encounter procedure Kaitlin Coughlin CNM -[facility] Work Phone: Start: 01-30-2025 End: 01-30-2025 ambulatory Donta Mitchell Facility:[facility] Start: 01-17-2025 End: 01-17-[address] Jeancarlos Lamb MD -[facility] Work Phone: Start: 01-17-2025 End: 01-17-2025 ambulatory Jeancarlos Lamb Facility:[facility] Start: 12-17-2024 End: 12-17-[address] Lisa Cordero DC [facility] Work Phone: Start: 12-17-2024 End: 12-17-2024 ambulatory Lisa Cordero Facility:[facility] Start: 10-31-2024 End: 10-31-2024 Patient encounter procedure Sowmya WEAVER -[facility] Work Phone: Start: 10-31-2024 End: 10-31-2024 ambulatory Sowmya Mchugh Facility:[facility] Start: 10-02-2024 End: 10-02-[address] Jeancarlos Lamb MD -[facility] Work Phone: Start: 10-02-2024 End: 10-02-2024 ambulatory Jeancarlos Lamb Facility:[facility] Start: 09-19-2024 End: 09-19-2024 ambulatory [facility] Facility:[facility] Start: 09-10-2024 End: 09-10-2024 ambulatory [facility] Facility:[facility] Start: 08-23-2024 Encounter for other preprocedural examination Jh Hernandez [facility] Start: 08-13-2024 End: 08-13-2024 ambulatory Jh Hernandez Facility:[facility] Start: 07-31-2024 ambulatory Jh Hernandez Facility:[facility] Start: 07-31-2024 End: 08-01-2024 Evaluation and management of inpatient Chalon Paula Facility:[facility] Start: 07-31-2024 ambulatory Chalon Paula [facility] Start: 07-25-2024 End: 07-25-2024 ambulatory Chalon Paula Facility:[facility] Start: 07-18-2024 End: 07-18-2024 ambulatory Chalon Paula Facility:[facility] Start: 01-22-2024 End: 01-22-2024 Admission to same day surgery center Dr. Mariana Mohan Work Phone: [facility] Start: 01-22-2024 End: 01-22-[address] Mariana Mohan Work Phone: [facility] Work Phone: Start: 11-22-2023 End: 11-22-[address] Mariana Mohan Work Phone: [facility] Work Phone: Start: 11-16-2023 End: 11-16-[address] Mariana Mohan Work Phone: [facility] Work Phone: Start: 10-05-2023 End: 10-05-[address] Mariana Mohan Work Phone: [facility] Work Phone: Start: 09-29-[address] Cayetano Mohan Work Phone: [facility] Start: 09-29-2023 End: 09-29-[address] Mariana Mohan Work Phone: [facility] Work Phone: Start: 05-08-2023 End: 05-08-2023 Admission to same day surgery center Dr. Mariana Mohan Work Phone: [facility] Start: 05-08-2023 End: 05-08-[address] Mariana Mohan Work Phone: [facility] Work Phone: Start: 04-26-2023 End: 04-26-[address] Mariana Mohan Work Phone: [facility] Work Phone: Start: 04-26-2023 End: 04-26-[address] Mariana Mohan Work Phone: [facility] Work Phone: Start: 04-19-2023 End: 04-19-[address] Mariana Mohan Work Phone: [facility] Work Phone: Start: 03-15-2023 End: 03-15-[address] Mariana Mohan Work Phone: [facility] Work Phone: Start: 03-10-2023 End: 03-10-[address] Mariana Mohan Work Phone: [facility] Work Phone: Start: 03-10-2023 End: 03-10-[address] Mariana Mohan Work Phone: [facility] Start: 02-22-2023 End: 02-22-[address] Mariana Mohan Work Phone: [facility] Start: 02-06-2023 Non-patient / Non-visit Dr. Blanco Work Phone: [facility] Start: 02-01-2023 End: 02-01-[address] Mariana Mohan Work Phone: [facility] Start: 01-30-2023 Non-patient / Non-visit Dr. Blanco Work Phone: [facility] Start: 01-30-2023 End: 01-30-[address] Mariana Mohan Work Phone: [facility] Start: 01-27-2023 End: 01-27-[address] 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 Mariana Mohan Work Phone: [facility] Start: 01-03-2023 End: 01-03-[address] Mariana Mohan Work Phone: [facility] Start: 11-14-2022 End: 11-14-[address] Mariana Mohan Work Phone: [facility] Start: 11-11-2022 End: 11-11-[address] Mariana Mohan Work Phone: [facility] Work Phone: Start: 11-11-2022 End: 11-11-[address] Mariana Mohan Work Phone: [facility] Start: 10-31-2022 Non-patient / Non-visit Dr. Blanco Work Phone: [facility] Start: 10-31-2022 End: 10-31-2022 Admission to same day surgery center Dr. Mariana Mohan Work Phone: [facility] Start: 10-31-2022 End: 10-31-[address] Mariana Mohan Work Phone: [facility] Work Phone: Start: 10-28-2022 End: 10-28-[address] Mariana Mohan Work Phone: [facility] Start: 10-20-2022 End: 10-20-[address] Mariana Mohan Work Phone: [facility] Start: 09-05-2022 End: 09-05-[address] Saulo Mckay Work Phone: [facility] Start: 09-01-2022 End: 09-01-[address] Saulo Mckay Work Phone: [facility] Work Phone: Start: 09-01-2022 End: 09-01-[address] Saulo Mckay Work Phone: [facility] Start: 08-31-2022 End: 08-31-[address] Saulo Mckay Work Phone: [facility] Start: 08-18-2022 Non-patient / Non-visit Dr. Imani Mckay Work Phone: [facility] Start: 07-20-2022 End: 07-20-[address] Saulo Mckay Work Phone: [facility] Start: 06-08-2022 End: 06-08-[address] Saulo Mckay Work Phone: [facility] Start: 05-26-2022 Non-patient / Non-visit Dr. Imani Mckay Work Phone: [facility] Start: 03-18-2022 End: 03-18-[address] [facility] Start: 03-02-2022 End: 03-02-[address] Saulo Mckay Work Phone: [facility] Start: 03-01-2022 End: 03-01-[address] Saulo Mckay Work Phone: [facility] Start: 02-28-2022 End: 02-28-[address] Saulo Mckay Work Phone: [facility] Start: 12-24-[address] Saulo Mckay Work Phone: [facility] Start: 12-24-[address] Usman Mckay Work Phone: [facility] Start: 09-17-2021 End: 09-21-2021 Outreach Lab FERNIE CHONG MD [facility] Start: 03-14-2018 Ambulatory H [facility] Start: 10-17-2017 End: 10-18-2017 Ambulatory Nodr No Doctor Assigned Facility:[facility] Procedures Date Procedure Procedure Detail Performing Clinician Start: 04-09-2025 X-ray of foot, three or more views Donta Mitchell MD Work Phone: Start: 03-19-2025 X-ray of lumbosacral spine Donta Mitchell MD Work Phone: Start: 01-30-2025 End: 01-30-2025 Screening mammography Donta Mitchell MD Work Phone: Start: 10-31-2024 X-ray of lumbar spin e, two or three views Donta Mitchell MD Work Phone: Start: 01-22-[address] Mariana Mohan Work Phone: Start: 11-16-2023 X-ray of lumbosacral spine Dr. Mariana Mohan Work Phone: Start: 05-08-2023 Local anesthetic sac ral epidural block Dr. Mariana Mohan Work Phone: Start: 05-08-2023 Injection of spinal epidural space Dr. Mariana Mohan Work Phone: Start: 03-10-2023 MRI of lumbar spine Dr. Mariana Mohan Work Phone: Start: 01-30-2023 X-ray of lumbosacral spine Dr. Mariana Mohan Work Phone: Start: 11-11-2022 MRI of lower limb wi th contrast Dr. Mariana Mohan Work Phone: Start: 10-31-[address] Mariana Mohan Work Phone: Start: 03-18-2022 MRI of lower extremity Dr. Saulo Mckay Work Phone: Start: 03-02-2022 X-ray of both feet Dr. Saulo Mckay Work Phone: Start: 02-28-2022 X-ray of lumbosacral spine Dr. Saulo Mckay Work Phone: Dilation and curettage JOCELYNN CHONG MD Hysterectomy FERNIE Rubi Plan of Treatment Date Care Activity Detail Author Start: 2047 RSV Immunization for Adults (1 - 1-dose 75+ series) RSV Immunization for Adults (1 - 1-dose 75+ series) [facility] Start: 01-30-2026 Screening for malignant neoplasm of breast Mammogram [facility] Start: 07-23-2025 End: 07-23-2025 Patient encounter procedure 07/23/2025 10:30 AM EST Office Visit [facility] [address] [place] [id number] Rashi Dominique PA-C [address] [place], [place] [id number] [facility] [place] Start: 07-08-2025 End: 07-08-2025 Admission to same day surgery center 07/08/2025 7:30 AM EDT - 07/08/2025 9:00 AM EDT Surgery [facility] MA[facility] OR [address] [place] [address] Matias Goldberg MD [address] [place], [place] [id number] LEFT FIRST METATARSOPHALANGEAL FUSION [15373 (CPT )] [facility] Comment on above: LEFT FIRST METATARSOPHALANGEAL FUSION [2 8750 (CPT )] Start: 07-08-2025 End: 07-08-2025 Arthrodesis great toe metatarsophalangeal joint FUSION, JOINT, FOOT Hallux rigidus, left foot 07/08/2025 7:30 AM EDT [facility] Start: 07-08-2025 End: 07-08-2025 Exc neuroma hand/foot xcp digital nerve EXCISION, LESION, NERVE, LOWER EXTREMITY Hallux rigidus, left foot 07/08/2025 7:30 AM EDT [facility] Start: 07-08-2025 Subsequent hospital visit by physician 07/08/2025 7:30 AM EDT Hospital Encounter [facility] [address] [place] [address] Matias Goldberg MD [address] [facility] [address] [facility] [address] [place] [id number] [facility] Start: 06-23-2025 End: 06-23-2025 Admission to establishment 06/23/2025 9:00 AM EDT Pre-Admission Testing [facility] Pre-Admit Testing [address] [place] [address] 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, 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 - [employer] [address] [place] [address] [facility] Pre-Admit Testing Start: 05-19-2025 COVID-19 Vaccine ( season) COVID-19 Vaccine ( season) [facility] Start: 05-19-2025 Influenza vaccination Influenza Vaccine (#1) [facility] Start: 04-30-2025 End: 04-07-2026 XR Foot - left 3 Views XR foot 3+ views left Imaging Routine Left foot pain Expected: 04/30/2025, Expires: 04/07/2026 [facility] Work Phone: Comment on above: Expected: 04/30/2025, Expires: Start: 04-30-2025 End: 04-30-2025 Patient encounter procedure 04/30/2025 8:00 AM EDT Office Visit [facility] Orth[facility] - [facility] [address] [place] [address] Matias Goldberg MD [address] [place], [place] [id number] [facility] Start: 04-09-2025 X-ray of foot, three or more views Foot min 3 Views [facility] Start: 04-09-2025 XR Foot GE 3 Views [facility] Start: 03-19-2025 X-ray of lumbosacral spine L/S Spine Min 4 Views [facility] Start: 03-19-2025 XR Spine Lumbar and Sacrum GE 4 Views [facility] Start: 05-19-2024 COVID-19 Vaccine ( season) COVID-19 Vaccine ( season) [facility] Start: 01-22-2024 Injection of spinal epidural space [facility] Start: 01-22-2024 X-ray of lumbar spine, two or three views Lumbar Spine 2 or 3 Views [facility] Start: 01-22-2024 Patient discharge [facility] Start: 05-08-2023 Injection using fluoroscopic guidance [facility] Start: 05-08-2023 Patient discharge [facility] Start: 04-26-2023 Evaluation of diagnostic study results [facility] Start: 03-15-2023 Patient referral [facility] Work Phone: Start: 02-06-2023 Patient referral [facility] Work Phone: Start: 10-31-2022 Colonoscopy w/biopsy single/multiple COLONOSCOPY AND BIOPSY [facility] Start: 10-31-2022 Patient discharge [facility] Start: 2022 Pneumococcal Vaccine: 50+ Years (1 of 1 - PCV) Pneumococcal Vaccine: 50+ Years (1 of 1 - PCV) [facility] Start: 2022 Zoster Vaccines (1 of 2) Zoster Vaccines (1 of 2) [facility] Start: 06-08-2022 Patient referral [facility] Work Phone: Start: 09-18-2017 DTaP/Tdap/Td Vaccines (2 - Tdap) DTaP/Tdap/Td Vaccines (2 - Tdap) [facility] Start: 2012 Screening for malignant neoplasm of breast Mammogram [facility] Start: 2002 Screening for malignant neoplasm of cervix [facility] Start: 1993 Screening for malignant neoplasm of cervix Pap Smear [facility] Start: 1991 DTaP/Tdap/Td Vaccines (1 - Tdap) DTaP/Tdap/Td Vaccines (1 - Tdap) [facility] Start: 1991 Hepatitis B Vaccines (1 of 3 - 19+ 3-dose series) Hepatitis B Vaccines (1 of 3 - 19+ 3-dose series) [facility] Start: 1990 Hepatitis C screening Hepatitis C Screening [facility] Start: 1984 Depression Monitoring Depression Monitoring [facility] Start: 1984 Depression Screening Depression Screening [facility] Start: 1973 MMR Vaccines (1 of 1 - Standard series) MMR Vaccines (1 of 1 - Standard series) [facility] Start: 1972 HIV screening HIV Screening [facility] Start: 1972 Screening for malignant neoplasm of colon [facility] Colonoscopy [facility] Work Phone: Colonoscopy [facility] MG Breast - bilatera l Screening [facility] MR Lower extremity [facility] Patient referral [facility] Work Phone: Immunizations Immunization Date Immunization Notes Care Provider Fa [facility] 07-12-2008 influenza, injectabl e, quadrivalent, preservative free Dr. Mariana Mohan Work Phone: [facility] 07-12-2008 influenza, seasonal, injectable Dr. Saulo Mckay Work Phone: [facility] 07-12-2008 influenza virus vaccine, unspecified formulation Rashi Dominique PA-C Work Phone: [facility] 09-18-2007 diphtheria, tetanus toxoids and acellular pertussis vaccine Dr. Saulo Mckay Work Phone: [facility] 07-17-2007 influenza, injectabl e, quadrivalent, preservative free Dr. Mariana Mohan Work Phone: [facility] 07-17-2007 influenza, seasonal, injectable Dr. Saulo Mckay Work Phone: [facility] Payers Date Payer Category Payer Self-pay [id number] 2023 Commercial Managed C [facility] - HMO [employer] [id number] 2023 Unknown [id number] 2017 Unknown 2013 Unknown [id number] Private Health Insurance [id number] Unknown [id number] Unknown [id number] 2.16.840.1.509033.3.579.2. 462 Unknown [id number] 2.16.840.1.391470.3.579.2. 462 Unknown [id number] 2.16.840.1.917299.3.579.2. 462 Unknown [id number] 2.16840.1.586428.3.579.2. 462 Unknown [id number] 2.840.1.777734.3.579.2. 462 Unknown [id number] 2..840.1.045929.3.579.2. 462 Unknown [id number] 2.840.1.904939.3.579.2. 462 Unknown [id number] 2.16840.1.959442.3.579.2. 462 Unknown [id number] 2.840.1.364304.3.579.2. 462 Unknown [id number] 2.16840.1.984790.3.579.2. 462 Unknown [id number] 2.16840.1.573275.3.579.2. 462 Unknown [id number] 2.16.840.1.674937.3.579.2. 462 Unknown [id number] 2.16840.1.260588.3.579.2. 462 Unknown [id number] 2.16.840.1.741711.3.579.2. 462 Unknown [id number] 2.16.840.1.230431.3.579.2. 462 Unknown [id number] 2.16.840.1.354455.3.579.2. 462 Unknown [id number] 2.16.840.1.558418.3.579.2. 462 Unknown [id number] 2.16.840.1.595537.3.579.2. 462 Unknown [id number] 2.16.840.1.750316.3.579.2. 462 Unknown [id number] 2.16.840.1.749617.3.579.2. 462 Unknown [id number] 2.16.840.1.826193.3.579.2. 462 Unknown [id number] 2.16.840.1.706045.3.579.2. 462 Unknown [id number] 2.16.840.1.384047.3.579.2. 462 Unknown [id number] 2.16.840.1.833310.3.579.2. 462 Unknown [id number] 2.16.840.1.467536.3.579.2. 462 Unknown [id number] 2.16.840.1.368935.3.579.2. 462 Unknown [id number] 2.16.840.1.490952.3.579.2. 462 Social History Date Type Detail Facility Start: 06-13-2019 End: 04-09-2025 Ex-smoker (finding) [facility] Start: 1970 Sex Assigned At Female A [facility] Start: 03-01-2022 End: 11-22-2023 Tobacco smoking status TNIS Unknown if ever smoked [facility] Start: 1972 Sex assigned at Not on file [facility] Start: 04-07-2025 Sex Female (finding) [facility] Gender identity Not on file [facility] Medical Equipment Procedure Code Equipment Code Equipment Origin al Text Equipment Identifier Dates Fusion, spine, lumbar, 360 degree, starting in supine position transitioning to prone 12 X 45 COUGAR LS CAGE FDA Start: 07-31-2024 Fusion, spine, lumbar, 360 degree, starting in supine position transitioning to prone 75MM RODS FDA Start: 07-31-2024 Fusion, spine, lumbar, 360 degree, starting in supine position transitioning to prone BONE,30CC CRUSH CANC FDA Start: 07-31-2024 Fusion, spine, lumbar, 360 degree, starting in supine position transitioning to prone BONE,30CC CRUSH CANC FDA Start: 07-31-2024 Fusion, spine, lumbar, 360 degree, starting in supine position transitioning to prone BOWTIE SCREWS FDA Start: 07-31-2024 Fusion, spine, lumbar, 360 degree, starting in supine position transitioning to prone BOWTIE SCREWS FDA Start: 07-31-2024 Fusion, spine, lumbar, 360 degree, starting in supine position transitioning to prone SET SCREWS FDA Start: 07-31-2024 Fusion, spine, lumbar, 360 degree, starting in supine position transitioning to prone SET SCREWS FDA Start: 07-31-2024 Fusion, spine, lumbar, 360 degree, starting in supine position transitioning to prone SET SCREWS FDA Start: 07-31-2024 Fusion, spine, lumbar, 360 degree, starting in supine position transitioning to prone SET SCREWS FDA Start: 07-31-2024 Fusion, spine, lumbar, 360 degree, starting in supine position transitioning to prone SET SCREWS FDA Start: 07-31-2024 Fusion, spine, lumbar, 360 degree, starting in supine position transitioning to prone 12 X 50 COUGAR LS CAGE FDA Start: 07-31-2024 Fusion, spine, lumbar, 360 degree, starting in supine position transitioning to prone SET SCREWS FDA Start: 07-31-2024 Fusion, spine, lumbar, 360 degree, starting in supine position transitioning to prone WASHER FDA Start: 07-31-2024 Fusion, spine, lumbar, 360 degree, starting in supine position transitioning to prone WASHER FDA Start: 07-31-2024 Fusion, spine, lumbar, 360 degree, starting in supine position transitioning to prone Gelatin haemostatic agent [id number] FDA Start: 07-31-2024 Fusion, spine, lumbar, 360 degree, starting in supine position transitioning to prone 7 X 50MM SCREWS FDA Start: 07-31-2024 Fusion, spine, lumbar, 360 degree, starting in supine position transitioning to prone 7 X 50MM SCREWS FDA Start: 07-31-2024 Fusion, spine, lumbar, 360 degree, starting in supine position transitioning to prone 7 X 50MM SCREWS FDA Start: 07-31-2024 Fusion, spine, lumbar, 360 degree, starting in supine position transitioning to prone 7 X 50MM SCREWS FDA Start: 07-31-2024 Fusion, spine, lumbar, 360 degree, starting in supine position transitioning to prone 7 X 50MM SCREWS FDA Start: 07-31-2024 Fusion, spine, lumbar, 360 degree, starting in supine position transitioning to prone 7 X 50MM SCREWS FDA Start: 07-31-2024 Fusion, spine, lumbar, 360 degree, starting in supine position transitioning to prone 75MM RODS FDA Start: 07-31-2024 Fusion, spine, lumbar, 360 degree, starting in supine position transitioning to prone 12 X 45 COUGAR LS CAGE FDA Start: 07-31-2024 Fusion, spine, lumbar, 360 degree, starting in supine position transitioning to prone 75MM RODS FDA Start: 07-31-2024 Fusion, spine, lumbar, 360 degree, starting in supine position transitioning to prone BONE,30CC CRUSH CANC FDA Start: 07-31-2024 Fusion, spine, lumbar, 360 degree, starting in supine position transitioning to prone BONE,30CC CRUSH CANC FDA Start: 07-31-2024 Fusion, spine, lumbar, 360 degree, starting in supine position transitioning to prone BOWTIE SCREWS FDA Start: 07-31-2024 Fusion, spine, lumbar, 360 degree, starting in supine position transitioning to prone BOWTIE SCREWS FDA Start: 07-31-2024 Fusion, spine, lumbar, 360 degree, starting in supine position transitioning to prone SET SCREWS FDA Start: 07-31-2024 Fusion, spine, lumbar, 360 degree, starting in supine position transitioning to prone SET SCREWS FDA Start: 07-31-2024 Fusion, spine, lumbar, 360 degree, starting in supine position transitioning to prone SET SCREWS FDA Start: 07-31-2024 Fusion, spine, lumbar, 360 degree, starting in supine position transitioning to prone SET SCREWS FDA Start: 07-31-2024 Fusion, spine, lumbar, 360 degree, starting in supine position transitioning to prone SET SCREWS FDA Start: 07-31-2024 Fusion, spine, lumbar, 360 degree, starting in supine position transitioning to prone 12 X 50 COUGAR LS CAGE FDA Start: 07-31-2024 Fusion, spine, lumbar, 360 degree, starting in supine position transitioning to prone SET SCREWS FDA Start: 07-31-2024 Fusion, spine, lumbar, 360 degree, starting in supine position transitioning to prone WASHER FDA Start: 07-31-2024 Fusion, spine, lumbar, 360 degree, starting in supine position transitioning to prone WASHER FDA Start: 07-31-2024 Fusion, spine, lumbar, 360 degree, starting in supine position transitioning to prone 7 X 50MM SCREWS FDA Start: 07-31-2024 Fusion, spine, lumbar, 360 degree, starting in supine position transitioning to prone 7 X 50MM SCREWS FDA Start: 07-31-2024 Fusion, spine, lumbar, 360 degree, starting in supine position transitioning to prone 7 X 50MM SCREWS FDA Start: 07-31-2024 Fusion, spine, lumbar, 360 degree, starting in supine position transitioning to prone 7 X 50MM SCREWS FDA Start: 07-31-2024 Fusion, spine, lumbar, 360 degree, starting in supine position transitioning to prone 7 X 50MM SCREWS FDA Start: 07-31-2024 Fusion, spine, lumbar, 360 degree, starting in supine position transitioning to prone 7 X 50MM SCREWS FDA Start: 07-31-2024 Fusion, spine, lumbar, 360 degree, starting in supine position transitioning to prone 75MM RODS FDA Start: 07-31-2024 Fusion, spine, lumbar, 360 degree, starting in supine position transitioning to prone 12 X 45 COUGAR LS CAGE FDA Start: 07-31-2024 Fusion, spine, lumbar, 360 degree, starting in supine position transitioning to prone 75MM RODS FDA Start: 07-31-2024 Fusion, spine, lumbar, 360 degree, starting in supine position transitioning to prone BONE,30CC CRUSH CANC FDA Start: 07-31-2024 Fusion, spine, lumbar, 360 degree, starting in supine position transitioning to prone BONE,30CC CRUSH CANC FDA Start: 07-31-2024 Fusion, spine, lumbar, 360 degree, starting in supine position transitioning to prone BOWTIE SCREWS FDA Start: 07-31-2024 Fusion, spine, lumbar, 360 degree, starting in supine position transitioning to prone BOWTIE SCREWS FDA Start: 07-31-2024 Fusion, spine, lumbar, 360 degree, starting in supine position transitioning to prone SET SCREWS FDA Start: 07-31-2024 Fusion, spine, lumbar, 360 degree, starting in supine position transitioning to prone SET SCREWS FDA Start: 07-31-2024 Fusion, spine, lumbar, 360 degree, starting in supine position transitioning to prone SET SCREWS FDA Start: 07-31-2024 Fusion, spine, lumbar, 360 degree, starting in supine position transitioning to prone SET SCREWS FDA Start: 07-31-2024 Fusion, spine, lumbar, 360 degree, starting in supine position transitioning to prone SET SCREWS FDA Start: 07-31-2024 Fusion, spine, lumbar, 360 degree, starting in supine position transitioning to prone 12 X 50 COUGAR LS CAGE FDA Start: 07-31-2024 Fusion, spine, lumbar, 360 degree, starting in supine position transitioning to prone SET SCREWS FDA Start: 07-31-2024 Fusion, spine, lumbar, 360 degree, starting in supine position transitioning to prone WASHER FDA Start: 07-31-2024 Fusion, spine, lumbar, 360 degree, starting in supine position transitioning to prone WASHER FDA Start: 07-31-2024 Fusion, spine, lumbar, 360 degree, starting in supine position transitioning to prone 7 X 50MM SCREWS FDA Start: 07-31-2024 Fusion, spine, lumbar, 360 degree, starting in supine position transitioning to prone 7 X 50MM SCREWS FDA Start: 07-31-2024 Fusion, spine, lumbar, 360 degree, starting in supine position transitioning to prone 7 X 50MM SCREWS FDA Start: 07-31-2024 Fusion, spine, lumbar, 360 degree, starting in supine position transitioning to prone 7 X 50MM SCREWS FDA Start: 07-31-2024 Fusion, spine, lumbar, 360 degree, starting in supine position transitioning to prone 7 X 50MM SCREWS FDA Start: 07-31-2024 Fusion, spine, lumbar, 360 degree, starting in supine position transitioning to prone 7 X 50MM SCREWS FDA Start: 07-31-2024 Fusion, spine, lumbar, 360 degree, starting in supine position transitioning to prone 75MM RODS FDA Start: 07-31-2024 Fusion, spine, lumbar, 360 degree, starting in supine position transitioning to prone 12 X 45 COUGAR LS CAGE FDA Start: 07-31-2024 Fusion, spine, lumbar, 360 degree, starting in supine position transitioning to prone 75MM RODS FDA Start: 07-31-2024 Fusion, spine, lumbar, 360 degree, starting in supine position transitioning to prone BONE,30CC CRUSH CANC FDA Start: 07-31-2024 Fusion, spine, lumbar, 360 degree, starting in supine position transitioning to prone BONE,30CC CRUSH CANC FDA Start: 07-31-2024 Fusion, spine, lumbar, 360 degree, starting in supine position transitioning to prone BOWTIE SCREWS FDA Start: 07-31-2024 Fusion, spine, lumbar, 360 degree, starting in supine position transitioning to prone BOWTIE SCREWS FDA Start: 07-31-2024 Fusion, spine, lumbar, 360 degree, starting in supine position transitioning to prone SET SCREWS FDA Start: 07-31-2024 Fusion, spine, lumbar, 360 degree, starting in supine position transitioning to prone SET SCREWS FDA Start: 07-31-2024 Fusion, spine, lumbar, 360 degree, starting in supine position transitioning to prone SET SCREWS FDA Start: 07-31-2024 Fusion, spine, lumbar, 360 degree, starting in supine position transitioning to prone SET SCREWS FDA Start: 07-31-2024 Fusion, spine, lumbar, 360 degree, starting in supine position transitioning to prone SET SCREWS FDA Start: 07-31-2024 Fusion, spine, lumbar, 360 degree, starting in supine position transitioning to prone 12 X 50 COUGAR LS CAGE FDA Start: 07-31-2024 Fusion, spine, lumbar, 360 degree, starting in supine position transitioning to prone SET SCREWS FDA Start: 07-31-2024 Fusion, spine, lumbar, 360 degree, starting in supine position transitioning to prone WASHER FDA Start: 07-31-2024 Fusion, spine, lumbar, 360 degree, starting in supine position transitioning to prone WASHER FDA Start: 07-31-2024 Fusion, spine, lumbar, 360 degree, starting in supine position transitioning to prone 7 X 50MM SCREWS FDA Start: 07-31-2024 Fusion, spine, lumbar, 360 degree, starting in supine position transitioning to prone 7 X 50MM SCREWS FDA Start: 07-31-2024 Fusion, spine, lumbar, 360 degree, starting in supine position transitioning to prone 7 X 50MM SCREWS FDA Start: 07-31-2024 Fusion, spine, lumbar, 360 degree, starting in supine position transitioning to prone 7 X 50MM SCREWS FDA Start: 07-31-2024 Fusion, spine, lumbar, 360 degree, starting in supine position transitioning to prone 7 X 50MM SCREWS FDA Start: 07-31-2024 Fusion, spine, lumbar, 360 degree, starting in supine position transitioning to prone 7 X 50MM SCREWS FDA Start: 07-31-2024 Fusion, spine, lumbar, 360 degree, starting in supine position transitioning to prone 75MM RODS FDA Start: 07-31-2024 Fusion, spine, lumbar, 360 degree, starting in supine position transitioning to prone 12 X 45 COUGAR LS CAGE FDA Start: 07-31-2024 Fusion, spine, lumbar, 360 degree, starting in supine position transitioning to prone 75MM RODS FDA Start: 07-31-2024 Fusion, spine, lumbar, 360 degree, starting in supine position transitioning to prone BONE,30CC CRUSH CANC FDA Start: 07-31-2024 Fusion, spine, lumbar, 360 degree, starting in supine position transitioning to prone BONE,30CC CRUSH CANC FDA Start: 07-31-2024 Fusion, spine, lumbar, 360 degree, starting in supine position transitioning to prone BOWTIE SCREWS FDA Start: 07-31-2024 Fusion, spine, lumbar, 360 degree, starting in supine position transitioning to prone BOWTIE SCREWS FDA Start: 07-31-2024 Fusion, spine, lumbar, 360 degree, starting in supine position transitioning to prone SET SCREWS FDA Start: 07-31-2024 Fusion, spine, lumbar, 360 degree, starting in supine position transitioning to prone SET SCREWS FDA Start: 07-31-2024 Fusion, spine, lumbar, 360 degree, starting in supine position transitioning to prone SET SCREWS FDA Start: 07-31-2024 Fusion, spine, lumbar, 360 degree, starting in supine position transitioning to prone SET SCREWS FDA Start: 07-31-2024 Fusion, spine, lumbar, 360 degree, starting in supine position transitioning to prone SET SCREWS FDA Start: 07-31-2024 Fusion, spine, lumbar, 360 degree, starting in supine position transitioning to prone 12 X 50 COUGAR LS CAGE FDA Start: 07-31-2024 Fusion, spine, lumbar, 360 degree, starting in supine position transitioning to prone SET SCREWS FDA Start: 07-31-2024 Fusion, spine, lumbar, 360 degree, starting in supine position transitioning to prone WASHER FDA Start: 07-31-2024 Fusion, spine, lumbar, 360 degree, starting in supine position transitioning to prone WASHER FDA Start: 07-31-2024 Fusion, spine, lumbar, 360 degree, starting in supine position transitioning to prone 7 X 50MM SCREWS FDA Start: 07-31-2024 Fusion, spine, lumbar, 360 degree, starting in supine position transitioning to prone 7 X 50MM SCREWS FDA Start: 07-31-2024 Fusion, spine, lumbar, 360 degree, starting in supine position transitioning to prone 7 X 50MM SCREWS FDA Start: 07-31-2024 Fusion, spine, lumbar, 360 degree, starting in supine position transitioning to prone 7 X 50MM SCREWS FDA Start: 07-31-2024 Fusion, spine, lumbar, 360 degree, starting in supine position transitioning to prone 7 X 50MM SCREWS FDA Start: 07-31-2024 Fusion, spine, lumbar, 360 degree, starting in supine position transitioning to prone 7 X 50MM SCREWS FDA Start: 07-31-2024 Fusion, spine, lumbar, 360 degree, starting in supine position transitioning to prone 75MM RODS FDA Start: 07-31-2024 Fusion, spine, lumbar, 360 degree, starting in supine position transitioning to prone 12 X 45 COUGAR LS CAGE FDA Start: 07-31-2024 Fusion, spine, lumbar, 360 degree, starting in supine position transitioning to prone 75MM RODS FDA Start: 07-31-2024 Fusion, spine, lumbar, 360 degree, starting in supine position transitioning to prone BONE,30CC CRUSH CANC FDA Start: 07-31-2024 Fusion, spine, lumbar, 360 degree, starting in supine position transitioning to prone BONE,30CC CRUSH CANC FDA Start: 07-31-2024 Fusion, spine, lumbar, 360 degree, starting in supine position transitioning to prone BOWTIE SCREWS FDA Start: 07-31-2024 Fusion, spine, lumbar, 360 degree, starting in supine position transitioning to prone BOWTIE SCREWS FDA Start: 07-31-2024 Fusion, spine, lumbar, 360 degree, starting in supine position transitioning to prone SET SCREWS FDA Start: 07-31-2024 Fusion, spine, lumbar, 360 degree, starting in supine position transitioning to prone SET SCREWS FDA Start: 07-31-2024 Fusion, spine, lumbar, 360 degree, starting in supine position transitioning to prone SET SCREWS FDA Start: 07-31-2024 Fusion, spine, lumbar, 360 degree, starting in supine position transitioning to prone SET SCREWS FDA Start: 07-31-2024 Fusion, spine, lumbar, 360 degree, starting in supine position transitioning to prone SET SCREWS FDA Start: 07-31-2024 Fusion, spine, lumbar, 360 degree, starting in supine position transitioning to prone 12 X 50 COUGAR LS CAGE FDA Start: 07-31-2024 Fusion, spine, lumbar, 360 degree, starting in supine position transitioning to prone SET SCREWS FDA Start: 07-31-2024 Fusion, spine, lumbar, 360 degree, starting in supine position transitioning to prone WASHER FDA Start: 07-31-2024 Fusion, spine, lumbar, 360 degree, starting in supine position transitioning to prone WASHER FDA Start: 07-31-2024 Fusion, spine, lumbar, 360 degree, starting in supine position transitioning to prone 7 X 50MM SCREWS FDA Start: 07-31-2024 Fusion, spine, lumbar, 360 degree, starting in supine position transitioning to prone 7 X 50MM SCREWS FDA Start: 07-31-2024 Fusion, spine, lumbar, 360 degree, starting in supine position transitioning to prone 7 X 50MM SCREWS FDA Start: 07-31-2024 Fusion, spine, lumbar, 360 degree, starting in supine position transitioning to prone 7 X 50MM SCREWS FDA Start: 07-31-2024 Fusion, spine, lumbar, 360 degree, starting in supine position transitioning to prone 7 X 50MM SCREWS FDA Start: 07-31-2024 Fusion, spine, lumbar, 360 degree, starting in supine position transitioning to prone 7 X 50MM SCREWS FDA Start: 07-31-2024 Fusion, spine, lumbar, 360 degree, starting in supine position transitioning to prone 75MM RODS FDA Start: 07-31-2024 Fusion, spine, lumbar, 360 degree, starting in supine position transitioning to prone 12 X 45 COUGAR LS CAGE FDA Start: 07-31-2024 Fusion, spine, lumbar, 360 degree, starting in supine position transitioning to prone 75MM RODS FDA Start: 07-31-2024 Fusion, spine, lumbar, 360 degree, starting in supine position transitioning to prone BONE,30CC CRUSH CANC FDA Start: 07-31-2024 Fusion, spine, lumbar, 360 degree, starting in supine position transitioning to prone BONE,30CC CRUSH CANC FDA Start: 07-31-2024 Fusion, spine, lumbar, 360 degree, starting in supine position transitioning to prone BOWTIE SCREWS FDA Start: 07-31-2024 Fusion, spine, lumbar, 360 degree, starting in supine position transitioning to prone BOWTIE SCREWS FDA Start: 07-31-2024 Fusion, spine, lumbar, 360 degree, starting in supine position transitioning to prone SET SCREWS FDA Start: 07-31-2024 Fusion, spine, lumbar, 360 degree, starting in supine position transitioning to prone SET SCREWS FDA Start: 07-31-2024 Fusion, spine, lumbar, 360 degree, starting in supine position transitioning to prone SET SCREWS FDA Start: 07-31-2024 Fusion, spine, lumbar, 360 degree, starting in supine position transitioning to prone SET SCREWS FDA Start: 07-31-2024 Fusion, spine, lumbar, 360 degree, starting in supine position transitioning to prone SET SCREWS FDA Start: 07-31-2024 Fusion, spine, lumbar, 360 degree, starting in supine position transitioning to prone 12 X 50 COUGAR LS CAGE FDA Start: 07-31-2024 Fusion, spine, lumbar, 360 degree, starting in supine position transitioning to prone SET SCREWS FDA Start: 07-31-2024 Fusion, spine, lumbar, 360 degree, starting in supine position transitioning to prone WASHER FDA Start: 07-31-2024 Fusion, spine, lumbar, 360 degree, starting in supine position transitioning to prone WASHER FDA Start: 07-31-2024 Fusion, spine, lumbar, 360 degree, starting in supine position transitioning to prone 7 X 50MM SCREWS FDA Start: 07-31-2024 Fusion, spine, lumbar, 360 degree, starting in supine position transitioning to prone 7 X 50MM SCREWS FDA Start: 07-31-2024 Fusion, spine, lumbar, 360 degree, starting in supine position transitioning to prone 7 X 50MM SCREWS FDA Start: 07-31-2024 Fusion, spine, lumbar, 360 degree, starting in supine position transitioning to prone 7 X 50MM SCREWS FDA Start: 07-31-2024 Fusion, spine, lumbar, 360 degree, starting in supine position transitioning to prone 7 X 50MM SCREWS FDA Start: 07-31-2024 Fusion, spine, lumbar, 360 degree, starting in supine position transitioning to prone 7 X 50MM SCREWS FDA Start: 07-31-2024 Fusion, spine, lumbar, 360 degree, starting in supine position transitioning to prone 75MM RODS FDA Start: 07-31-2024 Fusion, spine, lumbar, 360 degree, starting in supine position transitioning to prone 12 X 45 COUGAR LS CAGE FDA Start: 07-31-2024 Fusion, spine, lumbar, 360 degree, starting in supine position transitioning to prone 75MM RODS FDA Start: 07-31-2024 Fusion, spine, lumbar, 360 degree, starting in supine position transitioning to prone BONE,30CC CRUSH CANC FDA Start: 07-31-2024 Fusion, spine, lumbar, 360 degree, starting in supine position transitioning to prone BONE,30CC CRUSH CANC FDA Start: 07-31-2024 Fusion, spine, lumbar, 360 degree, starting in supine position transitioning to prone BOWTIE SCREWS FDA Start: 07-31-2024 Fusion, spine, lumbar, 360 degree, starting in supine position transitioning to prone BOWTIE SCREWS FDA Start: 07-31-2024 Fusion, spine, lumbar, 360 degree, starting in supine position transitioning to prone SET SCREWS FDA Start: 07-31-2024 Fusion, spine, lumbar, 360 degree, starting in supine position transitioning to prone SET SCREWS FDA Start: 07-31-2024 Fusion, spine, lumbar, 360 degree, starting in supine position transitioning to prone SET SCREWS FDA Start: 07-31-2024 Fusion, spine, lumbar, 360 degree, starting in supine position transitioning to prone SET SCREWS FDA Start: 07-31-2024 Fusion, spine, lumbar, 360 degree, starting in supine position transitioning to prone SET SCREWS FDA Start: 07-31-2024 Fusion, spine, lumbar, 360 degree, starting in supine position transitioning to prone 12 X 50 COUGAR LS CAGE FDA Start: 07-31-2024 Fusion, spine, lumbar, 360 degree, starting in supine position transitioning to prone SET SCREWS FDA Start: 07-31-2024 Fusion, spine, lumbar, 360 degree, starting in supine position transitioning to prone WASHER FDA Start: 07-31-2024 Fusion, spine, lumbar, 360 degree, starting in supine position transitioning to prone WASHER FDA Start: 07-31-2024 Fusion, spine, lumbar, 360 degree, starting in supine position transitioning to prone 7 X 50MM SCREWS FDA Start: 07-31-2024 Fusion, spine, lumbar, 360 degree, starting in supine position transitioning to prone 7 X 50MM SCREWS FDA Start: 07-31-2024 Fusion, spine, lumbar, 360 degree, starting in supine position transitioning to prone 7 X 50MM SCREWS FDA Start: 07-31-2024 Fusion, spine, lumbar, 360 degree, starting in supine position transitioning to prone 7 X 50MM SCREWS FDA Start: 07-31-2024 Fusion, spine, lumbar, 360 degree, starting in supine position transitioning to prone 7 X 50MM SCREWS FDA Start: 07-31-2024 Fusion, spine, lumbar, 360 degree, starting in supine position transitioning to prone 7 X 50MM SCREWS FDA Start: 07-31-2024 Fusion, spine, lumbar, 360 degree, starting in supine position transitioning to prone 75MM RODS FDA Start: 07-31-2024 Fusion, spine, lumbar, 360 degree, starting in supine position transitioning to prone 12 X 45 COUGAR LS CAGE FDA Start: 07-31-2024 Fusion, spine, lumbar, 360 degree, starting in supine position transitioning to prone 75MM RODS FDA Start: 07-31-2024 Fusion, spine, lumbar, 360 degree, starting in supine position transitioning to prone BONE,30CC CRUSH CANC FDA Start: 07-31-2024 Fusion, spine, lumbar, 360 degree, starting in supine position transitioning to prone BONE,30CC CRUSH CANC FDA Start: 07-31-2024 Fusion, spine, lumbar, 360 degree, starting in supine position transitioning to prone BOWTIE SCREWS FDA Start: 07-31-2024 Fusion, spine, lumbar, 360 degree, starting in supine position transitioning to prone BOWTIE SCREWS FDA Start: 07-31-2024 Fusion, spine, lumbar, 360 degree, starting in supine position transitioning to prone SET SCREWS FDA Start: 07-31-2024 Fusion, spine, lumbar, 360 degree, starting in supine position transitioning to prone SET SCREWS FDA Start: 07-31-2024 Fusion, spine, lumbar, 360 degree, starting in supine position transitioning to prone SET SCREWS FDA Start: 07-31-2024 Fusion, spine, lumbar, 360 degree, starting in supine position transitioning to prone SET SCREWS FDA Start: 07-31-2024 Fusion, spine, lumbar, 360 degree, starting in supine position transitioning to prone SET SCREWS FDA Start: 07-31-2024 Fusion, spine, lumbar, 360 degree, starting in supine position transitioning to prone 12 X 50 COUGAR LS CAGE FDA Start: 07-31-2024 Fusion, spine, lumbar, 360 degree, starting in supine position transitioning to prone SET SCREWS FDA Start: 07-31-2024 Fusion, spine, lumbar, 360 degree, starting in supine position transitioning to prone WASHER FDA Start: 07-31-2024 Fusion, spine, lumbar, 360 degree, starting in supine position transitioning to prone WASHER FDA Start: 07-31-2024 Fusion, spine, lumbar, 360 degree, starting in supine position transitioning to prone 7 X 50MM SCREWS FDA Start: 07-31-2024 Fusion, spine, lumbar, 360 degree, starting in supine position transitioning to prone 7 X 50MM SCREWS FDA Start: 07-31-2024 Fusion, spine, lumbar, 360 degree, starting in supine position transitioning to prone 7 X 50MM SCREWS FDA Start: 07-31-2024 Fusion, spine, lumbar, 360 degree, starting in supine position transitioning to prone 7 X 50MM SCREWS FDA Start: 07-31-2024 Fusion, spine, lumbar, 360 degree, starting in supine position transitioning to prone 7 X 50MM SCREWS FDA Start: 07-31-2024 Fusion, spine, lumbar, 360 degree, starting in supine position transitioning to prone 7 X 50MM SCREWS FDA Start: 07-31-2024 Fusion, spine, lumbar, 360 degree, starting in supine position transitioning to prone 75MM RODS FDA Start: 07-31-2024 Fusion, spine, lumbar, 360 degree, starting in supine position transitioning to prone 12 X 45 COUGAR LS CAGE FDA Start: 07-31-2024 Fusion, spine, lumbar, 360 degree, starting in supine position transitioning to prone 75MM RODS FDA Start: 07-31-2024 Fusion, spine, lumbar, 360 degree, starting in supine position transitioning to prone BONE,30CC CRUSH CANC FDA Start: 07-31-2024 Fusion, spine, lumbar, 360 degree, starting in supine position transitioning to prone BONE,30CC CRUSH CANC FDA Start: 07-31-2024 Fusion, spine, lumbar, 360 degree, starting in supine position transitioning to prone BOWTIE SCREWS FDA Start: 07-31-2024 Fusion, spine, lumbar, 360 degree, starting in supine position transitioning to prone BOWTIE SCREWS FDA Start: 07-31-2024 Fusion, spine, lumbar, 360 degree, starting in supine position transitioning to prone SET SCREWS FDA Start: 07-31-2024 Fusion, spine, lumbar, 360 degree, starting in supine position transitioning to prone SET SCREWS FDA Start: 07-31-2024 Fusion, spine, lumbar, 360 degree, starting in supine position transitioning to prone SET SCREWS FDA Start: 07-31-2024 Fusion, spine, lumbar, 360 degree, starting in supine position transitioning to prone SET SCREWS FDA Start: 07-31-2024 Fusion, spine, lumbar, 360 degree, starting in supine position transitioning to prone SET SCREWS FDA Start: 07-31-2024 Fusion, spine, lumbar, 360 degree, starting in supine position transitioning to prone 12 X 50 COUGAR LS CAGE FDA Start: 07-31-2024 Fusion, spine, lumbar, 360 degree, starting in supine position transitioning to prone SET SCREWS FDA Start: 07-31-2024 Fusion, spine, lumbar, 360 degree, starting in supine position transitioning to prone WASHER FDA Start: 07-31-2024 Fusion, spine, lumbar, 360 degree, starting in supine position transitioning to prone WASHER FDA Start: 07-31-2024 Fusion, spine, lumbar, 360 degree, starting in supine position transitioning to prone 7 X 50MM SCREWS FDA Start: 07-31-2024 Fusion, spine, lumbar, 360 degree, starting in supine position transitioning to prone 7 X 50MM SCREWS FDA Start: 07-31-2024 Fusion, spine, lumbar, 360 degree, starting in supine position transitioning to prone 7 X 50MM SCREWS FDA Start: 07-31-2024 Fusion, spine, lumbar, 360 degree, starting in supine position transitioning to prone 7 X 50MM SCREWS FDA Start: 07-31-2024 Fusion, spine, lumbar, 360 degree, starting in supine position transitioning to prone 7 X 50MM SCREWS FDA Start: 07-31-2024 Fusion, spine, lumbar, 360 degree, starting in supine position transitioning to prone 7 X 50MM SCREWS FDA Start: 07-31-2024 Fusion, spine, lumbar, 360 degree, starting in supine position transitioning to prone 75MM RODS FDA Start: 07-31-2024 Goals Date Patient Goal Desired Activity /State Mental Status Date Assessment Result Facility 01-22-2024 Cognitive function Level Of Cons ciousness Follows Commands;Drowsy [facility] Work Phone: 01-22-2024 Cognitive function Voice/Name [facility] Work Phone: 05-08-2023 Cognitive function Voice/Name [facility] Work Phone: 05-08-2023 Cognitive function Patient Orien tation Person;Place;Time [facility] Work Phone: 10-31-2022 Cognitive function Level Of Cons ciousness Awake;Appropriate [facility] Work Phone: 10-31-2022 Cognitive function Patient Orien tation Person;Place;Time [facility] Work Phone: Clinical Notes 11-03-2020 to 06-16-2025 Rashi Dominique PA-C - 06/16/2025 2:23 PM Etta Goldberg MD - 04/16/2025 1:45 PM Etta Goldberg MD - 04/16/2025 1:45 PM EDT Note Date & Type Note Facility 06-16-2025 History of Present illness Narrative ERROR - VOID documented in this encounter [facility] 05-06-2025 Note Procedure: left 1st MTP fusion (48065 TA) and Excision neuroma second webspace (23672) CPT codes: see above Diagnosis: Hallux rigidus of left foot [M20.22] Location for Surgery: [facility] Schedule for: 1.5 hours Admission Type: Outpatient Medical Clearance: No Antibiotic: Ancef 2g IV Anesthesia: Popliteal block (single shot) + General Position and Table type: Supine on Regular OR table Radiology: Mini C-arm Implants: [employer]/Orthohelix 1st MTP joint fusion plate Equipment: Easiaid tray and TPS [facility] 04-16-2025 History of Present illness Narrative Images from the original note were not included. [facility] - [address] [place] [id number] Dept: [phone] Dept Faiza Qasim 1970 [id number] 04/16/2025 HISTORY OF PRESENT ILLNESS: Faiza is a 54 y.o. female here today for evaluation of her left great toe Faiza states the problem has been present for several years Faiza states the problem started gradually with no injuries occurring. She began having great toe pain after running. 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 She has not had any surgeries but has had several injections and most recently acupuncture. Faiza has tried or has been treated with the following: modifying her activity level and avoiding those activities which aggravate the problem, NSAID's, custom molded foot orthoses, spring-steel inserts, and injections. Review of Systems Surgical Risk Factors: Allergies to Metals or Latex: NO Have you been treated for a blood clot: NO Have you had a history of bleeding disorder: NO Have you had a history of Anesthetic problems: NO Do you have tendency to bruise easily: NO Do you experience prolonged or excessive bleeding from cuts or after surgery: NO General/Constitutional: General: no Cancer: NO Acute/Chronic Infections: NO HEENT/Neck: Problems with theThroat: NO Problems with the Eyes: NO Problems with the Ears: NO Problems with the Nose and Sinuses: NO Endocrine: Problems with Diabetes: NO Problems with Thyroid Disorder: NO Thorax: Problems with the Heart: NO Problems with the Lung: no Cardiovascular: Problems with Circulation: NO Problems with High Blood pressure: NO Gastrointestinal: Problems with Ulcers: NO Problems with the Liver: no Problems with Bowel Habits: NO Genitourinary: Problems with the Genitals: NO Urinary problems: NO Kidney disease or stones: NO Skin: Any general problems: NO Neurologic: Dizziness, blurred vision, headaches, problems with balance : NO Seizures or Stroke: NO Psychiatric: Emotional or Psychological disorders: NO Depression or Anxiety: no PAST MEDICAL HISTORY: Medical History[1] Allergies[2] PHYSICAL EXAM: Ht 1.676 m (5' 6) Wt 63.5 kg (140 lb) BMI 22.60 kg/m This is an age appropriate appearing female who is alert and oriented x 3. The patient appears well nourished. Psychiatric: The patient is able to verbalize normally and seems to have a good understanding of her situation. left lower extremity examination Lymphatic System: Mild swelling over the first metatarsophalangeal joint and dorsal forefoot Vascular: Dorsalis pedis pulse: 2+ Posterior tibial pulse: 2+ Capillary refill is less than 3 seconds Skin/nails: Normal appearance, warm and dry. A healed dorsal first metatarsophalangeal joint incision is noted Hair growth present on foot and toes Neurologic: Sensation intact to light touch throughout the foot and the ankle Musculoskeletal: The calf is nontender to palpation. ROM: Decreased range of motion of the first metatarsophalangeal joint. The lesser metatarsophalangeal joints have normal range of motion and are stable on examination. Muscle strength testing: Anterior tibialis: 5/5 Posterior tibialis: 5/5 Peroneus brevis: 5/5 Peroneus longus: 5/5 Gastrocsoleus: 5/5 Tenderness: Tender to palpation overlying the first metatarsophalangeal joint. Tender to palpation in the second webspace. Bishnu's click was negative. The 2nd and 3rd metatarsophalangeal joints are stable on drawer exam. Gait and Station: Afiza is able to ambulate with a normal gait Faiza is able to stand unassisted and maintains balance RADIOGRAPHIC INTERPRETATION: The following outside studies that were ordered by another care provider were reviewed and my interpretation of the these studies follows and these include: 3 nonweightbearing views of the left foot were reviewed. 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 The second metatarsophalangeal joint is in slight varus alignment. No other abnormalities are appreciated. REVIEW OF RELATED PREVIOUS DOCUMENTATION: No documents related to the current problem(s) were reviewed or no documents were available for review. LABORATORY RESULT INTERPRETATION: No labs were reviewed/No labs available for review DIAGNOSIS: Diagnosis Plan 1. Hallux rigidus of left foot 2. 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 I had a long discussion with Faiza concerning her Left hallux rigidus and second webspace neuroma and went over her treatment options. I explained to Faiza that she has failed all of the available non-operative treatments and from my standpoint surgery is a reasonable option as a result. We talked about correcting her Left hallux rigidus and second webspace neuroma with Left first metatarsophalangeal joint fusion and second webspace neuroma resection. I explained given her previous lumbar spine issues there is a chance that she could continue to have some nerve related pain or symptoms secondary to her radicular problems and resecting the nerve in fusing the first metatarsophalangeal joint may not lead to full symptomatic relief in the foot itself. I explained to Faiza that this type of procedure is typically an outpatient procedure meaning she will be able to go home the day of surgery. Faiza understands she will need a ride to and from the hospital and she will need someone to stay with her for a night after the surgery. If for some reason Faiza needs to be admitted to the hospital following the procedure, we can admit if necessary. I explained Faiza would need to be heel weightbearing and this would continue for up to 2 weeks following surgery. During this time Faiza may need to use crutches, a walker, a wheelchair, a knee scooter or a combination of these to get around. I talked to aFiza about the expected postoperative pain level following this type of procedure. I explained that each patient's perception of pain is different and she could experience more pain or less pain than the average patient and that is something that I cannot fully predict. I explained that she would receive a prescription for pain medication at the time of discharge from the hospital and may have an additional prescription for pain medications if necessary postoperatively. I explained that there are risks associated with narcotic usage and I will determine the need for additional medication based on severity of the injury and her symptoms. The risks of surgery were discussed including but not limited to the risks of medications given for surgery, the risk of blood loss during and after surgery that can lead to the need for blood products in certain situations, infection, damage to normal structures that can lead to detention problems of pain or dysfunction, wound healing complications, the possibility of nonunion or malunion for any bone procedures if they are required and late or chronic pain were also discussed. I explained to Faiza that surgery can potentially make their condition worse or can lead to other unexpected problems that can have terminal manager effects on their function or comfort. In addition potentially life threatening complications at the time of surgery and after surgery were discussed including but not limited to deep vein thrombosis, pulmonary embolism, myocardial infarction, stroke and . Faiza understands that no guarantees with regard to surgical outcome can be given and none were implied. Faiza was given the opportunity to ask questions and consider her options. Faiza would like to proceed with the above mentioned procedure. Follow up for Surgery scheduled. Electronically signed by Matias Goldberg MD [facility] Department of Orthopedic surgery 04/16/2025 4:56 PM Voice recognition was used for portions of this note and although it was reviewed prior to signing some incorrect words or phrases could be present. [1] No past medical history on file. [2] Allergies Allergen Reactions Prednisone Other, Nausea And Vomiting and Unknown Pt could not remember that actual name of the steroid but knows it was a taper SURGERY SCHEDULING SHEET Procedure: left 1st MTP fusion (56786 TA) and Excision neuroma second webspace (56952) CPT codes: see above Diagnosis: Hallux rigidus of left foot [M20.22] Location for Surgery: [facility] Schedule for: 1.5 hours Admission Type: Outpatient Medical Clearance: No Antibiotic: Ancef 2g IV Anesthesia: Popliteal block (single shot) + General Position and Table type: Supine on Regular OR table Radiology: Mini C-arm Implants: [employer]/Orthohelix 1st MTP joint fusion plate Equipment: [employer] specials tray and TPS documented in this encounter [facility] 04-16-2025 Note SURGERY SCHEDULING S HEET Procedure: left 1st MTP fusion (14107 TA) and Excision neuroma second webspace (87585) CPT codes: see above Diagnosis: Hallux rigidus of left foot [M20.22] Location for Surgery: [facility] Schedule for: 1.5 hours Admission Type: Outpatient Medical Clearance: No Antibiotic: Ancef 2g IV Anesthesia: Popliteal block (single shot) + General Position and Table type: Supine on Regular OR table Radiology: Mini C-arm Implants: [employer]/Orthohelix 1st MTP joint fusion plate Equipment: Yusuf specials tray and TPS [facility] 01-30-2025 Evaluation note Diagnosis Onset Date Resolution Complicated grief acute January 1:30pm Encounter for routine gynecological examination acute January 302024 1:30pm Complicated grief acute February 282024 12:56pm GERD (gastroesophageal reflux disease) acute February 28, 2025 12:56pm Degenerative disc disease at L5-S1 level acute March 19, 2025 2:36pm Status post lumbar spinal fusion acute March 19, 2025 2:36pm Bone cyst of foot acute April 092024 1:12pm Reddy's neuroma of left foot acute April 09, 2025 1:12pm 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 acute April 09 1:12pm [facility] Work Phone: 1(603) 834-918205-02-2025 Evaluation note* Diagnosis Onset Date Resolution Status Admit Date 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 acute January 17, 2025 8: 04am Complicated grief acute January 1:30pm Encounter for routine gyneco logical examination acute January 30, 2025 1 :30pm Complicated grief acute February 282024 12:56pm GERD (gastroesophageal reflu x disease) acute February 28, 2025 12:56pm Degenerative disc disease at L5-S1 level acute March 19, 2025 2 :36pm Status post lumbar spinal fusion acu te March 19, 2025 2:36pm Bone cyst of foot acute April 092024 1:12pm Reddy's neuroma of left foot acute April 09, 2025 1:12pm 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 acute April 09, 2025 1:12pm [facility] Work Phone: 1(897) 871-401104-01-2025 Evaluation note* Diagnosis Onset Date Resolution Status Admit Date Cervicogenic headache acute Dec 3:25pm Neck pain acute December 17 3:25pm Segmental and somatic dysfun ction of cervical region acute December 17 3:25pm 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 acute January 17, 2025 8: 04am Complicated grief acute January 1:30pm Encounter for routine gyneco logical examination acute January 30, 2025 1 :30pm Complicated grief acute February 282024 12:56pm GERD (gastroesophageal reflu x disease) acute February 28, 2025 12:56pm [facility] Work Phone: 1(622) 712-515904-01-2025 Evaluation note* Diagnosis Onset Date Resolution Status Admit Date Cervicogenic headache acute Dec 3:25pm Neck pain acute December 17 3:25pm Segmental and somatic dysfun ction of cervical region acute December 17 3:25pm 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 acute January 17, 2025 8: 04am Complicated grief acute January 1:30pm Encounter for routine gyneco logical examination acute January 30, 2025 1 :30pm Complicated grief acute February 282024 12:56pm GERD (gastroesophageal reflu x disease) acute February 28, 2025 12:56pm Degenerative disc disease at L5-S1 level acute March 19, 2025 2 :36pm Status post lumbar spinal fusion acu te March 19, 2025 2:36pm [facility] Work Phone: 1(819) 726-997604-01-2025 Evaluation note* Diagnosis Onset Date Resolution Status Admit Date Cervicogenic headache acute Dec 3:25pm Neck pain acute December 17 3:25pm Segmental and somatic dysfun ction of cervical region acute December 17 3:25pm 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 acute January 17, 2025 8: 04am Complicated grief acute January 1:30pm Encounter for routine gyneco logical examination acute January 30, 2025 1 :30pm Complicated grief acute February 282024 12:56pm GERD (gastroesophageal reflu x disease) acute February 28, 2025 12:56pm Degenerative disc disease at L5-S1 level acute March 19, 2025 2 :36pm Status post lumbar spinal fusion acu te March 19, 2025 2:36pm Bone cyst of foot acute April 092024 1:12pm Reddy's neuroma of left foot acute April 09, 2025 1:12pm 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 acute April 09, 2025 1:12pm [facility] Work Phone: 1(665) 750-199202-13-2025 Evaluation note* Diagnosis Onset Date Resolution Status Admit Date Status post lumbar spinal fusion acu te October 31, 2024 7:55am Cervicogenic headache acute Dec 3:25pm Neck pain acute December 17 3:25pm Segmental and somatic dysfun ction of cervical region acute December 17 3:25pm 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 acute January 17, 2025 8: 04am Complicated grief acute January 1:30pm Encounter for routine gynecological examination acute January 302024 1:30pm [facility] Work Phone: 1(340) 940-825401-15-2025 Evaluation note* Diagnosis Onset Date Resolution Status Admit Date 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 acute October 02 1:04pm Status post lumbar spinal fusion acu te October 31, 2024 7:55am Cervicogenic headache acute Dec 3:25pm Neck pain acute December 17 3:25pm Segmental and somatic dysfun ction of cervical region acute December 17 3:25pm 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 Donta Mitchell MD Status:ADM IN Location: [place] [address] History and Physical Date of Admission: 07/31/24 MR#: [id number] Acct: [id number] Name: FAIZA TRIPP Rep #: [id number] : 1970 Provider: Dr. Jh Hernandez MD Age/Sex: 53/F [place] [email or web address] Status: Signed Intake Vital Signs 01/24/2411:22 Height 5 ft 5 in Intake Visit Reasons: LUMBER SPINE Is patient in pain?: Yes Allergies pineapple Allergy (Unknown, Verified 07/25/24 08:14) tongue swellsciprofloxacin (From Cipro) Adverse Reaction (Verified 07/25/24 08:14) Nausea/Vom/Diarrheaciprofloxacin HCl (From Cipro) Adverse Reaction (Verified 07/25/24 08:14) Nausea/Vom/Diarrheaprednisone Adverse Reaction (Verified 07/25/24 08:14) Nausea/Vom/Diarrhea Medications ???Medication ???Instructions ???Recorded ???Confirmed ???Type multivitamin 1 tab PO DAILY SUPPLEMENT 06/08/22 07/25/24 History multivitamin with minerals 1 tab PO DAILY SUPPLEMENT 06/08/22 07/25/24 History (Hair,Skin and Nails tablet) omega-3 fatty acids-fish oil 300 1 cap PO DAILY SUPPLEMENT 06/08/22 07/25/24 History mg-500 mg capsule (Fish Oil) diclofenac sodium 50 mg 50 mg PO BID PAIN #180 tabs 06/05/23 07/25/24 Rx tablet,delayed release budesonide 32 mcg/actuation nasal 1 spray intranasal DAILY PRN Nasal 06/14/23 07/25/24 History spray (Rhinocort Allergy) Congestion duloxetine 60 mg capsule,delayed 60 mg PO DAILY DEPRESSION #90 caps 07/03/23 07/25/24 Rx release pregabalin 50 mg capsule 50 mg PO BID PAIN 04/04/24 07/25/24 History PFSH Medical History (Updated 07/10/24 @ 14:50 by Lian Fontenot) Wears glasses Alcohol use Restless legs Back pain Injury of back Shortness of breath on exertion Former smoker Leg cramps History of pain when walking Restless legs syndrome Elevated cholesterol Chronic fatigue Bradycardia Anxiety Arthritis 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 Bone cyst of foot Depression Surgical History H/O dilation and curettage Hx of hysterectomy Family History Grandmother Heart disease Myocardial infarction Breast cancerGrandfather Parkinson disease Colon polyps Social History household members: none current occupational status: employed current occupation: [employer] Smoking Status: Former smoker Electronic Cigarette Use: not used alcohol intake: current alcohol intake frequency: holidays/special occasions only substance use type: does not use what type of physical activity do you participate in: bicycling, weight training and other details: cardio machines frequency: 5-6 times per week do you feel safe at home: Yes HPI LUMBER SPINE Details: This documentation accurately reflects the service provided and the decisions made by me, Dr. Jh Hernandez MD 07/25/24 0757. Part of today???s visit was documented by [ ], acting as scribe. FAIZA TRIPP is a 53 year old F here today for her preop appointment on her lumbar spine. Patient notes that she continues to have low back pain and it is affecting her ADLs. She is unable to walk for prolonged periods of time. She states that she has numbness into her left foot. She also complains of left hip pain which she describes as a sharp pain. 04/25/24: FAIZA TRIPP is a 53 year old F here today for a followup on her lumbar spine. Patient states that her lumbar spine pain is worsening. She complains of left foot numbness. She also complains of a dull pain/numbness into her left hamstring. Patient had an MRI which is here for review. She has had multiple injections which were helpful for a short period of time, the most helpful one was 1 month. She also had an ablation which was not helpful. She is taking Lyrica and diclofenac. The patients parents are here today with her to discuss surgery. She has a dull ache with pain and numbness along both hamstrings that worsens with walking. No pain or numbness along her quadriceps. 04/04/24: FAIZA TRIPP is a 53 year old F here today for a followup on her low back pain. She states that her pain radiates into her bilateral glutes which she describes as a deep ache. Patient complains of pain ADLs such as walking and standing really increase her pain. She notes th (more content not included)...[facility]05-06-2024 Procedure [facility]08-21-2023 Procedure [facility]02-13-2023 History and physical note Author Pj Friend [facility] October 31, 2022 8:53am Note Date/Time October 31, 2022 8:53am [facility] Medical Records Department [address] [place] [address] History & Physical Exam 10/31/22 0852 MR#: [id number] Acct: [id number] Name: FAIZA TRIPP Rep #:[id number] : 1970 52 From: Pj Ball DO PCP: Dr. Mariana Mohan MD Status:[facility] Location: [place] [address] HPI - General General Date of Admission: 10/31/22 Date of Service: 10/31/22 Chief Complaint: Screening colonoscopy HPI Narrative FAIZA TRIPP, is a 52 F who presents for screening colonoscopy. She has not had a colonoscopy in the past. She does have family history of colon polyps but no family history colon cancer. She denies any change in bowel habits. She deniesabdominal pain. She denies any chest pain or shortness of breath. She denies any bleeding per rectum. She denies any nausea vomiting or diarrhea. 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 Post-menopausal Wears glasses Home Medications budesonide 32 mcg/actuation nasal spray (Rhinocort Allergy) 5 ml NS DAILY PRN PRN Nasal Congestion 01/20/16 [History Last Taken Unknown] calcium citrate 200 mg calcium-vitamin D3 6.25 mcg (250 unit) tablet 1 ea PO DAILY 01/20/16 [History Last Taken Unknown] ascorbic acid (vitamin C) 500 mg capsule 500 mg PO DAILY 06/08/22 [History Last Taken Unknown] multivitamin 1 tab PO DAILY 06/08/22 [History Last Taken Unknown] multivitamin with minerals (Hair,Skin and Nails tablet) 1 tab PO DAILY 06/08/22 [History Last Taken Unknown] omega-3 fatty acids-fish oil 300 mg-500 mg capsule (Fish Oil) 1 cap PO DAILY 06/08/22 [History Last Taken Unknown] diclofenac sodium 50 mg tablet,delayed release 50 mg PO BID #60 tabs 08/31/22 [Rx Last Taken Unknown] duloxetine 30 mg capsule,delayed release (Cymbalta) 30 mg PO DAILY #30 caps 10/03/22 [Rx Last Taken Unknown] gabapentin 600 mg tablet 600 mg PO QHS #30 tabs 10/19/22 [Rx Last Taken Unknown] Allergy/AdvReac Type Severity Reaction Status Date / Time pineapple Allergy Unknown tongue Verified 10/28/22 13:07 swells ciprofloxacin [From Cipro] AdvReac Nausea/Vom/ Verified 10/28/22 13:07 Diarrhea ciprofloxacin HCl AdvReac Nausea/Vom/ Verified 10/28/22 13:07 [From Cipro] Diarrhea prednisone AdvReac Nausea/Vom/ Verified 10/28/22 13:07 Diarrhea Family History Grandmother Heart disease Myocardial infarction Breast cancer Grandfather Parkinson disease Colon polyps Surgical History H/O dilation and curettage Hx of hysterectomy Social History household members: none current occupational status: employed current occupation: [employer] Smoking Status: Never smoker Electronic Cigarette Use: not used alcohol intake: current alcohol intake frequency: holidays/special occasions only substance use type: does not use what type of physical activity do you participate in: bicycling, weight training and other details: cardio machines frequency: 5-6 times per week do you feel safe at home: Yes ROS Review of Systems ROS Unobtainable: other Constitutional Constitutional: Denies fatigue, fever(s), poor appetite, weight gain or weight loss ENT HEENT: Denies mouth lesions Cardiovascular Cardiovascular: Denies abdominal bloating, abdominal edema or abdominal pain Respiratory/Chest Respiratory/Chest: Denies change in mental status, change in phlegm color, chestcongestion or chest tightness Gastrointestinal Gastrointestinal: Denies belching, bloating, change in bowel habits, change in stool character, chewing difficulty, coffee ground emesis, constipation, cramping, diarrhea, dyspepsia, dysphagia, early satiety, excessive flatus, fecal incontinence, heartburn, hematemesis, hematochezia, hemorrhoids, loose stools, melena, nausea, odynophagia, rectal bleeding, tenesmus, vomiting or weight changes Genitourinary Genitourinary: Denies abdominal discomfort, burning urination or itching Musculoskeletal Musculoskeletal: Reports as per HPI; Denies muscle weakness or myalgias Integumentary Integumentary: Denies jaundice Neurologic Neurologic: Denies lack of coordination or weakness Psychiatric Psychiatric: Denies confusion, depression, memory loss, mood swings, paranoia orsuicidal ideation Endocrine Endocrinology: Denies systems reviewed and no addt'l complaints, except as documented Hematologic/Lymphatic Hematologic/Lymphatic: Denies anemia, easy bleeding, easy bruising or lymphadenopathy Allergic/Immunologic Allergic/Immunologic: Denies systems reviewed and no addt'l complaints, except as documented Physical Exam Const alert, oriented x3, no apparent distress, healthy appearing and well nourished General Appearance: cooperative, comfortable, well kempt and well developed Orientation / Consciousness: awake and oriented to person HEENT Head and Scalp: normocephalic and atraumatic Face and Sinus: normal facial exam Mouth: oral and palatal mucosa normal Eyes General Eye: normal appearance of both eyes Neck full ROM Lymph Lymphatic: no lymphadenopathy noted Chest inspection of chest normal Resp normal respiratory effort and no use of accessory muscles Cardio regular rate and regular rhythm GI normal to inspection, nondistended, normoactive bowel sounds, soft to palpation,non-tender, non-distended and no masses Auscultation: normoactive bowel sounds Palpation: soft Percussion: normal to percussion Rectal Exam: visual inspection normal and normal sphincter tone no CVA tenderness Back/Spine no CVA tenderness and normal ROM Extremity normal to inspection Peripheral Pulses: Yes pulses 2+ throughout Skin no rashes or lesions noted General Skin Exam: no breakdown, elasticity normal and turgor normal Neuro oriented x3 Motor Exam: strength 5/5 throughout Psych mental status grossly normal Appearance: grossly normal Attitude: calm Activity / Motor Behavior: appropriate eye contact Speech: normal speech Thought Process: normal thought process Thought Content: normal thought content Attention / Concentration: attention grossly intact Memory / Cognition: memory grossly intact Insight: insight good Judgement: judgement good Assessment & Plan Assessment/Plan (1) Encounter for screening for malignant neoplasm of colon: PLAN: She will undergo a screening colonoscopy. She was explained alternatives,risk, benefits including not withstanding bleeding, infection, sepsis, perforation, need for emergent surgery . She will have an ASA of 1. 10/31/22 0853 <Electronically signed by Pj Ball DO> Cosigner Signature (if applicable): CC: Dr. Mariana Mohan MD; Pj Ball DO~ Signed [facility] Work Phone: [phone]) 708-288502-13-2023 Procedure [facility] 10-31-2022 Procedure [facility]02-16-2021 NoteHNO ID: [id number] Author: Matias (Cari Stratton Service: ? Author Type: Nurse Practitioner Type: Progress Notes Filed: 11/03/2020 8:09 PM Note Text: Subjective HPI Nontoxic-appearing female presents urgent care chief complaint rash. Duration of symptoms 1 week. Associated symptoms stinging painful rash in groin area. Patient states concerned about herpes. States she broke up with her boyfriend last May had a STD panel drawn which was negative. Patient states they became sexually active again in September patient developed a rash after having unprotected sex. Denies any OTC medication use. Denies any pain currently. Denies any nausea, vomiting, abdominal pain, chest pain, shortness of breath or change in bowel or bladder habits. Past medical history prescription medication use and allergies reviewed. .Patient presents with: Rash: between legs in ginital area x 1 week PAST MEDICAL HISTORY Diagnosis Date - DDD (degenerative disc disease), lumbar - Lumbosacral radiculopathy due to degenerative joint disease of spine - Lumbosacral stenosis No past surgical history on file. ALLERGIES Medrol [Methylprednisolone] MEDICATIONS gabapentin (NEURONTIN) 300 mg capsule Take 150 mg by mouth as directed. 1/2 tablet at bedtime. omeprazole (PRILOSEC) 40 mg capsule 40 mg. citalopram (CELEXA) 40 mg tablet albuterol HFA (PROAIR HFA) 90 mcg/actuation inhaler Inhale 2 Puffs as instructed every 4 hours as needed for Wheezing/Shortness of Breath. BACLOFEN ORAL Take by mouth. codeine-guaiFENesin (GUAIFENESIN AC) 10-100 mg/5 mL syrup Take 5 mL by mouth three times daily as needed. No family history on file. Social History Tobacco Use - Smoking status: Never Smoker - Smokeless tobacco: Never Used Substance Use Topics - Alcohol use: Not on file - Drug use: Not on file BP 136/82 Pulse (!) 56 Temp 36.3 ?C (97.4 ?F) (Tympanic) Resp 16 Wt 66.6 kg (146 lb 12.8 oz) BMI 24.43 kg/m? Review of Systems Constitutional: Negative for chills, fever and malaise/fatigue. HENT: Negative for congestion, ear discharge, ear pain, sinus pain and sore throat. Eyes: Negative for blurred vision, pain, discharge and redness. Respiratory: Negative for cough, sputum production, shortness of breath and wheezing. Cardiovascular: Negative for chest pain. Gastrointestinal: Negative for abdominal pain, diarrhea, nausea and vomiting. Genitourinary: Negative. Musculoskeletal: Negative for myalgias. Skin: Positive for rash. Neurological: Negative for dizziness and headaches. Objective Physical Exam Constitutional: She is oriented to person, place, and time and well-developed, well-nourished, and in no distress. No distress. HENT: Right Ear: Hearing and external ear normal. No drainage, swelling or tenderness. No mastoid tenderness. Left Ear: Hearing and external ear normal. No drainage, swelling or tenderness. No mastoid tenderness. Mouth/Throat: Uvula is midline, oropharynx is clear and moist and mucous membranes are normal. No uvula swelling. No oropharyngeal exudate, posterior oropharyngeal edema, posterior oropharyngeal erythema or tonsillar abscesses. Eyes: Pupils are equal, round, and reactive to light. Conjunctivae and EOM are normal. Cardiovascular: Normal rate and regular rhythm. Pulmonary/Chest: Effort normal and breath sounds normal. No accessory muscle usage. No tachypnea. No respiratory distress. Abdominal: Soft. There is no abdominal tenderness. Genitourinary: No vaginal discharge. There are lesions in the vagina. Genitourinary Comments: Vaginal swab obtained with asset protection professional at bedside. Musculoskeletal: Cervical back: Normal range of motion and neck supple. Lymphadenopathy: She has no cervical adenopathy. Neurological: She is alert and oriented to person, place, and time. Gait normal. Skin: Skin is warm and dry. She is not diaphoretic. Fluid-filled vesicles noted on patient's pelvic area. Vesicles had erythematous base. ASSESSMENT/PLAN: 1. Rash - ICD9: 782.1, ICD10: R21 (primary diagnosis) 2. Possible exposure to STD - ICD9: V01.6, ICD10: Z20.2 - GC/CHLAMYDIA DNA DET - VAGINAL PATHOGENS DNA PROBES - HSV 1,2/VZV AMP MOLECULAR DETECT We will not treat until lab results are reviewed. Patient will engage in sexual intercourse until labs are reviewed Patient was educated on supportive therapies. Patient will follow up with primary care provider as needed. Patient was instructed to immediately proceed to emergency room for any new, worsening, or symptoms lasting longer than anticipated. The patient's clinical presentation is otherwise unremarkable at this time. Based on exam and clinical finding, the patient is stable for discharge. Plan of care was discussed with patient. Patient verbalizes understanding and agrees to plan of care. This note was generated using [employer] software. 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 lbp Amb Documentation CHECK UP COVID-19 Reason for Visit COVID-19 vaccination declined Screening for colon cancer Establishing care with new doctor, encounter for Chronic midline low back pain Mild depression Chronic pain in left foot Segmental and somatic dysfunction of lumbar region Segmental and somatic dysfunction of pelvic region Segmental and somatic dysfunction of thoracic region Herniated lumbar intervertebral disc Multiple joint complaints Elevated cholesterol Chronic midline low back pain Mild depression Chronic pain in left foot [facility] Work Phone: Chief complaint+Reason for visit Narrative* Chief Complaint lbp Amb Documentation CHECK UP COVID-19 LEFT FOOT MED FU Reason for Visit Segmental and somati c dysfunction of lumbar region Segmental and somatic dysfunction of pelvic region Segmental and somatic dysfunction of thoracic region Herniated lumbar intervertebral disc Multiple joint complaints Elevated cholesterol Chronic midline low back pain Mild depression Chronic pain in left foot Bone cyst of foot 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 Chronic midline low back pain Mild depression Chronic pain in left foot Encounter for screening for malignant neoplasm of colon [facility] Work Phone: Chief complaint+Reason for visit Narrative* Chief Complaint lbp Amb Documentation CHECK UP COVID-19 LEFT FOOT MED FU REDDY'S NEUROMA LT FOOT Neck pain Reason for Visit Segmental and somati c dysfunction of lumbar region Segmental and somatic dysfunction of pelvic region Segmental and somatic dysfunction of thoracic region Herniated lumbar intervertebral disc Multiple joint complaints Elevated cholesterol Chronic midline low back pain Mild depression Chronic pain in left foot Bone cyst of foot 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 Chronic midline low back pain Mild depression Chronic pain in left foot Encounter for screening for malignant neoplasm of colon Segmental and somatic dysfunction of lumbar region Segmental and somatic dysfunction of thoracic region Herniated lumbar intervertebral disc [facility] Work Phone: Evaluation + Plan note No data available for this section [facility] Evaluation note* Diagnosis Onset Date Resolution Status Back pain acute Herniated lumbar intervertebral disc acute Segmental and somatic dysfunction of lumbar region acute Segmental and somatic dysfunction of pelvic region acute [facility] Work Phone: Evaluation note* Diagnosis Onset Date Resolution Status COVID-19 vaccination declined noneactive Screening for colon cancer n oneactive Establishing care with new doctor, encounter for noneactive Chronic midline low back pain noneactive Mild depression noneactive Chronic pain in left foot no neactive Segmental and somatic dysfunction of lumbar region acute Segmental and somatic dysfunction of pelvic region acute Segmental and somatic dysfunction of thoracic region acute Herniated lumbar intervertebral disc chronic Multiple joint complaints no neactive Elevated cholesterol noneact leena Chronic midline low back pain noneactive Mild depression noneactive Chronic pain in left foot no neactive [facility] Work Phone: Evaluation note* Diagnosis Onset Date Resolution Status Segmental and somatic dysfunction of lumbar region acute Segmental and somatic dysfunction of pelvic region acute Segmental and somatic dysfunction of thoracic region acute Herniated lumbar intervertebral disc chronic Multiple joint complaints no neactive Elevated cholesterol noneact leena Chronic midline low back pain noneactive Mild depression noneactive Chronic pain in left foot no neactive Bone cyst of foot acute Reddy's neuroma of left foot acute Osteoarthritis of first meta tarsophalangeal (MTP) joint of left foot acute Chronic midline low back pain noneactive Mild depression noneactive Chronic pain in left foot no neactive Encounter for screening for malignant neoplasm of colon acute [facility] Work Phone: Evaluation note* Diagnosis Onset Date Resolution Status Segmental and somatic dysfunction of lumbar region acute Segmental and somatic dysfunction of pelvic region acute Segmental and somatic dysfunction of thoracic region acute Herniated lumbar intervertebral disc chronic Multiple joint complaints no neactive Elevated cholesterol noneact leena Chronic midline low back pain noneactive Mild depression noneactive Chronic pain in left foot no neactive Bone cyst of foot acute Reddy's neuroma of left foot acute Osteoarthritis of first meta tarsophalangeal (MTP) joint of left foot acute Chronic midline low back pain noneactive Mild depression noneactive Chronic pain in left foot no neactive Encounter for screening for malignant neoplasm of colon acute Segmental and somatic dysfunction of lumbar region acute Segmental and somatic dysfunction of thoracic region acute Herniated lumbar intervertebral disc chronic [facility] Work Phone: Evaluation note* Diagnosis Onset Date Resolution Status Segmental and somatic dysfunction of lumbar region acute Segmental and somatic dysfunction of thoracic region acute Herniated lumbar intervertebral disc chronic Bone cyst of foot acute Reddy's neuroma of left foot acute Osteoarthritis of first meta tarsophalangeal (MTP) joint of left foot acute Segmental and somatic dysfunction of lumbar region acute Segmental and somatic dysfunction of sacral region acute Herniated lumbar intervertebral disc chronic Segmental and somatic dysfunction of lumbar region acute Segmental and somatic dysfunction of sacral region acute Herniated lumbar intervertebral disc chronic Degenerative disc disease at L5-S1 level acute Degenerative spondylolisthesis acute [facility] Work Phone: Evaluation note* Diagnosis Onset Date Resolution Status Bone cyst of foot acute Reddy's neuroma of left foot acute Osteoarthritis of first meta tarsophalangeal (MTP) joint of left foot acute Segmental and somatic dysfunction of lumbar region acute Segmental and somatic dysfunction of sacral region acute Herniated lumbar intervertebral disc chronic Segmental and somatic dysfunction of lumbar region acute Segmental and somatic dysfunction of sacral region acute Herniated lumbar intervertebral disc chronic Degenerative disc disease at L5-S1 level acute Degenerative spondylolisthesis acute Degenerative disc disease at L5-S1 level acute Degenerative spondylolisthesis acute Dermatochalasis of both eyelids acute Visual field defects acute Fatigue noneactive Elevated cholesterol noneact leena Bradycardia noneactive RLS (restless legs syndrome) noneactive Chronic midline low back pain noneactive Mild depression noneactive Screening for breast cancer noneactive Chronic pain in left foot no neactive [facility] Work Phone: Evaluation note* Diagnosis Onset Date Resolution Status Segmental and somatic dysfunction of lumbar region acute Segmental and somatic dysfunction of sacral region acute Herniated lumbar intervertebral disc chronic Segmental and somatic dysfunction of lumbar region acute Segmental and somatic dysfunction of sacral region acute Herniated lumbar intervertebral disc chronic Degenerative disc disease at L5-S1 level acute Degenerative spondylolisthesis acute Degenerative disc disease at L5-S1 level acute Degenerative spondylolisthesis acute Dermatochalasis of both eyelids acute Visual field defects acute Fatigue noneactive Elevated cholesterol noneact leena Bradycardia noneactive RLS (restless legs syndrome) noneactive Chronic midline low back pain noneactive Mild depression noneactive Screening for breast cancer noneactive Chronic pain in left foot no neactive [facility] Work Phone: Evaluation note* Diagnosis Onset Date Resolution Status Climacteric acute Restless legs syndrome acute Osteoarthritis of first meta tarsophalangeal (MTP) joint of left foot acute Other intervertebral disc de generation, lumbar region acute Spinal stenosis of lumbar re gion with neurogenic claudication acute Spondylolisthesis, lumbar region acute Segmental and somatic dysfunction of lumbar region acute Segmental and somatic dysfunction of sacral region acute Herniated lumbar intervertebral disc chronic Back pain noneactive [facility] Work Phone: Evaluation note* Diagnosis Left foot pain- Primary Pain in soft tissues of limb [facility] Diagnosis Hallux rigidus of left foot- Primary 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 documented in this encounter [facility] Discharge instructions No data available for this section [facility] Reason for referral (narrative)No reason for referral [facility] Work Phone: Summary Purpose Family History No Family History Records Found Relationship Condition Age at Onset Recorded Date/T johann grandmother Malignant neoplasm Unknown Relationship Condition Age at Onset Recorded Date/T johann grandmother Cardiac disease Unknown Myocardial infarction Unknown Malignant neoplasm of breast Unknown grandfather Parkinson's disease Unknown Polyp of colon Unknown Advance Directives No Advanced Directives Records Found Advance Directive Response Recorded Date/ Time Advance Directives No January 10, 2 022 3:14pm Living Will No January 10, 2022 3:14pm Power of Coil Repair Technician No January 10 3:14pm Advance Directive Response Recorded Date/ Time Advance Directives No January 10 022 2:14pm Living Will No January 10, 2022 2:14pm Power of Coil Repair Technician No January 10 2:14pm Advance Directive Response Recorded Date/ Time Name of Medical Power of Coil Repair Technician SANA HERNANDEZ October 25, 2022 10:41am Advance Directives No January 10 2 022 2:14pm Living Will No January 07, 2017 12:05pm Power of Coil Repair Technician No January 07 12:05pm Advance Directive Response Recorded Date/ Time Advance Directives No January 10, 2 022 3:14pm Living Will No January 07, 2017 1:05pm Power of Coil Repair Technician No January 07 1:05pm Advance Directive Response Recorded Date/ Time Advance Directives No March 28 8:57am Living Will Yes April 28 9:09am Power of Coil Repair Technician Yes April 28 023 9:09am Advance Directive Response Recorded Date/ Time Name of Medical Power of Coil Repair Technician SANA BLANC April 28, 2023 9:09am Advance Directives No March 28 8:57am Living Will Yes April 28 9:09am Power of Coil Repair Technician Yes April 28 9:09am Advance Directive Response Recorded Date/ Time Advance Directives No October 9:50am Living Will Yes November 15 9:50am Power of Coil Repair Technician Yes November 15, 2023 9:50am Advance Directive Response Recorded Date/ Time Advance Directives No January 16, 2025 9:21am Living Will Yes November 15 9:50am Do you have a Healthcare Power of Coil Repair Technician? Yes November 15, 2023 9:50am Advance Directive Response Recorded Date/ Time Advance Directives No March 19 9:22am Living Will Yes November 15 9:50am Do you have a Healthcare Power of Coil Repair Technician? Yes November 15, 2023 9:50am Advance Directive Response Recorded Date/ Time Advance Directives No April 09 11:03am Living Will Yes November 15 9:50am Do you have a Healthcare Power of Coil Repair Technician? 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 Segmental and somatic dysfunction of lumbar region Segmental and somatic dysfunction of sacral region Herniated lumbar intervertebral disc Segmental and somatic dysfunction of lumbar region Segmental and somatic dysfunction of sacral region Herniated lumbar intervertebral disc Degenerative disc disease at L5-S1 level Degenerative spondylolisthesis Chief Complaint left foot Back pain XRAY Back pain Back pain LUMBAR SPINE PAIN LUMBER SINE Consult MED FU FASTING LIPID Reason for Visit Bone cyst of foot 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 Segmental and somatic dysfunction of lumbar region Segmental and somatic dysfunction of sacral region Herniated lumbar intervertebral disc Segmental and somatic dysfunction of lumbar region Segmental and somatic dysfunction of sacral region Herniated lumbar intervertebral disc Degenerative disc disease at L5-S1 level Degenerative spondylolisthesis Degenerative disc disease at L5-S1 level Degenerative spondylolisthesis 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 Fatigue Elevated cholesterol Bradycardia RLS (restless legs syndrome) Chronic midline low back pain Mild depression Screening for breast cancer Chronic pain in left foot Chief Complaint Back pain XRAY Back pain Back pain LUMBAR SPINE PAIN LUMBER SINE Consult MED FU FASTING LIPID Reason for Visit Segmental and somati c dysfunction of lumbar region Segmental and somatic dysfunction of sacral region Herniated lumbar intervertebral disc Segmental and somatic dysfunction of lumbar region Segmental and somatic dysfunction of sacral region Herniated lumbar intervertebral disc Degenerative disc disease at L5-S1 level Degenerative spondylolisthesis Degenerative disc disease at L5-S1 level Degenerative spondylolisthesis 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 Fatigue Elevated cholesterol Bradycardia RLS (restless legs syndrome) Chronic midline low back pain Mild depression Screening for breast cancer Chronic pain in left foot Chief Complaint 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 LUMBAR SPINE Room 4 Back pain Reason for Visit Climacteric Restless legs syndrome 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 Other intervertebral disc degeneration, lumbar region Spinal stenosis of lumbar region with neurogenic claudication Spondylolisthesis, lumbar region Segmental and somatic dysfunction of lumbar region Segmental and somatic dysfunction of sacral region Herniated lumbar intervertebral disc Back pain Chief Complaint Admit Date LEFT FOOT October 02, 2024 1 :04pm LUMBAR SPINE October 31, 2024 7:55am room 3 October 31, 2024 8:03am BACK PAIN December 17, 2024 3:25 pm LEFT FOOT January 17, 2025 8:04am SCREENING January 30, 2025 12:48 pm 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) January 30, 2025 1:30p m Reason for Visit Admit Date Osteoarthritis of first meta tarsophalangeal (MTP) joint of left foot October 02, 2024 1:04pm Status post lumbar spinal fusion Februar y 2024 7:55am Cervicogenic headache December 17, 2024 3: 25pm Neck pain December 17, 2024 3:25 pm Segmental and somatic dysfunction of cer vical region December 17, 2024 3:25pm Osteoarthritis of first meta tarsophalangeal (MTP) joint of left foot January 17, 2025 8:04am Encounter for routine gynecological exam ination January 30, 2025 1:30pm Chief Complaint Admit Date LUMBAR SPINE October 31, 2024 7:55am room 3 October 31, 2024 8:03am BACK PAIN December 17, 2024 3:25 pm LEFT FOOT January 17, 2025 8:04am SCREENING January 30, 2025 12:48 pm 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) January 30, 2025 1:30p m Reason for Visit Admit Date Status post lumbar spinal fusion Februar y 2024 7:55am Cervicogenic headache December 17, 2024 3: 25pm Neck pain December 17, 2024 3:25 pm Segmental and somatic dysfunction of cer vical region December 17, 2024 3:25pm Osteoarthritis of first meta tarsophalangeal (MTP) joint of left foot January 17, 2025 8:04am Complicated grief January 30, 2025 1:30p m Encounter for routine gynecological exam ination January 30, 2025 1:30pm Chief Complaint Admit Date LUMBAR SPINE October 31, 2024 7:55am room 3 October 31, 2024 8:03am BACK PAIN December 17, 2024 3:25 pm LEFT FOOT January 17, 2025 8:04am SCREENING January 30, 2025 12:48 pm 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 February 28, 2025 12:5 6pm xray March 19, 2025 9:23a m Reason for Visit Admit Date Cervicogenic headache December 17, 2024 3: 25pm Neck pain December 17, 2024 3:25 pm Segmental and somatic dysfunction of cer vical region December 17, 2024 3:25pm Osteoarthritis of first meta tarsophalangeal (MTP) joint of left foot January 17, 2025 8:04am Complicated grief January 30, 2025 1:30p m Encounter for routine gynecological exam ination January 30, 2025 1:30pm Complicated grief February 28, 2025 12:5 6pm GERD (gastroesophageal reflux disease) J une 2024 12:56pm Chief Complaint Admit Date BACK PAIN December 17, 2024 3:25 pm LEFT FOOT January 17, 2025 8:04am SCREENING January 30, 2025 12:48 pm 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 February 28, 2025 12:5 6pm xray March 19, 2025 9:23a m LUMBAR SPINE March 19, 2025 2:36p m XRAY April 09, 2025 11:0 4am Reason for Visit Admit Date Cervicogenic headache December 17, 2024 3: 25pm Neck pain December 17, 2024 3:25 pm Segmental and somatic dysfunction of cer vical region December 17, 2024 3:25pm Osteoarthritis of first meta tarsophalangeal (MTP) joint of left foot January 17, 2025 8:04am Complicated grief January 30, 2025 1:30p m Encounter for routine gynecological exam ination January 30, 2025 1:30pm Complicated grief February 28, 2025 12:5 6pm GERD (gastroesophageal reflux disease) [facility] 2024 12:56pm Degenerative disc disease at L5-S1 level March 19, 2025 2:36pm Status post lumbar spinal fusion March 2:36pm Chief Complaint Admit Date BACK PAIN December 17, 2024 3:25 pm LEFT FOOT January 17, 2025 8:04am SCREENING January 30, 2025 12:48 pm 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 February 28, 2025 12:5 6pm xray March 19, 2025 9:23a m LUMBAR SPINE March 19, 2025 2:36p m XRAY April 09, 2025 11:0 4am LEFT FOOT April 09, 2025 1:12 pm Reason for Visit Admit Date Cervicogenic headache December 17, 2024 3: 25pm Neck pain December 17, 2024 3:25 pm Segmental and somatic dysfunction of cer vical region December 17, 2024 3:25pm Osteoarthritis of first meta tarsophalangeal (MTP) joint of left foot January 17, 2025 8:04am Complicated grief January 30, 2025 1:30p m Encounter for routine gynecological exam ination January 30, 2025 1:30pm Complicated grief February 28, 2025 12:5 6pm GERD (gastroesophageal reflux disease) J une 2024 12:56pm Degenerative disc disease at L5-S1 level March 19, 2025 2:36pm Status post lumbar spinal fusion March 2:36pm Bone cyst of foot April 09, 2025 1:12 pm Reddy's neuroma of left foot April 09, 2025 1:12pm Osteoarthritis of first meta tarsophalangeal (MTP) joint of left foot April 09, 2025 1:12pm Chief Complaint Admit Date BACK PAIN December 17, 2024 3:25 pm LEFT FOOT January 17, 2025 8:04am SCREENING January 30, 2025 12:48 pm 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 February 28, 2025 12:5 6pm xray March 19, 2025 9:23a m LUMBAR SPINE March 19, 2025 2:36p m XRAY April 09, 2025 11:0 4am LEFT FOOT April 09, 2025 1:12 pm E ORDER April 09, 2025 2:14 pm Reason for Visit Admit Date Osteoarthritis of first meta tarsophalangeal (MTP) joint of left foot January 17, 2025 8:04am Complicated grief January 30, 2025 1:30p m Encounter for routine gynecological exam ination January 30, 2025 1:30pm Complicated grief February 28, 2025 12:5 6pm GERD (gastroesophageal reflux disease) J une 2024 12:56pm Degenerative disc disease at L5-S1 level March 19, 2025 2:36pm Status post lumbar spinal fusion March 2:36pm Bone cyst of foot April 09, 2025 1:12 pm Reddy's neuroma of left foot April 09, 2025 1:12pm Osteoarthritis of first meta tarsophalangeal (MTP) joint of left foot April 09, 2025 1:12pm Chief Complaint Admit Date SCREENING January 30, 2025 12:48 pm 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 February 28, 2025 12:5 6pm xray March 19, 2025 9:23a m LUMBAR SPINE March 19, 2025 2:36p m XRAY April 09, 2025 11:0 4am LEFT FOOT April 09, 2025 1:12 pm E ORDER April 09, 2025 2:14 pm UPPER BLEPH May 30, 2025 10:48am Reason for Visit Admit Date Complicated grief January 30, 2025 1:30p m Encounter for routine gynecological exam ination January 30, 2025 1:30pm Complicated grief February 28, 2025 12:5 6pm GERD (gastroesophageal reflux disease) J une 2024 12:56pm Degenerative disc disease at L5-S1 level March 19, 2025 2:36pm Status post lumbar spinal fusion March d2024 2:36pm Bone cyst of foot April 09, 2025 1:12 pm Reddy's neuroma of left foot April 09, 2025 1:12pm Osteoarthritis of first meta tarsophalangeal (MTP) joint of left foot April 09, 2025 1:12pm Additional Source Comments INFORMATION SOURCE (unrecogn ized section and content) DATE CREATED AUTHOR 03/12/2018 [facility] DATE CREATED AUTHOR AUTHOR'S ORGANIZ ATION 03/14/2018 [facility] DATE CREATED AUTHOR AUTHOR'S ORGANIZ ATION 09/22/2021 [facility] ([place]) DATE CREATED AUTHOR AUTHOR'S ORGANIZ ATION 10/12/2021 [facility] DATE CREATED AUTHOR AUTHOR'S ORGANIZ ATION 06/01/2025 [facility] DATE CREATED AUTHOR AUTHOR'S ORGANIZ ATION 06/25/2025 [facility] Goals (unrecognized section and content) Goals may be documented in a n alternate section Care Teams (unrecognized sec tion and content) Team Status: Active Member Role Status Dates Dr. Saulo Mckay DO Family Provider Active Dr. Mariana Mohan MD Primary Care Provider Active Team Status: Inactive Member Role Status Dates Dr. Mariana Mohan MD Primary Care Provider, Referri ng Provider Active Dr. Lisa Cordero DC Attending Provider Active Team Status: Active Member Role Status Dates Dr. Mariana Mohan MD Primary Care Provider Active Matilda Matamoros Attending Provider Active Team Status: Inactive Member Role Status Dates Dr. Mariana Mohan MD Primary Care Pro vider, Attending Provider, Referring Provider Active Team Status: Inactive Member Role Status Dates Dr. Mariana Mohan MD Primary Care Provider, Referri ng Provider Active Patrice Bennett PA, PA Attending Provider Active Team Status: Inactive Member Role Status Dates Dr. Mariana Mohan MD Primary Care Provider, Referri ng Provider Active Sawyer Ash AMPOULE INSPECTOR, AMPOULE INSPECTOR-C Attending Provider Active Team Status: Inactive Member Role Status Dates Dr. Mariana Mohan MD Primary Care Provider, Referri ng Provider Active Jeancarlos Lamb MD Attending Provider Active Team Status: Active Member Role Status Dates Dr. Mariana Mohan MD Primary Care Provider, Referri ng Provider Active Dr. Pj Ball DO Attending Provider, Other Prov ider Active Team Status: Inactive Member Role Status Dates Dr. Mariana Mohan MD Primary Care Provider, Referri ng Provider Active Dr. Pj Ball DO Attending Provider Active Team Status: Inactive Member Role Status Dates Dr. Mariana Mohan MD Primary Care Provider Active Jeancarlos Lamb MD Attending Provider, Referring Prov ider Active Team Status: Inactive Member Role Status Dates Dr. Mariana Mohan MD Primary Care Provider Active Dr. Lisa Cordero DC Attending Provider Active Team Status: Active Member Role Status Dates Dr. Mariana Mohan MD Primary Care Provider Active Dr. Lisa Cordero DC Attending Provider, Referring Pro vider Active Team Status: Active Member Role Status Dates Dr. Mariana Mohan MD Primary Care Provider Active Dr. Lisa Cordero DC Attending Provider Active Jeancarlos Lamb MD Referring Provider Active Team Status: Inactive Member Role Status Dates Dr. Mariana Mohan MD Primary Care Provider, Referri ng Provider Active Dr. Tim Torres DO Attending Provider Active Team Status: Inactive Member Role Status Dates Dr. Mariana Mohan MD Primary Care Provider Active Mirtha Hudson NP-C Attending Provider Active Team Status: Inactive Member Role Status Dates Dr. Mariana Mohan MD Primary Care Provider Active Dr. Tim Torres DO Attending Provider, Referring P rovider Active Team Status: Inactive Member Role Status Dates Dr. Mariana Mohan MD Primary Care Provider, Referri ng Provider Active Dr. Susie Quan MD Attending Provider Active Team Status: Inactive Member Role Status Dates Dr. Mariana Mohan MD Primary Care Provider Active Mirtha Hudson NP-C Attending Provider, Referring Provi maria elena Active Team Status: Inactive Member Role Status Dates Dr. Mariana Mohan MD Primary Care Provider Active Dr. Matias Maciel MD Attending Provider, Referring Provider Active Team Status: Active Member Role Status Dates Dr. Saulo Mckay DO Family Provider Active Donta Mitchell MD Primary Care Provider Active Team Status: Inactive Member Role Status Dr. Mariana Mohan MD Referring Provider Active Nely Frias CNM Attending Provider Active Donta Mitchell MD Primary Care Provider Active Team Status: Inactive Member Role Status Migel Mitchell MD Primary Care Provider, Referring Prov ider Active Jeancarlos Lamb MD Attending Provider Active Team Status: Inactive Member Role Status Migel Mitchell MD Primary Care Provider, Referring Prov ider Active Dr. Jh Hernandez MD Attending Provider Active Team Status: Inactive Member Role Status Migel Mitchell MD Primary Care Provider Active Dr. Mich Rios MD Attending Provider Active Team Status: Inactive Member Role Status Migel Mitchell MD Primary Care Provider, Referring Prov ider Active Dr. Lisa Cordero DC Attending Provider Active Team Status: Inactive Member Role Status Migel Mitchell MD Primary Care Provider Active Dr. Matias Maciel MD Attending Provider, Referring Provider Active Team Status: Active Member Role Status Migel Mitchell MD Primary Care Provider Active Team Status: Inactive Member Role Status Migel Mitchell MD Primary Care Provider Active St art: October 02, 2024 End: October 02, 2024 Donta Mitchell MD Referring Provider Active Start : October 02, 2024 End: October 02, 2024 Jeancarlos Lamb MD Attending Provider Active St art: October 02, 2024 End: October 02, 2024 Team Status: Inactive Member Role Status Migel Mitchell MD Primary Care Provider Active St art: October 31, 2024 End: October 31, 2024 Donta Mitchell MD Referring Provider Active Start : October 31, 2024 End: October 31, 2024 MEG Chowdhury Attending Provider Active Star t: October 31, 2024 End: October 31, 2024 Team Status: Inactive Member Role Status Migel Mitchell MD Primary Care Provider Active St art: October 31, 2024 End: October 31, 2024 Dr. Mich Rios MD Attending Provider Active S tart: October 31, 2024 End: October 31, 2024 Team Status: Inactive Member Role Status Migel Mitchell MD Primary Care Provider Active St art: December 17, 2024 End: December 17, 2024 Donta Mitchell MD Referring Provider Active Start : December 17, 2024 End: December 17, 2024 Dr. Lisa Cordero DC Attending Provider Active S tart: December 17, 2024 End: December 17, 2024 Team Status: Inactive Member Role Status Migel Mitchell MD Primary Care Provider Active St art: January 17, 2025 End: January 17, 2025 Donta Mitchell MD Referring Provider Active Start : January 17, 2025 End: January 17, 2025 Jeancarlos Lamb MD Attending Provider Active St art: January 17, 2025 End: January 17, 2025 Team Status: Active Member Role Status Migel Mitchell MD Primary Care Provider Active St art: January 30, 2025 Donta Mitchell MD Attending Provider Active Start : January 30, 2025 Donta Mitchell MD Referring Provider Active Start : January 30, 2025 Team Status: Inactive Member Role Status Migel Mitchell MD Primary Care Provider Active St art: January 30, 2025 End: January 30, 2025 Donta Mitchell MD Referring Provider Active Start : January 30, 2025 End: January 30, 2025 Kaitlin Coughlin CNM Attending Provider Active S tart: January 30, 2025 End: January 30, 2025 Team Status: Inactive Member Role Status Migel Mitchell MD Primary Care Provider Active St art: January 30, 2025 End: January 30, 2025 Donta Mitchell MD Attending Provider Active Start : January 30, 2025 End: January 30, 2025 Donta Mitchell MD Referring Provider Active Start : January 30, 2025 End: January 30, 2025 Team Status: Inactive Member Role Status Migel Mitchell MD Primary Care Provider Active St art: February 28, 2025 End: February 28, 2025 Donta Mitchell MD Referring Provider Active Start : February 28, 2025 End: February 28, 2025 Chucho WEAVER, PA Attending Provider Active St art: February 28, 2025 End: February 28, 2025 Team Status: Active Member Role/Relationship Status Migel Mitchell MD Primary Care Provider Active Team Status: Inactive Member Role/Relationship Status Migel Mitchell MD Primary Care Provider Active St art: December 17, 2024 End: December 17, 2024 Donta Mitchell MD Referring Provider Active Start : December 17, 2024 End: December 17, 2024 Dr. Lisa Cordero DC Attending Provider Active S tart: December 17, 2024 End: December 17, 2024 Team Status: Inactive Member Role/Relationship Status Migel Mitchell MD Primary Care Provider Active St art: January 17, 2025 End: January 17, 2025 Donta Mitchell MD Referring Provider Active Start : January 17, 2025 End: January 17, 2025 Jeancarlos Lamb MD Attending Provider Active St art: January 17, 2025 End: January 17, 2025 Team Status: Inactive Member Role/Relationship Status Migel Mitchell MD Primary Care Provider Active St art: January 30, 2025 End: January 30, 2025 Donta Mitchell MD Attending Provider Active Start : January 30, 2025 End: January 30, 2025 Donta Mitchell MD Referring Provider Active Start : January 30, 2025 End: January 30, 2025 Team Status: Inactive Member Role/Relationship Status Migel Mitchell MD Primary Care Provider Active St art: January 30, 2025 End: January 30, 2025 Donta Mitchell MD Referring Provider Active Start : January 30, 2025 End: January 30, 2025 Kaitlin Coughlin CNM Attending Provider Active S tart: January 30, 2025 End: January 30, 2025 Team Status: Inactive Member Role/Relationship Status Migel Mitchell MD Primary Care Provider Active St art: February 28, 2025 End: February 28, 2025 Donta Mitchell MD Referring Provider Active Start : February 28, 2025 End: February 28, 2025 MEG Soria Attending Provider Active St art: February 28, 2025 End: February 28, 2025 Team Status: Inactive Member Role/Relationship Status Migel Mitchell MD Primary Care Provider Active St art: March 19, 2025 End: March 19, 2025 Dr. Mich Rios MD Attending Provider Active S tart: March 19, 2025 End: March 19, 2025 Team Status: Inactive Member Role/Relationship Status Migel Mitchell MD Primary Care Provider Active St art: March 19, 2025 End: March 19, 2025 Donta Mitchell MD Referring Provider Active Start : March 19, 2025 End: March 19, 2025 Dr. Jh Hernandez MD Attending Provider Active Start: March 19, 2025 End: March 19, 2025 Team Status: Inactive Member Role/Relationship Status Migel Mitchell MD Primary Care Provider Active St art: April 09, 2025 End: April 09, 2025 Dr. Mich Rios MD Attending Provider Active S tart: April 09, 2025 End: April 09, 2025 Team Status: Inactive Member Role/Relationship Status Migel Mitchell MD Primary Care Provider Active St art: April 09, 2025 End: April 09, 2025 Donta Mitchell MD Referring Provider Active Start : April 09, 2025 End: April 09, 2025 CHELLE Kim Attending Provider Active Start: April 09, 2025 End: April 09, 2025 Team Status: Inactive Member Role/Relationship Status Migel Mitchell MD Primary Care Provider Active St art: April 09, 2025 End: April 09, 2025 CHELLE Kim Attending Provider Active Start: April 09, 2025 End: April 09, 2025 CHELLE Kim Referring Provider Active Start: April 09, 2025 End: April 09, 2025 Team Status: Inactive Member Role/Relationship Status Migel Mitchell MD Primary Care Provider Active St art: January 17, 2025 End: January 17, 2025 Donta Mitchell MD Referring Provider Active Start : January 17, 2025 End: January 17, 2025 Jeancarlos Lamb MD Attending Provider Active St art: January 17, 2025 End: January 17, 2025 Team Status: Inactive Member Role/Relationship Status Migel Mitchell MD Primary Care Provider Active St art: January 30, 2025 End: January 30, 2025 Donta Mitchell MD Attending Provider Active Start : January 30, 2025 End: January 30, 2025 Donta Mitchell MD Referring Provider Active Start : January 30, 2025 End: January 30, 2025 Team Status: Inactive Member Role/Relationship Status Migel Mitchell MD Primary Care Provider Active St art: January 30, 2025 End: January 30, 2025 Donta Mitchell MD Referring Provider Active Start : January 30, 2025 End: January 30, 2025 Kaitlin Coughlin CNM Attending Provider Active S tart: January 30, 2025 End: January 30, 2025 Team Status: Inactive Member Role/Relationship Status Migel Mitchell MD Primary Care Provider Active St art: February 28, 2025 End: February 28, 2025 Donta Mitchell MD Referring Provider Active Start : February 28, 2025 End: February 28, 2025 Chucho WEAVER, [place] Attending Provider Active St art: February 28, 2025 End: February 28, 2025 Team Status: Inactive Member Role/Relationship Status Migel Mitcehll MD Primary Care Provider Active St art: March 19, 2025 End: March 19, 2025 Dr. Mich Rios MD Attending Provider Active S tart: March 19, 2025 End: March 19, 2025 Team Status: Inactive Member Role/Relationship Status Migel Mitchell MD Primary Care Provider Active St art: March 19, 2025 End: March 19, 2025 Donta Mitchell MD Referring Provider Active Start : March 19, 2025 End: March 19, 2025 Dr. Jh Hernandez MD Attending Provider Active Start: March 19, 2025 End: March 19, 2025 Team Status: Inactive Member Role/Relationship Status Migel Mitchell MD Primary Care Provider Active St art: April 09, 2025 End: April 09, 2025 Dr. Mich Rios MD Attending Provider Active S tart: April 09, 2025 End: April 09, 2025 Team Status: Inactive Member Role/Relationship Status Migel Mitchell MD Primary Care Provider Active St art: April 09, 2025 End: April 09, 2025 Donta Mitchell MD Referring Provider Active Start : April 09, 2025 End: April 09, 2025 CHELLE Kim Attending Provider Active Start: April 09, 2025 End: April 09, 2025 Team Status: Inactive Member Role/Relationship Status Migel Mitchell MD Primary Care Provider Active St art: April 09, 2025 End: April 09, 2025 CHELLE Kim Attending Provider Active Start: April 09, 2025 End: April 09, 2025 CHELLE Kim Referring Provider Active Start: April 09, 2025 End: April 09, 2025 Team Status: Inactive Member Role/Relationship Status Migel Mitchell MD Primary Care Provider Active St art: January 30, 2025 End: January 30, 2025 Donta Mitchell MD Attending Provider Active Start : January 30, 2025 End: January 30, 2025 Donta Mitchell MD Referring Provider Active Start : January 30, 2025 End: January 30, 2025 Team Status: Inactive Member Role/Relationship Status Migel Mitchell MD Primary Care Provider Active St art: January 30, 2025 End: January 30, 2025 Donta Mitchell MD Referring Provider Active Start : January 30, 2025 End: January 30, 2025 Kaitlin Ced , CNM Attending Provider Active S tart: January 30, 2025 End: January 30, 2025 Team Status: Inactive Member Role/Relationship Status Migel Mitchell MD Primary Care Provider Active St art: February 28, 2025 End: February 28, 2025 Donta Mitchell MD Referring Provider Active Start : February 28, 2025 End: February 28, 2025 Chucho Schumacher PA, [place] Attending Provider Active St art: February 28, 2025 End: February 28, 2025 Team Status: Inactive Member Role/Relationship Status Migel Mitchell MD Primary Care Provider Active St art: March 19, 2025 End: March 19, 2025 Dr. Mich Rios MD Attending Provider Active S tart: March 19, 2025 End: March 19, 2025 Team Status: Inactive Member Role/Relationship Status Migel Mitchell MD Primary Care Provider Active St art: March 19, 2025 End: March 19, 2025 Donta Mitchell MD Referring Provider Active Start : March 19, 2025 End: March 19, 2025 Dr. Jh Hernandez MD Attending Provider Active Start: March 19, 2025 End: March 19, 2025 Team Status: Inactive Member Role/Relationship Status Migel Mitchell MD Primary Care Provider Active St art: April 09, 2025 End: April 09, 2025 Dr. Mich Rios MD Attending Provider Active S tart: April 09, 2025 End: April 09, 2025 Team Status: Inactive Member Role/Relationship Status Migel Mitchell MD Primary Care Provider Active St art: April 09, 2025 End: April 09, 2025 Donta Mitcehll MD Referring Provider Active Start : April 09, 2025 End: April 09, 2025 CHELLE Kim Attending Provider Active Start: April 09, 2025 End: April 09, 2025 Team Status: Inactive Member Role/Relationship Status Migel Mitchell MD Primary Care Provider Active St art: April 09, 2025 End: April 09, 2025 CHELLE Kim Attending Provider Active Start: April 09, 2025 End: April 09, 2025 CHELLE Kim Referring Provider Active Start: April 09, 2025 End: April 09, 2025 Team Status: Inactive Member Role/Relationship Status Dates Donta Mitchell MD Primary Care Provider Active St art: May 30, 2025 End: May 30, 2025 Donta Mitchell MD Referring Provider Active Start : May 30, 2025 End: May 30, 2025 Dr. Saulo Villeda MD Attending Provider Active Start: May 30, 2025 End: May 30, 2025 Reason for Visit (unrecogniz ed section and content) Reason Comments New Patient L great toe pain FOR RECORDS PERTAINING TO PATIENTS WHO ARE OR HAVE BEEN ENROLLED IN A CHEMICAL DEPENDENCY/SUBSTANCEABUSE PROGRAM, SOME INFORMATION MAY BE OMITTED. This clinical summary was aggregated from multiple sources. Caution should be exercised in using it in the provision of clinical care. This summary normalizes information from multiple sources, and as a consequence, information in this document may materially change the coding, format and clinical context of patient data. In addition, data may be omitted in some cases. CLINICAL DECISIONS SHOULD BE BASED ON THE PRIMARY CLINICAL RECORDS. [employer] [facility]. provides no warranty or guarantee of the accuracy or completeness of information in this document.
--- OUTSIDE RECORDS SUMMARY | 2025-07-03 08:14 | XMS RPT_ITS | CCD ---
Author Organization [facility] Care Team Providers Care Marketing Production Specialist Name Role Phone No Doctor Assigned, Nodr Unavailable Unavail able Compilation Clerk, Rob M Unavailable Unavailable Compilation Clerk, Rob M Unavailable Unavailable FARHADI, H JOSSE Unavailable Unavailable FARHADI, H JOSSE Unavailable Unavailable FARHADI, H JOSSE Unavailable Unavailable FARHADI, H JOSSE Unavailable Unavailable FARHADI, H JOSSE Unavailable Unavailable FARHADI, H JOSSE Unavailable Unavailable FAHAD SPENCER Primary Care Physician ( [phone] Dr. Saulo Mckay Primary Care Provider Dr. Lisa Cordero Attending Provider 1([facility]) Dr. Saulo Mckay Referring Provider 1([facility]) Dr. Mich Rios Attending Provider 1([facility]) 00 Dr. Saulo Mckay Primary Care Provider Mckenna Sierra Attending Provider Unavailable Dr. Saulo Mckay Referring Provider 1([facility]) Dr. Mariana Mohan Attending Provider 1([facility]) 3476 Dr. Mariana Mohan Primary Care Provider Dr. Mariana Mohan Referring Provider 1([facility]) 3476 Dr. Lisa Cordero Attending Provider 1([facility]) Matilda Matamoros Attending Provider Unavailable MEG Zaragoza Attending Provider [phone] Dr. Mariana Mohan Attending Provider 1([facility]) -[phone] MD Jeancarlos Lamb Attending Provider 1([facility])[phone] Mihir BOOTH, LOWC Sawyer Attending Provider 1([facility] -1413 Quinn, Dr. Oliva Attending Provider 1([facility])56 Dr. Pj Ball Other Provider 1([facility])-[phone] Mariana Mohan Primary Care Provider Dr. Mariana oMhan Referring Provider 1([facility])347 Consuelo, Dr. Gonzalez Attending Provider 1([facility])- 25 MD Jeancarlos Lamb Attending Provider 1([facility]) 342 Dossi, Dr. Gonzalez Referring Provider 1([facility]) 25 MD Jeancarlos Lamb Referring Provider 1([facility]) 342 Dr. Tim Torres Attending Provider 1([facility]) 342 Dr. Mariana Mohan Primary Care Provider Dr. Mariana Mohan Referring Provider 1([facility]) Dossi, Dr. Gonzalez Attending Provider 1([facility]) 25 Dr. Susie Quan Attending Provider 1([facility])3350 Dr. Mariana Mohan Attending Provider 1([facility]) Dr. Mariana Mohan Primary Care Provider Dr. Mariana Mohan Referring Provider 1([facility]) Dr. Mariana Mohan Referring Provider 1([facility])347 YANDY Frias Attending Provider 1([facility])[phone] MD Donta Mitchell Primary Care Provider 1([facility])345 8060 MD Donta Mitchell Referring Provider 1([facility])[phone] MD Jeancarlos Lamb Attending Provider 1([facility]) 3420 Dr. Jh Hernandez Attending Provider 1([facility])[phone] Mich Rios Attending Provider 1([facility])[phone] Consuelo, Dr. Gonzalez Attending Provider 1([facility])-22 [phone] Paula HEATH, Donta Primary Care Provider 1([facility])[phone] Paula HEATH, Donta Referring Provider 1([facility])[phone] Jeancarlos Lamb MD Attending Provider 1([facility])[phone] Sowmya Galeano Attending Provider 1([facility])[phone] Mihc Rios MD Attending Provider 1([facility])[phone] Dosterrie MEDEROS, Dr. Gonzalez Attending Provider [...] Unavailable Primary Care Provider Unavailabl e Austyn STABILIZING MACHINE OPERATOR-CMonserrat Attending Provider Austyn STABILIZING MACHINE OPERATOR-C, Monserrat Referring Provider Paula HEATH, Chalon Primary [...] Primary Care Unavailable Hernandez, Jh Consulting Unavailable Apula, Chalon Primary Care Unavailable Hernandez, Jh Referring [...] Unavailable Paula, Chalon Primary Care Unavailable Gabriel, [place] Attending Unavailable Monserrat Zaman Attending Unavailable Paula, [...] Care Unavailable Paula, Chalon Referring Unavailable Gabriel, [place] Attending Unavailable Paula, Chalon Primary Care Unavailable Jeancarlos Lamb Attending Unavailable Paula, Chalon Referring Unavailable Paula, Chalon Primary Care Unavailable Gabriel, [place] Attending Unavailable Paula, Chalon Primary Care Unavailable Kaitlin Coughlin Attending Unavailable Paula, Chalon Primary Care Unavailable Paula, Chalon Referring Unavailable JUNMANDA Langston Attending Unavailable YUSUFMATIAS Attending Unavailable KAEHMELINDA, RASHI Referring Unavailable Allergies Allergy Classification Reported Allergen(s) Allergy Type Date of Onset Reaction(s) Facility (19 sources) Ciprofloxacin; Translations: [ciprofloxacin] Drug Allergy 7 U, Nausea/Vom/Nori [facility] (19 sources) predniSONE; Translations: [prednisone] Drug Allergy 7 U, Nausea/Vom/Nori [facility] (19 sources) Pineapple; Translations: [pineapple] Food allergy 2 tongue swells [facility] (19 sources) Ciprofloxacin; Translations: [ciprofloxacin HCl] Drug Allergy 7 Nausea/Vom/Nori [facility] (3 sources) Prednisone Propensity to adverse reactions 7 Other, Nausea And Vomiting, Unknown [facility] (1 source) Ciprofloxacin Drug Allergy 5 [facility] (1 source) predniSONE Drug Allergy 5 [facility] Medications Current Medications Medication Drug [...] 0 Refill(s) Start Date: 01/23/20 Status: Ordered [place]-3 Fatty Acids-Fish Oil (Fish Oil) 300-500 mg capsule (17 sources) Start: 06-08-2022 [place]-3 Fatty Acids-Fish Oil (Fish Oil) 300-500 mg capsule Active 1 NMA PO DAILY June 08, 2022 12:00am SUPPLEMENT Start: 06-08-2022 [place]-3 Fatty Acids-Fish Oil (Fish Oil) 300-500 mg capsule Active 1 NMA PO DAILY June 08, 2022 12:00am Start: 06-08-2022 take 1 capsule by mo [facility] once daily [place]-3 Fatty Acids-Fish Oil (Fish Oil) 300-500 mg capsule Active 1 CAP PO DAILY June 08, 2022 12:00am Start: 06-08-2022 take 1 capsule by mo [facility] once daily [place]-3 Fatty Acids-Fish Oil (Fish Oil) 300-500 mg capsule Active 1 CAP PO DAILY June 07, 2022 11:00pm Start: 06-08-2022 [place]-3 Fatty Acids-Fish Oil (Fish Oil) 300-500 mg [...] qDay, # 30 cap(s), 5 Refill(s), Pharmacy: [facility], 167, cm, 02/23/21 7:33:00 EDT, Height, kg, [...] DAILY, # 30 cap(s), 5 Refill(s), Pharmacy: [facility], 167, cm, 02/23/21 7:33:00 EDT, Height, kg, [...] medication., # 30 tab(s), 0 Refill(s), Pharmacy: [facility], 167, cm, 02/23/21 7:33:00 EDT, H... Start Date: 09/01/21 Stop Date: 10/01/21 Status: Ordered docusate sodium 100 mg oral capsule (18 sources) Start: 01-05-2017 End: 03-01-2022 take 1 capsule by mouth twice daily Docusate Sodium (Colace) 100 MG capsule Discontinued 100 mg PO TWICE A DAY 30 0 January 05, 2017 12:00am March 01, 2022 11:16am constipation docusate sodium 50 mg / sennosides, fci 8.6 mg oral tablet (10 sources) Start: [...] 2024 1:09pm August 13, 2024 9:10am Multivit Whn-Chxe-Jh-Herb 186 (Hair, Skin And Nails Advanced) 1 EACH tablet (18 sources) Start: 12-30-2016 End: 04-13-2022 take 1 tablet by mouth once daily Multivit Tth-Rkqe-Fv-Herb 186 (Hair, Skin And Nails Advanced) 1 EACH tablet Discontinued 1 NMA PO DAILY December 30, 2016 12:00am April 13, 2022 11:02am Start: 12-30-2016 End: 04-13-2022 take 1 tablet by mouth once daily Multivit Okv-Lrlo-Wa-Herb 186 (Hair, Skin And Nails Advanced) 1 EACH tablet Discontinued 1 EACH PO DAILY December 30, 2016 12:00am April 13, 2022 11:02am Start: 12-30-2016 End: 04-13-2022 take 1 tablet by mouth once daily Multivit She-Eiyq-Cb-Herb 186 (Hair, Skin And Nails Advanced) 1 EACH tablet Discontinued 1 EACH PO DAILY December 29, 2016 11:00pm April 13, 2022 10:02am Start: 12-30-2016 take 1 tablet by sukumar th once daily Multivit Yfz-Bihq-Yr-Herb 186 (Hair, Skin And Nails Advanced) 1 EACH tablet Active 1 EACH PO DAILY December 30, 2016 12:00am ondansetron 4 mg oral tablet (1 source) Serotonin-3 Receptor Antagonist Start: 06-29-2020 End: 07-04-2020 Zofran 4 mg oral tablet Dose : 4 mg = 1 tab(s), Oral, q6h, PRN Nausea/Vomiting, # 20 tab(s), 0 Refill(s), Pharmacy: [facility]/pharmacy #[id number], 167.6, cm, 10/23/19 9:14:00 EST, Height, kg, [...] qHS, # 90 tab(s), 1 Refill(s), Pharmacy: [facility], 167.6, cm, 10/23/19 9:14:00 EST, Height, kg, [...] Episodic Unclassified (1 source) New Patient / [id number]() Onset: 8 Unclassified (1 source) Back Pain [...] Test Name Value Interpretation Reference Range Facility [id number] 06-23-2025 [id number] Medication List Accurate as of June 23, [...] Adjustments for Surgery: Take night before surgery 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 GOLDBERG Follow the instruction for the [facility] shower kit you were provided in pre-admission [...] your scheduled surgery time. Please bring your [facility] Capsule.fm Surgical folder and medication list with you day of surgery. We encourage you to write down any questions you may have for the surgeon, anesthesiologist, or other members of the surgical team and bring it with you the day of surgery. Please bring photo ID and insurance information. Normal [facility] Progress Noteon 06-16-2025 Progress Note ERROR - VOID Normal [facility] Plastic Surgery Visit Report on 05-30-2025 Plastic Surgery Visit Report [facility] Plastic Reconstructive Surgery [address], [address] [place] [address] OFFICE VISIT Date of Service: 05/30/25 MR#: [id number] Acct: [id number] Name: FAIZA TRIPP Rep #: [id number] : 1970 Provider: Dr. Saulo Villeda MD Age/Sex: 54/F Location: [facility] Status: Signed Intake Vital Signs 04/09/25 11:03 [...] none current occupational status: employed current occupation: [employer] Smoking Status: Former smoker Electronic Cigarette [...] of back belle (more content not included)... [facility] 05-22-2025 36 Called and spoke to her letting her know it was completed and faxed back [address] 05-21-2025 36 Patient is returning call she received on 05/16 about her [facility] paperwork she would like a call to discuss. Please advise [place] [id number] 36 I LVM notifying patient of PAT PC date and time. Surgery pamphlet also placed in the mail for patient. [facility] 36 Fax received by insurance, no auth was required for either CPT code. I will place on snapboard. [address] 05-06-2025 36 Patient called to mo ve up her surgery date to Monday, 07/08 at 730a. PAT PC will be scheduled 2 weeks prior. [place] [address]70on 05-02-2025 36 Patient scheduled fo r surgery on 09/04, Patient would like to have PAT PC, patient works at [employer] and would prefer to have labs done there and fax them to the office. Patient does not see a manager filter, java swing developer, or neurology. Patient has a knee scooter for after surgery. [facility] Office Visiton 04-16-2025 Follow-up visit [id number] Faiza Tripp 1970 F Date Provider Department Center 04/16/2025 [id number]-REMMDMATIAS GOLDBERG [facility] OR None No family history on file Level of Service:07279 [place] OFFICE/OUTPATIENT NEW MODERATE MDM 45 MINUTES (57) Reason for Visit and Comments: New Patient [542] - L great toe pain Normal [facility] Progress Noteon 04-16-[address] [facility] [place] [address] [facility] [address] [place] [address] Dept: [phone] Dept Faiza Tripp 1970 [id number] 04/16/2025 HISTORY OF PRESENT ILLNESS: Faiza is [...] result. We (more content not included)... Normal [facility] CRPon 04-09-2025 C-REACTIVE PROT < 3.00 Normal 0.0-3.0 [facility] Comment on above: Performed By: #### L 101.9900, L501.6710, L501.1400 ####[facility] [address] [place], [address] Erythrocyte Sed Rateon 04-09 SED RATE 7 mm/hr Normal 0-30 [facility] Comment on above: Performed By: #### L 101.9900, L501.6710, L501.1400 ####[facility] [address] [place], [address] Erythrocyte sedimentation ra teOrdered By: Monserrat Zaman on 04-09-2025 ESR (Bld) [Velocity] 7 mm/h 0-30 [facility] Foot min 3 Viewson 5 Foot min 3 Views [facility] Imaging Services [address] [place] [address] Foot min 3 Views MR#: [id number] Acct: [id number] Name: FAIZA TRIPP Rep #: [id number] : 1970 F 54 From: Morales Shannon MD PCP: Dr. Donta Mitchell MD Status: DEP AMB Study: Foot min 3 Views Date of Exam: 04/09/25 Exam# [id number] Ordering Dr: Monserrat Zaman STABILIZING MACHINE OPERATOR-C PROCEDURE: FOOT MIN 3 VIEWS 04/09/2025 REASON FOR EXAM: FOOT PAIN, HX ARTHRITIS TECHNIQUE: FOOT MIN 3 VIEWS COMPARISON: 03/04/2024 FINDINGS: Advanced 1st MTP joint osteoarthritis, with ynct-pm-kwgq, subchondral sclerosis, subchondral cysts, and osteophytes. Findings are similar to previous examination. Os trigonum. No acute bone or soft tissue pathology. 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 Reading Location: [place] [address] CC: CHELLE Zaman; Dr. Donta Mitchell MD Pharmacy Buyer: Signed Normal [facility] Orthopedic Visit Reporton Orthopedic Visit Report [facility] [address] [place] [address] [address] [place] [id number] OFFICE VISIT Date of Service: 04/09/25 MR#: [id number] Acct: [id number] Name: FAIZA TRIPP Rep #: [id number] : 1970 Provider: CHELLE hines Age/Sex: 54/F Location: [facility] Status: Signed Intake Vital Signs 04/09/25 11:03 [...] none current occupational status: employed current occupation: [employer] Smoking Status: Former smoker Electronic Cigarette [...] with h (more content not included)... Normal [facility] Serum or plasma C reactive p rotein measurement (mass/volume)Ordered By: Monserrat Zaman on 04-09-2025 CRP [Mass/Vol] mg/L 0.0-3.0 [facility] Serum or plasma uric acid me asurement (mass/volume)Ordered By: Monserrat Zaman on 04-09-2025 Urate [Mass/Vol] 3.4 mg/dL 2.6-6.0 [facility] Comment on above: The drugs N-Acetylcy steine and Metamizole may falsely depress this assay. Uric Acidon 04-09-2025 URIC 3.4 mg/dL Normal 2.6-6.0 [facility] Comment on above: Result Comment: The drugs N-Acetylcysteine and Metamizole may falsely depress this assay. Performed By: #### L 101.9900, L501.6710, L501.1400 ####[facility] [address] [place], [address] L/S Spine Min 4 Viewson 07-0 2-2024 L/S Spine Min 4 Views [facility] Imaging Services [address] [place] [address] L/S Spine Min 4 Views MR#: [id number] Acct: [id number] Name: FAIZA TRIPP Rep #: [id number] : 1970 F 54 From: Chucho Carson MD PCP: Dr. Donta Mitchell MD Status: DEP AMB Study: L/S Spine Min 4 Views Date of Exam: 03/19/25 Exam# [id number] Ordering Dr: Sowmya Mchugh PROCEDURE: L/S SPINE [...] Views IMPRESSION: Fusion. L5-S1 spondylosis. Reading Location: [id number] CC: MEG Chowdhury; Dr. Donta Mitchell MD Pharmacy Buyer: Signed Normal [facility] Orthopedic Visit Reporton Orthopedic Visit Report [facility] [address] [place] [address] OFFICE VISIT Date of Service: 03/19/25 MR#: [id number] Acct: [id number] Name: FAIZA TRIPP Greyson Rep #: [id number] : 1970 Provider: Dr. Jh Hernandez MD [...] none current occupational status: employed current occupation: [employer] Smoking Status: Former smoker Electronic Cigarette [...] by me, Dr. Jh Hernandez MD 03/19/25 2036. Part of today???s visit was documented by [...] is con (more content not included)... 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 EST CARE Is patient in pain?: No [...] seems to be relieving the GI upset [facility] Medical History Wears glasses Alcohol use Restless [...] none current occupational status: employed current occupation: [employer] Smoking Status: Former smoker Electronic Cigarette Use: not used alcohol intake: current alcohol intake frequency: holidays/special occasions only substance use type: does not use what type of physical activity do you participate in: bicycling, weight training and other details: cardio machines frequency: 5-6 times per week do you feel safe at home: Yes HPI HPI 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 EST CARE Details: FAIZA TRIPP, is a [...] At t (more content not included)... Normal [facility] Breast imaging reportOrdered By: Tong Field on 01-30-2025 Study report [facility] Imaging Services [address] [place] [address] SCRN MAMM (CAD)W/ASHLEY BILAT MR#: [id number] Acct: [id number] Name: QASIMFAIZA D Rep #: [id number] : 1970 F 54 From: Tenzin Field MD PCP: Dr. Donta Mitchell MD Status: REG CL I Study:SCRN MAMM (CAD)W/ASHLEY BILAT Date of Exa m: 01/30/25 Exam# [id number] Ordering Dr: Kirstin Mitchell MD EXAM: SCRN [...] JEWELS CC: Dr. Donta Mitchell MD ~ Pharmacy Buyer: Signed [facility] Workers' Compensation Commissioner Office Visit Reporton 01-30-2025 Workers' Compensation Commissioner Office Visit Report [facility] [address], [address] [place] [address] OFFICE VISIT Date of Service: 01/30/25 MR#: [id number] Acct: [id number] Name: FAIZA TRIPP Rep #: [id number] : 1970 Provider: YANDY Beauchamp ams Age/Sex: 54/F Location: [facility] [facility] Status: Signed Intake Vital Signs 08/19/24 08:23 01/17/25 08:07 01/30/25 13:36 Height 5 ft 5 in 5 ft 5 in 5 ft 5 in Weight: 155 lb 6 oz BMI 25.8 BP 135/87 H Intake Visit Reasons: Annual ([employer]) 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 Normal [facility] SCRN MAMM (CAD)W/ASHLEY BILATo n 01-30-2025 SCRN MAMM (CAD)W/ASHLEY BILAT [facility] Imaging Services [address] [place] [address] SCRN MAMM (CAD)W/ASHLEY BILAT MR#: [id number] Acct: [id number] Name: FAIZA TRIPP Rep #: [id number] : 1970 F 54 From: Tong myers MD PCP: Dr. Donta Mitchell MD Status: [facility] Study: SCRN MAMM (CAD)W/ASHLEY BILAT Date of Exam: 01/16 02/09 Exam# [id number] Ordering Dr: Donta Mitchell MD EXAM: SCRN [...] be mailed to the patient. Reading Location: [id number] CC: Dr. Donta Mitchell MD Pharmacy Buyer: Signed Normal [facility] Orthopedic Visit Reporton Orthopedic Visit Report [facility] [address] [place] [address] OFFICE VISIT Date of Service: 01/17/25 MR#: [id number] Acct: [id number] Name: FAIZA TRIPP Greyson Rep #: [id number] : 1970 Provider: Dr. Jeancarlos alcaraz MD Age/Sex: 54/F Location: [facility] [facility] Status: Signed Intake Vital Signs 01/16/25 09:21 [...] none current occupational status: employed current occupation: [employer] Smoking Status: Former smoker Electronic Cigarette [...] Pulses: Dorsalis (more content not included)... Normal [facility] Chiropractic Reporton 2024 Chiropractic Report [facility] [place] [address] OFFICE VISIT Date of Service: 12/17/24 MR#: [id number] Acct: [id number] Name: FAIZA TRIPP Rep #: [id number] : 1970 Provider: GATITO Harris Age/Sex: 54/F Location: [facility] Status: Signed Intake Vital Signs 12/16/24 08:52 [...] none current occupational status: employed current occupation: [employer] Smoking Status: Former smoker Electronic Cigarette [...] than left lower trapezius, Yes 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 Normal [facility] Lumbar Spine 2 or 3 Viewson 10-31-2024 Lumbar Spine 2 or 3 Views [facility] Imaging Services [address] [place], [place] [address] Lumbar Spine 2 or 3 Views MR#: [id number] Acct: [id number] Name: FAIZA TRIPP Rep #: [id number] : 1970 F 54 From: Roxann Rubi PCP: Dr. Donta Mitchell MD Status: DEP AMB Study: Lumbar Spine 2 or 3 Views Date of Exam: Exam# [id number] Ordering Dr: Sowmya Mchugh PROCEDURE: LUMBAR SPINE [...] disc space narrowing at L2-L3. Reading Location: [address] CC: MEG Chowdhury; Dr. Donta Mitchell MD Pharmacy Buyer: Signed Normal [facility] Orthopedic Visit Reporton Orthopedic Visit Report [facility] [address] [place] [address] [address] [place] [address] OFFICE VISIT Date of Service: 10/31/24 MR#: [id number] Acct: [id number] Name: FAIZA TRIPP Rep #: [id number] : 1970 Provider: MEG Chowdhury Age/Sex: 54/F Location: [facility] [facility] Status: Signed Intake Vital Signs 08/19/24 08:23 [...] none current occupational status: employed current occupation: [employer] Smoking Status: Former smoker Electronic Cigarette [...] spinal fu (more content not included)... Normal [facility] Orthopedic Visit Reporton Orthopedic Visit Report [facility] [address] [place] [address] OFFICE VISIT Date of Service: 10/02/24 MR#: [id number] Acct: [id number] Name: FAIZA TRIPP Rep #: [id number] : 1970 Provider: Dr. Jeancarlos alcaraz MD Age/Sex: 53/F Location: [facility] [facility] Status: Signed with Addenda ADDENDUM by Caroline [...] 20 mg intra-articular Left Foot 0.5 mL [id number] 01/16/26 [id number] [facility] Date cc: * Signed Intake Vital [...] none current occupational status: employed current occupation: [employer] Smoking Status: Former smoker Electronic Cigarette [...] by me, Dr. Jeancarlos Lamb MD 10/02/24 1131. Part of today???s visit was documented by [ ], acting as scribe. FAIZA TRIPP is a 53 year old F here today for repeat injection for LEFT first MTP osteoarthritis hallux rigidus. Coding Level of Care Code Attention Interpersonal Communications Professor Diagnoses 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 M19.072 Comment 28605 and cpt inject toe joint Assessment and Plan Assessment and Plan (1) Osteoarthritis of first (more content not included)... Normal [facility] Re-Evaluation - PT (1)on Re-Evaluation - PT (1) [facility] Physical Therapy [facility] [address] [place] [address]. [address] [place] [address] / REEVALUATION / MEDICARE RECERTIFICATION PHYSICAL THERAPY MR#: [id number] Acct: [id number] Name: FAIZA TRIPP Rep #: [id number] : 1970 53 From: Romeo Hou DPT Referring Dr.: Dr. Jh Hernandez MD Status:REG RCR Insurance: [employer]ALK SELF PAY INSURANCE Re-Evaluation Intro: Dr. Jh [...] do not hesitate to contact me at [phone] by phone or if you have questions or concerns regarding this new plan of care! Sincerely, Romeo Hou, DPT 09/20/24 0807 CC: Dr. Donta Mitchell MD; Dr. Jh Hernandez MD CLS Signed For Medicare only, by signing this I certify the plan of care. Physicians Signature Date Normal [facility] Lumbar Spine 2 or 3 Viewson 09-10-2024 Lumbar Spine 2 or 3 Views [facility] Radiology [address] [place] [address] Lumbar Spine 2 or 3 Views MR#: [id number] Acct: [id number] Name: FAIZA TRIPP Rep #: [id number] : 1970 F 53 From: Terrence Breaux MD PCP: Dr. Donta Mitchell MD Status: DEP AMB Study: Lumbar Spine 2 or 3 Views Date of Exam: Exam# [id number] Ordering Dr: Jh Hernandez MD [id number] STUDY: X-RAY - LUMBAR SPINE REASON FOR [...] Donta Mitchell MD; Dr. Jh Hernandez MD Pharmacy Buyer: Signed Normal [facility] Orthopedic Visit Reporton Orthopedic Visit Report [facility] [address] [place] [address] OFFICE VISIT Date of Service: 09/10/24 MR#: [id number] Acct: [id number] Name: FAIZA TRIPP Rep #: [id number] : 1970 Provider: Dr. Jh Hernandez MD Age/Sex: 53/F Location: [facility].PK Status: Signed Intake Vital Signs 07/31/24 15:30 [...] none current occupational status: employed current occupation: [employer] Smoking Status: Former smoker Electronic Cigarette [...] documented by [ ], acting as scribe. FIAZA TRIPP is a 53 year old F [...] to help (more content not included)... Normal [facility] Inital Evaluation (1) - PTon 08-26-2024 Inital Evaluation (1) - PT [facility] Physical Therapy [facility] [address] [place] [address] / REHABILITATION SERVICES INITIAL EVALUATION MR#: [id number] Acct: [id number] Name: FAIZA TRIPP Rep #: [id number] : 1970 53 From: Romeo Hou DPT Referring Dr.: Dr. Jh Hernandez MD Status: REG RCR Insurance: [employer] SELF PAY INSURANCE Patient's Visit Information Visit [...] work and working out. Pt. goes to [employer] typically. Pt. reports no N/T in [...] plans, plehéctor (more content not included)... Normal [facility] Lumbar Spine 2 or 3 Viewson 08-13-2024 Lumbar Spine 2 or 3 Views [facility] [address] [place] [address] Lumbar Spine 2 or 3 Views MR#: [id number] Acct: [id number] Name: FAIZA TRIPP Rep #: [id number] : 1970 F 53 From: Leif Damon MD PCP: Dr. Donta Mitchell MD Status: DEP AMB Study: Lumbar Spine 2 or 3 Views Date of Exam: Exam# [id number] Ordering Dr: Sowmya Mchugh [place] [id number] EXAM: XR LUMBOSACRAL SPINE, 2 OR 3 [...] 17:04 EST Reading Location ID and State: [facility] Tel , Service support , CC: MEG Chowdhury; Dr. Donta Mitchell MD Pharmacy Buyer: Signed Normal [facility] Orthopedic Visit Reporton Orthopedic Visit Report [facility] [address] [place] [address] [address] [place] [address] OFFICE VISIT Date of Service: 08/13/24 MR#: [id number] Acct: [id number] Name: FAIZA TRIPP Rep #: [id number] : 1970 Provider: Dr. Jh Hernandez MD Age/Sex: 53/F Location: [facility] [place].PK Status: Signed Intake Vital Signs 01/25/24 11:22 [...] none current occupational status: employed current occupation: [employer] Smoking Status: Former smoker Electronic Cigarette [...] - Ar (more content not included)... Normal [facility] Basic Metabolic Profile (BMP )on 08-01-2024 BUN/CRE 12.9 RATIO Normal 10-20 [facility] Comment on above: Performed By: #### L 500.2500, L100.0500 #### [facility] Laboratory [address] [place], [address] CA,Total 9.1 mg/dL Normal 8.5-10.1 [facility] Comment on above: Performed By: #### L 500.2500, L100.0500 #### [facility] [address] [facility]. [facility] [address] Chloride [Moles/Vol] 109 mmol/L High 98-107 [facility] Comment on above: Performed By: #### L 500.2500, L100.0500 #### [facility] [address] [facility] [place], [address] CO2 [Moles/Vol] 29.0 mmol/L Normal 21.0-32.0 [facility] Comment on above: Performed By: #### L 500.2500, L100.0500 #### [facility] [address] [place], [address] Creatinine [Mass/Vol] 0.70 mg/dL Normal 0.55-1.02 [facility] Comment on above: Result Comment: The validity of the calculated GFR GFRAA in patients over 70 years has not been determined. Clinical correlation is essential. Performed By: #### L 500.2500, L100.0500 #### [facility] [address] [place], [address] ECRCL 85.56 ml/min Normal [facility] Comment on above: Performed By: #### L 500.2500, L100.0500 #### [facility] [address] [place], [address] EST GFR - AA 114 mL/min Normal >60 [facility] Comment on above: Result Comment: Afri can Montenegrin GFR Calc Performed By: #### L 500.2500, L100.0500 #### [facility] [address] [place], [address] GAP 5 Normal 5-15 [facility] Comment on above: Performed By: #### L 500.2500, L100.0500 #### [facility] [address] [place], [address] GFR/1.73 sq M.predicted among non-blacks MDRD (S/P/Bld) [Vol rate/Area] 94 mL/min/{1.73_m2} Normal >60 [facility] Comment on above: Result Comment: Non- GFR Calc Performed By: #### L 500.2500, L100.0500 #### [facility] [address] [place], [address] Glucose [Mass/Vol] 98 mg/dL Normal 74-106 [facility] Comment on above: Performed By: #### L 500.2500, L100.0500 #### [facility] [address] [place], [address] Potassium [Moles/Vol] 4.3 mmol/L Normal 3.5-5.1 [facility] Comment on above: Performed By: #### L 500.2500, L100.0500 #### [facility] [address] [place], [address] Sodium [Moles/Vol] 143 mmol/L Normal 136-145 [facility] Comment on above: Performed By: #### L 500.2500, L100.0500 #### [facility] [address] [place], [address] Urea nitrogen [Mass/Vol] 9 mg/dL Normal 7-18 [facility] Comment on above: Performed By: #### L 500.2500, L100.0500 #### [facility] [address] [place], [address] CBC-Complete Blood Cnt No Di ffon 08-01-2024 Erythrocyte distribution width (RBC) [Ratio] 13.0 % Normal 11.6-14.6 [facility] Comment on above: Performed By: #### L 500.2500, L100.0500 #### [facility] [address] [place], [address] Hematocrit (Bld) [Volume fraction] 34.4 % Low 37-47 [facility] Comment on above: Performed By: #### L 500.2500, L100.0500 #### [facility] [address] [place], [address] Hemoglobin (Bld) [Mass/Vol] 11.7 g/dL Low 12.0-15.0 [facility] Comment on above: Performed By: #### L 500.2500, L100.0500 #### [facility] [address] [place], [address] MCH (RBC) [Entitic mass] 31.2 pg Normal 27.0-32.0 [facility] Comment on above: Performed By: #### L 500.2500, L100.0500 #### [facility] [address] [place], [address] MCHC (RBC) [Mass/Vol] 34.0 g/dL Normal 32-36 [facility] Comment on above: Performed By: #### L 500.2500, L100.0500 #### [facility] [address] [place], [address] MCV (RBC) [Entitic vol] 91.7 fL Normal 81-99 [facility] Comment on above: Performed By: #### L 500.2500, L100.0500 #### [facility] [address] [place], [address] Platelet mean volume (Bld) [Entitic vol] 9.3 fL Normal 6.2-12.0 [facility] Comment on above: Performed By: #### L 500.2500, L100.0500 #### [facility] [address] [place], [address] Platelets (Bld) [#/Vol] 251 10*3/uL Normal 150-450 [facility] Comment on above: Performed By: #### L 500.2500, L100.0500 #### [facility] [address] [place], [address] RBC (Bld) [#/Vol] 3.75 10*6/uL Low 4.2-5.4 [facility] Comment on above: Performed By: #### L 500.2500, L100.0500 #### [facility] [address] [place], [address] RDW SD 43.4 fl Normal 35.1-43.9 [facility] Comment on above: Performed By: #### L 500.2500, L100.0500 #### [facility] [address] [place], [address] WBC (Bld) [#/Vol] 13.0 10*3/uL High 4.4-11.0 [facility] Comment on above: Performed By: #### L 500.2500, L100.0500 #### [facility] [address] [place], [address] Lumbar Spine 2 or 3 Viewson 08-01-2024 Lumbar Spine 2 or 3 Views [facility] Imaging Services [address] [place] [address] Lumbar Spine 2 or 3 Views MR#: [id number] Acct: [id number] Name: FAIZA TRIPP Rep #: [id number] : 1970 F 53 From: Hung Way MD PCP: Dr. Donta Mitchell MD Status: ADM IN Study: Lumbar Spine 2 or 3 Views Date of Exam: Exam# [id number] Ordering Dr: Sowmya Mchugh [id number] EXAM: XR LUMBOSACRAL SPINE, 2 OR 3 [...] CC: MEG Chowdhury; Dr. Donta Mitchell MD Pharmacy Buyer: Signed Normal [facility] Consultation - Hospitaliston 07-31-2024 Consultation - Hospitalist [facility] Medical Records Department [address] [place] [address] Consultation - Hospitalist 07/31/24 1644 MR#: [id number] Acct: [id number] Name: FAIZA TRIPP Rep #: [id number] : 1970 53 From: Rocco Rey DO PCP: Dr. Donta Mitchell MD Status:ADM IN Location: [facility] [id number] Assessment Plan Assessment/Plan (1) Spinal stenosis of lumbar region with neurogenic claudication: (2) Postoperative nausea: PLAN: Plan Patient is a 53-year-old female who presented [facility] on 07/31/2024 for planned lumbar fusion [...] is a 53 F who presented to [facility] on 08/05/2024 for planned lumbar fusion [...] No other acute concerns at this time. [facility] Medical History (Updated 07/31/24 @ 20:15 by [...] and cu (more content not included)... Normal [facility] Lumbar Spine 2 or 3 Viewson 07-31-2024 Lumbar Spine 2 or 3 Views [facility] Imaging Services [address] [place], [place] [address] Lumbar Spine 2 or 3 Views MR#: [id number] Acct: [id number] Name: QASIMFAIZA D Rep #: [id number] : 1970 F 53 From: Abbey shirley MD PCP: Dr. Donta Mitchell MD Status: ADM IN Study: Lumbar Spine 2 or 3 Views Date of Exam: Exam# [id number] Ordering Dr: Jh Hernandez [place] [id number] HISTORY: 360 FUSION L3-4 AND L4-5. TECHNIQUE: [...] 8:38 EST Reading Location ID and State: [facility] / [place] Tel , Service support , CC: Dr. Donta Mitchell MD; Dr. Jh Hernandez MD Pharmacy Buyer: Signed [facility] MR/POSTOP.[facility] 07-31-2024 MR/POSTOP.[facility] Medical Records Department [address] [place] [address] Anesthesia Postop Eval I 07/31/24 1235 MR#: [id number] Acct: [id number] Name: FAIZA TRIPP Rep #: [id number] : 1970 53 From: Palak Deasi PCP: Dr. Donta Mitchell MD Status:ADM IN Y Race: C Location: [place] [address] Anesthesia: Postop Eval I Current Vital Signs [...] Date Palak Pisanoignmina Signature: Date CC: Signed [facility] MR/JBAVVFDY7of 07-31-2024 MR/POSTOPAN2 [facility] Medical Records Department [address] [place] [address] Anesthesia Postop Eval II 07/31/24 1437 MR#: [id number] Acct: [id number] Name: FAIZA TRIPP Rep #: [id number] : 1970 53 From: Charles Hoover MD PCP: Dr. Donta Mitchell MD Status:ADM IN Y Race: C Location: [facility] AC-TBA-1 Anesthesia Postop Eval I Sum Postop Eval Completion status Anesthesia document: Postop Eval 1 completed: Yes Anesthesia Postop Eval I Summary Anesthesia Postop Eval I Summary: Anesthesia Postop Eval I: Assessment Summary Airway patent Yes 07/31/24 12:36 PHARMACY TECHNOLOGIST.GDOTT Spontaneous unlabored Yes 07/31/24 12:36 PHARMACY TECHNOLOGIST.GDOTT respirations Mental status Awake,Calm 07/31/24 12:36 PHARMACY TECHNOLOGIST.GDOTT nausea No 07/31/24 12:36 PHARMACY TECHNOLOGIST.GDOTT Vomiting No 07/31/24 12:36 PHARMACY TECHNOLOGIST.GDOTT Anesthesia Postop Eval I: Fluid Summary Crystalloid volume administer 2,200 07/31/24 12:36 PHARMACY TECHNOLOGIST.GDOTT (ml) Colloids volume administered ( ml) Blood Product volume administered (ml) Total IV fluid infused 2,200 07/31/24 12:36 PHARMACY TECHNOLOGIST.GDOTT Anesthesia Postop Eval I: Summary Notes Anesthesia Complication No 07/31/24 12:36 PHARMACY TECHNOLOGIST.GDOTT Anesthesia Complication Comment: Post-operative progress note Anesthesia: Postop Eval II Evaluation Mental status: Awake Pain Level: 0 nausea: No Vomiting: No 07/31/241436 Date Charles Hoover MD Cosigner Signature: Date CC: Signed Normal [facility] Operative Reporton 11-13-202 4 Operative Report [facility] Medical Records Department [address] [place] [address] Operative Report 07/31/24 1207 MR#: [id number] Acct: [id number] Name: FAIZA TRIPP Rep #: [id number] : 1970 53 From: Jh Hernandez MD PCP: Dr. Donta Mitchell MD Status:ADM IN Location: [place] [address] Operative Report (Standard) Operative Information Surgery/Procedure Performed: L3-5 posterior instrumented spinal fusion Surgeon: Jh Hernandez Date of Procedure: 07/31/24 Procedure Start Time: 08:37 Procedure Stop Time: 12:10 Pre-Operative Diagnosis: L4-5 spondylolisthesis, L3-5 disc degeneration, stenosis with neurogenic claudication Post-Operative Diagnosis: Same Select all DRAINS/GRAFTS/IMPLANTS that apply: Graft Graft details: Allograft cancellous bone chips and Implanted device Implanted device details: Checkpoint Surgicaler prime pedicle screw instrumentation Type of Anesthesia: General Estimated Blood Loss: 50 cc Specimen collected: No Description of surgery: Preoperative diagnosis: L4-5 spondylolisthesis, L3-5 disc degeneration, stenosis with neurogenic claudication Postoperative diagnosis: Same Name of procedures: L3-5 posterior percutaneous pedicle screw instrumented fusion, prone: ??? L3-4 posterior spinal fusion 39518 ??? L3-5 posterior pedicle screw instrumentation 51770 ??? L4-5 posterior fusion 10576/51 ??? Allograft cancellous chips 33007 Attending Surgeon: Dr. Jh Hernandez Estimated blood [...] to the screws with the help of TG Publishinger instrumentation system on both sides. AP and [...] procedure well and no complications occurred. Depuy [place] cage Viper Prime minimally invasive pedicle screw instrumentation system was utilized in this case. No dural tear was identified intraoperatively. I was present for the entirety of the case and performed the surgery. Surgical Findings: See operative note Electroencephalographic Technologist vp sales: Yes Print Operator: Sowmya Mchugh Tasks completed by operations assistant: Closing, Implanting device and Retracting Complications Complications: No Procedures Musculoskeletal 20xxx-29xxx: Other Procedure See Report 07/31/24 1209 Cosigner Signature (if applicable): CC: Dr. Donta Mitchell MD; Dr. Jh Hernandez MD Signed Normal [facility] Operative Report [facility] Medical Records Department [address] [place] [address] Operative Report 07/31/24 1158 MR#: [id number] Acct: [id number] Name: FAIZA TRIPP Rep #: [id number] : 1970 53 From: Jh Hernandez MD PCP: Dr. Donta Mitchell MD Status:ADM IN Location: [place] [address] Operative Report (Standard) Operative Information Surgery/Procedure Performed: [...] lateral decubitus: ??? L3-4 anterolateral spinal fusion 51455 ??? L4-5 anterolateral fusion 94755/51 ??? L3-4 insertion of cage 38583 ??? L4-5 insertion of cage 00231/51 ??? Bone graft aspirate left iliac crest [...] utilized to move the bowel and peritoneum uom-ii-fll-way and psoas muscle was exposed staying within the retroperitoneal plane. Proxibleframe retractor system was positioned and the retractor [...] Hospital Orthopedic Visit Reporton Orthopedic Visit Report [facility] [address] [facility] [address] [place] [address] OFFICE VISIT Date of Service: 07/25/24 MR#: [id number] Acct: [id number] Name: FAIZA TRIPP Rep #: [id number] : 1970 Provider: Dr. Jh Hernandez MD Age/Sex: 53/F Location: [facility] [facility].PK Status: Signed Intake Vital Signs 01/25/24 11:22 [...] none current occupational status: employed current occupation: [employer] Smoking Status: Former smoker Electronic Cigarette [...] take it. (more content not included)... Normal [facility] Hepatitis A AB, Totalon HEPATITIS A,TOT Negative Normal Negative [facility] Comment on above: Result Comment: Comm ent: The HAV total antibody assay detects both IgG and IgM but does not differentiate between them. A negative result suggests susceptibility to infection. A positive result could be due to vaccination, previously resolved infection or active infection. Testing for HAV IgM should be performed if active HAV infection is suspected. [facility] offers profiles that will automatically reflex positive HAV total antibody results to IgM (e.g., panel #[id number] HAV Antibody w/ Rfx). Performed at: [address] [id number] Full Time Babysitter: Addi Dickerson PhD, Phone: [phone] Performed By: #### B TSPAT, M100.651, L3100.0300, L3890.6200, L3890.6005, L3890.6300 ####[facility] [address] [place], [address] MRSA/SAID NASAL SCREENon MRSA+SAID SCRN Reason for Exam: PRE OP MRSA MRSA Negative S. AUREUS S. aureus Negative Normal [facility] Comment on above: Performed By: #### B TSPAT, M100.651, L3100.0300, L3890.6200, L3890.6005, L3890.6300 ####[facility] [address] [place], [address] 12 Lead EKGon 07-18-2024 12 Lead EKG [facility] Cardiovascular Services [address] [place] [address] 12 Lead EKG 07/18/24 0755 MR#: [id number] Acct: [id number] Name: FAIZA TRIPP Rep #: [id number] : 1970 53 From: Mich Rios MD Attending Dr: Dr. Jh Hernandez MD Status: PRE IN Ordering Dr: Jh Hernandez MD Date: 07/18/24 Location: [facility] Sex: F C Admitted: Test Reason : PREOP Blood Pressure : */* mmHG Vent. Rate : 60 BPM Atrial Rate : 60 BPM P-R Int : 152 ms QRS Dur : 88 ms QT Int : 428 ms P-R-T Axes : 66 12 18 degrees QTcB Int : 428 ms Normal sinus rhythm Normal ECG Confirmed by GABRIEL HEATH, MICH ([id number]), field map editor PATRICIO HUANG ([id number]) on 07/19/2024 11:17:43 AM Referred By: DAVID Confirmed By: MICH RIOS MD 07/19/24 1117 Date Mich Rios MD CC: Dr. Donta Mitchell MD; Dr. Jh Hernandez MD Signed Normal [facility] HIV - WCHon 07-18-2024 HIV Non-Reactive Normal Nonreactive [facility] Comment on above: Order Comment: Reaso n for Exam: PAT Performed By: #### B TSPAT, M100.651, L3100.0300, L3890.6200, L3890.6005, L3890.6300 ####[facility] [address] [place], [address] Hepatitis B Surface Antibody on 07-18-2024 HEP B Surf Ab Reactive Normal [facility] Comment on above: Order Comment: Reaso n for Exam: PAT Result Comment: Non Reactive: Inconsistent with immunity less than <10 mIU/mL Reactive: Consistent with immunity greater than or equal to 10 mIU/mL Performed By: #### B TSPAT, M100.651, L3100.0300, L3890.6200, L3890.6005, L3890.6300 ####[facility] [address] [place], [place], [address] Hepatitis C Antibodyon 07-18 Hepatitis C AB Non-Reactive Normal Nonreactive [facility] Comment on above: Order Comment: Reaso n for Exam: PAT Result Comment: Non Reactive: < 0.8 Equivocal: >/= 0.8 to < 1.0 Reactive: >/= 1.[address] [facility] requires that a reactive/equivocal HCV antibody result be sent out for confirmation. HCV Quant by PCR testing. Performed By: #### B TSPAT, M100.651, L3100.0300, L3890.6200, L3890.6005, L3890.6300 ####[facility] [address] [place], [place], [address] Magnesiumon 07-18-2024 Magnesium [Mass/Vol] 2.4 mg/dL Normal 1.6-2.6 [facility] Comment on above: Performed By: #### L 501.5200 ####[facility] [address] [place], [place], [address] Type AND Screen - PAT ONLYon 07-18-2024 Ab SCREEN GEL Negative Normal [facility] Comment on above: Order Comment: Surge ry Date: 07/31/24Reason for Laboratory Test [id number] FUSION L3-4 AND L4-5 Performed By: #### B TSPAT, M100.651, L3100.0300, L3890.6200, L3890.6005, L3890.6300 ####[facility] [address] [place], [place], [address] Absolute lymphocyte countOrd ered By: Mariana Mohan on 04-26-2023 Lymphocytes Auto (Unsp spec) [#/Vol] 1.64 10*3/uL 0.83-4.51 [facility] Basophil percentageOrdered B y: Mariana Mohan on 04-26-2023 Basophils/100 WBC (Bld) 1.8 % 0-1 [facility] Bilirubin [Mass/Vol] 0.50 mg/dL 0.20-1.00 [facility] Comment on above: For patients on eltr ombopag therapy, use of Dimension [place] TBIL is not recommended. Chloride [Moles/Vol] 107 mmol/L 98-107 [facility] Cholesterol [Mass/Vol] 206 mg/dL <200 [facility] Comment on above: <200 mg/dL Desirable 200-240 mg/dL Borderline >240 mg/dL High Risk Eosinophils/100 WBC (Bld) 10.3 % 0-5 [facility] Glucose [Mass/Vol] 85 mg/dL 74-106 [facility] Neutrophils (Bld) [#/Vol] 1.4 10*3/uL 2.0-7.7 [facility] Neutrophils/100 WBC (Bld) 34.0 % 47-70 [facility] Potassium [Moles/Vol] 4.3 mmol/L 3.5-5.1 [facility] Protein [Mass/Vol] 7.3 g/dL 6.4-8.2 [facility] Sodium [Moles/Vol] 139 mmol/L 136-145 [facility] Triglyceride [Mass/Vol] 88 mg/dL <199 [facility] Comment on above: The drugs N-Acetylcy steine and Metamizole may falsely depress this assay.Serum Triglycerides Reference Interval Normal <150 mg/dL Borderline high 150 - 199 mg/dL High 200 - 499 mg/dL Very High > or = 500 mg/dL WBC (Bld) [#/Vol] 4.0 10*3/uL 4.4-11.0 [facility] Blood erythrocytes count (nu mber/volume)Ordered By: Mariana Mohan on 04-26-2023 RBC (Bld) [#/Vol] 4.30 10*6/uL 4.2-5.4 [facility] Blood hemoglobin measurement (mass/volume)Ordered By: Mariana Mohan on 04-26-2023 Hemoglobin (Bld) [Mass/Vol] 13.5 g/dL 12.0-15.0 [facility] Blood lymphocytes/100 leukoc ytesOrdered By: Mariana Mohan on 04-26-2023 Lymphocytes/100 WBC (Bld) 41.1 % 19-41 [facility] Blood monocytes/100 leukocyt esOrdered By: Mariana Mohan on 04-26-2023 Monocytes/100 WBC (Bld) 12.5 % 0-10 [facility] Blood platelet mean volumeOr dered By: Mariana Mohan on 04-26-2023 Platelet mean volume (Bld) [Entitic vol] 9.7 fL 6.2-12.0 [facility] Determination of erythrocyte mean corpuscular volume (MCV)Ordered By: Mariana Mohan on 04-26-2023 MCV (RBC) [Entitic vol] 93.5 fL 81-99 [facility] Hematocrit Auto (Bld) [Volum e fraction]Ordered By: Mariana Mohan on 04-26-2023 Hematocrit (Bld) [Volume fraction] 40.2 % 37-47 [facility] Laboratory - Chemistry and C hemistry - challengeOrdered By: Marinaa Mohan on 04-26-2023 ALP [Catalytic activity/Vol] 104 U/L 45-117 [facility] ALT [Catalytic activity/Vol] 28 U/L 13-56 [facility] CO2 [Moles/Vol] 28.0 mmol/L 21.0-32.0 [facility] Cobalamin (Vitamin B12) [Mass/Vol] 1034 pg/mL 211-911 [facility] Globulin (S) [Mass/Vol] 3.7 g/dL 2.2-4.2 [facility] Urea nitrogen/Creatinine [Mass ratio] 24.5 mg/mg 10-20 [facility] Laboratory - Hematology and Cell countsOrdered By: Mariana Mohan on 04-26-2023 Erythrocyte distribution width (RBC) [Entitic vol] 45.5 fL 35.1-43.9 [facility] Erythrocyte distribution width (RBC) [Ratio] 13.2 % 11.6-14.6 [facility] Immature granulocytes/100 WBC (Bld) 0.300 % 0.0-0.9 [facility] Comment on above: IG% - Immature Granu locytes (promyelocytes, myelocytes and metamyelocytes) > 1% indicates that a LEFT SHIFT is Present. MCH (RBC) [Entitic mass] 31.4 pg 27.0-32.0 [facility] Nucleated RBC/100 WBC (Bld) [Ratio] 0 % 0-5 [facility] MCHC Auto (RBC) [Mass/Vol]Or dered By: Mariana Mohan on 04-26-2023 MCHC (RBC) [Mass/Vol] 33.6 g/dL 32-36 [facility] No Panel InformationOrdered By: Mariana Mohan on 04-26-2023 Estimated GFR (MDRD) Amer 108 mL/min >60 [facility] Comment on above: GFR Calc Estimated GFR (MDRD) Non-Af Amer 89 mL/min >60 [facility] Comment on above: Non- GFR Calc Thyroid Stimulating Hormone (TSH) 3.21 uIU/mL 0.358-3.74 [facility] Vitamin D 25-Hydroxy 61.9 ng/mL [facility] Comment on above: Vitamin D 25(OH) Sta tus Range Deficiency <20 ng/mL (50nmol/L) Insufficiency 20 - 30 ng/mL (50 - 75 nmol/L) Sufficiency 30 - 100 ng/mL (75 - 250 nmol/L) Toxicity >100 ng/mL (>250 nmol/L) Platelets bldOrdered By: Sam Mohan on 04-26-2023 Platelets (Bld) [#/Vol] 230 10*3/uL 150-450 [facility] Serum or plasma albumin shaji urement (mass/volume)Ordered By: Mariana Mohan on 04-26-2023 Albumin [Mass/Vol] 3.6 g/dL 3.2-5.0 [facility] Serum or plasma albumin/glob ulin mass ratioOrdered By: Mariana Mohan on 04-26-2023 Albumin/Globulin [Mass ratio] 1.0 {ratio} 0.9-2.4 [facility] Serum or plasma calcium shaji urement (mass/volume)Ordered By: Mariana Mohan on 04-26-2023 Calcium [Mass/Vol] 8.5 mg/dL 8.5-10.1 [facility] Serum or plasma cholesterol in HDL measurement (mass/volume)Ordered By: Mariana Mohan on 04-26-2023 Cholesterol in HDL [Mass/Vol] 78 mg/dL >40 [facility] Comment on above: The drugs N-Acetylcy steine and Metamizole may falsely depress this assay. Reference Range HDL <40 mg/dL Low HDL Cholesterol HDL >or= 60 mg/dL High HDL Cholesterol Serum or plasma cholesterol in VLDL measurement (mass/volume)Ordered By: Mariana Mohan on 04-26-2023 Cholesterol in VLDL [Mass/Vol] 18 mg/dL 5-40 [facility] Serum or plasma creatinine m easurement (mass/volume)Ordered By: Mariana Mohan on 04-26-2023 Creatinine [Mass/Vol] 0.73 mg/dL 0.55-1.02 [facility] Comment on above: The validity of the calculated GFR & GFRAA in patients over 70 years has not been determined. Clinical correlation is essential. Serum or plasma low density lipoprotein (LDL) cholesterol measurement (mass/volume)Ordered By: Mariana Mohan on 04-26-2023 Cholesterol in LDL [Mass/Vol] 110 mg/dL 0-130 [facility] Serum or plasma urea nitroge n measurement (mass/volume)Ordered By: Mariana Mohan on 04-26-2023 Urea nitrogen [Mass/Vol] 18 mg/dL 7-18 [facility] Thin prep Papanicolaou smear with manual screeningOrdered By: Mariana Mohan on 04-26-2023 Thin prep Papanicolaou smear with manual screening 19 U/L 15-37 [facility] Thin prep Papanicolaou smear with manual screening 4 5-15 [facility] Thin prep Papanicolaou smear with manual screening Negative Negative [facility] Comment on above: Lyme antibodies not detected. Reflex testing is notindicated.No laboratory evidence of infection with B. burgdorferi(Lyme disease). Negative results may occur in patientsrecently infected (less than or equal to 14 days) with B.burgdorferi. If recent infection is suspected, repeattesting on a new sample collected in 7 to 14 days isrecommended.Performed at: - [address] [id number] Director: Addi Dickerson PhD, Phone: [phone] No Panel InformationOrdered By: Mirtha Hudson on 01-27-2023 Follicle Stimulating Hormone 161.6 mIU/mL [facility] Comment on above: NORMAL REFERENCE RAN GES FEMALE FOLLICULAR 2.3 - 12.6 mIU/mL MID-CYCLE PEAK 5.2 - 17.5 mIU/mL LUTEAL 1.7 - 12.9 mIU/mL POST-MENOPAUSAL ON MHT 5.9 - 72.8 mIU/mL NOT ON MHT 12.7 - 132.2 mlU/mL MALE 0.7 - 10.8 mIU/mL Luteinizing Hormone 52.3 mIU/mL [facility] Comment on above: NORMAL REFERENCE RAN GES FEMALE FOLLICULAR 1.9 - 26.2 mIU/mL MID-CYCLE PEAK 22.8 - 76.1 mIU/mL LUTEAL 0.6 - 16.6 mIU/mL POST-MENOPAUSAL ON MHT 1.1 - 52.4 mIU/mL NOT ON MHT 8.6 - 61.8 mIU/mL MALE 1.2 - 10.6 mIU/mL Serum or plasma estradiol (E 2) measurement (mass/volume)Ordered By: Mirtha Hudson on 01-27-2023 E2 [Mass/Vol] 20.4 pg/mL [facility] Comment on above: NORMAL REFERENCE RAN [...] RNA KELLY+probe Ql (Unsp spec) Not detected [facility] Basophil percentageOrdered B y: Dr. Mohan on 09-01-2022 Basophil percentage < 0.2 AI 0.0-0.9 [facility] Bilirubin [Mass/Vol] 0.50 mg/dL 0.20-1.00 [facility] Comment on above: For patients on eltr ombopag therapy, use of Dimension [place] TBIL is not recommended. Chloride [Moles/Vol] 109 mmol/L 98-107 [facility] Cholesterol [Mass/Vol] 202 mg/dL <200 [facility] Comment on above: <200 mg/dL Desirable 200-240 mg/dL Borderline >240 mg/dL High Risk Glucose [Mass/Vol] 90 mg/dL 74-106 [facility] Potassium [Moles/Vol] 4.3 mmol/L 3.5-5.1 [facility] Protein [Mass/Vol] 7.4 g/dL 6.4-8.2 [facility] Sodium [Moles/Vol] 141 mmol/L 136-145 [facility] Triglyceride [Mass/Vol] 57 mg/dL <199 [facility] Comment on above: The drugs N-Acetylcy steine and Metamizole may falsely depress this assay.Serum Triglycerides Reference Interval Normal <150 mg/dL Borderline high 150 - 199 mg/dL High 200 - 499 mg/dL Very High > or = 500 mg/dL Erythrocyte sedimentation ra teOrdered By: Dr. Mohan on 09-01-2022 ESR (Bld) [Velocity] 6 mm/h 0-30 [facility] Laboratory - Chemistry and C hemistry - challengeOrdered By: Dr. Mohan on 09-01-2022 ALP [Catalytic activity/Vol] 105 U/L 45-117 [facility] ALT [Catalytic activity/Vol] 30 U/L 13-56 [facility] CO2 [Moles/Vol] 26.0 mmol/L 21.0-32.0 [facility] Globulin (S) [Mass/Vol] 3.6 g/dL 2.2-4.2 [facility] Urea nitrogen/Creatinine [Mass ratio] 20.1 mg/mg 10-20 [facility] No Panel InformationOrdered By: Dr. Mohan on 09-01-2022 Centromere B Antibody <0.2 AI 0.0-0.9 [facility] Estimated GFR (MDRD) Amer 115 mL/min >60 [facility] Comment on above: GFR Calc Estimated GFR (MDRD) Non-Af Amer 95 mL/min >60 [facility] Comment on above: Non- GFR Calc LODGE ATTENDANT Antibody <0.2 AI 0.0-0.9 [facility] Serum DNA double strand anti body assay (units/volume)Ordered By: Dr. Mohan on 09-01-2022 DNA double strand Ab Qn (S) 1 [IU]/mL 0-9 [facility] Comment on above: Negative <5 Equivoca l 5 - 9 Positive >9 Serum May-1 antibody assay (u nits/volume)Ordered By: Dr. Mohan on 09-01-2022 May-1 extractable nuclear Ab Qn (S) <0.2 AI 0.0-0.9 [facility] Serum Scl-70 extractable nuc lear antibody assay (units/volume)Ordered By: Dr. Mohan on 09-01-2022 SCL-70 extractable nuclear Ab Qn (S) <0.2 AI 0.0-0.9 [facility] Serum Bullock extractable nucl ear antibody detectionOrdered By: Dr. Mohan on 09-01-2022 Bullock extractable nuclear Ab Ql (S) <0.2 AI 0.0-0.9 [facility] Serum cyclic citrullinated p eptide IgG antibody assay (units/volume)Ordered By: Dr. Mohan on 09-01-2022 Cyclic citrullinated peptide IgG Qn 0 units 0-19 [facility] Comment on above: Negative <20 Weak po sitive 20 - 39 Moderate positive 40 - 59 Strong positive >59Performed at: [facility] [address] [id number] Director: Addi Dickerson PhD, Phone: [phone] Serum or plasma C reactive p rotein measurement (mass/volume)Ordered By: Dr. Mohan on 09-01-2022 CRP [Mass/Vol] mg/L 0.0-3.0 [facility] Comment on above: C-Reactive Protein ( CRP) provides useful information for thediagnosis, therapy and monitoring of inflammatory processesand associated diseases. For the evaluation of Relative Riskfor Cardiovascular Disease, a High Sensitivity CRP (HSCRP)should be ordered. Serum or plasma albumin shaji urement (mass/volume)Ordered By: Dr. Mohan on 09-01-2022 Albumin [Mass/Vol] 3.8 g/dL 3.2-5.0 [facility] Serum or plasma albumin/glob ulin mass ratioOrdered By: Dr. Mohan on 09-01-2022 Albumin/Globulin [Mass ratio] 1.1 {ratio} 0.9-2.4 [facility] Serum or plasma calcium shaji urement (mass/volume)Ordered By: Dr. Mohan on 09-01-2022 Calcium [Mass/Vol] 9.1 mg/dL 8.5-10.1 [facility] Serum or plasma cholesterol in HDL measurement (mass/volume)Ordered By: Dr. Mohan on 09-01-2022 Cholesterol in HDL [Mass/Vol] 82 mg/dL >40 [facility] Comment on above: The drugs N-Acetylcy steine and Metamizole may falsely depress this assay. Reference Range HDL <40 mg/dL Low HDL Cholesterol HDL >or= 60 mg/dL High HDL Cholesterol Serum or plasma cholesterol in VLDL measurement (mass/volume)Ordered By: Dr. Mohan on 09-01-2022 Cholesterol in VLDL [Mass/Vol] 11 mg/dL 5-40 [facility] Serum or plasma creatinine m easurement (mass/volume)Ordered By: Dr. Mohan on 09-01-2022 Creatinine [Mass/Vol] 0.70 mg/dL 0.55-1.02 [facility] Comment on above: The validity of the calculated GFR & GFRAA in patients over 70 years has not been determined. Clinical correlation is essential. Serum or plasma low density lipoprotein (LDL) cholesterol measurement (mass/volume)Ordered By: Dr. Mohan on 09-01-2022 Cholesterol in LDL [Mass/Vol] 109 mg/dL 0-130 [facility] Serum or plasma urea nitroge n measurement (mass/volume)Ordered By: Dr. Mohan on 09-01-2022 Urea nitrogen [Mass/Vol] 14 mg/dL 7-18 [facility] Serum rheumatoid factor dete ctionOrdered By: Dr. Mohan on 09-01-2022 Rheumatoid factor Ql (S) < 10.0 IU/mL <15 [facility] Thin prep Papanicolaou smear with manual screeningOrdered By: Dr. Mohan on 09-01-2022 Thin prep Papanicolaou smear with manual screening 19 U/L 15-37 [facility] Thin prep Papanicolaou smear with manual screening 6 5-15 [facility] No Panel Informationon 12-24 Hepatitis B Surface Antibody Reactive [facility] Work Phone: Comment on above: Non Reactive: Incons istent with immunity less than <10 mIU/mL Reactive: Consistent with immunity greater than or equal to 10 mIU/mL Rubella IgG Antibody Reactive Nonreactive [facility] Work Phone: Comment on above: Antibody Results Int erpretation of Immune Status Non Reactive Presumed Non-Immune Equivocal Equivocal Reactive Presumed Immune Serum measles virus IgG anti body assay (units/volume)on 12-24-2021 MeV IgG Qn (S) 104.0 AU/mL Immune >16.4 [facility] Work Phone: Comment on above: Negative <13.5 Equiv ocal 13.5 - 16.4 Positive >16.4Presence of antibodies to Rubeola is presumptive evidenceof immunity except when acute infection is suspected.Performed at: [facility] [address] [id number] Director: Addi Dickerson PhD, Phone: [phone] Serum mumps virus IgG antibo dy assay (units/volume)on 12-24-2021 MuV IgG Qn (S) 180.0 AU/mL Immune >10.9 [facility] Work Phone: Comment on above: Negative <9.0 Equivo heidi 9.0 - 10.9 Positive >10.9A positive result generally indicates past exposure toMumps virus or previous vaccination. 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 [facility] ([place]) Comment on above: Performed By: #### C OVD19 #### Teddy [place] [address] [place], [place] [address] First Test No [facility] ([place] Comment on above: Performed By: #### C OVD19 #### Teddy [place] [address] [place], [place] [address] Hospitalized No [facility] ([place] Comment on above: Performed By: #### C OVD19 #### Teddy [address] [address] ICU No [facility] ([place] Comment on above: Performed By: #### C OVD19 #### Teddy [address] [address] Unknown [facility] ([place] Comment on above: Performed By: #### C OVD19 #### Teddy [address] [address] Resides in Congregate Care Setting No [facility] ([place] Comment on above: Performed By: #### C OVD19 #### Teddy [address] [address] SARS-CoV-2 (COVID-19) RNA KELLY+probe Ql (Unsp spec) Negative Normal Negative [facility] ([place] Comment on above: Performed By: #### C OVD19 #### Teddy [address] [address] SARS-CoV-2 (COVID-19) RNA KELLY+probe Ql (Unsp spec) Normal [facility] ([place] Comment on above: Result Comment: Nega tive [...] Int Performed By: #### C OVD19 #### [place] [id number] Symptomatic as Defined by [facility] Yes Normal [facility] ([place] Comment on above: Performed By: #### C OVD19 #### [place] [id number] LABORATORYOrdered By: Georgiana Rogers on 09-17-2021 ADMITTED [...] Invalid Interpretation Code AO Auto Urine SS [id number] 02-23-2021 Date of Onset [id number] Invalid Interpretation Code [facility] ([place] Comment on above: Performed By: #### C OVD19 #### [place] [address] 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 Normal [facility] ([place] Comment on above: Performed By: #### C OVD19 #### [place] [address] First Test Unknown [facility] ([place] Comment on above: Performed By: #### C OVD19 #### [facility] [address] [place] [address] Hospitalized No [facility] ([place] Comment on above: Performed By: #### C OVD19 #### [place] [id number] ICU No [facility] ([place] Comment on above: Performed By: #### C OVD19 #### [place] [address] Not [facility] ([place] Comment on above: Performed By: #### C OVD19 #### [place] [address] Resides in Congregate Care Setting No Normal [facility] [place] Comment on above: Performed By: #### C OVD19 #### [place] [address] SARS-CoV-2 (COVID-19) RNA KELLY+probe Ql (Unsp spec) Negative Normal Negative [facility] ([place] Comment on above: Performed By: #### C OVD19 #### [place] [address] SARS-CoV-2 (COVID-19) RNA KELLY+probe Ql (Unsp spec) Normal [facility] ([place]) Comment on above: Result [...] Int Performed By: #### C OVD19 #### [place] [address] Symptomatic as Defined by CDC No Normal [facility] ([place] Comment on above: Performed By: #### C OVD19 #### [place] [address] MA MAMMOGRAM SCREENING BILAT ERAL W/TOMOon 02-16-2021 MA MAMMOGRAM SCREENING BILATERAL W/ASHLEY ORIGINAL FROM: [facility] [address] [place], [place] [address] PROCEDURE FOR: FAIZA TRIPP [address] [place] [address] Home: PID#: [id number] Exam#: [id number] : 1970 Age: 50 TO: FAHAD [employer]OD [employer] [address] [place], [place] [address] Fax: NO FAX #[phone] BILATERAL DIGITAL SCREENING MAMMOGRAM 3D/2D WITH CAD WITH MEDIOLATERAL OBLIQUE CRANIOCAUDAL: 02/16/2021 Comparison is made to exams dated: 01/19/2017 mammogram and 02/02/2019 mammogram - [facility]. The tissue of both breasts is heterogeneously [...] recommended.( 2) ROXANN TERRY MD da/paulette:02/18/2021 14:28:44 Ship Purser(s): RT ANABELLA (R)(M), [facility] letter sent: Normal BI-RADS 1&2 Mammogram BI-RADS: 2 Benign Normal [facility] ([place]) .Auto Diffon 01-01-2021 Basophil, Absolute 0.10 10 3/mcL Normal 0.00-0.19 [facility]) Comment on above: Performed By: #### T SH, LIPID, CMP, GFR #### [facility] [address] [place] [address] #### CBC, ADIFF, ANEU #### [place] [id number] [place], [place] [address] Basophils/100 WBC (Bld) 1.4 % Normal 0.0-2.5 [facility] ([place] Comment on above: Performed By: #### T SH, LIPID, CMP, GFR #### [place] [address] #### CBC, ADIFF, ANEU #### [address] [address] Eosinophil, Absolute 0.40 10 3/mcL Normal 0.00-0.40 A [facility] ([place]) Comment on above: Performed By: #### T SH, LIPID, CMP, GFR #### [place] [address] #### CBC, ADIFF, ANEU #### [address] [address] Eosinophils/100 WBC (Bld) 8.7 % High 0.0-7.0 [facility] ([place] Comment on above: Performed By: #### T SH, LIPID, CMP, GFR #### [place] [address] #### CBC, ADIFF, ANEU #### [address] [address] Lymphocyte, Absolute 1.60 10 3/mcL Normal 0.77-3.85 A [facility] ([place] Comment on above: Performed By: #### T SH, LIPID, CMP, GFR #### [place] [address] #### CBC, ADIFF, ANEU #### [address] [address] Lymphocytes/100 WBC (Bld) 34.0 % Normal 10.0-50.0 [facility] [place] Comment on above: Performed By: #### T SH, LIPID, CMP, GFR #### [place] [address] #### CBC, ADIFF, ANEU #### [address] [address] Monocyte, Absolute 0.60 10 3/mcL Normal 0.15-1.00 [facility] ([place]) Comment on above: Performed By: #### T SH, LIPID, CMP, GFR #### [address] [address] #### CBC, ADIFF, ANEU #### [address] [address] Monocytes/100 WBC (Bld) 12.6 % Normal 1.7-13.0 [facility] ([place] Comment on above: Performed By: #### T SH, LIPID, CMP, GFR #### [place] [address] #### CBC, ADIFF, ANEU #### [address] [address] Neutrophils/100 WBC (Bld) 43.3 % Normal 37.0-80.0 [facility] [place] Comment on above: Performed By: #### T SH, LIPID, CMP, GFR #### [place] [address] #### CBC, ADIFF, ANEU #### [address] [address] .GFRon 01-01-2021 GFR Non- 68 ml/min/1.73sqm Normal [facility] ([place] Comment on above: Result Comment: GFR Population [...] #### T SH, LIPID, CMP, GFR #### [place] [address] #### CBC, ADIFF, ANEU #### [address] [address] GFR 82 ml/min/1.73sqm Normal [facility] ([place] Comment on above: Result Comment: GFR Population [...] #### T SH, LIPID, CMP, GFR #### [place] [address] #### CBC, ADIFF, ANEU #### [address] [address] .NEUABSon 01-01-2021 Neutrophil, Absolute 2.00 10 3/mcL Low 2.85-6.16 A [facility] ([place] Comment on above: Performed By: #### T SH, LIPID, CMP, GFR #### [place] [address] #### CBC, ADIFF, ANEU #### [address] [address] CBCon 01-01-2021 Erythrocyte distribution width (RBC) [Ratio] 13.3 % Normal 11.5-14.5 [facility] ([place] Comment on above: Performed By: #### T SH, LIPID, CMP, GFR #### [place] [address] #### CBC, ADIFF, ANEU #### [address] [address] Hematocrit (Bld) [Volume fraction] 41.1 % Normal 37.0-47.0 [facility] ([place] Comment on above: Performed By: #### T SH, LIPID, CMP, GFR #### [place] [address] #### CBC, ADIFF, ANEU #### [address] [address] Hgb 14.1 G/dL Normal 12.0-16.0 [facility] ([place] Comment on above: Performed By: #### T SH, LIPID, CMP, GFR #### [place] [address] #### CBC, ADIFF, ANEU #### [address] [address] MCH (RBC) [Entitic mass] 32.0 pg High 27.0-31.2 [facility] ([place] Comment on above: Performed By: #### T SH, LIPID, CMP, GFR #### [place] [address] #### CBC, ADIFF, ANEU #### [place] [address] MCHC 34.2 G/dL Normal 33.0-37.0 [facility] ([place] Comment on above: Performed By: #### T SH, LIPID, CMP, GFR #### [place] [address] #### CBC, ADIFF, ANEU #### [address] [address] MCV (RBC) [Entitic vol] 93.6 fL Normal 80.0-94.0 [facility] ([place] Comment on above: Performed By: #### T SH, LIPID, CMP, GFR #### [place] [address] #### CBC, ADIFF, ANEU #### [address] [address] Platelet 236 10 3/mcL Normal 130-400 [facility] ([place]) Comment on above: Performed By: #### T SH, LIPID, CMP, GFR #### [place] [address] #### CBC, ADIFF, ANEU #### [address] [address] Platelet mean volume (Bld) [Entitic vol] 7.6 fL Normal 7.4-10.4 [facility] ([place] Comment on above: Performed By: #### T SH, LIPID, CMP, GFR #### [place] [address] #### CBC, ADIFF, ANEU #### [address] [address] RBC 4.39 10 6/mcL Normal 4.20-5.40 [facility] ([place] Comment on above: Performed By: #### T SH, LIPID, CMP, GFR #### [place] [address] #### CBC, ADIFF, ANEU #### [address] [address] WBC 4.60 10 3/mcL Normal 4.60-10.80 [facility] ([place] Comment on above: Performed By: #### T SH, LIPID, CMP, GFR #### [place] [address] #### CBC, ADIFF, ANEU #### [address] [address] CMPon 01-01-2021 Albumin Level 3.9 G/dL Normal 3.5-5.0 [facility] ([place] Comment on above: Performed By: #### T SH, LIPID, CMP, GFR #### [place] [address] #### CBC, ADIFF, ANEU #### [address] [address] Albumin/Globulin [Mass ratio] 1.3 {ratio} Normal 1.1-2.5 [facility] ([place] Comment on above: Performed By: #### T SH, LIPID, CMP, GFR #### [place] [address] #### CBC, ADIFF, ANEU #### [address] [address] ALP [Catalytic activity/Vol] 101 U/L Normal 40-135 [facility] ([place] Comment on above: Performed By: #### T SH, LIPID, CMP, GFR #### [place] [address] #### CBC, ADIFF, ANEU #### [address] [address] ALT [Catalytic activity/Vol] 26 U/L Normal 14-59 [facility] ([place]) Comment on above: Performed By: #### T SH, LIPID, CMP, GFR #### [place] [address] #### CBC, ADIFF, ANEU #### [place] [id number] AST [Catalytic activity/Vol] 20 U/L Normal 10-40 [facility] ([place]) Comment on above: Performed By: #### T SH, LIPID, CMP, GFR #### [place] [address] #### CBC, ADIFF, ANEU #### [address] [address] Bili Total 0.6 mg/dL Normal 0.2-1.0 [facility] ([place]) Comment on above: Result Comment: Use of this assay is not recommended for patients undergoing treatment with eltrombopag due to the potential for falsely elevated results. Performed By: #### T SH, LIPID, CMP, GFR #### [place] [address] #### CBC, ADIFF, ANEU #### [address] [address] BUN/Creatinine Ratio 17 ratio Normal 7-27 [facility] ([place]) Comment on above: Performed By: #### T SH, LIPID, CMP, GFR #### [place] [address] #### CBC, ADIFF, ANEU #### [address] [address] Calcium [Mass/Vol] 9.0 mg/dL Normal 8.4-10.2 [facility] ([place]) Comment on above: Performed By: #### T SH, LIPID, CMP, GFR #### [place] [address] #### CBC, ADIFF, ANEU #### [address] [address] Chloride [Moles/Vol] 104 mmol/L Normal 98-107 [facility] ([place]) Comment on above: Performed By: #### T SH, LIPID, CMP, GFR #### [place] [address] #### CBC, ADIFF, ANEU #### [address] [address] CO2 [Moles/Vol] 29 mmol/L Normal 22-29 [facility] ([place] Comment on above: Performed By: #### T SH, LIPID, CMP, GFR #### [place] [address] #### CBC, ADIFF, ANEU #### [address] [address] Creatinine [Mass/Vol] 0.89 mg/dL Normal 0.55-1.02 [facility] ([place]) Comment on above: Performed By: #### T SH, LIPID, CMP, GFR #### [place] [address] #### CBC, ADIFF, ANEU #### [address] [address] Electrolyte Balance 11.0 mEq/L Normal [facility] ([place]) Comment on above: Performed By: #### T SH, LIPID, CMP, GFR #### [place] [address] #### CBC, ADIFF, ANEU #### [address] [address] Globulin 3.1 G/dL Normal [facility] ([place]) Comment on above: Performed By: #### T SH, LIPID, CMP, GFR #### [place] [address] #### CBC, ADIFF, ANEU #### [address] [address] Glucose [Mass/Vol] 81 mg/dL Normal 70-105 [facility] ([place]) Comment on above: Performed By: #### T SH, LIPID, CMP, GFR #### [place] [address] #### CBC, ADIFF, ANEU #### [address] [address] Potassium [Moles/Vol] 4.7 mmol/L Normal 3.5-5.1 [facility] ([place]) Comment on above: Performed By: #### T SH, LIPID, CMP, GFR #### [place] [address] #### CBC, ADIFF, ANEU #### [address] [address] Sodium [Moles/Vol] 144 mmol/L Normal 136-145 [facility] ([place]) Comment on above: Performed By: #### T SH, LIPID, CMP, GFR #### [place] [address] #### CBC, ADIFF, ANEU #### [address] [address] Total Protein 7.0 G/dL Normal 6.4-8.2 [facility] ([place]) Comment on above: Performed By: #### T SH, LIPID, CMP, GFR #### [place] [address] #### CBC, ADIFF, ANEU #### [address] [address] Urea nitrogen [Mass/Vol] 15 mg/dL Normal 7-18 [facility] ([place] Comment on above: Performed By: #### T SH, LIPID, CMP, GFR #### [place] [address] #### CBC, ADIFF, ANEU #### [address] [address] LIPIDon 01-01-2021 Cholesterol [Mass/Vol] 205 mg/dL High 0-200 [facility] ([place]) Comment on above: Result Comment: Chol esterol Reference Interval: Less than 200 Desirable 200-239 Borderline high risk 240 and above High risk Performed By: #### T SH, LIPID, CMP, GFR #### [place] [address] #### CBC, ADIFF, ANEU #### [address] [address] Cholesterol in HDL [Mass/Vol] 88 mg/dL High 40-60 [facility] ([place]) Comment on above: Performed By: #### T SH, LIPID, CMP, GFR #### [place] [address] #### CBC, ADIFF, ANEU #### [address] [address] Cholesterol in LDL [Mass/Vol] 106 mg/dL Normal 0-130 [facility] ([place]) Comment on above: Performed By: #### T SH, LIPID, CMP, GFR #### [place] [address] #### CBC, ADIFF, ANEU #### [address] [address] Triglyceride [Mass/Vol] 57 mg/dL Normal 0-150 [facility] ([place]) Comment on above: Result Comment: Trig lyceride Reference Interval: Less than 150 Normal 150-199 Borderline high risk 200-499 High risk 500 or higher Very high risk Performed By: #### T SH, LIPID, CMP, GFR #### [place] [address] #### CBC, ADIFF, ANEU #### [address] [address] TSHon 01-01-2021 TSH Qn 1.82 m[IU]/L Normal 0.36-3.74 [facility] ([place]) Comment on above: Performed By: #### T SH, LIPID, CMP, GFR #### [facility] [address] [place] [id number] #### CBC, ADIFF, ANEU #### [address] [address] Malini 11-05-2020 WILFRIDN Telephone (VTRIAG) FAIZA TRIPP ([id number]) 1970 F Date Time Provider Department 11/05/20 SHERRY MCHUGH During your visit today, we recorded the following information about you: Sherry Mchugh APRN.WILFRID 11/05/2020 2:34 PM Signed Please notify patient that all testing was negative, no yeast, BV, trichomonas, GC,Chlamydia, or Herpes Advise if has further concerns, follow up with [facility]. .Sherry Mchugh APRN.WILFRID Duval Ma 11/05/2020 5:47 PM Signed Patient reviewed results via [employer] automatic release. Patient notified via [employer] message. Allergies As of Date: 11/05/2020 Noted [...] by AYLIN DUVAL MA on 11/05/20 Normal [facility] CNOVon 11-03-2020 CNOV Office Visit (UCWSTR ) FAIZA TRIPP ([id number]) 1970 F Date Time Provider Department 11/03/20 7:30 PM MATIAS STRATTON (KETTLE SKIMMER) [facility] During your visit today, we recorded the [...] vagina. Genitourinary Comments: Vaginal swab obtained with sales trader at bedside. Musculoskeletal: Cervical back: Normal range [...] unremarkable at (more content not included)... Normal [facility] GC/Chlamydia Amplifon 2020 Chlamydia Amplif Negative Normal [facility] Comment on above: Performed By: #### G CCT #### [facility] [address] [place], [place] [address] GC Amplification Negative Normal [facility] Comment on above: Performed By: #### G CCT #### [facility] [address] [place], [place] [address] GC/Chlam Amp Source Cervix Normal [facility] Comment on above: Performed By: #### G CCT #### [facility] [address] [place], [place] [address] HSV1,2/VZV Amplifon 11-03-19 21 HSV Type 1, HDA Negative for Herpes Simplex virus Type 1 by Molecular Detection. Normal [facility] Comment on above: Performed By: #### H SVVZV #### [facility] [address] [place], [place] [address] HSV Type 2, HDA Negative for Herpes Simplex virus Type 2 by Molecular Detection. Normal [facility] Comment on above: Performed By: #### H SVVZV #### [place] [phone] Specimen source Nom (Unsp spec) Lesion Normal [facility] Comment on above: Performed By: #### H SVVZV #### [place] [phone] V Zoster Virus, HDA Negative for Varicel la Zoster virus by [employer] Detection. Normal [facility] Comment on above: Performed By: #### H SVVZV #### [place] [phone] Vag Pathogens DNAon 11-03-19 21 Sonal sp DNA Probe Negative Normal Negativ e for Sonal species by DNA Probe [facility] Comment on above: Performed By: #### V AGDNA #### [place] [phone] Kanu vag DNA Probe Negative Normal Negative for Gardnerella vaginalis by DNA Probe [facility] Comment on above: Performed By: #### V AGDNA #### [place] [phone] Trich vag DNA Probe Negative Normal Negative for Trichomonas vaginalis by DNA Probe [facility] Comment on above: Performed By: #### V AGDNA #### [place] [phone] XR SPINE LUMBOSACRAL 5 VIEWS on 03-14-2018 XR SPINE LUMBOSACRAL 5 VIEWS EXAM: XR SPINE LUMBOSACRAL 5 VIEWS, including flexion and extension [email or web address]/14/2018 14:31 PMCOMPARISON: No prior studies available for [...] CATERINA Erwin on 03/14/2018 2:34 PM Normal [facility] XR SPINE SCOLIOSIS 2/3 VIEWS on 03-14-2018 [...] within mid/lower thoracic spine and L5/S1. Normal [facility] CT Foot w/o Contrast Lefton 10-18-2017 CT Foot w/o Contrast Left Exam Date/Time:10/17/2017 16:40 ESTReason for Exam:CYST OF BONE LEFT ANKLE AND FOOT / LEFT FOOT PAINReportEXAM: CT FOOT WITHOUT CONTRAST LEFTCLINICAL STATEMENT: Pain distal and mid left foot in certain positions of thefoot.COMPARISON: None.TECHNIQUE: 1 mm axial helical scanning, with MPR and 3-D reconstruction on [employer] - Biom[employer] Determination workstation.Dose reduction techniques were achieved by using [...] by: Gordo De La Vega MD Technologist: [employer] [facility] [employer] Vital Signs Date Time Vital Sign Value Performing Clinician Tayei qian 04-16-2025 13:49-0400 Body height 167.6 cm Matias Goldberg MD Work Phone: [facility] 04-16-2025 13:49-0400 Body mass index (BMI) [Ratio] 22.6 kg/m2 Matias Goldberg MD Work Phone: [facility] [employer] 04-16-2025 13:49-0400 Body weight 63.5 kg Matias Goldberg MD Work Phone: [facility] 04-09-2025 11:03-0400 Body height 165.1 cm Donta Mitchell MD Work Phone: 1(045)416-285144 [place] [address] 03-19-2025 09:22-0400 Body height 165.1 cm Donta Mitchell MD Work Phone: [facility] 02-28-2025 13:10-0400 Body height 165.1 cm Donta Mitchell MD Work Phone: [facility] 02-28-2025 13:10-0400 Body mass index (BMI) [Ratio] 25.4 kg/m2 Donta Mitchell MD Work Phone: [facility] 02-28-2025 13:10-0400 Body temperature 96.8 [degF] Donta Mitchell MD Work Phone: 1(005)276-208844 [place] [address] 02-28-2025 13:10-0400 Body weight 69.39 kg Donta Mitchell MD Work Phone: 8(799)218-427744 [place] [address] 02-28-2025 13:10-0400 Diastolic blood pressure 80 mm[Hg] Donta Mitchell MD Work Phone: 5(319)376-690044 [place] [address] 02-28-2025 13:10-0400 Heart rate 74 /min Donta Mitchell MD Work Phone: 2(289)242-435044 [place] [address] 02-28-2025 13:10-0400 Respiratory rate 18 /min Donta Mitchell MD Work Phone: [facility] 02-28-2025 13:10-0400 SaO2% (BldA) [Mass fraction] 98 % Donta Mitchell MD Work Phone: 3(732)771-083544 [place] [address] 02-28-2025 13:10-0400 Systolic blood pressure 134 mm[Hg] Donta Mitchell MD Work Phone: [facility] 01-30-2025 13:36-0400 Body height 165.1 cm Donta Mitchell MD Work Phone: [facility] 01-30-2025 13:36-0400 Body mass index (BMI) [Ratio] 25.8 kg/m2 Donta Mitchell MD Work Phone: 9(173)661-334344 [place] [address] 01-30-2025 13:36-0400 Body weight 70.47 kg Donta Mitchell MD Work Phone: [facility] 01-30-2025 13:36-0400 Diastolic blood pressure 87 mm[Hg] Donta Mitchell MD Work Phone: [facility] 01-30-2025 13:36-0400 Systolic blood pressure 135 mm[Hg] Donta Mitchell MD Work Phone: [facility] 01-22-2024 09:55-0400 Body temperature 98.3 [degF] Dr. Mariana Mohan Work Phone: [facility] 01-22-2024 09:55-0400 Diastolic blood pressure 72 mm[Hg] Dr. Mariana Mohan Work Phone: [facility] 01-22-2024 09:55-0400 Heart rate 58 /min Dr. Mariana Mohan Work Phone: [facility] 01-22-2024 09:55-0400 Respiratory rate 16 /min Dr. Mariana Mohan Work Phone: [facility] 01-22-2024 09:55-0400 SaO2% (BldA) [Mass fraction] 96 % Dr. Mariana Mohan Work Phone: [facility] 01-22-2024 09:55-0400 Systolic blood pressure 115 mm[Hg] Dr. Mariana Mohan Work Phone: [facility] 01-22-2024 08:30-0400 Body height 165.[address] Mariana Mohan Work Phone: [facility] 01-22-2024 08:30-0400 Body mass index (BMI) [Ratio] 24.7 kg/m2 Dr. Mariana Mohan Work Phone: [facility] 01-22-2024 08:30-0400 Body weight 67.[address] Mariana Mohan Work Phone: [facility] 09-29-2023 16:10-0500 Body mass index (BMI) [Ratio] 25.1 kg/m2 Dr. Mariana Mohan Work Phone: [facility] 09-29-2023 16:10-0500 Body weight 68.[address] Mariana Mohan Work Phone: [facility] 09-29-2023 16:10-0500 Diastolic blood pressure 74 mm[Hg] Dr. Mariana Mohan Work Phone: [facility] 09-29-2023 16:10-0500 Systolic blood pressure 116 mm[Hg] Dr. Mariana Mohan Work Phone: [facility] 05-08-2023 12:15-0400 Body temperature 98.3 [degF] Dr. Mariana Mohan Work Phone: [facility] 05-08-2023 12:15-0400 Diastolic blood pressure 71 mm[Hg] Dr. Mariana Mohan Work Phone: [facility] 05-08-2023 12:15-0400 Heart rate 53 /min Dr. Mariana Mohan Work Phone: [facility] 05-08-2023 12:15-0400 Respiratory rate 18 /min Dr. Mariana Mohan Work Phone: [facility] 05-08-2023 12:15-0400 SaO2% (BldA) [Mass fraction] 100 % Dr. Mariana Mohan Work Phone: [facility] 05-08-2023 12:15-0400 Systolic blood pressure 104 mm[Hg] Dr. Mariana Mohan Work Phone: [facility] 05-08-2023 10:43-0400 Body height 165.[address] Mariana Mohan Work Phone: [facility] 05-08-2023 10:43-0400 Body mass index (BMI) [Ratio] 25 kg/m2 Dr. Mariana Mohan Work Phone: [facility] 05-08-2023 10:43-0400 Body weight 68.[address] Mariana Mohan Work Phone: [facility] 04-26-2023 07:31-0400 Body height 165.[address] Mariana Mohan Work Phone: [facility] 04-26-2023 07:31-0400 Body mass index (BMI) [Ratio] 25.1 kg/m2 Dr. Mariana Mohan Work Phone: [facility] 04-26-2023 07:31-0400 Body temperature 96.7 [degF] Dr. Mariana Mohan Work Phone: [facility] 04-26-2023 07:31-0400 Body weight 68.[address] Mariana Mohan Work Phone: [facility] 04-26-2023 07:31-0400 Diastolic blood pressure 84 mm[Hg] Dr. Mariana Mohan Work Phone: [facility] 04-26-2023 07:31-0400 Heart rate 45 /min Dr. Mariana Mohan Work Phone: [facility] 04-26-2023 07:31-0400 Respiratory rate 18 /min Dr. Mariana Mohan Work Phone: [facility] 04-26-2023 07:31-0400 SaO2% (BldA) [Mass fraction] 99 % Dr. Mariana Mohan Work Phone: [facility] 04-26-2023 07:31-0400 Systolic blood pressure 124 mm[Hg] Dr. Mariana Mohan Work Phone: [facility] 04-19-2023 15:06-0400 Body mass index (BMI) [Ratio] 25.1 kg/m2 Dr. Mariana Mohan Work Phone: [facility] 04-19-2023 15:06-0400 Body temperature 97.4 [degF] Dr. Mariana Mohan Work Phone: [facility] 04-19-2023 15:06-0400 Body weight 68.[address] Mariana Mohan Work Phone: [facility] 04-19-2023 15:06-0400 Diastolic blood pressure 73 mm[Hg] Dr. Mariana Mohan Work Phone: [facility] 04-19-2023 15:06-0400 Heart rate 46 /min Dr. Mariana Mohan Work Phone: [facility] 04-19-2023 15:06-0400 Respiratory rate 16 /min Dr. Mariana Mohan Work Phone: [facility] 04-19-2023 15:06-0400 SaO2% (BldA) [Mass fraction] 97 % Dr. Mariana Mohan Work Phone: [facility] 04-19-2023 15:06-0400 Systolic blood pressure 127 mm[Hg] Dr. Mariana Mohan Work Phone: [facility] 10-31-2022 11:21-0500 Diastolic blood pressure 56 mm[Hg] Dr. Mariana Mohan Work Phone: [facility] 10-31-2022 11:21-0500 Systolic blood pressure 117 mm[Hg] Dr. Mariana Mohan Work Phone: [facility] 10-31-2022 10:50-0500 Body temperature 98 [degF] Dr. Mariana Mohan Work Phone: [facility] 10-31-2022 10:50-0500 Heart rate 57 /min Dr. Mariana Mohan Work Phone: [facility] 10-31-2022 10:50-0500 Respiratory rate 16 /min Dr. Mariana Mohan Work Phone: [facility] 10-31-2022 10:50-0500 SaO2% (BldA) [Mass fraction] 97 % Dr. Mariana Mohan Work Phone: [facility] 10-31-2022 09:15-0500 Body height 165.[address] Mariana Mohan Work Phone: [facility] 10-31-2022 09:15-0500 Body mass index (BMI) [Ratio] 23.4 kg/m2 Dr. Mariana Mohan Work Phone: [facility] 10-31-2022 09:15-0500 Body weight [address] Mariana Mohan Work Phone: [facility] 10-28-2022 13:09-0500 Body mass index (BMI) [Ratio] 23.3 kg/m2 Dr. Mariana Mohan Work Phone: [facility] 10-28-2022 13:09-0500 Body temperature 98.2 [degF] Dr. Mariana Mohan Work Phone: [facility] 10-28-2022 13:09-0500 Body weight 63.[address] Mariana Mohan Work Phone: [facility] 10-28-2022 13:09-0500 Diastolic blood pressure 62 mm[Hg] Dr. Mariana Mohan Work Phone: [facility] 10-28-2022 13:09-0500 Heart rate 56 /min Dr. Mariana Mohan Work Phone: [facility] 10-28-2022 13:09-0500 Respiratory rate 16 /min Dr. Mariana Mohan Work Phone: [facility] 10-28-2022 13:09-0500 SaO2% (BldA) [Mass fraction] 99 % Dr. Mariana Mohan Work Phone: [facility] 10-28-2022 13:09-0500 Systolic blood pressure 124 mm[Hg] Dr. Mariana Mohan Work Phone: [facility] 08-31-2022 16:44-0500 Body temperature 97.4 [degF] Dr. Saulo Mckay Work Phone: [facility] 08-31-2022 16:44-0500 Body weight 66.[address] Saulo Mckay Work Phone: [facility] 08-31-2022 16:44-0500 Diastolic blood pressure 82 mm[Hg] Dr. Saulo Mckay Work Phone: [facility] 08-31-2022 16:44-0500 Heart rate 60 /min Dr. Saulo Mckay Work Phone: [facility] 08-31-2022 16:44-0500 Respiratory rate 18 /min Dr. Saulo Mckay Work Phone: [facility] 08-31-2022 16:44-0500 SaO2% (BldA) [Mass fraction] 98 % Dr. Saulo Mckay Work Phone: [facility] 08-31-2022 16:44-0500 Systolic blood pressure 108 mm[Hg] Dr. Saulo Mckay Work Phone: [facility] 08-18-2022 12:25-0500 Body height 165.[address] Saulo Mckay Work Phone: [facility] Work Phone: 08-18-2022 12:25-0500 Body mass index (BMI) [Ratio] 23.3 kg/m2 Dr. Saulo Mckay Work Phone: [facility] 08-18-2022 12:25-0500 Body weight 63.[address] Saulo Mckay Work Phone: [facility] 06-08-2022 13:24-0400 Body mass index (BMI) [Ratio] 24.1 kg/m2 Dr. Saulo Mckay Work Phone: [facility] Work Phone: 06-08-2022 13:24-0400 Body temperature 97.6 [degF] Dr. Saulo Mckay Work Phone: [facility] Work Phone: 06-08-2022 13:24-0400 Body weight 65.[address] Saulo Mckay Work Phone: [facility] Work Phone: 06-08-2022 13:24-0400 Diastolic blood pressure 70 mm[Hg] Dr. Saulo Mckay Work Phone: [facility] Work Phone: 06-08-2022 13:24-0400 Heart rate 55 /min Dr. Saulo Mckay Work Phone: [facility] Work Phone: 06-08-2022 13:24-0400 Respiratory rate 18 /min Dr. Saulo Mckay Work Phone: [facility] Work Phone: 06-08-2022 13:24-0400 SaO2% (BldA) [Mass fraction] 95 % Dr. Saulo Mckay Work Phone: [facility] Work Phone: 06-08-2022 13:24-0400 Systolic blood pressure 122 mm[Hg] Dr. Saulo Mckay Work Phone: [facility] Work Phone: 03-01-2022 11:15-0400 Body height 165.[address] Saulo Mckay Work Phone: [facility] Work Phone: 03-01-2022 11:15-0400 Body mass index (BMI) [Ratio] 23.3 kg/m2 Dr. Saulo Mckay Work Phone: [facility] Work Phone: 03-01-2022 11:15-0400 Body weight 63.[address] Saulo Mckay Work Phone: [facility] Work Phone: 03-01-2022 11:15-0400 Diastolic blood pressure 66 mm[Hg] Dr. Saulo Mckay Work Phone: [facility] Work Phone: 03-01-2022 11:15-0400 Systolic blood pressure 100 mm[Hg] Dr. Saulo Mckay Work Phone: [facility] Work Phone: Encounters Encounter Date Encounter Type Care Provider Facility Start: 06-23-2025 End: 06-23-2025 ambulatory MANDA [facility] Start: 06-16-2025 End: 06-16-2025 Orders Only Rashi Dominique PA-C Work Phone: [facility] Start: 05-30-2025 End: 05-30-[address] 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 Mich Rios MD -[facility] Start: 04-09-2025 End: 04-09-2025 ambulatory Donta Mitchell MD Work Phone: -[facility] Start: 04-09-2025 End: 04-09-2025 ambulatory Monserrat Zaman Facility:[facility] Start: 04-07-2025 End: 04-07-2025 Orders Only Rashi Dominique PA-C Work Phone: [facility] Comment on above: Left foot pain (Prim lópez Dx) Start: 03-19-2025 End: 03-19-[address] Jh Hernandez MD -[facility] Work Phone: Start: 03-19-2025 End: 03-19-2025 ambulatory Donta Mitchell MD Work Phone: -[facility] Start: 03-19-2025 End: 03-19-[address] Mich Rios MD -[facility] Start: 03-19-2025 End: 03-19-2025 ambulatory Donta Mitchell MD Work Phone: -[facility] Start: 02-28-2025 End: 02-28-2025 Patient encounter procedure Chucho WEAVER -[facility] Work Phone: Start: 02-28-2025 End: 02-28-2025 ambulatory Donta Mitchell MD Work Phone: [facility] Work Phone: Start: 01-30-2025 End: 01-30-2025 Patient encounter status Kaitlin Coughlin [facility] Start: 01-30-2025 End: 01-30-2025 ambulatory Donta Mitchell MD Work Phone: [facility] Work Phone: Start: 01-30-2025 End: 01-30-2025 Patient encounter procedure Kaitlin Coughlin CNM -[facility] Work Phone: Start: 01-30-2025 End: 01-30-2025 ambulatory Donta Mitchell Facility:[facility] Start: 01-17-2025 End: 01-17-[address] Jeancarlos Lamb MD -[facility] Work Phone: Start: 01-17-2025 End: 01-17-2025 ambulatory Jeancarlos Lamb Facility:[facility] Start: 12-17-2024 End: 12-17-[address] Lisa Cordero DC -[facility] Work Phone: Start: 12-17-2024 End: 12-17-2024 ambulatory Lisa Cordero Facility:[facility] Start: 10-31-2024 End: 10-31-2024 Patient encounter procedure Sowmya WEAVER -[facility] Work Phone: Start: 10-31-2024 End: 10-31-2024 ambulatory Sowmya Mchugh Facility:[facility] Start: 10-02-2024 End: 10-02-[address] Jeancarlos Lamb MD -[facility] Work Phone: Start: 10-02-2024 End: 10-02-2024 ambulatory Jeancarlos Lamb Facility:[facility] Start: 09-19-2024 End: 09-19-2024 ambulatory [facility] Facility:[facility] Start: 09-10-2024 End: 09-10-2024 ambulatory [facility] Facility:[facility] Start: 08-23-2024 Encounter for other preprocedural examination Jh Hernandez [facility] Start: 08-13-2024 End: 08-13-2024 ambulatory Jh Hernandez Facility:[facility] Start: 07-31-2024 ambulatory Jh Hernandez Facility:[facility] Start: 07-31-2024 End: 08-01-2024 Evaluation and management of inpatient Chalon Paula Facility:[facility] Start: 07-31-2024 ambulatory Chalon Paula Facility:[facility] Start: 07-25-2024 End: 07-25-2024 ambulatory Chalon Paula Facility:[facility] Start: 07-18-2024 End: 07-18-2024 ambulatory Chalon Paula Facility:[facility] Start: 01-22-2024 End: 01-22-2024 Admission to same day surgery center Dr. Mariana Mohan Work Phone: [facility] Start: 01-22-2024 End: 01-22-[address] Mariana Mohan Work Phone: [facility] Work Phone: Start: 11-22-2023 End: 11-22-[address] Mariana Mohan Work Phone: [facility] Work Phone: Start: 11-16-2023 End: 11-16-[address] Mariana Mohan Work Phone: [facility] Work Phone: Start: 10-05-2023 End: 10-05-[address] Mariana Mohan Work Phone: [facility] Work Phone: Start: 09-29-[address] Cayetano Mohan Work Phone: [facility] Start: 09-29-2023 End: 09-29-[address] Mariana Mohan Work Phone: [facility] Work Phone: Start: 05-08-2023 End: 05-08-2023 Admission to same day surgery center Dr. Mariana Mohan Work Phone: [facility] Start: 05-08-2023 End: 05-08-[address] Mariana Mohan Work Phone: [facility] Work Phone: Start: 04-26-2023 End: 04-26-[address] Mariana Mohan Work Phone: [facility] Work Phone: Start: 04-26-2023 End: 04-26-[address] Mariana Mohan Work Phone: [facility] Internal Medicine Work Phone: Start: 04-19-2023 End: 04-19-[address] Mariana Mohan Work Phone: [facility] Plastic [facility] Work Phone: Start: 03-15-2023 End: 03-15-[address] Mariana Mohan Work Phone: [facility] Work Phone: Start: 03-10-2023 End: 03-10-[address] Mariana Mohan Work Phone: [facility] Work Phone: Start: 03-10-2023 End: 03-10-[address] Mariana Mohan Work Phone: [facility] Start: 02-22-2023 End: 02-22-[address] Mariana Mohan Work Phone: [facility] Start: 02-06-2023 Non-patient / Non-visit Dr. Blanco Work Phone: [facility] Start: 02-01-2023 End: 02-01-[address] Mariana Mohan Work Phone: [facility] Start: 01-30-2023 Non-patient / Non-visit Dr. Blanco Work Phone: [facility] Start: 01-30-2023 End: 01-30-[address] Mariana Mohan Work Phone: [facility] Start: 01-27-2023 End: 01-27-[address] Mariana Mohan Work Phone: [facility] [place] bottom buffer Off Start: 01-16-2023 End: 01-16-[address] Mariana Mohan Work Phone: [facility] Start: 01-03-2023 End: 01-03-[address] Mariana Mohan Work Phone: [facility] Start: 11-14-2022 End: 11-14-[address] Mariana Mohan Work Phone: [facility] Start: 11-11-2022 End: 11-11-[address] Mariana Mohan Work Phone: [facility] Work Phone: Start: 11-11-2022 End: 11-11-[address] Mariana Mohan Work Phone: [facility] Start: 10-31-2022 Non-patient / Non-visit Dr. Blanco Work Phone: [facility] Start: 10-31-2022 End: 10-31-2022 Admission to same day surgery center Dr. Mariana Mohan Work Phone: [facility]-Endoscopy Start: 10-31-2022 End: 10-31-[address] Mariana Mohan Work Phone: [facility] Work Phone: Start: 10-28-2022 End: 10-28-[address] Mariana Mohan Work Phone: [facility] Internal Medicine Start: 10-20-2022 End: 10-20-[address] Mariana Mohan Work Phone: [facility] Start: 09-05-2022 End: 09-05-[address] Saulo Mckay Work Phone: [facility] Start: 09-01-2022 End: 09-01-[address] Saulo Mckay Work Phone: [facility] Work Phone: Start: 09-01-2022 End: 09-01-[address] Saulo Mckay Work Phone: [facility] [place] Start: 08-31-2022 End: 08-31-[address] Saulo Mckay Work Phone: [facility] Medicine Start: 08-18-2022 Non-patient / Non-visit Dr. Imani Mckay Work Phone: [facility] Start: 07-20-2022 End: 07-20-[address] Saulo Mckay Work Phone: [facility] Start: 06-08-2022 End: 06-08-[address] Saulo Mckay Work Phone: [facility] Start: 05-26-2022 Non-patient / Non-visit Dr. Imani Mckay Work Phone: [facility] Start: 03-18-2022 End: 03-18-[address] Saulo Mckay Work Phone: [facility] Start: 03-02-2022 End: 03-02-[address] Saulo Mckay Work Phone: [facility] Start: 03-01-2022 End: 03-01-[address] Saulo Mckay Work Phone: [facility] Start: 02-28-2022 End: 02-28-[address] Saulo Mckay Work Phone: [facility] Start: 12-24-[address] Saulo Mckay Work Phone: [facility] Start: 12-24-[address] Usman Mckay Work Phone: [facility] Start: 09-17-2021 End: 09-21-2021 Outreach Lab FERNIE CHONG MD [facility] Start: 03-14-2018 Ambulatory H [facility] Start: 10-17-2017 End: 10-18-2017 Ambulatory Nodr No Doctor Assigned Facility:[facility] Procedures Date Procedure Procedure Detail Performing Clinician [...] for Adults (1 - 1-dose 75+ series) [facility] Start: 01-30-2026 Screening for malignant neoplasm of breast Mammogram [facility] Start: 07-23-2025 End: 07-23-2025 Patient encounter procedure 07/23/2025 10:30 AM EST Office Visit [facility] [address] [facility] [address] [place] [id number] Rashi Dominique PA-C [address] [facility] [address] [place], [place] [id number] [facility] [place] Start: 07-08-2025 End: 07-08-2025 Admission to same day surgery center 07/08/2025 7:30 AM EDT - 07/08/2025 9:00 AM EDT Surgery [facility] [place] [place] [address] [place] [address] Matias Goldberg MD [address] [facility] [address] [place], [place] [id number] LEFT FIRST METATARSOPHALANGEAL FUSION [67296 (CPT )] [facility] Comment on [...] Encounter [facility] [place] [address] [place] [address] Matias Goldberg MD [address] [facility] [address] [place] [id number] [facility] Start: 06-23-2025 End: 06-23-2025 Admission to establishment 06/23/2025 9:00 AM EDT Pre-Admission Testing [facility] Pre-Admit Testing [address] [place] [address] 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, PRINT WASHER - KETTLE SKIMMER [address] [place] [address] [facility] Pre-Admit Testing Start: 05-19-2025 COVID-19 Vaccine ( season) COVID-19 Vaccine ( season) [facility] Start: 05-19-2025 Influenza vaccination Influenza Vaccine (#1) [facility] Start: 04-30-2025 End: 04-07-2026 XR Foot - left 3 Views XR foot 3+ views left Imaging Routine Left foot pain Expected: 04/30/2025, Expires: 04/07/2026 [facility] Work Phone: Comment on above: Expected: 04/30/2025, Expires: Start: 04-30-2025 End: 04-30-2025 Patient encounter procedure 04/30/2025 8:00 AM EDT Office Visit [facility] Orthopedics [facility] Medicine - [facility] [address] [facility] [address] [place] [address] Matias Goldberg MD [address] [facility] [address] [place], [place] [id number] [facility] Start: 04-09-2025 X-ray of foot, three or more views Foot min 3 Views [facility] Start: 04-09-2025 XR Foot GE 3 Views [facility] Start: 03-19-2025 X-ray of lumbosacral spine L/S Spine Min 4 Views [facility] Start: 03-19-2025 XR Spine Lumbar and Sacrum GE 4 Views [facility] Start: 05-19-2024 COVID-19 Vaccine ( season) COVID-19 Vaccine ( season) [facility] Start: 01-22-2024 Injection of spinal epidural space [facility] Start: 01-22-2024 X-ray of lumbar spine, two or three views Lumbar Spine 2 or 3 Views [facility] Start: 01-22-2024 Patient discharge [facility] Start: 05-08-2023 Injection using fluoroscopic guidance [facility] Start: 05-08-2023 Patient discharge [facility] Start: 04-26-2023 Evaluation of diagnostic study results [facility] Start: 03-15-2023 Patient referral [facility] Work Phone: Start: 02-06-2023 Patient referral [facility] Work Phone: Start: 10-31-2022 Colonoscopy w/biopsy single/multiple COLONOSCOPY AND BIOPSY [facility] Start: 10-31-2022 Patient discharge [facility] Start: 2022 Pneumococcal Vaccine: 50+ Years (1 of 1 - PCV) Pneumococcal Vaccine: 50+ Years (1 of 1 - PCV) [facility] Start: 2022 Zoster Vaccines (1 of 2) Zoster Vaccines (1 of 2) [facility] Start: 06-08-2022 Patient referral [facility] Work Phone: Start: 09-18-2017 DTaP/Tdap/Td Vaccines (2 - Tdap) DTaP/Tdap/Td Vaccines (2 - Tdap) [facility] Start: 2012 Screening for malignant neoplasm of breast Mammogram [facility] Start: 2002 Screening for malignant neoplasm of cervix [facility] Start: 1993 Screening for malignant neoplasm of cervix Pap Smear [facility] Start: 1991 DTaP/Tdap/Td Vaccines (1 - Tdap) DTaP/Tdap/Td Vaccines (1 - Tdap) [facility] Start: 1991 Hepatitis B Vaccines (1 of 3 - 19+ 3-dose series) Hepatitis B Vaccines (1 of 3 - 19+ 3-dose series) [facility] Start: 1990 Hepatitis C screening Hepatitis C Screening [facility] Start: 1984 Depression Monitoring Depression Monitoring [facility] Start: 1984 Depression Screening Depression Screening [facility] Start: 1973 MMR Vaccines (1 of 1 - Standard series) MMR Vaccines (1 of 1 - Standard series) [facility] Start: 1972 HIV screening HIV Screening [facility] Start: 1972 Screening for malignant neoplasm of colon [facility] Colonoscopy [facility] Work Phone: Colonoscopy [facility] MG Breast - bilatera l Screening [facility] MR Lower extremity [facility] Patient referral [facility] Work Phone: Immunizations Immunization Date Immunization Notes Care Provider [facility] 07-12-2008 influenza, injectabl e, quadrivalent, preservative free Dr. Mariana Mohan Work Phone: [facility] 07-12-2008 influenza, seasonal, injectable Dr. Saulo Mckay Work Phone: [facility] 07-12-2008 influenza virus vaccine, unspecified formulation Rashi Dominique PA-C Work Phone: [facility] 09-18-2007 diphtheria, tetanus toxoids and acellular pertussis vaccine Dr. Saulo Mckay Work Phone: [facility] 07-17-2007 influenza, injectabl e, quadrivalent, preservative free Dr. Mariana Mohan Work Phone: [facility] 07-17-2007 influenza, seasonal, injectable Dr. Saulo Mckay Work Phone: [facility] Payers Date Payer Category Payer Self-pay [id number] 2023 Commercial Managed C [facility] - HMO [employer] [id number] 2023 Unknown [id number] 2017 Unknown 2013 Unknown [id number] Private Health Insurance [id number] Unknown [id number] Unknown [id number] 2.16.840.1.300403.3.579.2. 462 Unknown [id number] 2.16.840.1.777869.3.579.2. 462 Unknown [id number] 2.16.840.1.662518.3.579.2. 462 Unknown [id number] 2.16840.1.586694.3.579.2. 462 Unknown [id number] 2.840.1.173261.3.579.2. 462 Unknown [id number] 2..840.1.244573.3.579.2. 462 Unknown [id number] 2.840.1.696605.3.579.2. 462 Unknown [id number] 2.16840.1.883095.3.579.2. 462 Unknown [id number] 2.840.1.746816.3.579.2. 462 Unknown [id number] 2.16840.1.727965.3.579.2. 462 Unknown [id number] 2.16840.1.802786.3.579.2. 462 Unknown [id number] 2.16.840.1.164666.3.579.2. 462 Unknown [id number] 2.16840.1.282852.3.579.2. 462 Unknown [id number] 2.16.840.1.423214.3.579.2. 462 Unknown [id number] 2.16.840.1.211774.3.579.2. 462 Unknown [id number] 2.16.840.1.337938.3.579.2. 462 Unknown [id number] 2.16.840.1.722450.3.579.2. 462 Unknown [id number] 2.16.840.1.616039.3.579.2. 462 Unknown [id number] 2.16.840.1.891953.3.579.2. 462 Unknown [id number] 2.16.840.1.182184.3.579.2. 462 Unknown [id number] 2.16.840.1.937123.3.579.2. 462 Unknown [id number] 2.16.840.1.188613.3.579.2. 462 Unknown [id number] 2.16.840.1.733394.3.579.2. 462 Unknown [id number] 2.16.840.1.457102.3.579.2. 462 Unknown [id number] 2.16.840.1.767239.3.579.2. 462 Unknown [id number] 2.16.840.1.750996.3.579.2. 462 Unknown [id number] 2.16.840.1.980459.3.579.2. 462 Social History Date Type Detail Facility Start: 06-13-2019 End: 04-09-2025 Ex-smoker (finding) [facility] Start: 1970 Sex Assigned At Female A [facility] Start: 03-01-2022 End: 11-22-2023 Tobacco smoking status KYIS Unknown if ever smoked [facility] Start: 1970 Sex assigned at Not on file [facility] Start: 04-07-2025 Sex Female (finding) [facility] [employer] Gender identity Not on file [facility] Medical Equipment Procedure Code Equipment Code Equipment [...] position transitioning to prone Gelatin haemostatic agent [id number] FDA Start: 07-31-2024 Fusion, spine, lumbar, 360 [...] function Level Of Cons ciousness Follows Commands;Drowsy [facility] Work Phone: 01-22-2024 Cognitive function Voice/Name [facility] Work Phone: 05-08-2023 Cognitive function Voice/Name [facility] Work Phone: 05-08-2023 Cognitive function Patient Orien tation Person;Place;Time [facility] Work Phone: 10-31-2022 Cognitive function Level Of Cons ciousness Awake;Appropriate [facility] Work Phone: 10-31-2022 Cognitive function Patient Orien tation Person;Place;Time [facility] Work Phone: Clinical Notes 11-03-2020 to 06-16-2025 Rashi Dominique PA-C - 06/16/2025 2:23 PM Etta Goldberg MD - 04/16/2025 1:45 PM Etta Goldberg MD - 04/16/2025 1:45 PM EDT Note Date & Type Note Facility 06-16-2025 History of Present illness Narrative ERROR - VOID documented in this encounter [facility] 05-06-2025 Note Procedure: left 1st MTP fusion (42334 TA) and Excision neuroma second webspace (84869) CPT codes: see above Diagnosis: Hallux rigidus of left foot [M20.22] Location for Surgery: [facility] Schedule for: 1.5 hours Admission Type: Outpatient Medical Clearance: No Antibiotic: Ancef 2g IV Anesthesia: Popliteal block (single shot) + General Position and Table type: Supine on Regular OR table Radiology: Mini C-arm Implants: [employer]/Orthohelix 1st MTP joint fusion plate Equipment: StyleSeat tray and TPS [facility] 04-16-2025 History of Present illness Narrative Images from the original note were not included. [facility] - [address] [place] [id number] Dept: [phone] Dept Faiza Qasim 1970 [id number] 04/16/2025 HISTORY OF PRESENT ILLNESS: Faiza is [...] these to get around. I talked to Faiza about the expected postoperative pain level following [...] to normal structures that can lead to custodial problems of pain or dysfunction, wound healing complications, the possibility of nonunion or malunion for any bone procedures if they are required and late or chronic pain were also discussed. I explained to Faiza that surgery can potentially make their condition worse or can lead to other unexpected problems that can have client evaluator effects on their function or comfort. In [...] scheduled. Electronically signed by Matias Goldberg MD [facility] Department of Orthopedic surgery 04/16/2025 4:56 PM [...] SCHEDULING SHEET Procedure: left 1st MTP fusion (96034 TA) and Excision neuroma second webspace (75172) CPT codes: see above Diagnosis: Hallux rigidus of left foot [M20.22] Location for Surgery: [facility] Schedule for: 1.5 hours Admission Type: Outpatient Medical Clearance: No Antibiotic: Ancef 2g IV Anesthesia: Popliteal block (single shot) + General Position and Table type: Supine on Regular OR table Radiology: Mini C-arm Implants: [employer]/Orthohelix 1st MTP joint fusion plate Equipment: [employer] specials tray and TPS documented in this encounter [facility] 04-16-2025 Note SURGERY SCHEDULING S HEET Procedure: left 1st MTP fusion (62510 TA) and Excision neuroma second webspace (07453) CPT codes: see above Diagnosis: Hallux rigidus of left foot [M20.22] Location for Surgery: [facility] Schedule for: 1.5 hours Admission Type: Outpatient Medical Clearance: No Antibiotic: Ancef 2g IV Anesthesia: Popliteal block (single shot) + General Position and Table type: Supine on Regular OR table Radiology: Mini C-arm Implants: [employer]/Orthohelix 1st MTP joint fusion plate Equipment: [employer] specials tray and TPS [facility] 01-30-2025 Evaluation note Diagnosis Onset Date Resolution [...] of left foot acute April 09 1:12pm [facility] [facility] Work Phone: 1(759) 324-606705-02-2025 Evaluation note* Diagnosis Onset Date Resolution Status [...] left foot acute April 09, 2025 1:12pm [facility] Work Phone: 1(358) 213-744404-01-2025 Evaluation note* Diagnosis Onset Date Resolution Status [...] x disease) acute February 28, 2025 12:56pm [facility] Work Phone: 1(755) 937-370404-01-2025 Evaluation note* Diagnosis Onset Date Resolution Status [...] fusion acu te March 19, 2025 2:36pm [place] [facility] Work Phone: 1(416) 641-217504-01-2025 Evaluation note* Diagnosis Onset Date Resolution Status [...] left foot acute April 09, 2025 1:12pm [facility] Work Phone: 1(534) 331-963502-13-2025 Evaluation note* Diagnosis Onset Date Resolution Status [...] routine gynecological examination acute January 302024 1:30pm [facility] Work Phone: 1(407) 945-130101-15-2025 Evaluation note* Diagnosis Onset Date Resolution Status [...] routine gynecological examination acute January 302024 1:30pm [facility] Work Phone: 1(509) 812-536911-13-2024 [facility] Medical Records Department [address] [place] [address] History Physical Exam 07/31/24723 MR#: [id number] Acct: [id number] Name: QASIMCASEYNitesh Rubi Rep #: [id number] : 1970 53 From: Jh Hernandez MD PCP: Dr. Donta Mitchell MD Status:ADM IN Location: [place] [address] History and Physical Date of Admission: 07/31/24 MR#: [id number] Acct: [id number] Name: FAIZA TRIPP Rep #: [id number] : 1970 Provider: Dr. Jh Hernandez MD Age/Sex: 53/F Location: [facility] Status: Signed Intake Vital Signs 01/24/2411:22 Height [...] none current occupational status: employed current occupation: [employer] Smoking Status: Former smoker Electronic Cigarette [...] pain. She notes th (more content not included)...[facility]05-06-2024 Procedure [facility]08-21-2023 Procedure [facility]02-13-2023 History and physical note Author Pj Friend [facility] October 31, 2022 8:53am Note Date/Time October 31, 2022 8:53am [facility] Medical Records Department [address] [place] [address] History & Physical Exam 10/31/22 0852 MR#: [id number] Acct: [id number] Name: FAIZA TRIPP Rep #:[id number] : 1970 52 From: Pj Ball DO PCP: Dr. Mariana Mohan MD Status:[facility] Location: [place] [address] HPI - General General Date of Admission: [...] negative except those pertinent positive mentioned HPI [facility] Medical History Alcohol use Anxiety Arthritis Back [...] none current occupational status: employed current occupation: [employer] Smoking Status: Never smoker Electronic Cigarette [...] Mariana Mohan MD; Pj Ball DO~ Signed [facility] Work Phone: 1(326) 671-671202-13-2023 Procedure [facility] 10-31-2022 Procedure [facility]02-16-2021 NoteHNO ID: [id number] Author: Matias (Cari Stratton Service: ? Author [...] vagina. Genitourinary Comments: Vaginal swab obtained with sales trader at bedside. Musculoskeletal: Cervical back: Normal range [...] of care. This note was generated using [employer] software. 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 lbp Amb [...] Mild depression Chronic pain in left foot [facility] Work Phone: Chief complaint+Reason for visit [...] for screening for malignant neoplasm of colon [facility] Work Phone: Chief complaint+Reason for visit [...] of thoracic region Herniated lumbar intervertebral disc [facility] Work Phone: Evaluation + Plan note No data available for this section [facility] Evaluation note* Diagnosis Onset Date Resolution Status Back pain acute Herniated lumbar intervertebral disc acute Segmental and somatic dysfunction of lumbar region acute Segmental and somatic dysfunction of pelvic region acute [facility] Work Phone: Evaluation note* Diagnosis Onset [...] Chronic pain in left foot no neactive [facility] Work Phone: Evaluation note* Diagnosis Onset [...] screening for malignant neoplasm of colon acute [facility] Work Phone: Evaluation note* Diagnosis Onset [...] region acute Herniated lumbar intervertebral disc chronic [facility] Work Phone: Evaluation note* Diagnosis Onset [...] at L5-S1 level acute Degenerative spondylolisthesis acute [facility] Work Phone: Evaluation note* Diagnosis Onset [...] Chronic pain in left foot no neactive [facility] Work Phone: Evaluation note* Diagnosis Onset [...] Chronic pain in left foot no neactive [facility] Work Phone: Evaluation note* Diagnosis Onset [...] lumbar intervertebral disc chronic Back pain noneactive [facility] Work Phone: Evaluation note* Diagnosis Left foot pain- Primary Pain in soft tissues of limb [facility] Hallux rigidus of left foot- Primary 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 documented in this encounter [facility] Discharge instructions No data available for this section [facility] Reason for referral (narrative)No reason for referral [facility] Work [facility]: Summary Purpose Family History [...] No January 10, 2022 3:14pm Power of Head Tennis Professional No January 10 3:14pm Advance Directive Response Recorded Date/ Time Advance Directives No January 10 022 2:14pm Living Will No January 10, 2022 2:14pm Power of Head Tennis Professional No January 10 2:14pm Advance Directive Response Recorded Date/ Time Name of Medical Power of Head Tennis Professional SNAA HERNANDEZ October 25, 2022 10:41am Advance Directives No January 10 2 022 2:14pm Living Will No January 07, 2017 12:05pm Power of Head Tennis Professional No January 07 12:05pm Advance Directive Response Recorded Date/ Time Advance Directives No January 10, 2 022 3:14pm Living Will No January 07, 2017 1:05pm Power of Head Tennis Professional No January 07 1:05pm Advance Directive Response Recorded Date/ Time Advance Directives No March 28 8:57am Living Will Yes April 28 9:09am Power of Head Tennis Professional Yes April 28 023 9:09am Advance Directive Response Recorded Date/ Time Name of Medical Power of Head Tennis Professional SANA BLANC April 28, 2023 9:09am Advance Directives No March 28 8:57am Living Will Yes April 28 9:09am Power of Head Tennis Professional Yes April 28 9:09am Advance Directive Response Recorded Date/ Time Advance Directives No October 9:50am Living Will Yes November 15 9:50am Power of Head Tennis Professional Yes November 15, 2023 9:50am Advance Directive Response Recorded Date/ Time Advance Directives No January 16, 2025 9:21am Living Will Yes November 15 9:50am Do you have a Healthcare Power of Head Tennis Professional? Yes November 15, 2023 9:50am Advance Directive Response Recorded Date/ Time Advance Directives No March 19 9:22am Living Will Yes November 15 9:50am Do you have a Healthcare Power of Head Tennis Professional? Yes November 15, 2023 9:50am Advance Directive Response Recorded Date/ Time Advance Directives No April 09 11:03am Living Will Yes November 15 9:50am Do you have a Healthcare Power of Head Tennis Professional? 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 [employer] [facility]. provides no warranty or guarantee of the accuracy or completeness of information in this document.
[2025-07-03 12:15] LABS: Hematocrit 41.0 % (37-47); Hemoglobin 13.7 g/dL (12.0-15.0)
[2025-07-03 13:04] LABS: Cholesterol 190 mg/dL (<=200); Low Density Lipoprotein Calc. 109 mg/dL; Triglycerides 59 mg/dL; Very Low Density Lipoprotein 12 mg/dL (5-40); cholesterol:hdl ratio screen 2.74
[2025-07-03 13:05] LABS: Follicle Stimulating Hormone 144.0 mIU/mL
[2025-07-04 10:35] LABS: AST(SGOT) 22 U/L (<=31); Alanine Aminotransfer ALT/SGPT 22 U/L (<=34); Albumin, Serum 4.2 g/dL (3.5-5.0); Alkaline Phosphatase 97 U/L (35-104); Anion Gap 11 (5-15); BUN 20 mg/dL (4-19); BUN/Creat Ratio 28.3 RATIO (10-20); Calcium,Total 9.0 mg/dL (7.6-11.0); Carbon Dioxide 24.8 mmol/L (21.0-32.0); Chloride 104 mmol/L (98-108); Globulin 2.8 g/dL (2.2-4.2); Glucose 82 mg/dL (70-99); Potassium 4.6 mmol/L (3.3-5.1)
[2025-07-08 10:08] LABS: PROLACTIN 10.6 ng/mL (3.6-25.2); Testosterone, % Free 1.98 % (0.50-2.80); Testosterone, Free 0.24 ng/dL (0.10-0.85)
== END | disposition home or self-care (01) ==
LOC: MTLAB 07:54
PROVIDERS: PCP Physician Assistant; Referring Provider Registered Nurse; Visit Provider Registered Nurse
DX: R53.83 Other fatigue (principal); M62.81 Muscle weakness (generalized); R63.5 Abnormal weight gain; R68.82 Decreased libido; R39.16 Straining to void; R35.0 Frequency of micturition
CPT/HCPCS: 36415; 80053; 80061; 82627; 82670; 83001; 83002; 84146; 84270; 84402; 84403; 84443; 85014; 85018; 82626